=== PATIENT | female | born 1970 | race Caucasian/White ===

== ENCOUNTER 2021-09-25 17:56 | Emergency (ER) | payer MEDICAID, SELFPAY ==
[2021-09-25 17:56] VITALS: BP 166/93; PULSE 65; RESP 16; TEMP 36.3; O2SAT 100; BMI 47.0
--- NOTE | 2021-09-25 18:53 | EX.ED.DYSGE1 ---
HPI History of Present Illness Chief Complaint: Nausea/Vomiting/Diarrhea Detail of Chief Complaint: Vomiting and diarrhea that started earlier today Informant: patient Narrative Narrative: Patient presents to the emergency department complaint of vomiting and diarrhea that started earlier today. Patient states that she has had continuous vomiting and diarrhea both. She denies any blood in her stool or vomitus. She denies fever. She denies sick contacts. She denies any significant abdominal pain. She denies urinary symptoms. Prior similar symptoms: No PFSH PFSH Medical History (Updated 09/25/21 @ 21:[address] Precious Hart, DO) Arthritis Fibromyalgia Lupus Home Medications ondansetron 4 mg PO Q8H PRN PRN #10 tab 09/25/21 [Rx Last Taken Unknown] Allergy/AdvReac Type Severity Reaction Status Date / Time Penicillins Allergy Hives Verified 09/25/21 17:59 Social History Smoking Status: Never smoker ROS ROS ED Constitutional Constitutional ED: Reports systems reviewed and no addt'l complaints, except as documented; Denies body ache(s), change in weight or chills Eyes Eyes: Denies acute decrease in peripheral vision, change in vision, double vision or loss of vision ENT ENT ED: Reports none; Denies ear pain, lip swelling, loss taste/smell, neck pain, otalgia or sore throat Cardiovascular Cardiovascular: Reports none; Denies abdominal pain, chest pain with activity, leg edema, lightheadedness, palpitations, rapid heart rate or syncope Respiratory/Chest Respiratory/Chest: Reports none; Denies change in mental status, dry cough, dyspnea, hemoptysis, shortness of breath at rest or shortness of breath with exertion Gastrointestinal Gastrointestinal: Reports none, diarrhea, nausea and vomiting; Denies abdominal pain, change in stool character, hematemesis, hematochezia, melena or rectal bleeding Genitourinary Genitourinary ED: Reports none; Denies abdominal discomfort, anuria, dysuria, genital pain or polyuria Musculoskeletal Musculoskeletal: Reports none; Denies arthralgias, back pain, difficulty walking, extremity pain, muscle weakness or myalgias Integumentary Reports none; Denies abscess or rash Neurologic Neurologic: Reports none; Denies abnormal gait, confusion, focal weakness, frequent falls, headache(s), loss of vision, numbness, paresthesias, radicular pain, vertigo or weakness Psychiatric Psychiatric: Reports systems reviewed and no addt'l complaints, except as documented and none; Denies behavioral changes, confusion, difficulty concentrating, hallucinations, suicidal ideation, tactile hallucinations or visual hallucinations Endocrine Endocrinology: Denies none, cold intolerance, excessive sweating, fatigue or heat intolerance Hematologic/Lymphatic Hematologic/Lymphatic: Reports none; Denies anemia, easy bleeding or easy bruising Allergic/Immunologic Allergic/Immunologic ED: Denies as per HPI, none, lip swelling, mouth swelling, throat swelling, tongue swelling or hives EXAM Physical Exam Const Vital Signs: 09/25/21 17:56 Temperature 97.4 F L Temperature Source Temporal Pulse Rate 65 Respiratory Rate 16 Blood Pressure 166/93 H Blood Pressure Mean 117 Pulse Ox 100 Oxygen Delivery Method Room Air Positive well nourished and well developed General Appearance ED: well developed and NAD HEENT Reports TM's clear and moist mucous membranes normocephalic and atraumatic; Negative for trauma or tenderness Tympanic Membrane ED: Yes TM's clear Eyes PERRL and EOMs intact bilaterally General Eye ED: Negative for pale conjunctiva or scleral icterus Neck no lymphadenopathy, supple and no JVD General: Negative for tenderness Chest Wall inspection of chest normal and palpation of chest normal Chest: Negative for tenderness Resp normal respiratory effort and clear to auscultation bilaterally Effort and Inspection: Negative for respiratory distress or pain with movement Auscultation: Negative for rhonchi, wheezes or diminished lung sounds Cardio regular rate, regular rhythm, S1 normal heart sound, S2 normal heart sound and no murmurs Peripheral Pulses: pulses 2+ throughout GI normal to inspection, nondistended, normoactive bowel sounds, soft to palpation, non-tender, non-distended and no masses Back/Spine no CVA tenderness and no thoracic nor lumbar tenderness Extremity normal to inspection General Extremety ED: Negative for edema General Extremity: Negative for edema Neuro oriented x3, CN's II-XII intact bilaterally, no sensory deficits noted and gait normal Sensorium / Orientation: awake, alert, oriented to person, oriented to place and oriented to time Motor Exam: strength 5/5 throughout and strength abnormal Psych mental status grossly normal Skin no rashes or lesions noted and no wounds MDM MDM MDM Narrative Medical decision making narrative: IV line established on arrival. Patient was given Zofran IV and a liter mostly of fluid bolus. Patient continued complaint of nausea and was given a second dose of Zofran 4 mg IV. Lab work-up was normal. Urinalysis unremarkable. After treatment patient was feeling improved. At this point I suspect a viral gastroenteritis. Patient will be given a prescription for Zofran and she will take Imodium as needed at home. Patient advised to return if severe abdominal pain persistent vomiting diarrhea dehydration, or condition worsen anyway. Lab Data Attestation: I reviewed the patient's lab results. Labs: Laboratory Results - last 24 hr 09/25/21 09/25/21 09/25/21 19:00 19:00 19:13 WBC 6.5 RBC 4.34 Hgb 13.4 Hct 41.0 MCV 94.5 MCH 30.9 MCHC 32.7 RDW Std Deviation 46.1 H RDW Coeff of Gris 13.2 Plt Count 210 MPV 10.0 Immature Gran % (Auto) 0.500 Neut % (Auto) 79.3 H Lymph % (Auto) 14.5 L [place] % (Auto) 4.7 Eos % (Auto) 0.2 Baso % (Auto) 0.8 Absolute Neuts (auto) 5.2 Absolute Lymphs (auto) 0.95 Nucleated RBC % 0 Sodium 142 Potassium 3.8 Chloride 110 H Carbon Dioxide 27.0 Anion Gap 5 BUN 13 Creatinine 0.90 Estim Creat Clear Calc 71.11 Est GFR (MDRD) Af Amer 84 Est GFR (MDRD) Non-Af 70 BUN/Creatinine Ratio 14.4 Glucose 123 H Calcium 9.4 Urine Color Yellow Urine Clarity Cloudy Urine pH 6.0 Ur Specific [place] 1.025 Urine Protein 30 H Urine Glucose (UA) Normal Urine Ketones 50 H Urine Occult Blood 10 H Urine Nitrite Negative Urine Bilirubin Negative Urine Urobilinogen 1 H Ur Leukocyte Esterase 25 H Urine RBC 0-5 SEEN Urine WBC 0-5 SEEN Ur Squamous Epith Cells 0-5 SEEN Urine Bacteria 0 SEEN Urine Mucus 0 SEEN Discharge Plan Triage Chief Complaint: Nausea/Vomiting/Diarrhea ED Provider: Precious Hart Dx/Rx/DC Orders Clinical Impression: Viral gastroenteritis Instructions: ED Gastroenteritis, Viral (Adult) Prescriptions: New ondansetron [ondansetron] 4 MG tablet 4 mg PO Q8H PRN PRN (Reason: Nausea) Qty: 10 RF: 0 Primary Care Provider: Care Physician,No Primary Referrals: Alexi Davies MD [STAFF PHYSICIAN] - 3-5 Days Care Physician,No Primary [Primary Care Provider] - Disposition Disposition: Home, Self Care
[2021-09-25] MEDS: Loperamide 2 MG Capsule 4 MG PO (19:02)
[2021-09-25] MEDS: Ondansetron 4 MG/2 ML Vial IV ×2 (19:02→20:15)
[2021-09-25] MEDS: 0.9% Normal Saline 1,000 ML 1000 ML IV (19:02)
[2021-09-25 19:12] LABS: Absolute Lymphocyte Count 0.95 X10^3/uL (0.83-4.51); Absolute Neutrophil Count 5.2 X10^3/uL (2.0-7.7); Basophil# 0.05 X10^3/uL; Basophil% 0.8 % (0-1); Eosinophil# 0.01 X10^3/uL; Eosinophils% 0.2 % (0-5); Hemoglobin 13.4 g/dL (12.0-15.0); Lymphocyte # 0.95 X10^3/ul (0.83-4.51); Lymphocyte % 14.5 % (19-41); Mean Corp Hgb Conc 32.7 g/dL (32-36); Mean Corpuscular Hgb 30.9 pg (27.0-32.0); Mean Corpuscular Volume 94.5 fL (81-99); Monocyte# 0.31 X10^3/uL; Monocyte% 4.7 % (0-10); NRBC Flagged by Analyzer 0 % (0-5); Neutrophil # 5.18 X10^3/uL (2.7-7.7); Neutrophil % 79.3 % (47-70); Platelet Count 210 K/mm3 (150-450); RBC Distribution Width CV 13.2 % (11.6-14.6); RBC Distribution Width SD 46.1 fl (35.1-43.9); Red Blood Count 4.34 M/mm3 (4.2-5.4); White Blood Count 6.5 K/mm3 (4.4-11.0)
[2021-09-25 19:19] LABS: Bacteria 0 SEEN /hpf (None Seen); Mucous, Urine 0 SEEN /hpf (<or=2+)
[2021-09-25 19:22] LABS: Color, Urine Yellow (Yellow); Glucose, Dipstick Normal (Normal); Ketone-Dipstick 50 mg/dl (Negative); Leukocyte Esterase-Dipstick 25 /ul (Negative); Nitrite-Dipstick Negative (Negative); Occult Blood-Urine 10 /ul (Negative); Protein-Dipstick 30 mg/dl (Negative); Specific Gravity, Urine 1.025 (1.002-1.030); Urine Bilirubin Dipstick Negative (Negative); Urine Clarity Cloudy (Clear); Urine Urobilinogen 1 mg/dl (Normal)
[2021-09-25 19:33] LABS: Squamous Epithelial Cells - UA 0-5 SEEN /hpf (5-10)
[2021-09-25 19:34] LABS: Anion Gap 5 (5-15); BUN 13 mg/dL (7-18); BUN/Creat Ratio 14.4 RATIO (10-20); Calcium,Total 9.4 mg/dL (8.5-10.1); Chloride 110 mmol/L (98-107); EST Glomerular Filtration Rate 70 mL/min (>60); Est Glom Filt Rate - Afr Amer 84 mL/min (>60); Estimated Creatinine Clearance 71.11 ml/min; Glucose 123 mg/dL (74-106); Potassium 3.8 mmol/L (3.5-5.1); Sodium Level 142 mmol/L (136-145)
[2021-09-25 19:34] LABS: Red Blood Cells-Urine 0-5 SEEN /hpf (0-5)
[2021-09-25 19:37] LABS: White Blood Cells 0-5 SEEN /hpf (0-5)
[2021-09-25 21:25] VITALS: RESP 17
== END 2021-09-25 21:26 | disposition home or self-care (01) ==
PROVIDERS: Emergency Provider Emergency Medicine; Visit Provider Emergency Medicine
DX: A08.4 Viral intestinal infection, unspecified (principal); M32.9 Systemic lupus erythematosus, unspecified; M79.7 Fibromyalgia
CPT/HCPCS: 80048; 81001; 85025; 96361; 96374; 96376; 99283; J7030; J2405

== ENCOUNTER 2025-04-10 07:02 | Emergency (ER) | payer MEDICARE, SELFPAY ==
[2025-04-10] VITALS (11 sets, daily range): BP systolic 130–137; BP diastolic 78–91; PULSE 84–99; RESP 15–18; TEMP 36.6; O2SAT 98–100; BMI 44.6
--- OUTSIDE RECORDS SUMMARY | 2025-04-10 07:19 | XMS RPT_ITS | CCD ---
Author Organization [facility] Care Team Providers Care Automotive Service Writer Name Role Phone TAMIR MCNEILL Unavailable Unavailable Dhruv Ramon MD, Judy Camarena Primary Care Provider [phone] Telma Brown MD Primary Care Provider Mekhi Shannon Primary Care Provider Mekhi Shannon Primary Care Provider Judy Dominguez Unavailable Unavailable O'DayPam Unavailable O'Norma, Dr. Pam Orozco Attending Unavail able Dr. Judy Dominguez Primary Care Unavail able PROVIDER, UNKNOWN Admitting Unavailable PROVIDER, UNKNOWN Attending Unavailable MEKHI SHANNON Referring Unavailable JUDY CRAIG Primary Care Unavailable Mekhi Shannon Primary Care Provider [phone] Mekhi Shannon Primary Care Provider Gasper Wilson MD Primary Care Provider Podlogar BROADCAST CHECKER.Christy HILLIARD Unavailable [place] BROADCAST CHECKER.Malu HILLIARD Unavailable Podlogar BROADCAST CHECKER.Christy HILLIARD Unavailable [place] BROADCAST CHECKER.Malu HILLIARD Unavailable [place] BROADCAST CHECKER.Malu HILLIARD Unavailable [place] BROADCAST CHECKER.Malu HILLIARD Unavailable GASPER WILSON Primary Care Unavailab le DANIELLALOGPRAMOD, CHRISTY Referring Unavailable EM BUSTAMANTE Attending Unavailable GASPER WILSON Primary Care Unavailab le EM BUSTAMANTE Referring Unavailable GASPER WILSON Primary Care Unavailab le GASPER WILSON Primary Care Unavailab le DINARY, BUTHAYNA Referring Unavailable PODLOGAR, CHRISTY Referring Unavailable GASPER WILSON Primary Care Unavailab le DINARY, BUTHAYNA Referring Unavailable GASPER WILSON Primary Care Unavailab le GASPER WILSON Primary Care Unavailab le GASPER WILSON Primary Care Unavailab le PODLOGAR, CHRISTY Attending Unavailable GASPER WILSON Primary Care Unavailab le KIRUPAHARAN, PRADHAB Attending Unavailable DAVID, JUDY Primary Care Unavailable DAVID, JUDY Primary Care Unavailable DAVIDJUDY FLORES Primary Care Unavailable MEKHI SHANNON MD Attending Unavailable MEKHI SHANNON MD Referring Unavailable Allergies Allergy Classification Reported Allergen(s) Allergy Type Date of Onset Reaction(s) Facility (20 sources) Penicillins; Translations: [PENICILLINS] Propensity to adverse reactions to drug (disorder) 8 Hives [facility] Rep[facility] (20 sources) Sulfonamides (Antibiotic); Translations: [SULFA (SULFONAMIDE ANTIBIOTICS)] Propensity to adverse reactions to drug (disorder) 8 Unknown [facility] Repository (1 source) Penicillin Drug Allergy Unknown [facility] Medications Current Medications Medication Drug Class(es) Dates Sig (Normalized) Sig (Original) acetaminophen 325 mg oral tablet (20 sources) Start: 05-25-2016 take 2 tablets by mouth every six hours as needed acetaminophen (TYLENOL) 325 mg tablet Take 2 tablets by mouth every 6 hours as needed. 0 05/25/2016 Active Comment on above: Take 2 tablets by mo [facility] every 6 hours as needed. [id number] 200 actuat albuterol 0.09 mg/actuat metered dose inhaler (20 sources) beta2-Adrenergic Agonist Start: 08-26-2024 take 2 puff(s) by inhalation every four hours as needed for wheezing albuterol HFA (PROVENTIL HFA, VENTOLIN HFA) 90 mcg/actuation inhaler Inhale 2 puffs as instructed every 4 hours as needed for wheezing/shortness of breath. 1 each 08/26/2024 Active Start: 03-02-2021 take 2 puff(s) by in halation every six hours as needed albuterol HFA (PROAIR HFA) 90 mcg/actuation inhaler Inhale 2 Puffs as instructed every 6 hours as needed. 18 g 03/02/2021 Active take 2 puff(s) by in halation every four hours as needed Albuterol (Eqv-Proventil HFA) 90 mcg/inh inhalation aerosol ; 2 puff(s) inhaled every 4 hours, As Needed Quantity: 0 Refills: 0 Ordered: 23-Jul-2020 Gasper Booker Generic Substitution Allowed Comment on above: Inhale 2 Puffs as in structed every 6 hours as needed. amphetamine aspartate 7.5 mg / amphetamine sulfate 7.5 mg / dextroamphetamine saccharate 7.5 mg / dextroamphetamine sulfate 7.5 mg oral tablet (15 sources) Central Nervous System Stimulant Start: take 1 capsule by mouth once Amphetamine-Dex troamphetamine (ADDERALL) 30 mg tablet Take 1 capsule by mouth every afternoon. 09/27/2023 Active Start: 09-27-2023 take 1 capsule by mo ut once amphetamine-dextroamphetamine XR (ADDERA LL XR) 5 mg capsule Take 1 capsule by mouth every afternoon. 09/27/2023 Active apixaban 5 mg oral tablet (20 sources) Factor Xa Inhibitor Start: 11-24-2021 End: 11-24-2021 take 1 tablet by mouth twice daily apixaban (ELIQUIS) 5 mg tab(s) Take 1 tablet by mouth twice daily. 60 tablet 11 11/24/2021 Active Comment on above: Take 5 mg by mouth t wice daily. Take 1 tablet by josef th twice daily. ARIPiprazole 10 mg oral tablet (20 sources) Atypical Antipsychotic take 1 tablet by mouth once daily ARIPiprazole (ABILIFY) 10 mg tablet Take 10 mg by mouth once daily. Active Comment on above: Take 10 mg by mouth once daily. baclofen 10 mg oral tablet (20 sources) gamma-Aminobutyric Acid-ergic Agonist Start: 11-05-2021 End: 10-05-2024 take 1 tablet by mouth once daily baclofen 10 mg tablet Take 1 tablet by mouth once daily. 30 tablet 2 07/07/2024 10/05/2024 Active Comment on above: TAKE 1 TABLET BY JOSEF TH EVERY DAY FOR 90 DAYS benztropine mesylate 1 mg oral tablet (20 sources) Anticholinergic, Antihistamine Start: 07-07-2024 take 2 tablets by mouth once daily benztropine (COGENTIN) 1 mg tablet Take 2 tablets by mouth once daily. 07/07/2024 Active Start: 10-28-2021 End: 07-07-2024 take 0.5-1 mg by mouth every twelve hours as needed benztropine (COGENTIN) 1 mg tablet Take 0.5-1 mg by mouth twice daily as needed. 10/28/2021 07/07/2024 Discontinued Comment on above: Take 0.5-1 mg by josef th twice daily as needed. BUDESONIDE/FORMOTEROL FUMARATE (SYMBICORT INHALATION) (20 sources) BUDESONIDE/FORMO TEROL FUMARATE (SYMBICORT INHALATION) Inhale as instructed. Active BUDESONIDE/FORMO TEROL FUMARATE (SYMBICORT INHALATION) Inhale as instructed. 0 Active Comment on above: Inhale as instructed . cholecalciferol 1.25 mg oral capsule (1 source) Vitamin D take 1 capsule by mouth every week Vitamin D3 50,000 intl units (1250 mcg) oral capsule ; 1 cap(s) orally once a week on mondays Quantity: 0 Refills: 0 Ordered: 23-Jul-2020 Gasper Booker Generic Substitution Allowed CHOLECALCIFEROL, VITAMIN D3, (VITAMIN D-3 ORAL) (20 sources) take 36270 [IU] by mouth once CHOLECALCIFEROL, VITAMIN D3, (VITAMIN D-3 ORAL) Take 50,000 Units by mouth every Sunday. Active take 72547 [IU] by mouth once CH OLECALCIFEROL, VITAMIN D3, (VITAMIN D-3 ORAL) Take 50,000 Units by mouth every Sunday. 0 Active Comment on above: Take 50,000 Units by mouth every Sunday. ciprofloxacin 500 mg oral tablet (2 sources) Quinolone Antimicrobial Start: 01-09-20 End: 01-14-20 take 1 tablet by mouth twice daily ciprofloxacin HCl (CIPRO) 500 mg tablet Take 1 tablet by mouth two times a day for 5 days. 10 tablet 01/08/2025 01/13/2025 Active Start: 08-22-2023 End: 08-27-2023 take 1 tablet by mouth twice daily ciprofloxacin HCl (CIPRO) 500 mg tablet Take 1 tablet by mouth two times a day for 5 days. 10 tablet 0 08/22/2023 08/27/2023 Active Comment on above: Take 1 tablet by josef two times a day for 5 days. doxycycline hyclate 100 mg oral capsule (1 source) Tetracycline-class Drug Start: 08-27-19 End: 09-06-19 take 1 capsule by mouth twice daily doxycycline hyclate (VIBRAMYCIN) 100 mg capsule Take 1 capsule by mouth two times a day for 10 days. 20 capsule 08/26/2024 09/05/2024 Active DULoxetine 30 mg delayed release oral capsule (20 sources) Serotonin and Norepinephrine Reuptake Inhibitor Start: 07-08-19 take 2 capsules by mouth once daily DULoxetine (CYMBALTA) 30 mg capsule Take 2 capsules by mouth once daily. 07/07/2024 Active Start: 12-18-2023 End: 07-07-2024 take 1 capsule by mouth once daily DULoxetine (CYMBALTA) 30 mg capsule Take 1 capsule by mouth once daily. 90 capsule 3 12/18/2023 07/07/2024 Discontinued Start: 10-21-2020 End: 12-18-2023 take 2 capsules by mouth once daily DULoxetine (CYMBALTA) 60 mg capsule Take 2 capsules by mouth once daily. 60 mg in am, 30 mg at night per pt 90 capsule 3 10/21/2020 12/18/2023 Discontinued take 1 capsule by mo [facility] twice daily DULoxetine 60 mg oral delayed release capsule ; 1 cap(s) orally 2 times a day Quantity: 0 Refills: 0 Ordered: 23-Jul-2020 Gasper Booker Generic Substitution Allowed Comment on above: Take 2 capsules by m outh once daily. 60 mg in am, 30 mg at night per pt famotidine 40 mg oral tablet (20 sources) Histamine-2 Receptor Antagonist Start: 01-24-2022 take 1 tablet by mouth twice daily famotidine (PEPCID) 40 mg tablet Take 1 tablet by mouth twice daily. 180 tablet 3 01/24/2022 Active Start: 04-21-2020 take 1 tablet by josef th once daily at bedtime famotidine (PEPCID) 40 mg tablet TAKE 1 TABLET BY MOUTH EVERYDAY AT BEDTIME 0 04/21/2020 Active Comment on above: TAKE 1 TABLET BY JOSEF TH EVERYDAY AT BEDTIME Take 1 tablet by josef th twice daily. hydroCHLOROthiazide 25 mg / spironolactone 25 mg oral tablet (1 source) Thiazide Diuretic, Aldosterone Antagonist take 1 tablet by mouth once daily spironolactone-hydrochl orothiazide 25 mg-25 mg oral tablet ; 1 tab(s) orally once a day Quantity: 0 Refills: 0 Ordered: 23-Jul-2020 Gasper Booker Generic Substitution Allowed hydroxychloroquine sulfate 200 mg oral tablet (20 sources) Antimalarial, Antirheumatic Agent take 1 tablet by mouth twice daily hydroxychloroquine (PLAQUENIL) 200 mg tablet Take 200 mg by mouth twice daily. Active Comment on above: Take 200 mg by mouth twice daily. iv contrast (will be provided with radiology test) (1 source) Start: 2024 End: 2024 iv contrast (will be provided with radiology test) Indications: Nodule of left lung CT Chest W -Inject, intravenously, once for 1 dose.No IV access, insert saline lock prior to the beginning of sedation, infusion, injection of imaging exam. Discontinue saline lock post exam. If Pt. has a central line or IVAD, may access for administration according to line specific nursing protocol. Once exam is complete flush line and de-access according to line specific nursing protocol in the CT contrast administration guidelines link. 1 Each 07/07/2024 07/08/2024 Active lamoTRIgine 200 mg oral tablet (20 sources) Mood Stabilizer, Anti-epileptic Agent Start: 2013 take 1 tablet by mouth twice daily lamoTRIgine (LAMICTAL) 200 mg tablet Take 200 mg by mouth two times a day. 08/01/2013 Active Start: 08-01-2013 take 2 tablets by mo uth twice daily lamoTRIgine (LAMICTAL) 100 mg tablet Take 200 mg by mouth twice daily. 08/01/2013 Active Comment on above: Take 200 mg by mouth twice daily. LORazepam 0.5 mg oral tablet (1 source) Benzodiazepine Start: 07-08-19 End: 07-15-19 take 1 tablet by mouth once daily as needed LORazepam (ATIVAN) 0.5 mg Take 1 tablet by mouth once daily as needed for up to 7 days. 07/07/2024 07/14/2024 Active 24 hr metoprolol succinate 25 mg extended release oral tablet (14 sources) beta-Adrenergic Fabrice Start: 03-14-20 take 1 tablet by mouth once daily metoprolol succinate ER (TOPROL XL) 25 mg 24 hr tablet TAKE 1 TABLET BY MOUTH EVERY DAY 90 tablet 3 03/14/2024 Active montelukast 10 mg oral tablet (20 sources) Leukotriene Receptor Antagonist Start: 06-28-19 take 1 tablet by mouth once daily at bedtime montelukast (SINGULAIR) 10 mg tablet Take 1 tablet by mouth daily at bedtime. 30 tablet 2 06/28/2019 Active Comment on above: Take 1 tablet by [facility] daily at bedtime. mycophenolate mofetil 250 mg oral capsule (20 sources) Start: 05-22-19 End: 01-09-20 take 1 capsule by mouth twice daily mycophenolate mofetil (CELLCEPT) 250 mg capsule Take 1 capsule by mouth two times a day. 180 capsule 3 01/08/2025 Active Start: 06-23-2021 End: 07-17-2022 take 1 capsule by mouth twice daily mycophenolate mofetil (CELLCEPT) 250 mg capsule TAKE 1 CAPSULE BY MOUTH TWICE A DAY 180 capsule 1 07/17/2022 Active Comment on above: Take 1 capsule by [facility] twice daily. TAKE 1 CAPSULE BY [facility] TWICE A DAY Take 1 capsule by [facility] two times a day. ondansetron 4 mg disintegrating oral tablet (20 sources) Serotonin-3 Receptor Antagonist Start: 09-28-19 take 1 tablet by mouth every six hours as needed ondansetron orally disintegrating (ZOFRAN ODT) 4 mg disintegrating tablet Take 1 tablet by mouth every 6 hours as needed. 20 tablet 09/27/2021 Active Start: 09-25-2021 take 4 mg by mouth e very eight hours as needed Ondansetron Active 4 MG PO EVERY 8 HOURS NEEDED September 25, 2021 9:19pm Start: 11-14-2016 End: 07-07-2024 take 1 tablet by mouth every six hours as needed ondansetron (ZOFRAN) 4 mg tablet Take 1 tablet by mouth every 6 hours as needed. 30 tablet 11/14/2016 07/07/2024 Discontinued (Duplicate Entry) Comment on above: Take 1 tablet by josef th every 6 hours as needed. 24 hr oxybutynin chloride 15 mg extended release oral tablet (20 sources) Cholinergic Muscarinic Antagonist Start: End: take 1 tablet by mouth every hour oxybutynin ER (DITROPAN XL) 15 mg 24 hr Extended Rel Tab Indications: Mixed incontinence urge and stress (male)(female) TAKE 1 TABLET BY MOUTH EVERY DAY EVERY AFTERNOON 90 tablet 2 10/30/2024 Active Start: 08-02-2021 End: 02-18-2024 take 1 tablet by mouth once daily oxybutynin ER (DITROPAN XL) 15 mg 24 hr Extended Rel Tab take 1 tablet by mouth every day for 90 days 90 tablet 2 11/20/2023 12/16/2023 Discontinued Comment on above: TAKE 1 TABLET BY JOSEF TH EVERY DAY FOR 90 DAYS Take 1 tablet by josef once daily. TAKE 1 TABLET BY JOSEF TH EVERY DAY predniSONE 10 mg oral tablet (11 sources) Start: 08-26-2024 End: 09-04-2024 predniSONE (DELTASONE) 10 mg tablet Indications: Asthma with COPD with exacerbation (HCC) Take 4 tabs daily for 3 days, then 2 tabs daily for 3 days, then 1 tab daily for 3 days with food. 21 tablet 08/26/2024 09/04/2024 Active Start: 06-21-2020 take 1 tablet by josef th once daily predniSONE (DELTASONE) 5 mg tablet Take 5 mg by mouth once daily. 0 06/21/2020 Active Start: 06-21-2020 take 2 tablets by mo [facility] once daily predniSONE (DELTASONE) 5 mg tablet Take 10 mg by mouth once daily. 0 06/21/2020 Active Comment on above: Take 10 mg by mouth once daily. Take 5 mg by mouth o nce daily. semaglutide (OZEMPIC) 0.25 mg or 0.5 mg (2 mg/3 mL) pen (12 sources) Start: 025 inject 0.5 mg by subcutaneous injection every week semaglutide (OZEMPIC) 0.25 mg or 0.5 mg (2 mg/3 mL) pen Indications: 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, unspecified SLE type (HCC) , CKD stage G3a/A1, GFR 45-59 and albumin creatinine ratio , Persistent proteinuria Inject 0.5 mg subcutaneously one time a week. 3 mL 3 06/19/2024 Active spironolactone 50 mg oral tablet (20 sources) Aldosterone Antagonist Start: 024 End: 025 take 1 tablet by mouth once daily spironolactone (ALDACTONE) 50 mg tablet TAKE 1 TABLET BY MOUTH EVERY DAY 90 tablet 2 06/18/2024 Active Start: 10-21-2020 End: 07-27-2021 take 1.5 tablets by mouth once daily spironolactone (ALDACTONE) 25 mg tablet TAKE 1.5 TABLETS BY MOUTH ONCE DAILY. 135 tablet 3 07/27/2021 Active Comment on above: TAKE 1.5 TABLETS BY MOUTH ONCE DAILY. Take 1.5 tablets by mouth once daily. Take 1 and 1/2 tablet once daily. Take 1 tablet by josef th once daily. traMADol hydrochloride 50 mg oral tablet (20 sources) Opioid Agonist take 1 tablet by mouth every twelve hours as needed traMADol (ULTRAM) 50 mg tablet Take 50 mg by mouth every 12 hours as needed. Active take 1 tablet by josef th every six hours as needed traMADol 50 mg oral tablet ; 1 tab(s) or ally every 6 hours, As Needed Quantity: 0 Refills: 0 Ordered: 23-Jul-2020 Gasper Booker Generic Substitution Allowed Comment on above: Take 50 mg by mouth every 12 hours as needed. Completed/Discontinued Medications Medication Drug Class(es) Dates Sig (Normalized) Sig (Original) amLODIPine 5 mg oral tablet (19 sources) Dihydropyridine Calcium Channel Fabrice Start: 03-30-2009 End: 01-08-2025 amLODIPine (NORVASC) 5 mg tablet Take by mouth. 03/30/2009 01/08/2025 Discontinued Comment on above: Take by mouth. atorvastatin 20 mg oral tablet (20 sources) HMG-CoA Reductase Inhibitor Start: 07-24-2020 take 1 tablet by mouth once daily at bedtime atorvastatin 20 mg oral tablet ; 1 tab(s) orally once a day (at bedtime) Quantity: 30 Refills: 0 Ordered: 24-Jul-2020 Lazaro Daniels Start: 24-Jul-2020 Generic Substitution Allowed Comments: Avoid grapefruit and grapefruit juice while taking this medication.Do not take this drug if you are .It is very important that you take or use this exactly as directed. Do not skip doses or discontinue unless directed by your doctor.Obtain medical advice before taking any non-prescription drugs as some may affect the action of this medication.Take with food or milk. Comment on above: Take 20 mg by mouth once daily. Avoid grapefruit and grapefruit juice while taking this medication.Do not take this drug if you are .It is very important that you take or use this exactly as directed. Do not skip doses or discontinue unless directed by your doctor.Obtain medical advice before taking any non-prescription drugs as some may affect the action of this medication.Take with food or milk. benzonatate 100 mg oral capsule (3 sources) Non-narcotic Antitussive Start: 03-02-2021 End: 11-24-2021 take 1 capsule by mouth every eight hours as needed benzonatate (TESSALON PERLES) 100 mg capsule Take 1 capsule by mouth three times daily as needed for cough. 20 capsule 0 03/02/2021 11/24/2021 Discontinued Comment on above: Take 1 capsule by [facility] three times daily as needed for cough. ergocalciferol 1.25 mg oral capsule (20 sources) Provitamin D2 Compound Start: 11-09-2021 End: 01-08-2025 take 1 tablet by mouth every week ergocalciferol 50,000 unit capsule (VITAMIN D2, DRISDOL) 1 TABLET ORALLY ONCE A WEEK 30 DAYS 11/09/2021 01/08/2025 Discontinued Comment on above: 1 TABLET ORALLY ONCE A WEEK 30 DAYS 30 actuat fluticasone furoate 0.2 mg/actuat / vilanterol 0.025 mg/actuat dry powder inhaler (20 sources) Corticosteroid, beta2-Adrenergic Agonist Start: 01-24-2022 End: 07-07-2024 take 1 dose by inhalation once daily BREO ELLIPTA 200-25 mcg/dose inhaler Indications: Chronic obstructive pulmonary disease, unspecified COPD type (HCC) Inhale 1 Inhalation as instructed once daily. 3 Each 3 01/24/2022 07/07/2024 Discontinued (Course of therapy completed) Start: 06-07-2020 take 1 puff(s) by in halation once daily BREO ELLIPTA 200-25 mcg/dose inhaler INHALE 1 PUFF ONCE A DAY 0 06/07/2020 Active take 1 puff(s) by in halation once daily Breo Ellipta 100 mcg-25 mcg/inh inhalation powder ; 1 puff(s) inhaled once a day Quantity: 0 Refills: 0 Ordered: 23-Jul-2020 Jhony Jairosepideh Generic Substitution Allowed Comment on above: INHALE 1 PUFF ONCE A DAY Inhale 1 Inhalation as instructed once daily. Inhalational Spacing Device (1 source) Start: End: Inhalational Spacing Device 1 device one time only for 1 dose. 1 each 08/26/2024 08/26/2024 metoclopramide 5 mg oral tablet (19 sources) Dopamine-2 Receptor Antagonist Start: 017 End: take 1 tablet by mouth three times daily before mealtime metoclopramide HCl (REGLAN) 5 mg tablet Take 1 tablet by mouth three times daily before meals. 90 tablet 1 05/25/2016 07/07/2024 Discontinued (Course of therapy completed) Comment on above: Take 1 tablet by josef th three times daily before meals. nebivolol 5 mg oral tablet (20 sources) Start: End: take 1 tablet by mouth once daily nebivolol (BYSTOLIC) 5 mg tablet Take 1 tablet by mouth once daily. 30 tablet 11 11/24/2021 07/07/2024 Discontinued (Course of therapy completed) Comment on above: TAKE 1 TABLET BY JOSEF TH EVERY DAY Take 1 tablet by josef th once daily. pantoprazole 40 mg delayed release oral tablet (4 sources) Proton Pump Inhibitor Start: take 1 tablet by mouth once daily pantoprazole DR (PROTONIX) 40 mg tablet Take 40 mg by mouth once daily. 0 04/27/2020 Active Comment on above: Take 40 mg by mouth once daily. phentermine hydrochloride 37.5 mg oral capsule (9 sources) Sympathomimetic Amine Anorectic End: take 1 capsule by mouth once daily before breakfast Phentermine HCl 37.5 mg capsule Take 37.5 mg by mouth daily before breakfast. 07/07/2024 Discontinued (Course of therapy completed) Comment on above: Take 37.5 mg by mout h daily before breakfast. sucralfate 1000 mg oral tablet (19 sources) Aluminum Complex Start: 017 End: take 1 tablet by mouth three times daily at mealtime sucralfate (CARAFATE) 1 gram tablet Take 1 tablet by mouth three times daily with meals. 90 tablet 05/25/2016 07/07/2024 Discontinued (Course of therapy completed) Comment on above: Take 1 tablet by josef th three times daily with meals. WALKER ROLLATOR SEAT WITH 6 WHEELS - RED (20 sources) Start: End: WALKER ROLLATOR SEAT WITH 6 WHEELS - RED Indications: Arthritis Walker with rolator 1 Each 1 05/12/2021 01/08/2025 Discontinued Start: 05-12-2021 WALKER ROLLATO R SEAT WITH 6 WHEELS - RED Indications: Arthritis Walker with rolator 1 Each 1 05/12/2021 Active Comment on above: Walker with rolator Problems Active Problems Problem Classification Problem Date Documented Date Episodic/Chronic Allergic reactions (1 source) Allergy status to penicillin; Translations: [Allergy status to penicillin] Onset: 3 Episodic Asthma (20 sources) Exacerbation of asthma; Translations: [Unspecified asthma with (acute) exacerbation] Onset: 0 06-28-2019 Chronic Chronic kidney disease (10 sources) Chronic kidney disease stage 3; Translations: [CKD stage G3a/A1, GFR 45-59 and albumin creatinine ratio <30 mg/g ([facility])] Onset: 3 Chronic Chronic kidney disease (2 sources) Chronic kidney disease; Translations: [Stage 3a chronic kidney disease (HCC)] Onset: 5 Chronic obstructive pulmonary disease and bronchiectasis (15 sources) Acute exacerbation of chronic obstructive airways disease with asthma; Translations: [Chronic obstructive pulmonary disease with (acute) exacerbation] Onset: 0 06-28-2019 Chronic Chronic ulcer of skin (1 source) Pressure ulcer of unspecified ankle, unspecified stage; Translations: [Controlled type 2 diabetes mellitus with pressure ulcer of ankle (HCC)] Onset: 5 Chronic Diabetes mellitus without complication (1 source) Type 2 diabetes mellitus without complications; Translations: [Controlled type 2 diabetes mellitus with pressure ulcer of ankle (HCC)] Onset: 5 Chronic Disorders of lipid metabolism (3 sources) Mixed hyperlipidemia; Translations: [Mixed hyperlipidemia] Onset: 5 07-07-2024 Chronic Esophageal disorders (20 sources) Gastroesophageal reflux disease; Translations: [Gastro-esophageal reflux disease without esophagitis] Onset: 7 11-12-2016 Chronic Essential hypertension (20 sources) Essential hypertension; Translations: [Essential (primary) hypertension] Onset: 0 06-28-2019 Chronic Genitourinary symptoms and ill-defined conditions (3 sources) Incontinence; Translations: [Mixed incontinence] Onset: 5 07-07-2024 Chronic Genitourinary symptoms and ill-defined conditions (6 sources) Proteinuria; Translations: [Other proteinuria] Onset: 5 Episodic Headache; including migraine (11 sources) Refractory migraine; Translations: [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, intractable] Onset: 5 07-07-2024 Chronic Hypertension with complications and secondary hypertension (4 sources) Hypertensive chronic kidney disease with stage 1 through stage 4 chronic kidney disease, or unspecified chronic kidney disease; Translations: [Hypertensive renal disease] Onset: 3 06-19-2024 Chronic Immunizations and screening for infectious disease (8 sources) Patient encounter status; Translations: [Encounter for immunization] Episodic Intestinal infection (1 source) Viral gastroenteritis; Translations: [Viral intestinal infection, unspecified] Episodic Nephritis; nephrosis; renal sclerosis (1 source) Nephrotic syndrome; Translations: [Nephrotic syndrome with unspecified morphologic changes] Chronic Nutritional deficiencies (5 sources) Vitamin D deficiency; Translations: [Vitamin D deficiency, unspecified] Onset: 5 Chronic Other aftercare (1 source) 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; Translations: [alf (current) use of anticoagulants] Onset: 3 Episodic Other aftercare (1 source) Other terminal press operator (current) drug therapy; Translations: [Other senior care (current) drug therapy] Onset: 3 Episodic Other circulatory disease (1 source) Inferior vena cava filter in situ; Translations: [Presence of other vascular implants and grafts] 12-17-2024 Chronic Other circulatory disease (1 source) Presence of other vascular implants and grafts; Translations: [Presence of IVC filter] Onset: 5 Chronic Other connective tissue disease (20 sources) Polymyalgia rheumatica; Translations: [Polymyalgia rheumatica] Onset: 2 11-25-2021 Chronic Other connective tissue disease (1 source) Pain in right foot; Translations: [Pain in right foot] 11-16-2022 Episodic Other endocrine disorders (1 source) Other hyperparathyroidism; Translations: [Other hyperparathyroidism (HCC)] Onset: 5 Chronic Other injuries and conditions due to external causes (2 sources) Injury of left knee; Translations: [Unspecified injury of left lower leg, initial encounter] 08-26-2024 Episodic Other lower respiratory disease (1 source) Shortness of breath; Translations: [Shortness of breath] Onset: 3 Episodic Other lower respiratory disease (1 source) Abnormal sputum; Translations: [Abnormal sputum] Onset: 3 Episodic Other lower respiratory disease (2 sources) Solitary pulmonary nodule; Translations: [Nodule of left lung] Onset: 5 Episodic Other lower respiratory disease (1 source) Solitary nodule of lung; Translations: [Solitary pulmonary nodule] 12-17-2024 Episodic Other nutritional; endocrine; and metabolic disorders (20 sources) Body mass index 40+ - severely obese; Translations: [Morbid (severe) obesity due to excess calories] Onset: 7 06-28-2019 Chronic Other nutritional; endocrine; and metabolic disorders (2 sources) Morbid (severe) obesity due to excess calories; Translations: [Morbid (severe) obesity due to excess calories] Onset: 3 Chronic Other nutritional; endocrine; and metabolic disorders (2 sources) Body mass index (BMI) 50.0-59.9, adult; Translations: [Body mass index (BMI) 50.0-59.9, adult] Onset: 3 Chronic Other nutritional; endocrine; and metabolic disorders (1 source) Severe obesity; Translations: [Class 3 severe obesity due to excess calories with body mass index (BMI) of 50.0 to 59.9 in adult, unspecified whether serious comorbidity present (HCC)] 07-07-2024 Chronic Other nutritional; endocrine; and metabolic disorders (4 sources) Hyperuricemia; Translations: [Hyperuricemia without signs of inflammatory arthritis and tophaceous disease] 01-16-2023 Episodic Other screening for suspected conditions (not mental disorders or infectious disease) (1 source) Cancer cervix screening status; Translations: [Encounter for screening for malignant neoplasm of cervix] Episodic Other upper respiratory infections (3 sources) Upper respiratory infection; Translations: [Acute upper respiratory infections of unspecified site] Onset: 3 08-07-2022 Episodic Residual codes; unclassified (4 sources) Edema of lower extremity; Translations: [Localized edema] Episodic Residual codes; unclassified (1 source) Acquired absence of other specified parts of digestive tract; Translations: [Acquired absence of other specified parts of digestive tract] Onset: 3 Episodic Residual codes; unclassified (1 source) Acquired absence of both cervix and uterus; Translations: [Acquired absence of both cervix and uterus] Onset: 3 Episodic Residual codes; unclassified (1 source) Other specified postprocedural states; Translations: [Other specified postprocedural states] Onset: 3 Episodic Rheumatoid arthritis and related disease (3 sources) Rheumatoid arthritis; Translations: [Rheumatoid arthritis, unspecified] Onset: 5 07-07-2024 Chronic Systemic lupus erythematosus and connective tissue disorders (20 sources) Lupus erythematosus; Translations: [Systemic lupus erythematosus, unspecified] Onset: 0 06-28-2019 Chronic Unclassified (2 sources) CONGESTION 08-07-2022 Comment on above: CONGESTION Unclassified (1 source) Cough, unspecified; Translations: [Cough, unspecified] Onset: 3 Unclassified (1 source) Class 3 severe obesity due to excess calories with body mass index (BMI) of 50.0 to 59.9 in adult, unspecified whether serious comorbidity present (HCC); Translations: [Class 3 severe obesity due to excess calories with body mass index (BMI) of 50.0 to 59.9 in adult, unspecified whether serious comorbidity present (HCC)] Onset: Urinary tract infections (2 sources) Acute cystitis; Translations: [Acute cystitis without hematuria] 08-22-2023 Episodic Past or Other Problems Problem Classification Problem Date Documented Da te Episodic/Chronic Abdominal pain (20 sources) Epigastric pain; Translations: [Epigastric pain] Onset: 11-12-2016 11-12-2016 Episodic Cardiac dysrhythmias (2 sources) Tachycardia; Translations: [Tachycardia, unspecified] Onset: 07-07-2024 12-18-2023 Episodic E Codes: Fall (2 sources) Fall; Translations: [Unspecified fall, initial encounter] Onset: 08-26-2024 08-26-2024 Episodic Nonspecific chest pain (20 sources) Chest pain; Translations: [Chest pain, unspecified] Onset: 05-24-2016 11-12-2016 Episodic Other aftercare (20 sources) Drug therapy finding; Translations: [alf (current) use of anticoagulants] Onset: 11-25-2021 11-25-2021 Episodic Other gastrointestinal disorders (20 sources) Ascites; Translations: [Other ascites] Onset: 11-04-2008 11-04-2008 Episodic Other injuries and conditions due to external causes (1 source) Unspecified injury of left lower leg, initial encounter; Translations: [Left knee injury, initial encounter] Onset: 08-26-2024 Episodic Other lower respiratory disease (14 sources) Nodule of lung; Translations: [Solitary pulmonary nodule] Onset: 07-07-2024 07-07-2024 Episodic Other lower respiratory disease (1 source) Other nonspecific abnormal finding of lung field; Translations: [Lung nodules] Onset: 07-07-2024 Episodic Other nutritional; endocrine; and metabolic disorders (1 source) Hyperuricemia without signs of inflammatory arthritis and tophaceous disease; Translations: [Hyperuricemia] Onset: 07-07-2024 Episodic Ovarian cyst (20 sources) Cyst of ovary; Translations: [Unspecified ovarian cyst, unspecified side] Onset: 11-04-2008 11-04-2008 Episodic Pleurisy; pneumothorax; pulmonary collapse (20 sources) Pleurisy; Translations: [Pleurisy] Onset: 05-24-2016 05-24-2016 Episodic Pulmonary heart disease (20 sources) H/O: pulmonary embolus; Translations: [Personal history of pulmonary embolism] Onset: 06-25-2019 06-28-2019 Episodic Residual codes; unclassified (1 source) Localized edema; Translations: [Edema of lower extremity] Onset: 07-07-2024 Episodic Screening and history of mental health and substance abuse codes (2 sources) H/O: manic depressive disorder; Translations: [Personal history of other mental and behavioral disorders] Onset: 07-07-2024 07-07-2024 Episodic Spondylosis; intervertebral disc disorders; other back problems (20 sources) Acute thoracic back pain; Translations: [Pain in thoracic spine] Onset: 05-24-2016 05-24-2016 Episodic Unclassified (1 source) Patient encounter status 07-08-2024 Unclassified (2 sources) Injury of left knee 08-26-2024 Results Test Name Value Interpretation Reference Range Facility [facility] 12-17-2024 CNOV Office Visit (PULMFV ) -------- MICHAEL BUSTOS ([id number]) 1970 F Date Time Provider Department 12/17/24 10:30 AM [facility] During your visit today, we recorded the following information about you: Pulse Blood pressure Weight Height 88/minute 111/70 127.9 kg 1.702 m Mercedes Aviles DO 12/17/2024 2:04 PM Addendum . History of Presenting Illness: Ms. Bustos is a 54 year old female who presents to the [facility] [place]. Michael Bustos is a 54-year-old female with a history of asthma, lupus, and prior pulmonary embolisms, presenting for evaluation of lung nodules identified on a recent CT scan. Michael reports that a recent CT scan, performed during an ED visit in July for an asthma exacerbation, revealed multiple lung nodules. She was initially aware of a single nodule but was informed that additional nodules have developed. She denies any current issues with breathing and states that her asthma is well-controlled with her current medication regimen, which includes generic Symbicort (one puff in the morning and one at night) and Singulair. She notes that her asthma symptoms primarily occur during illness or physical activity, but she has not experienced any exacerbations since the July hospitalization. She denies wheezing or cough and reports feeling generally well, with no recent shortness of breath during activities. Michael has a history of two pulmonary embolisms, the first occurring approximately 10 years ago following a hysterectomy, and the second occurring while she was sitting in an office. She has been on anticoagulation therapy since the first embolism, initially prescribed by Dr. Loyd and currently managed by her primary care physician, Dr. Sawyer. She also has an IVC filter placed during her initial hospitalization, which has been in place for approximately 15 years. She denies any issues with bleeding and has not undergone genetic testing for thrombophilia, though she reports a family history of blood clots, including a daughter with Factor V Leiden. Michael also has a history of lupus, managed by Dr. Blanton at , and is currently on hydroxychloroquine and mycophenolate. She reports no issues with pregnancies or miscarriages. Additionally, she was recently diagnosed with hyperthyroidism but is not currently on medication for this condition. Additional History: Past Medical History: PAST MEDICAL HISTORY Diagnosis Date Adhesive capsulitis of right shoulder Bipolar affective (HCC) Bursitis of right hip Chronic back pain Chronic obstructive pulmonary disease (COPD) (HCC) CKD (chronic kidney disease) stage 3, GFR 30-59 ml/min (HCC) Female stress incontinence Fibromyalgia GERD (gastroesophageal reflux disease) intolerant NSAIDS History of blood clots Hypertension Lumbar back pain with radiculopathy affecting right lower extremity Lupus SLE, positive TAN recurrent polyarthritis malar erythema with photosensitivity generalized fatigue treated with Plaquenil, annual ophthalmology exam. Lupus nephritis (HCC) Mixed connective tissue disease (HCC) Morbid obesity (HCC) NIX (nonalcoholic steatohepatitis) Confirmed by FibroScan, DR Jimbo Mcneill Nodule of left lung Osteoarthritis of left knee Osteoarthritis of right knee Polymyalgia rheumatica (HCC) Rheumatoid arthritis(714.0) Subacromial bursitis of right shoulder joint Urge incontinence Vitamin D deficiency Past Surgical History: PAST SURGICAL HISTORY Procedure Laterality Date HYSTERECTOMY HX IVC FILTER SURGICAL [facility] SALPINGO-OOPHORECTOMY COMPL/PRTL UNI/BI SPX 2009 left ovary TUBAL LIGATION, Work and Exposure Histories: SOCIAL HISTORY[1] Family History: FAMILY HISTORY Problem Relation Age of Onset COPD Mother Heart Father Rheumatologic disease Sister other (Raynaud's) Sister Allergies and Medications: Penicillins and Sulfa (Sulfonamide Antibiotics) Outpatient Medications: oxybutynin ER (DITROPAN XL) 15 mg 24 hr Extended Rel Tab TAKE 1 TABLET BY MOUTH EVERY DAY EVERY AFTERNOON albuterol HFA (PROVENTIL HFA, VENTOLIN HFA) 90 mcg/actuation inhaler Inhale 2 puffs as instructed every 4 hours as needed for wheezing/shortness of breath. DULoxetine (CYMBALTA) 30 mg capsule Take 2 capsules by mouth once daily. benztropine (COGENTIN) 1 mg tablet Take 2 tablets by mouth once daily. semaglutide (OZEMPIC) 0.25 mg or 0.5 mg (2 mg/3 mL) pen Inject 0.5 mg subcutaneously one time a week. (Patient taking differently: Inject 1.25 mg subcutaneously one time a week.) mycophenolate mofetil (CELLCEPT) 250 mg capsule Take 1 capsule by mouth two times a day. spironolactone (ALDACTONE) 50 mg tablet TAKE 1 TABLET BY MOUTH EVERY DAY metoprolol succinate ER (TOPROL XL) 25 mg 24 hr tablet TAKE 1 TABLET BY MOUTH EVERY DAY Amphetamine-Dextroamphet amine (more content not included)... Normal [facility] Prot/Creat Uron 12-01-2024 Protein/Creatinine (U) [Mass ratio] 0.08 mg/mg Normal <0.15 [facility] Comment on above: Order Comment: Speci men Type: URINE SPECIMEN Ordering Facility: [facility] Address: [address] [place] [address] Result Comment: Adul t Proteinuria Categories: <0.15 mg/mg is considered normal to mildly increased 0.15 - 0.50 mg/mg is considered moderately increased >0.50 mg/mg is considered severely increased KDIGO. (2013). KDIGO 2012 Clinical Practice Guideline for the Evaluation and Management of Chronic Kidney Disease. Official Journal of the International Society of Nephrology, 3(1), 1-150. Performed By: #### 2 890-2 #### [facility] CLIA [id number] [address] [place] [address] [place] Protein/Creatinine (U) [Mass ratio]on 12-01-2024 Creatinine (U) [Mass/Vol] 82.9 mg/dL Normal 20.0-300.0 [facility] Comment on above: Order Comment: Speci men Type: URINE SPECIMEN Ordering Facility: [facility] Address: [address] [place] [address] Performed By: #### 2 890-2 #### [facility] CLIA [id number] [address] [place] [address] [place] Protein (U) [Mass/Vol] 7 mg/dL Normal 0-20 [facility] Comment on above: Order Comment: Speci men Type: URINE SPECIMEN Ordering Facility: [facility] Address: [address] [place] [address] Performed By: #### 2 890-2 #### [facility] CLIA [id number] [address] [place] [address] [place] Urinalysis complete panel (U )on 12-01-2024 BACTERIA UL 1508.5 uL High Negative [facility] Comment on above: Order Comment: Speci men Type: URINE SPECIMEN Ordering Facility: [facility] Address: [address] [place] [address] Performed By: #### 2 890-2 #### [facility] CLIA [id number] [address] [place] [address] [place] Bilirubin Ql (U) Negative Normal Negative [facility] Comment on above: Order Comment: Speci men Type: URINE SPECIMEN Ordering Facility: [facility] Address: [address] [place] [address] Performed By: #### 2 890-2 #### [facility] CLIA [id number] [address] [place] [address] [place] Clarity (Unsp spec) Clear Normal Clear [facility] Comment on above: Order Comment: Speci men Type: URINE SPECIMEN Ordering Facility: [facility] Address: [address] [place] [address] Performed By: #### 2 890-2 #### [facility] CLIA [id number] [address] [place] [id number] [place] Color (U) Yellow Normal Yellow [facility] Comment on above: Order Comment: Speci men Type: URINE SPECIMEN Ordering Facility: [facility] Address: [address] [place] [address] Performed By: #### 2 890-2 #### [facility] CLIA [id number] [address] [place] [address] [place] Epithelial cells LM.HPF (Urine sed) [#/Area] Moderate Normal [facility] Comment on above: Order Comment: Speci men Type: URINE SPECIMEN Ordering Facility: [facility] Address: [address] [place] [address] Performed By: #### 2 890-2 #### [facility] CLIA [id number] [address] [place] [address] [place] Glucose Test strip (U) [Mass/Vol] Negative Normal Negative [facility] Comment on above: Order Comment: Speci men Type: URINE SPECIMEN Ordering Facility: [facility] Address: [address] [place] [address] Performed By: #### 2 890-2 #### [facility] CLIA [id number] [address] [place], [place] [id number] [place] Hemoglobin Ql (U) Negative Normal Negative [facility] Comment on above: Order Comment: Speci men Type: URINE SPECIMEN Ordering Facility: [facility] Address: [address] [place], [place] [id number] Performed By: #### 2 890-2 #### [facility] CLIA [id number] [address] [place], [place] [id number] [place] Hyaline casts (Urine sed) [#/Area] 1-3 /LPF Abnormal 0 /LPF [facility] Comment on above: Order Comment: Speci men Type: URINE SPECIMEN Ordering Facility: [facility] Address: [address] [place] [address] Performed By: #### 2 890-2 #### [facility] CLIA [id number] [address] [place] [address] [place] Ketones Ql (U) Negative Normal Negative [facility] Comment on above: Order Comment: Speci men Type: URINE SPECIMEN Ordering Facility: [facility] Address: [address] [place] [address] Performed By: #### 2 890-2 #### [facility] CLIA [id number] [address] [place] [address] [place] Leukocyte esterase Test strip Ql (U) 2+ Abnormal Negative [facility] Comment on above: Order Comment: Speci men Type: URINE SPECIMEN Ordering Facility: [facility] Address: [address] [place] [address] Performed By: #### 2 890-2 #### [facility] CLIA [id number] [address] [place] [address] [place] Nitrite Ql (U) Negative Normal Negative [facility] Comment on above: Order Comment: Speci men Type: URINE SPECIMEN Ordering Facility: [facility] Address: [address] [place] [address] Performed By: #### 2 890-2 #### [facility] CLIA [id number] [address] [place] [address] [place] pH (U) 6.5 [pH] Normal 5.0-8.0 [facility] Comment on above: Order Comment: Speci men Type: URINE SPECIMEN Ordering Facility: [facility] Address: [address] [place] [address] Performed By: #### 2 890-2 #### [facility] CLIA [id number] [address] [place] [address] [place] Protein (U) [Mass/Vol] Negative Normal Negative [facility] Comment on above: Order Comment: Speci men Type: URINE SPECIMEN Ordering Facility: [facility] Address: [address] [place] [address] Performed By: #### 2 890-2 #### [facility] CLIA [id number] [address] [place] [address] [place] RBC LM.HPF (Urine sed) [#/Area] 0-2 /HPF Normal 0-2 /HPF [facility] Comment on above: Order Comment: Speci men Type: URINE SPECIMEN Ordering Facility: [facility] Address: [address] [place] [address] Performed By: #### 2 890-2 #### [facility] CLIA [id number] [address] [place] [address] [place] Specific gravity (U) [Rel density] 1.017 Normal 1.005-1.030 [facility] Comment on above: Order Comment: Speci men Type: URINE SPECIMEN Ordering Facility: [facility] Address: [address] [place] [address] Performed By: #### 2 890-2 #### [facility] CLIA [id number] [address] [place] [address] [place] Urobilinogen Ql (U) 0.2 EU/dL Normal 0.2-1.0 EU/dL [facility] Comment on above: Order Comment: Speci men Type: URINE SPECIMEN Ordering Facility: [facility] Address: [address] [place] [address] Performed By: #### 2 890-2 #### [facility] CLIA [id number] [address] [place] [address] [place] WBC LM.HPF (Urine sed) [#/Area] 0-5 /HPF Normal 0-5 /HPF [facility] Comment on above: Order Comment: Speci men Type: URINE SPECIMEN Ordering Facility: [facility] Address: [address] [place] [address] Performed By: #### 2 890-2 #### [facility] CLIA [id number] [address] [place] [address] [place] Comprehensive metabolic 2000 panelon 11-27-2024 Albumin [Mass/Vol] 4.2 g/dL Normal 3.9-4.9 [facility] Comment on above: Order Comment: Speci men Type: URINE SPECIMEN Ordering Facility: [facility] Address: [address] [place] [address] Performed By: #### U ACR #### [facility] CLIA [id number] [address] [place] [address] [place] ALP [Catalytic activity/Vol] 116 U/L Normal 34-123 [facility] Comment on above: Order Comment: Speci men Type: URINE SPECIMEN Ordering Facility: [facility] Address: [address] [place] [address] Performed By: #### U ACR #### [facility] CLIA [id number] [address] [place] [address] [place] ALT [Catalytic activity/Vol] 18 U/L Normal 7-38 [facility] Comment on above: Order Comment: Speci men Type: URINE SPECIMEN Ordering Facility: [facility] Address: [address] [place] [address] Performed By: #### U ACR #### [facility] CLIA [id number] [address] [place] [address] [place] Anion gap [Moles/Vol] 10 mmol/L Normal 8-15 [facility] Comment on above: Order Comment: Speci men Type: URINE SPECIMEN Ordering Facility: [facility] Address: [address] [place] [address] Performed By: #### U ACR #### [facility] CLIA [id number] [address] [place] [address] [place] AST [Catalytic activity/Vol] 20 U/L Normal 13-35 [facility] Comment on above: Order Comment: Speci men Type: URINE SPECIMEN Ordering Facility: [facility] Address: [address] [place] [address] Performed By: #### U ACR #### [facility] CLIA [id number] [address] [place] [address] [place] Bilirubin [Mass/Vol] 0.4 mg/dL Normal 0.2-1.3 [facility] Comment on above: Order Comment: Speci men Type: URINE SPECIMEN Ordering Facility: [facility] Address: [address] [place] [address] Performed By: #### U ACR #### [facility] CLIA [id number] [address] [place] [address] [place] Calcium [Mass/Vol] 9.8 mg/dL Normal 8.5-10.2 [facility] Comment on above: Order Comment: Speci men Type: URINE SPECIMEN Ordering Facility: [facility] Address: [address] [place] [address] Performed By: #### U ACR #### [facility] CLIA [id number] [address] [place] [address] [place] Chloride [Moles/Vol] 104 mmol/L Normal 98-107 [facility] Comment on above: Order Comment: Speci men Type: URINE SPECIMEN Ordering Facility: [facility] Address: [address] [place] [address] Performed By: #### U ACR #### [facility] CLIA [id number] [address] [place] [address] [place] CO2 [Moles/Vol] 28 mmol/L Normal 22-30 [facility] Comment on above: Order Comment: Speci men Type: URINE SPECIMEN Ordering Facility: [facility] Address: [address] [place] [address] Performed By: #### U ACR #### [facility] CLIA [id number] [address] [place] [address] [place] Creatinine [Mass/Vol] 0.83 mg/dL Normal 0.58-0.96 [facility] Comment on above: Order Comment: Speci men Type: URINE SPECIMEN Ordering Facility: [facility] Address: [address] [place] [address] Performed By: #### U ACR #### [facility] CLIA [id number] [address] [place] [address] [place] eGFRcr SerPlBld CKD-EPI 2020 83 mL/min/1.73m??? Normal >=60 [facility] Comment on above: Order Comment: Speci men Type: URINE SPECIMEN Ordering Facility: [facility] Address: [address] [place] [address] Result Comment: Mary mated Glomerular Filtration Rate (eGFR) is calculated using the 2020 CKD-EPI creatinine equation. This equation utilizes serum creatinine, sex, and age as parameters. The creatinine assay has traceable calibration to isotope dilution-mass spectrometry. Refer to KDIGO guidelines for clinical interpretation. In patients with unstable renal function, e.g. those with acute kidney injury, the eGFR may not accurately reflect actual GFR. Performed By: #### U ACR #### [facility] CLIA [id number] [address] [place] [address] [place] Glucose [Mass/Vol] 59 mg/dL Low 74-99 [facility] Comment on above: Order Comment: Speci men Type: URINE SPECIMEN Ordering Facility: [facility] Address: [address] [place] [address] Result Comment: The [place] Diabetes Association (ADA) provides guidance for cutoff values for fasting glucose and random glucose. The ADA defines fasting as no caloric intake for at least 8 hours. Fasting plasma glucose results between 100 to 125 mg/dL indicate increased risk for diabetes (prediabetes). Fasting plasma glucose results greater than or equal to 126 mg/dL meet the criteria for diagnosis of diabetes. In the absence of unequivocal hyperglycemia, results should be confirmed by repeat testing. In a patient with classic symptoms of hyperglycemia or hyperglycemic crisis, random plasma glucose results greater than or equal to 200 mg/dL meet the criteria for diagnosis of diabetes. Reference: Standards of Medical Care in Diabetes 2016, [place] [employer] Association. Diabetes Care. 2016.39(Suppl 1). Performed By: #### U ACR #### [facility] CLIA [id number] [address] [place] [address] [place] Potassium [Moles/Vol] 4.5 mmol/L Normal 3.7-5.1 [facility] Comment on above: Order Comment: Speci men Type: URINE SPECIMEN Ordering Facility: [facility] Address: [address] [place] [address] Performed By: #### U ACR #### [facility] CLIA [id number] [address] [place] [address] [place] Protein [Mass/Vol] 6.7 g/dL Normal 6.3-8.0 [facility] Comment on above: Order Comment: Speci men Type: URINE SPECIMEN Ordering Facility: [facility] Address: [address] [place] [address] Performed By: #### U ACR #### [facility] CLIA [id number] [address] [place] [address] [place] Sodium [Moles/Vol] 142 mmol/L Normal 136-144 [facility] Comment on above: Order Comment: Speci men Type: URINE SPECIMEN Ordering Facility: [facility] Address: [address] [place] [address] Performed By: #### U ACR #### [facility] CLIA [id number] [address] [place] [address] [place] Urea nitrogen [Mass/Vol] 13 mg/dL Normal 7-21 [facility] Comment on above: Order Comment: Speci men Type: URINE SPECIMEN Ordering Facility: [facility] Address: [address] [place] [address] Performed By: #### U ACR #### [facility] CLIA [id number] [address] [place] [address] [place] [facility] [Mass/Vol] 3.9 mg/dL Normal 2.5-6.6 [facility] Comment on above: Order Comment: Speci men Type: URINE SPECIMEN Ordering Facility: [facility] Address: [address] [place] [address] Performed By: #### U ACR #### [facility] CLIA [id number] [address] [place] [address] [place] 25(OH)D3 [facility] 2024 25-hydroxyvitamin D3 [Mass/Vol] 41.2 ng/mL Normal 31.0-80.0 [facility] Comment on above: Order Comment: Speci men Type: BLOOD SPECIMEN Ordering Facility: [facility] ([id number] Address: [address] [place] [address] Performed By: #### 1 989-3 #### [facility] IA [id number] [address] [place] [address] [place] Calcium.ionized [Moles/Vol]o n 11-26-2024 Calcium.ionized (Bld) [Mass/Vol] 1.26 mmol/L Normal 1.08-1.30 [facility] Comment on above: Order Comment: Speci men Type: BLOOD SPECIMEN Ordering Facility: [facility] ([id number] Address: [address] [place] [address] Performed By: #### 1 995-0 #### [facility] IA [id number] [address] [place] [address] [place] Calcium.ionized adjusted to pH 7.4 (Bld) [Moles/Vol] 1.24 mmol/L Normal 1.08-1.30 [facility] Comment on above: Order Comment: Speci men Type: BLOOD SPECIMEN Ordering Facility: [facility] ([facility] Address: [address] [place] [address] Performed By: #### 1 995-0 #### [facility] CLIA [id number] [address] [place] [address] [place] [facility] Comprehensive metabolic 2000 panelon 11-26-2024 Albumin [Mass/Vol] 4.5 g/dL Normal 3.9-4.9 [facility] Comment on above: Order Comment: Speci men Type: URINE SPECIMEN Ordering Facility: [facility] Address: [address] [place] [address] Performed By: #### U ACR #### [facility] CLIA [id number] [address] [place] [address] [place] ALP [Catalytic activity/Vol] 125 U/L High 34-123 [facility] Comment on above: Order Comment: Speci men Type: URINE SPECIMEN Ordering Facility: [facility] Address: [address] [place] [address] Performed By: #### U ACR #### [facility] CLIA [id number] [address] [place] [address] [place] ALT [Catalytic activity/Vol] 15 U/L Normal 7-38 [facility] Comment on above: Order Comment: Speci men Type: URINE SPECIMEN Ordering Facility: [facility] Address: [address] [place] [address] Performed By: #### U ACR #### [facility] CLIA [id number] [address] [place] [address] [place] Anion gap [Moles/Vol] 12 mmol/L Normal 8-15 [facility] Comment on above: Order Comment: Speci men Type: URINE SPECIMEN Ordering Facility: [facility] Address: [address] [place] [address] Performed By: #### U ACR #### [facility] CLIA [id number] [address] [place] [address] [place] AST [Catalytic activity/Vol] 18 U/L Normal 13-35 [facility] Comment on above: Order Comment: Speci men Type: URINE SPECIMEN Ordering Facility: [facility] Address: [address] [place] [address] Performed By: #### U ACR #### [facility] CLIA [id number] [address] [place] [address] [place] Bilirubin [Mass/Vol] 0.4 mg/dL Normal 0.2-1.3 [facility] Comment on above: Order Comment: Speci men Type: URINE SPECIMEN Ordering Facility: [facility] Address: [address] [place] [address] Performed By: #### U ACR #### [facility] CLIA [id number] [address] [place] [address] [place] Calcium [Mass/Vol] 9.4 mg/dL Normal 8.5-10.2 [facility] Comment on above: Order Comment: Speci men Type: URINE SPECIMEN Ordering Facility: [facility] Address: [address] [place] [address] Performed By: #### U ACR #### [facility] CLIA [id number] [address] [place] [address] [place] Chloride [Moles/Vol] 104 mmol/L Normal 98-107 [facility] Comment on above: Order Comment: Speci men Type: URINE SPECIMEN Ordering Facility: [facility] Address: [address] [place] [address] Performed By: #### U ACR #### [facility] CLIA [id number] [address] [place] [address] [place] CO2 [Moles/Vol] 25 mmol/L Normal 22-30 [facility] Comment on above: Order Comment: Speci men Type: URINE SPECIMEN Ordering Facility: [facility] Address: [address] [place] [address] Performed By: #### U ACR #### [facility] CLIA [id number] [address] [place] [address] [place] Creatinine [Mass/Vol] 0.83 mg/dL Normal 0.58-0.96 [facility] Comment on above: Order Comment: Speci men Type: URINE SPECIMEN Ordering Facility: [facility] Address: [address] [place] [address] Performed By: #### U ACR #### [facility] CLIA [id number] [address] [place] [address] [place] eGFRcr SerPlBld CKD-EPI 2020 83 mL/min/1.73m??? Normal >=60 [facility] Comment on above: Order Comment: Aravindi men Type: URINE SPECIMEN Ordering Facility: [facility] Address: [address] [place] [address] Result Comment: Mary mated Glomerular Filtration Rate (eGFR) is calculated using the 2020 CKD-EPI creatinine equation. This equation utilizes serum creatinine, sex, and age as parameters. The creatinine assay has traceable calibration to isotope dilution-mass spectrometry. Refer to KDIGO guidelines for clinical interpretation. In patients with unstable renal function, e.g. those with acute kidney injury, the eGFR may not accurately reflect actual GFR. Performed By: #### U ACR #### [facility] CLIA [id number] [address] [place] [address] [place] Glucose [Mass/Vol] 115 mg/dL High 74-99 [facility] Comment on above: Order Comment: Aravindi men Type: URINE SPECIMEN Ordering Facility: [facility] Address: [address] [place] [address] Result Comment: The [place] Diabetes Association (ADA) provides guidance for cutoff values for fasting glucose and random glucose. The ADA defines fasting as no caloric intake for at least 8 hours. Fasting plasma glucose results between 100 to 125 mg/dL indicate increased risk for diabetes (prediabetes). Fasting plasma glucose results greater than or equal to 126 mg/dL meet the criteria for diagnosis of diabetes. In the absence of unequivocal hyperglycemia, results should be confirmed by repeat testing. In a patient with classic symptoms of hyperglycemia or hyperglycemic crisis, random plasma glucose results greater than or equal to 200 mg/dL meet the criteria for diagnosis of diabetes. Reference: Standards of Medical Care in Diabetes 2016, [place] [employer]. Diabetes Care. 2016.39(Suppl 1). Performed By: #### U ACR #### [facility] CLIA [id number] [address] [place] [address] [place] Potassium [Moles/Vol] 4.2 mmol/L Normal 3.7-5.1 [facility] Comment on above: Order Comment: Speci men Type: URINE SPECIMEN Ordering Facility: [facility] Address: [address] [place] [address] Performed By: #### U ACR #### [facility] CLIA [id number] [address] [place] [address] [place] Protein [Mass/Vol] 6.6 g/dL Normal 6.3-8.0 [facility] Comment on above: Order Comment: Speci men Type: URINE SPECIMEN Ordering Facility: [facility] Address: [address] [place] [address] Performed By: #### U ACR #### [facility] CLIA [id number] [address] [place] [address] [place] Sodium [Moles/Vol] 141 mmol/L Normal 136-144 [facility] Comment on above: Order Comment: Speci men Type: URINE SPECIMEN Ordering Facility: [facility] Address: [address] [place] [address] Performed By: #### U ACR #### [facility] CLIA [id number] [address] [place] [address] [place] Urea nitrogen [Mass/Vol] 13 mg/dL Normal 7-21 [facility] Comment on above: Order Comment: Speci men Type: URINE SPECIMEN Ordering Facility: [facility] Address: [address] [place] [address] Performed By: #### U ACR #### [facility] CLIA [id number] [address] [place] [address] [place] [facility]2 Parathyrin.intact [Mass/Vol] 87 pg/mL High 15-65 [facility] Comment on above: Order Comment: Speci men Type: URINE SPECIMEN Ordering Facility: [facility] Address: [address] [place] [address] Performed By: #### U ACR #### [facility] CLIA [id number] [address] [place] [address] [place] ALBUMIN/CREATININE RATIO, UR INEon 09-18-2024 Albumin DL <= 20 mg/L (U) [Mass/Vol] mg/dL Normal [facility] Comment on above: Order Comment: Speci men Type: URINE SPECIMEN Ordering Facility: [facility] Address: [address] [place] [address] Performed By: #### U ACR #### [facility] CLIA [id number] [address] [place] [address] [place] Albumin/Creatinine (U) [Mass ratio] <14 Normal <30 [facility] Comment on above: Order Comment: Speci men Type: URINE SPECIMEN Ordering Facility: [facility] Address: [address] [place] [address] Result Comment: Adul t Male and Female Nephrotic Criteria: <30 mg/g is considered normal to mildly increased 30-300 mg/g is considered moderately increased >300 mg/g is considered severely increased KDIGO. (2013). KDIGO 2012 Clinical Practice Guideline for the Evaluation and Management of Chronic Kidney Disease. Official Journal of the International Society of Nephrology, 3(1), 1-150. Performed By: #### U ACR #### [facility] CLIA [id number] [address] [place] [address] [place] Creatinine (U) [Mass/Vol] 87.1 mg/dL Normal 20.0-300.0 [facility] Comment on above: Order Comment: Speci men Type: URINE SPECIMEN Ordering Facility: [facility] Address: [address] [place] [address] Performed By: #### U ACR #### [facility] CLIA [id number] [address] [place] [address] [facility] CNOVon 08-26-2024 CNOV Office Visit ([facility]WSTR ) -------- MICHAEL BUSTOS ([id number]) 1970 F Date Time Provider Department 08/26/24 1:15 PM EM [facility] During your visit today, we recorded the following information about you: Temperature Pulse Respiration Blood pressure 98.6 degrees 95/minute 20/minute 118/75 Weight 128 kg Em Bustamante APRN.[employer] 08/26/2024 2:52 PM Signed [facility] Subjective Michael Bustos is a 54 year old female. Patient presents with: Fall: Swelling and bruising x 2 days fall on [place] Pertinent negatives include no nausea and no vomiting. Michael Bustos is a 54 year old female who presents with left knee pain and swelling and bruising. She fell 2 days ago at [employer] after tripping. Fell onto rocks. She rates her pain Denies ankle pain. Has not taken any medication for pain. She also has had cough, chest congestion, wheezing, shortness of breath and headache for the past 2 days. Has a history of asthma with COPD and is out of her rescue inhaler. She denies fever. Cough is productive of clear sputum. She has been taking mucinex and tylenol at home for symptoms. Review of Systems Constitutional: Positive for chills. Negative for fatigue. Respiratory: Positive for choking, shortness of breath and wheezing. Cardiovascular: Negative for chest pain. Gastrointestinal: Negative for nausea and vomiting. Musculoskeletal: Positive for joint swelling. See HPI Skin: Negative for color change and rash. Objective BP 118/75 Pulse 95 Temp 37 ?C (98.6 ?F) Resp 20 Wt 128 kg (282 lb 3 oz) SpO2 100% BMI 44.20 kg/m? PAST MEDICAL HISTORY Diagnosis Date - Adhesive capsulitis of right shoulder - Bipolar affective (HCC) - Bursitis of right hip - Chronic back pain - Chronic obstructive pulmonary disease (COPD) ([facility]) - CKD (chronic kidney disease) stage 3, GFR 30-59 ml/min ([facility]) - Female stress incontinence - Fibromyalgia - GERD (gastroesophageal reflux disease) intolerant NSAIDS - History of blood clots - Hypertension - Lumbar back pain with radiculopathy affecting right lower extremity - Lupus SLE, positive TAN recurrent polyarthritis malar erythema with photosensitivity generalized fatigue treated with Plaquenil, annual ophthalmology exam. - Lupus nephritis ([facility]) - Mixed connective tissue disease ([facility]) - Morbid obesity ([facility]) - NIX (nonalcoholic steatohepatitis) Confirmed by FibroScan, DR Jimbo Mcneill - Nodule of left lung - Osteoarthritis of left knee - Osteoarthritis of right knee - Polymyalgia rheumatica ([facility]) - Rheumatoid arthritis(714.0) - Subacromial bursitis of right shoulder joint - Urge incontinence - Vitamin D deficiency PAST SURGICAL HISTORY Procedure Laterality Date - HYSTERECTOMY HX - IVC FILTER SURGICAL [facility] - [place]-OOPHORECTOMY COMPL/PRTL UNI/BI SPX 2008 left ovary - TUBAL LIGATION, ALLERGIES Penicillins and Sulfa (Sulfonamide Antibiotics) MEDICATIONS - DULoxetine (CYMBALTA) 30 mg capsule Take 2 capsules by mouth once daily. - benztropine (COGENTIN) 1 mg tablet Take 2 tablets by mouth once daily. - baclofen 10 mg tablet Take 1 tablet by mouth once daily. - oxybutynin ER (DITROPAN XL) 15 mg 24 hr Extended Rel Tab Take 2 tablets by mouth every afternoon. - semaglutide (OZEMPIC) 0.25 mg or 0.5 mg (2 mg/3 mL) pen Inject 0.5 mg subcutaneously one time a week. (Patient taking differently: Inject 1.25 mg subcutaneously one time a week.) - mycophenolate mofetil (CELLCEPT) 250 mg capsule Take 1 capsule by mouth two times a day. - spironolactone (ALDACTONE) 50 mg tablet TAKE 1 TABLET BY MOUTH EVERY DAY - metoprolol succinate ER (TOPROL XL) 25 mg 24 hr tablet TAKE 1 TABLET BY MOUTH EVERY DAY - Amphetamine-Dextroamphet amine (ADDERALL) 30 mg tablet Take 1 capsule by mouth every afternoon. - famotidine (PEPCID) 40 mg tablet Take 1 tablet by mouth twice daily. - atorvastatin (LIPITOR) 20 mg tablet Take 20 mg by mouth once daily. - apixaban (ELIQUIS) 5 mg tab(s) Take 1 tablet by mouth twice daily. - ondansetron orally disintegrating (ZOFRAN ODT) 4 mg disintegrating tablet Take 1 tablet by mouth every 6 hours as needed. - ARIPiprazole (ABILIFY) 10 mg tablet Take 10 mg by mouth once daily. - albuterol HFA (PROAIR HFA) 90 mcg/actuation inhaler Inhale 2 Puffs as instructed every 6 hours as needed. - montelukast (SINGULAIR) 10 mg tablet Take 1 tablet by mouth daily at bedtime. - traMADol (ULTRAM) 50 mg tablet Take 50 mg by mouth every 12 hours as needed. - acetaminophen (TYLENOL) 325 mg tablet Take 2 tablets by mouth every 6 hours as needed. - hydroxychloroquine (PLAQUENIL) 200 mg tablet Take 200 mg by mouth twice daily. - BUDESONIDE/FORMOTEROL FUMARATE (SYMBICORT INHALATION) Inhale as instructed. - CHOLECALCIFEROL, VITAMIN D3, (VITAMIN D-3 ORAL) Take 50,000 Units by mouth every Sunday. (more content not included)... Normal [facility] XR KNEE 4V AP/PA BOTH+LAT/ME R LTon 08-26-2024 XR KNEE 4V AP/PA BOTH+LAT/NOREEN LT * * *Final Report* * * DATE OF EXAM: Aug 26 2024 1:51PM WOX [id number] - XR KNEE 4V AP/PA BOTH+LAT/NOREEN LT / PROCEDURE REASON: Left knee injury, initial encounter * * * * Physician Interpretation * * * * EXAM TITLE: XR KNEE 4V AP/PA BOTH+LAT/NOREEN LT EXAM DATE/TIME: 08/26/2024 1:51 PM COMPARISON: None. CLINICAL INDICATION/HISTORY: Rib. TECHNIQUE: AP/PA, lateral and sunrise views of the left knee are presented. FINDINGS: No acute fractures or subluxations are noted. Tricompartmental osteophyte formation is present. The joint spaces are well preserved. There is small joint effusion. The mineralization of the bones is normal. There is no significant soft tissue swelling. IMPRESSION: Degenerative changes in the left knee with small joint effusion. No acute fracture seen. Abattoir Manager: [facility] Transcribe Date/Time: Aug 26 2024 2:13P Dictated by : ARABELLA NUR MD This examination was interpreted and the report reviewed and electronically signed by: ARABELLA NUR MD on Aug 26 2024 2:15PM EST [id number] Normal [facility] XR Knee - left 4 Viewson IMPRESSION: Degenera tive changes in the left knee with small joint effusion. No acute fracture seen. Abattoir Manager: [facility] Transcribe Date/Time: Aug 26 2024 2:13P Dictated by : ARABELLA NUR MD This examination was interpreted and the report reviewed and electronically signed by: ARABELLA NUR MD on Aug 26 2024 2:15PM EST DIVISION OF RADIOLOGY * * *Final Report* * * DATE OF EXAM: Aug 26 2024 1:51PM WOX [id number] - XR KNEE 4V AP/PA BOTH+LAT/NOREEN LT / PROCEDURE REASON: Left knee injury, initial encounter * * * * Physician Interpretation * * * * EXAM TITLE: XR KNEE 4V AP/PA BOTH+LAT/NOREEN LT EXAM DATE/TIME: 08/26/2024 1:51 PM COMPARISON: None. CLINICAL INDICATION/HISTORY: Rib. TECHNIQUE: AP/PA, lateral and sunrise views of the left knee are presented. FINDINGS: No acute fractures or subluxations are noted. Tricompartmental osteophyte formation is present. The joint spaces are well preserved. There is small joint effusion. The mineralization of the bones is normal. There is no significant soft tissue swelling. DIVISION OF RADIOLOGY Provider, [facility] - 08/26/2024 * * *Final Report* * * DATE OF EXAM: Aug 26 2024 1:51PM WOX [id number] - XR KNEE 4V AP/PA BOTH+LAT/NOREEN LT / PROCEDURE REASON: Left knee injury, initial encounter * * * * Physician Interpretation * * * * EXAM TITLE: XR KNEE 4V AP/PA BOTH+LAT/NOREEN LT EXAM DATE/TIME: 08/26/2024 1:51 PM COMPARISON: None. CLINICAL INDICATION/HISTORY: Rib. TECHNIQUE: AP/PA, lateral and sunrise views of the left knee are presented. FINDINGS: No acute fractures or subluxations are noted. Tricompartmental osteophyte formation is present. The joint spaces are well preserved. There is small joint effusion. The mineralization of the bones is normal. There is no significant soft tissue swelling. IMPRESSION IMPRESSION: Degenerative changes in the left knee with small joint effusion. No acute fracture seen. Abattoir Manager: FRANK Transcribe Date/Time: Aug 26 2024 2:13P Dictated by : ARABELLA NUR MD This examination was interpreted and the report reviewed and electronically signed by: ARABELLA NUR MD on Aug 26 2024 2:15PM EST [facility] Radiology Study observation (narrative) [facility] XR Knee - left 4 ViewsOrdere d By: Ccf Provider on 08-26-[address] [facility] [address] CHEST W IVCONon CT CHEST W IVCON * * *Final Report* * * DATE OF EXAM: Jul 18 2024 11:41AM [facility] 0539 - CT CHEST W IVCON / PROCEDURE REASON: Lung nodules * * * * Physician Interpretation * * * * EXAMINATION: CHEST CT WITH CONTRAST CLINICAL HISTORY: Lung nodule. Technique: Spiral CT acquisition of the chest from the thoracic inlet to the upper abdomen following IV contrast. MQ: CTCW_6 Contrast: 50 mL Omnipaque [address] Radiation dose: Integrated Dose-length product (DLP) for this visit = 522 mGy*cm CT Dose Reduction Employed: Automated exposure control(AEC) and iterative recon Comparison: CTA chest on 07/23/2020 RESULT: Limitations: None. Lines, tubes, and devices: None. Lung parenchyma and airways: The central airways are patent. Noted is a stable 5 mm triangular nodule/nodular density in the right lower lobe within the lateral costophrenic recess, series 7 image 160. Noted is interval development of a new 4 mm nodule in the right lower lobe abutting the pleural surfaces, series 7 image 140. There is a stable 4.5 mm solid nodule along the left major fissure, series 7 image 83. No mass lesion identified and no consolidations. There is large right-sided pericardial fat pad. Pleural space: No pleural effusion. No pleural thickening. Lower neck, lymph nodes, and mediastinum: The imaged thyroid gland is normal. No supraclavicular, axillary or mediastinal lymphadenopathy. A borderline enlarged right hilar lymph node is identified, series 6 image 176. Heart, pericardium, and thoracic vessels: The thoracic aorta and main pulmonary artery are normal in caliber. The cardiac chambers are normal in size. No coronary artery atherosclerotic calcifications are noted, although the study is not optimized for coronary assessment. No pericardial effusion or thickening. Bones and soft tissues: There are degenerative changes in the spine. No destructive bone lesion. Stable chest wall soft tissue. Upper abdomen: Limited study through the upper abdomen demonstrates multiple low-attenuation lesions or cysts in the liver, grossly unchanged. Status post cholecystectomy. Localizer images: No additional findings. IMPRESSION: A few pulmonary nodules visualized including stable nodules and a new nodule in the right lower lobe. Incidental Finding: Follow-up Acuity: Incidental Finding: Solid: <6 mm (solitary or multiple) Routing Code: N/A Recommendation: No imaging follow-up is recommended Time Frame: N/A Comments: If there are risk factors for lung malignancy, a follow-up chest CT exam could be obtained in 12 months Borderline enlarged right hilar lymph node. Abdominal findings as described above. --END OF FINDING-- Abattoir Manager: FRANK Transcribe Date/Time: Jul 25 2024 9:03A Dictated by : ARABELLA NUR MD This examination was interpreted and the report reviewed and electronically signed by: ARABELLA NUR MD on Jul 26 2024 5:29PM EST [id number] ACTIONABLE Invalid Interpretation Code [facility] 25(OH)D3 SerPl-mCncon 2024 25-hydroxyvitamin D3 [Mass/Vol] 76.8 ng/mL Normal 31.0-80.0 [facility] Comment on above: Order Comment: Speci men Type: BLOOD SPECIMEN Ordering Facility: [facility] Address: [address] [place] [address] Result Comment: Clas sification of 25 [place] Vitamin D status: Deficiency/Insufficiency: < or = 30 ng/ml. Sufficiency/Optimal Levels: 31-80 ng/mL Toxicity: > 100 ng/mL. Test performed by chemiluminescent immunoassay. Performed By: #### 1 989-3 #### [facility] CLIA [id number] [address] [place], [place] [id number] [facility] CNOVon 07-07-2024 CNOV Office Visit (FELICITYWS ) -------- MICHAEL BUSTOS ([id number]) 1970 F Date Time Provider Department 07/07/24 11:00 AM CHRISTY IRVING During your visit today, we recorded the following information about you: Pulse Respiration Blood pressure Weight 80/minute 18/minute 118/80 126.1 kg Height 1.702 m Christy Irving APRN.[employer] PSYCH[employer]IST 07/07/2024 2:34 PM Signed 07/07/2024 Patient presents with: Establish Care: Patient sees Nephrology in [place] - will need new referral; Rheumatology - will need new referral - for lupus/fibro - had cortisone shot 3 months ago. SUBJECTIVE: This is a 54 year old that is here today for Above Complaints. Orginally from [place]. Moved here about about a year ago. 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 Follows with stereo equipment installer in [place] for lupus nephritis. Taking medication as prescribed. Last office appointment on 06/19/2024. No follow-up scheduled at this time. She reports she has a hx of left lung nodule and needs repeat CT scan ordered Taking Ozempic which she started in May for weight loss. Down 36 # since starting Tolerating without side effects. Follows with psychiatry for hx of Bipolar disorder. Taking medications as prescribed with side effect of dry mouth Would like increase in her Ditropan as she still deals with stress and urge incontinence Past medical, surgical, family, social hx, medications, allergies and health maintenance reviewed and updated PAST MEDICAL HISTORY Diagnosis Date Adhesive capsulitis of right shoulder Bursitis of right hip Chronic obstructive pulmonary disease (COPD) (HCC) Fibromyalgia GERD (gastroesophageal reflux disease) intolerant NSAIDS History of blood clots Hypertension Lumbar back pain with radiculopathy affecting right lower extremity Lupus SLE, positive TAN recurrent polyarthritis malar erythema with photosensitivity generalized fatigue treated with Plaquenil, annual ophthalmology exam. Mixed connective tissue disease (HCC) Morbid obesity (HCC) NIX (nonalcoholic steatohepatitis) Confirmed by FibroScan, DR Jimbo Mcneill Osteoarthritis of left knee Osteoarthritis of right knee Polymyalgia rheumatica (HCC) Rheumatoid arthritis(714.0) Subacromial bursitis of right shoulder joint Vitamin D deficiency ALLERGIES Penicillins and Sulfa (Sulfonamide Antibiotics) MEDICATIONS Current Outpatient Medications Medication Sig semaglutide (OZEMPIC) 0.25 mg or 0.5 mg (2 mg/3 mL) pen Inject 0.5 mg subcutaneously one time a week. mycophenolate mofetil (CELLCEPT) 250 mg capsule Take 1 capsule by mouth two times a day. spironolactone (ALDACTONE) 50 mg tablet TAKE 1 TABLET BY MOUTH EVERY DAY metoprolol succinate ER (TOPROL XL) 25 mg 24 hr tablet TAKE 1 TABLET BY MOUTH EVERY DAY oxybutynin ER (DITROPAN XL) 15 mg 24 hr Extended Rel Tab Take 1 tablet by mouth every afternoon. amphetamine-dextroamphet amine XR (ADDERALL XR) 5 mg capsule Take 1 capsule by mouth every afternoon. DULoxetine (CYMBALTA) 30 mg capsule Take 1 capsule by mouth once daily. (Patient taking differently: Take 60 mg by mouth once daily.) amLODIPine (NORVASC) 5 mg tablet Take by mouth. (Patient not taking: Reported on 07/07/2024) Phentermine HCl 37.5 mg capsule Take 37.5 mg by mouth daily before breakfast. famotidine (PEPCID) 40 mg tablet Take 1 tablet by mouth twice daily. BREO ELLIPTA 200-25 mcg/dose inhaler Inhale 1 Inhalation as instructed once daily. ergocalciferol 50,000 unit capsule (VITAMIN D2, DRISDOL) 1 TABLET ORALLY ONCE A WEEK 30 DAYS benztropine (COGENTIN) 1 mg tablet Take 0.5-1 mg by mouth twice daily as needed. atorvastatin (LIPITOR) 20 mg tablet Take 20 mg by mouth once daily. baclofen (LIORESAL) 10 mg tablet TAKE 1 TABLET BY MOUTH EVERY DAY FOR 90 DAYS apixaban (ELIQUIS) 5 mg tab(s) Take 1 tablet by mouth twice daily. nebivolol (BYSTOLIC) 5 mg tablet Take 1 tablet by mouth once daily. ondansetron orally disintegrating (ZOFRAN ODT) 4 mg disintegrating tablet Take 1 tablet by mouth every 6 hours as needed. WALKER ROLLATOR SEAT WITH 6 WHEELS - RED Walker with rolator (Patient not taking: Reported on 07/07/2024) ARIPiprazole (ABILIFY) 10 mg tablet Take 10 mg by mouth once daily. albuterol HFA (PROAIR HFA) 90 mcg/actuation inhaler Inhale 2 Puffs as instructed every 6 hours as needed. montelukast (SINGULAIR) 10 mg tablet Take 1 tablet by mouth daily at bedtime. traMADol (ULTRAM) 50 mg tablet Take 50 mg by mouth every 12 hours as needed. ondansetron (ZOFRAN) 4 mg tablet Take 1 tablet by mouth every 6 hours as needed. (Patient not taking: Reported on 07/07/2024) acetaminophen (TYLENOL) 325 mg tablet Take 2 tablets by mouth every 6 hours as needed. metoclopramide HCl (REGLAN) 5 mg tablet Take 1 tablet by mouth three times daily before meals. sucralfate (CARAFATE) 1 gram tablet Take 1 tablet by mouth three lisette (more content not included)... Normal [facility] CREATININE Don 07-07-2024 Creatinine [Mass/Vol] 1.02 mg/dL High 0.58-0.96 [facility] Comment on above: Order Comment: Speci men Type: URINE SPECIMEN Ordering Facility: [facility] Address: [address] [place] [address] Performed By: #### U ACR #### [facility] CLIA [id number] [address] [place], [place] [address] [place] [address] [place] Performed By: #### 2 890-2 #### [facility] CLIA [id number] [address] [place] [address] STATES [facility] Creatinine and Glomerular filtration rate.predicted panel (S/P/Bld) 65 mL/min/1.73m??? Normal >=60 [facility] Comment on above: Order Comment: Hany jay Type: URINE SPECIMEN Ordering Facility: [facility] Address: [address] [place] [address] Result Comment: Mary mated Glomerular Filtration Rate (eGFR) is calculated using the 2020 CKD-EPI creatinine equation. This equation utilizes serum creatinine, sex, and age as parameters. The creatinine assay has traceable calibration to isotope dilution-mass spectrometry. Refer to KDIGO guidelines for clinical interpretation. In patients with unstable renal function, e.g. those with acute kidney injury, the eGFR may not accurately reflect actual GFR. Performed By: #### U ACR #### [facility] CLIA [id number] [address] [place] [address] STATES OF [facility] Performed By: #### 2 890-2 #### [facility] CLIA [id number] [address] [place] [address] [place] LIPID PANEL, NONFASTINGon Cholesterol [Mass/Vol] 125 mg/dL Normal <200 [facility] Comment on above: Order Comment: Hany jay Type: URINE SPECIMEN Ordering Facility: [facility] Address: [address] [place] [address] Result Comment: <200 mg/dL, Desirable 200-239 mg/dL, Borderline high >239 mg/dL, High Performed By: #### U ACR #### [facility] CLIA [id number] [address] [place] [address] [place] HDL CHOLESTEROL, NF 71 mg/dL Normal >39 [facility] Comment on above: Order Comment: Hany jay Type: URINE SPECIMEN Ordering Facility: [facility] Address: [address] [place] [address] Result Comment: 40-5 9 mg/dL, Acceptable >59 mg/dL, High: Negative risk factor for coronary heart disease <40 mg/dL, Low: Positive risk factor for coronary heart disease Performed By: #### U ACR #### [facility] CLIA [id number] [address] [place] [address] [place] LDL CHOLESTEROL, NF 39 mg/dL Normal <100 [facility] Comment on above: Order Comment: Speci men Type: URINE SPECIMEN Ordering Facility: [facility] Address: [address] [place] [address] Result Comment: <100 mg/dL, Optimal 100-129 mg/dL, Near optimal/above optimal 130-159 mg/dL, Borderline high 160-189 mg/dL, High >189 mg/dL, Very high Secondary prevention optimal LDL Cholesterol levels are recommended to be < 70 mg/dL Performed By: #### U ACR #### [facility] CLIA [id number] [address] [place] [address] [place] LDL/HDL RATIO, NF 0.55 mg/dL Normal <2.54 [facility] Comment on above: Order Comment: Speci men Type: URINE SPECIMEN Ordering Facility: [facility] Address: [address] [place] [address] Result Comment: Yajaira gray: 1. National Cholesterol Education Program ATP III Guideline At-A-Glance Quick Desk Reference: National Heart, Lung, and Blood [place]. National Institutes of Health. 2001: NIH Publication No. 01-3305. 2. An International Atherosclerosis Society position paper: global recommendations for the management of dyslipidemia: executive summary, Atherosclerosis. 2014: 232(2):410-413. Performed By: #### U ACR #### [facility] CLIA [id number] [address] [place] [address] [place] NON HDL CHOL, NF 54 mg/dL Normal <130 [facility] Comment on above: Order Comment: Aravindi men Type: URINE SPECIMEN Ordering Facility: [facility] Address: [address] [place] [address] Result Comment: <130 mg/dL, Optimal 130-159 mg/dL, Near optimal/above optimal 160-189 mg/dL, Borderline high 190-219 mg/dL, High >219 mg/dL, Very high Secondary prevention optimal non HDL Cholesterol levels are recommended to be <100 mg/dL Performed By: #### U ACR #### [facility] CLIA [id number] [address] [place] [address] [place] T CHOL/HDL RATIO NF 1.76 mg/dL Normal <5.10 [facility] Comment on above: Order Comment: Speci men Type: URINE SPECIMEN Ordering Facility: [facility] Address: [address] [place] [address] Performed By: #### U ACR #### [facility] CLIA [id number] [address] [place] [address] [place] TRIGLYCERIDES, NF 75 mg/dL Normal <150 [facility] Comment on above: Order Comment: Speci men Type: URINE SPECIMEN Ordering Facility: [facility] Address: [address] [place] [address] Result Comment: <150 mg/dL, Normal 150-199 mg/dL, Borderline high 200-499 mg/dL, High >499 mg/dL, Very high Performed By: #### U ACR #### [facility] CLIA [id number] [address] [place] [address] [place] VLDL CHOLESTEROL, NF 15 mg/dL Normal <30 [facility] Comment on above: Order Comment: Speci men Type: URINE SPECIMEN Ordering Facility: [facility] Address: [address] [place] [address] Performed By: #### U ACR #### [facility] CLIA [id number] [address] [place] [address] [place] PTH-Intact SerPl-mCncon 03-0 Parathyrin.intact [Mass/Vol] 79 pg/mL High 15-65 [facility] Comment on above: Order Comment: Speci men Type: URINE SPECIMEN Ordering Facility: [facility] Address: [address], [place] [address] Result Comment: Test methodology for this assay has moved from Siemens Centaur XP to Kailash evan 8000 effective February 07, 2022. Please note there may be a change in the reporting units and/or reference range. Performed By: #### 2 890-2 #### [facility] CLIA [id number] [address] [place] [address] [place] Renal function 2000 panelon 07-07-2024 Albumin [Mass/Vol] 4.5 g/dL Normal 3.9-4.9 [facility] Comment on above: Order Comment: Speci men Type: URINE SPECIMEN Ordering Facility: [facility] Address: [address] [place] [address] Performed By: #### 2 890-2 #### [facility] CLIA [id number] [address] [place] [address] [place] Anion gap [Moles/Vol] 13 mmol/L Normal 8-15 [facility] Comment on above: Order Comment: Speci men Type: URINE SPECIMEN Ordering Facility: [facility] Address: [address] [place] [address] Performed By: #### 2 890-2 #### [facility] CLIA [id number] [address] [place], [place] [address] [place] Calcium [Mass/Vol] 9.9 mg/dL Normal 8.5-10.2 [facility] Comment on above: Order Comment: Speci men Type: URINE SPECIMEN Ordering Facility: [facility] Address: [address] [place], [place] [address] Performed By: #### 2 890-2 #### [facility] CLIA [id number] [address] [place], [place] [address] [place] Chloride [Moles/Vol] 101 mmol/L Normal 98-107 [facility] Comment on above: Order Comment: Speci men Type: URINE SPECIMEN Ordering Facility: [facility] Address: [address] [place], [place] [id number] Performed By: #### 2 890-2 #### [facility] CLIA [id number] [address] [place] [address] [place] CO2 [Moles/Vol] 25 mmol/L Normal 22-30 [facility] Comment on above: Order Comment: Speci men Type: URINE SPECIMEN Ordering Facility: [facility] Address: [address] [place] [address] Performed By: #### 2 890-2 #### [facility] CLIA [id number] [address] [place] [address] [place] Glucose [Mass/Vol] 88 mg/dL Normal 74-99 [facility] Comment on above: Order Comment: Speci men Type: URINE SPECIMEN Ordering Facility: [facility] Address: [address] [place] [address] Result Comment: The [place] Diabetes Association (ADA) provides guidance for cutoff values for fasting glucose and random glucose. The ADA defines fasting as no caloric intake for at least 8 hours. Fasting plasma glucose results between 100 to 125 mg/dL indicate increased risk for diabetes (prediabetes). Fasting plasma glucose results greater than or equal to 126 mg/dL meet the criteria for diagnosis of diabetes. In the absence of unequivocal hyperglycemia, results should be confirmed by repeat testing. In a patient with classic symptoms of hyperglycemia or hyperglycemic crisis, random plasma glucose results greater than or equal to 200 mg/dL meet the criteria for diagnosis of diabetes. Reference: Standards of Medical Care in Diabetes 2016, [place] [employer] Association. Diabetes Care. 2016.39(Suppl 1). Performed By: #### 2 890-2 #### [facility] CLIA [id number] [address] [place], [place] [address] [place] Phosphate [Mass/Vol] 3.5 mg/dL Normal 2.7-4.8 [facility] Comment on above: Order Comment: Speci men Type: URINE SPECIMEN Ordering Facility: [facility] Address: [address] [place], [place] [id number] Performed By: #### 2 890-2 #### [facility] CLIA [id number] [address] [place] [address] [place] Potassium [Moles/Vol] 4.1 mmol/L Normal 3.7-5.1 [facility] Comment on above: Order Comment: Speci men Type: URINE SPECIMEN Ordering Facility: [facility] Address: [address] [place] [address] Performed By: #### 2 890-2 #### [facility] CLIA [id number] [address] [place] [address] [place] Sodium [Moles/Vol] 139 mmol/L Normal 136-144 [facility] Comment on above: Order Comment: Speci men Type: URINE SPECIMEN Ordering Facility: [facility] Address: [address] [place] [address] Performed By: #### 2 890-2 #### [facility] CLIA [id number] [address] [place] [address] [place] Urea nitrogen [Mass/Vol] 12 mg/dL Normal 7-21 [facility] Comment on above: Order Comment: Speci men Type: URINE SPECIMEN Ordering Facility: [facility] Address: [address] [place] [address] Performed By: #### 2 890-2 #### [facility] CLIA [id number] [address] [place] [address] [place] TSH SerPl-aCncon 07-07-2024 TSH Qn 3.420 m[IU]/L Normal 0.270-4.200 [facility] Comment on above: Order Comment: Speci men Type: URINE SPECIMEN Ordering Facility: [facility] Address: [address] [place] [address] Performed By: #### 2 890-2 #### [facility] CLIA [id number] [address] [place] [address] [place] XR Foot - right AP and Later al and obliqueon 11-16-2022 IMPRESSION: NO ACUTE BONY PROCESS. Abattoir Manager: FRANK Transcribe Date/Time: Nov 16 2022 9:36A Dictated by : KAMARI PADILLA MD This examination was interpreted and the report reviewed and electronically signed by: KAMARI PADILLA MD on Nov 16 2022 9:38AM EST DIVISION OF RADIOLOGY * * *Final Report* * * DATE OF EXAM: Nov 16 2022 9:22AM [facility] [id number] - XR FOOT 3V AP/LAT/OBL RT / PROCEDURE REASON: Foot pain, right * * * * Physician Interpretation * * * * HISTORY: Pain TECHNIQUE: Frontal, oblique, lateral (three) views of the right foot were obtained. RESULT: There is no acute fracture, dislocation or significant soft tissue swelling. There is mild osteophytosis and joint space narrowing of the right first and second metatarsophalangeal joints. There is mild plantar calcaneal enthesophyte. DIVISION OF RADIOLOGY Provider, [facility] - 11/16/2022 * * *Final Report* * * DATE OF EXAM: Nov 16 2022 9:22AM NOX [id number] - XR FOOT 3V AP/LAT/OBL RT / PROCEDURE REASON: Foot pain, right * * * * Physician Interpretation * * * * HISTORY: Pain TECHNIQUE: Frontal, oblique, lateral (three) views of the right foot were obtained. RESULT: There is no acute fracture, dislocation or significant soft tissue swelling. There is mild osteophytosis and joint space narrowing of the right first and second metatarsophalangeal joints. There is mild plantar calcaneal enthesophyte. IMPRESSION IMPRESSION: NO ACUTE BONY PROCESS. Abattoir Manager: [facility] Transcribe Date/Time: Nov 16 2022 9:36A Dictated by : KAMARI PADILLA MD This examination was interpreted and the report reviewed and electronically signed by: KAMARI PADILLA MD on Nov 16 2022 9:38AM EST [facility] Radiology Study observation (narrative) [facility] XR Foot - right AP and Later al and obliqueOrdered By: Ccf Provider on 11-16-2022 [facility] CBC AND DIFFERENTIALon 08-07 % AUTOMATED IMMATURE GRAN 0.2 % Normal 0.0 - 0.9 [facility] Comment on above: Result Comment: Maria Luisa ture Granulocyte Count (IG) includes promyelocytes, myelocytes and metamyelocytes but does not include bands. Percent differential counts (%) should be interpreted in the context of the absolute cell counts (cells/L). Performed By: #### C BCDF #### [address] [address] Basophils (Bld) [#/Vol] 0.05 10*3/uL Normal 0.00 - 0.10 [facility] Comment on above: Performed By: #### C BCDF #### [address] [address] Basophils/100 WBC (Bld) 1.0 % Normal 0.0 - 2.0 [facility] Comment on above: Performed By: #### C BCDF #### [address] [address] Eosinophils (Bld) [#/Vol] 0.18 10*3/uL Normal 0.00 - 0.70 [facility] Comment on above: Performed By: #### C BCDF #### [address] [address] Eosinophils/100 WBC (Bld) 3.6 % Normal 0.0 - 6.0 [facility] Comment on above: Performed By: #### C BCDF #### [address] [address] Erythrocyte distribution width (RBC) [Ratio] 13.9 % Normal 11.5 - 14.5 [facility] Comment on above: Performed By: #### C BCDF #### [address] [address] Hematocrit (Bld) [Volume fraction] 42.8 % Normal 36.0 - 46.0 [facility] Comment on above: Performed By: #### C BCDF #### [address] [address] Hemoglobin (Bld) [Mass/Vol] 13.7 g/dL Normal 12.0 - 16.0 [facility] Comment on above: Performed By: #### C BCDF #### [address] [address] Lymphocytes (Bld) [#/Vol] 1.51 10*3/uL Normal 1.20 - 4.80 [facility] Comment on above: Performed By: #### C BCDF #### [address] [address] Lymphocytes/100 WBC (Bld) 30.2 % Normal 13.0 - 44.0 [facility] Comment on above: Performed By: #### C BCDF #### [address] [address] MCHC (RBC) [Mass/Vol] 32.0 g/dL Normal 32.0 - 36.0 [facility] Comment on above: Performed By: #### C BCDF #### [address] [address] MCV (RBC) [Entitic vol] 92 fL Normal 80 - 100 [facility] Comment on above: Performed By: #### C BCDF #### [address] [address] Monocytes (Bld) [#/Vol] 0.50 10*3/uL Normal 0.10 - 1.00 [facility] Comment on above: Performed By: #### C BCDF #### [address] [address] Monocytes/100 WBC (Bld) 10.0 % Normal 2.0 - 10.0 [facility] Comment on above: Performed By: #### C BCDF #### [address] [address] Neutrophils (Bld) [#/Vol] 2.75 10*3/uL Normal 1.20 - 7.70 [facility] Comment on above: Performed By: #### C BCDF #### [address] [address] Neutrophils/100 WBC (Bld) 55.0 % Normal 40.0 - 80.0 [facility] Comment on above: Performed By: #### C BCDF #### [address] [address] NUCLEATED RBC 0.0 /100 WBC Normal 0.0 - 0.0 [facility] Comment on above: Performed By: #### C BCDF #### [address] [address] Platelets (Bld) [#/Vol] 220 10*3/uL Normal 150 - 450 [facility] Comment on above: Performed By: #### C BCDF #### [address] [address] RBC 4.64 x10E12/L Normal 4.00 - 5.20 [facility] Comment on above: Performed By: #### C BCDF #### [address] [address] WBC (Bld) [#/Vol] 5.0 10*3/uL Normal 4.4 - 11.3 [facility] Comment on above: Performed By: #### C BCDF #### [address] [address] COMPREHENSIVE PANELon 2022 Albumin [Mass/Vol] 4.3 g/dL Normal 3.4 - 5.0 [facility] Comment on above: Performed By: #### C MP ####[address] [address] ALP [Catalytic activity/Vol] 99 U/L Normal 33 - 110 [facility] Comment on above: Performed By: #### C MP ####[address] [address] ALT [Catalytic activity/Vol] 36 U/L Normal 7 - 45 [facility] Comment on above: Result Comment: Diane ents treated with Sulfasalazine may generate falsely decreased results for ALT. Performed By: #### C MP ####[address] [address] Anion gap [Moles/Vol] 10 mmol/L Normal 10 - 20 [facility] Comment on above: Performed By: #### C MP ####[address] [address] AST [Catalytic activity/Vol] 25 U/L Normal 9 - 39 [facility] Comment on above: Performed By: #### C MP ####[address] [address] Bilirubin [Mass/Vol] 0.6 mg/dL Normal 0.0 - 1.2 [facility] Comment on above: Performed By: #### C MP ####[address] [address] Calcium [Mass/Vol] 9.6 mg/dL Normal 8.6 - 10.3 [facility] Comment on above: Performed By: #### C MP ####[address] [address] Chloride [Moles/Vol] 102 mmol/L Normal 98 - 107 [facility] Comment on above: Performed By: #### C MP ####[address] [address] Creatinine [Mass/Vol] 1.00 mg/dL Normal 0.50 - 1.05 [facility] Comment on above: Performed By: #### C MP ####[address] [address] GFR/1.73 sq M.predicted among non-blacks MDRD (S/P/Bld) [Vol rate/Area] 67 mL/min/{1.73_m2} Normal >90 [facility] Comment on above: Result Comment: CALC ULATIONS OF ESTIMATED GFR ARE PERFORMED USING THE 2020 CKD-EPI STUDY REFIT EQUATION WITHOUT THE RACE VARIABLE FOR THE IDMS-TRACEABLE CREATININE METHODS. https://jasn.asnjournals.org/content//ASN.8355153 988 Performed By: #### C MP ####[address] [address] Glucose [Mass/Vol] 91 mg/dL Normal 74 - 99 [facility] Comment on above: Performed By: #### C MP ####[address] [address] HCO3 (Bld) [Moles/Vol] 30 mmol/L Normal 21 - 32 [facility] Comment on above: Performed By: #### C MP ####[address] [address] Potassium [Moles/Vol] 4.3 mmol/L Normal 3.5 - 5.3 [facility] Comment on above: Performed By: #### C MP ####[address] [address] Protein [Mass/Vol] 7.0 g/dL Normal 6.4 - 8.2 [facility] Comment on above: Performed By: #### C MP ####[address] [address] Sodium [Moles/Vol] 138 mmol/L Normal 136 - 145 [facility] Comment on above: Performed By: #### C MP ####[address] [address] Urea nitrogen [Mass/Vol] 14 mg/dL Normal 6 - 23 [facility] Comment on above: Performed By: #### C MP ####[address] [address] EMR ADDONon 08-07-2022 ADDON CONFIRMATION REQUEST REC'D Normal [facility] Comment on above: Performed By: #### E MRAD #### [address] [address] Electrocardiogram 12 Leadon 08-07-2022 Electrocardiogram 12 Lead Ventricular Rate 63 Atrial Rate 63 P-R Interval 196 QRS Duration 92 Q-T Interval 398 QTC Calculation(Bazett) 407 P [place] 37 R [place] 66 T [place] 46 QRS Count 11 Q Onset 222 P Onset 124 P Offset 186 T Offset 421 QTC Fredericia 404 Diagnosis Class Borderline Normal Diagnosis Normal sinus rhythm Low voltage QRS in precordial leads Otherwise normal ECG When compared with ECG of 24-JUL-2020 08:30, No significant change was found Confirmed by Andrea Marx ([id number]) on 08/10/2022 10:41:28 AM Normal [facility] HCG,BETA-QUANTITATIVEon 04-0 HCG,BETA-QUANTITATIV E 10 mIU/mL Abnormal [facility] Comment on above: Result Comment: . Total HCG measurement is performed using the Susanne [place] Access Immunoassay which detects intact HCG and free beta HCG subunit. . This test is not indicated for use as a tumor marker. HCG testing is performed using a different test methodology at [facility] than other [facility]. Direct result comparison should only be made within the same method. REF VALUES NON FEMALE <5 MALES <5 . Low-level positive HCG results can be seen in early , in magy- or post-menopausal females due to normal pituitary HCG production, or with analytic interference. Repeat testing in 48-72 hours can aid in assessing for as results should double in this time period. FSH measurement is recommended in magy- or post-menopausal females as concurrent elevation of FSH can support pituitary production as the source of the HCG elevation. Performed By: #### H CGQU #### [address] [place] [address] MAGNESIUMon 08-07-2022 Magnesium [Mass/Vol] 1.93 mg/dL Normal 1.60 - 2.40 [facility] Comment on above: Performed By: #### M G #### [address] [place] [address] Provider Note - ED v3on 04-0 Provider Note - ED v3 Provider Note: Chart Review: ED NOTES ED NOTES: Patient is a 52 year old female with a history of PE, lupus, ckd, neck surgery , cholecystectomy hysterectomy presenting with cough and pain in her chest. The patient states this has been going on for 1 1/2 weeks. She has been coughing up green sputum. Patient states chest pain is on the right side of her chest and doesn't radiate. The patient does get short of breath with walking. She does take albuterol at home as needed for cough. The patient denies fever, chills, runny nose, sore throat, ear pain, abdominal pain, vomiting, diarrhea, constipation, urinary symptoms, headache, numbness, tingling or weakness. PmHx: Per HPI PsHx: Per HPI Family Hx: reviewed and not contributory Social Hx: denies drinking, or drug use, + smoking vape pen Allergies: pcn, sulfa REVIEW OF SYSTEMS: Gen.: (-) fatigue, (-) fever, (-) chills Eyes: (-) vision changes, (-) double vision, (-) loss of vision ENT: (-) sore throat, (-) nasal congestion, (-) ear pain Cardiac: (+) chest pain, (-) palpitations, (-)syncope (-) orthopnea, (-) leg swelling Pulmonary: (+) shortness of breath, (+) cough, (-) wheezing Neuro: (-) headache, (-) confusion, (-)slurred speech, (-) numbness, (-) tingling, (-)weakness GI: (-) abdominal pain, (-) nausea, (-)vomiting, (-)diarrhea, (-)constipation (-) bowel incontinence : (-) discharge, (-) dysuria, (-) frequency, (-)urgency, (-) hematuria (-) urinary incontinence Musculoskeletal: (-) extremity pain, (-) back pain, (-) swelling ( -) saddle anesthesia Skin: (-) rashes, (-)redness PHYSICAL EXAM General: Alert, No acute distress, well appearing Skin: Warm, dry, no pallor noted. No erythema, ecchymosis, or swelling. no petechiae or purpura. Head: Normocephalic, atraumatic Neck: Full ROM, supple, no midline tenderness, no nuchal rigidity, no jvd, no thyromegaly, no lymphadenopathy. Eyes: PERRL, EOMI, pink conjunctiva, white sclera ENT: patent nares, no pharyngeal swelling or erythema, no tonsillar exudates, moist mucus membranes. Cardiovascular: Regular rate and rhythm, no murmurs, gallops or rubs. No peripheral cyanosis or pallor. Respiratory: No respiratory distress, no accessory muscle use, lungs clear to auscultation bilateral lung pace, no wheezing, rhonchi or rales. no stridor. Musculoskeletal: Moves all extremities. GI: Abdomen soft and nondistended. Non tender, no pulsatile masses. No rebound, guarding, or rigidity noted. bowel sounds equal + 4 quadrants. Neurological: Normal speech and mentation. No focal neurologic deficits. Psychiatric: Cooperative and calm. appropriate mood and affect. MDM: History was obtained by the patient. Their external medical records were reviewed. Patient has chronic medical conditions such as PE, lupus and ckd presenting with right side chest pain and cough. Cardiac work up was initiated and ct chest was performed due to previous CT having a blood clot. cbc and cmp were within normal limits. troponin negative x2. chest ct negative for pe, patient had stable lymph node enlargements within lungs. Patient was discharge and to follow up with cardiology. She was given ct results and copies. She understand discharge instructions and return precautions. HISTORY OF PRESENTING ILLNESS MICHAEL is a 52 year old Female and was seen by me at 07-Aug-2022 11:27 for a chief complaint of cough (for 1.5 weeks, sent by PCP, stephanie monsivais, on eliquis, intermittent CP)(1). Triage Information: Most recent Vital Sign Value Date Temp (F): 98.4 08-07-2022 11:06 Temp (C): 36.9 08-07-2022 11:06 Heart Rate (beats/min): 70 08-07-2022 11:06 Respirations (breaths/min): 18 08-07-2022 11:06 SpO2 (%): 98 08-07-2022 11:06 BP Systolic (mm Hg): 134 08-07-2022 11:06 BP Diastolic (mm Hg): 72 08-07-2022 11:06 PAST MEDICAL HISTORY ALLERGIES/INTOLERANCES: Allergy Allergen: penicillin Type: Drug Reaction: Unknown HEALTH HISTORY: No documented data. OUTPATIENT MEDICATIONS: Home Medications Review Status for Reconciliation: N/A Med Status: Patient Currently Takes Medications Drug Name: Albuterol (Eqv-Proventil HFA) 90 mcg/inh inhalation aerosol Instructions: 2 puff(s) inhaled every 4 hours, As Needed Drug Name: Eliquis 5 mg oral tablet Instructions: 1 tab(s) orally 2 times a day Drug Name: DULoxetine 60 mg oral delayed release capsule Instructions: 1 cap(s) orally 2 times a day Drug Name: Vitamin D3 50,000 intl units (1250 mcg) oral capsule Instructions: 1 cap(s) orally once a week on mondays Drug Name: Pepcid 40 mg oral tablet Instructions: 1 tab(s) orally once a day (at bedtime) Drug Name: Breo Ellipta 100 mcg-25 mcg/inh inhalation powder Instructions: 1 puff(s) inhaled once a day Drug Name: spironolactone-hydrochlo rothiazide 25 mg-25 mg oral tablet Instructions: 1 tab(s) orally once a day Drug Name: hydroxychloroquine 200 mg oral tablet (more content not included)... Normal [facility] Risk Screen - Adult Emergenc yon 08-07-2022 Risk Screen - Adult Emergency Preferred Language: Preferred Language: Preferred Language for Discussing Health Care (patient/designee)Malcolm dobbs Patient Preferred Pharmacy: Patient Preferred Pharmacy Statement: I have reviewed and updated the patient's preferred pharmacy selection for today's visit. Advanced Directives: Advance Directive/DNRno Family Violence Adult: Abuse Screen: Are you or have you been threatened or abused physically, emotionally, or sexually by anyoneno Learning Assessment (Patient): Learning Assessment (Patient): Patient is Able to be Assessed for Learningyes Factors Influencing Readiness to Learninterest in learning Factors that Impact Ability to Learnnone Devices/Methods Used to Communicatenone Learning Preferencesverbal instruction Cultural Considerationsnone Developmental Considerationsnone Sikhism Considerationsnone Learning Assessment (Other Learner): Learning Assessment (Other Learner): Other learner availableno Pressure Injury/TB/Substance: Pressure Injury: Pressure Injury Present on Admissionno Do you have a coughyes... Has your cough lasted longer than 2 weeksno Smoking Statusnever smoker Alcohol Useoccasionally Admission Risk Screen: Significant IndicatorsComplete CAGE: CAGE: Is this an injured patient at a Trauma Center ([facility]/[place] /[place]): no Electronic Signatures: Geneva Martini (KATIE) (Signed 07-Aug-2022 11:10) Authored: Preferred Language, Patient Preferred Pharmacy, Advanced Directives, Family Violence Adult, Learning Assessment (Patient), Learning Assessment (Other Learner), Pressure Injury/TB/Substance, Pressure Injury, CAGE Last Updated: 07-Aug-2022 11:10 by Geneva Martini (KATIE) Normal [facility] TROPONIN I, HIGH SENSITIVITY on 08-07-2022 TROPONIN I, HIGH SENSITIVITY Canceled Normal [facility] Comment on above: Order Comment: TEST TROPONIN I, HIGH SENSITIVITY WAS CANCELLED, 08/07/2022 19:13 PATIENT DISCHARGED. Result Comment: . Less than 99th percentile of normal range cutoff- Female and children under 18 years old <14 ng/L; Male <21 ng/L: Negative Repeat testing should be performed if clinically indicated. . Female and children under 18 years old 14-50 ng/L; Male 21-50 ng/L: Consistent with possible cardiac damage and possible increased clinical risk. Serial measurements may help to assess extent of myocardial damage. . >50 ng/L: Consistent with cardiac damage, increased clinical risk and myocardial infarction. Serial measurements may help assess extent of myocardial damage. . NOTE: Children less than 1 year old may have higher baseline troponin levels and results should be interpreted in conjunction with the overall clinical context. . NOTE: Troponin I testing is performed using a different testing methodology at [facility] than at other [facility]. Direct result comparisons should only be made within the same method. Performed By: #### T [facility] #### [address] [address] TROPONIN I, HIGH SENSITIVITY 3 ng/L Normal 0 - 13 [facility] Comment on above: Result Comment: . Less than 99th percentile of normal range cutoff- Female and children under 18 years old <14 ng/L; Male <21 ng/L: Negative Repeat testing should be performed if clinically indicated. . Female and children under 18 years old 14-50 ng/L; Male 21-50 ng/L: Consistent with possible cardiac damage and possible increased clinical risk. Serial measurements may help to assess extent of myocardial damage. . >50 ng/L: Consistent with cardiac damage, increased clinical risk and myocardial infarction. Serial measurements may help assess extent of myocardial damage. . NOTE: Children less than 1 year old may have higher baseline troponin levels and results should be interpreted in conjunction with the overall clinical context. . NOTE: Troponin I testing is performed using a different testing methodology at [facility] than at other [facility]. Direct result comparisons should only be made within the same method. Performed By: #### T RP #### [facility] [id number] [place] [id number] TROPONIN I, HIGH SENSITIVITY 3 ng/L Normal 0 - 13 [facility] Comment on above: Result Comment: . Less than 99th percentile of normal range cutoff- Female and children under 18 years old <14 ng/L; Male <21 ng/L: Negative Repeat testing should be performed if clinically indicated. . Female and children under 18 years old 14-50 ng/L; Male 21-50 ng/L: Consistent with possible cardiac damage and possible increased clinical risk. Serial measurements may help to assess extent of myocardial damage. . >50 ng/L: Consistent with cardiac damage, increased clinical risk and myocardial infarction. Serial measurements may help assess extent of myocardial damage. . NOTE: Children less than 1 year old may have higher baseline troponin levels and results should be interpreted in conjunction with the overall clinical context. . NOTE: Troponin I testing is performed using a different testing methodology at [facility] than at other [facility]. Direct result comparisons should only be made within the same method. Performed By: #### T [facility] #### [facility] [address] [place] [id number] Triage - EDon 08-07-2022 Triage - ED Quick Triage: Are You no Have You Given In The Last 6 Weeksno Are You Currently Breastfeedingno The patient and/or guardian verbally acknowledges placement for services into the following (when Urgent Care Service hours are operating):emergency department Chart Review: PRIMARY ASSESSMENT MICHAEL PACKER's primary assessment is Within Defined Limits. The airway is open and patent. Breathing spontaneous and unlabored with clear breath sounds bilaterally. Circulation is normal with good peripheral pulses. Skin is warm and dry and color is normal for race. ARRIVAL INFORMATION Means of Arrival: Ambulatory Mode of Arrival: private vehicle Arrival From: home Accompanied By: self Language: Spoken Language Preferred: [place] Islander Reading Language Preferred: [place] CHIEF COMPLAINT MICHAEL PACKER is a Female patient with a chief complaint of cough (for 1.5 weeks, sent by PCP, stephanie monsivais, on eliquis, intermittent CP). Onset of the Complaint: 07-Aug-2022 Triage Date/Time: 07-Aug-2022 11:07 MALCOLM: 3 Vital Signs: Temperature: 98.4F ( 36.9C) taken skin probe Blood Pressure: 134/72 Mean: Heart Rate: 70 Respiratory Rate: 18 Pulse Oximetry: 98% on room air, no respiratory support. Height: 5 feet 7.00 inches. 170.1 CM Weight: 335.1 pounds. Calculated 152.0 kg. (stated) Calculated BMI (kg/m2): 52.533 Calculated BSA (m2) 2.68 Jael Coma Scale: Best Eye Response: (E4) spontaneous Best Motor Response: (M6) obeys commands Best Verbal Response: (V5) oriented [place] Score: 15 Cough lasting greater than 3 weeks: no Patient immunocompromised related to: N/A Allergies: no Patient has homicidal thoughts: no Risk Screens Suicide Risk Screen In the Past Month: Have you wished you were or wished you could go to sleep and not wake up no In the Past Month: Have you had any actual thoughts of killing yourself no In Your Lifetime: Have you ever done anything, started to do anything, or prepared to do anything to end your life no Theodore Fall Scale Screening Has the patient fallen before (or is the patient in the ED as a result of a fall) has not had a fall Does the patient have an impaired gait does not have impaired gait Is the patient cognitively impaired not cognitively impaired Interventions: Theodore Fall Interventions: LOW INTERVENTIONS: *patient oriented to surroundings and call system, * patient/family falls education completed and documented, *patients fall status communicated during bedside handoff, *whiteboard updated, *mode of toileting discussed with patient, *bed in low position with brakes locked, *call light in reach, * non-skid footwear PAST MEDICAL HISTORY Immunization History: Last Known Tetanus Immunization: Greater than 5 years but less than 10 years TRAVEL HISTORY Travel History Coronavirus Screening: no exposure or symptoms Travel Exposure History: NO travel to International locations in the past 30 days PAIN Pain Scale Used: ANTONIO Past Medical History: Past Medical History Reviewedno Electronic Signatures: Geneva Martini) (Signed 07-Aug-2022 11:10) Authored: Quick Triage, Risk Screens, Pain, Arrival, ABCD, Immunizations, Travel History, Chart Review, Scores, Past Medical History Last Updated: 07-Aug-2022 11:10 by Geneva Martini) [facility] ALLIED HEALTH 09-27-2021 ALLIED HEALTH HNO ID: [id number] Author: Rosalio Velez Service: ? Author Type: Senior Medical Writer Type: Allied Health Filed: 09/27/2021 3:29 PM Note Text: Radiology Service Progress Note PATIENT NAME: Michael Packer DATE OF SERVICE: September 27, 2021 TIME: 3:29 PM PATIENT IDENTITY VERIFICATION COMPLETED USING TWO (2) IDENTIFIERS: Name and Date of confirmed by patient verbally and Name and Date of confirmed by identification band. FALL SCREENING: Has the patient had 2 falls in the last year or 1 fall with injury or currently using an Ambulatory Assistive Device (Walker, Cane, Wheelchair, Crutches, etc.)? Emergency Room Patient: Screened in ED PATIENT GENDER DATA: Female. status: : No status: NO. PATIENT RELEVANT IMPLANT DATA REVIEWED: Not Applicable RADIOLOGY DEPARTMENT: CT; Exam(s) Completed: Abdomen/Pelvis PERIPHERAL IV DATA: Not applicable SIGNED BY: Rosalio Velez September 27, 2021 3:29 PM [facility] CBC W Auto Differential pane l (Bld)on 09-27-2021 Basophils (Bld) [#/Vol] 0.05 10*3/uL Normal <0.11 [facility] Comment on above: Order Comment: Speci pierre Type: BLOOD SPECIMEN Ordering Facility: [facility] Address: [address] [place] [address] Performed By: #### 5 7021-8 #### [facility] CLIA [id number] [address] [place] [address] [place] Basophils/100 WBC (Bld) 0.8 % [facility] Comment on above: Order Comment: Hany jay Type: BLOOD SPECIMEN Ordering Facility: [facility] Address: [address] [place] [address] Performed By: #### 5 7021-8 #### [facility] CLIA [id number] [address] [place] [address] [place] Differential cell count method Nom (Bld) Auto Normal [facility] Comment on above: Order Comment: Speci pierre Type: BLOOD SPECIMEN Ordering Facility: [facility] Address: [address] [place] [address] Performed By: #### 5 7021-8 #### [facility] CLIA [id number] [address] [place] [address] [place] Eosinophils (Bld) [#/Vol] 0.08 10*3/uL Normal <0.46 [facility] Comment on above: Order Comment: Speci men Type: BLOOD SPECIMEN Ordering Facility: [facility] Address: [address] [place] [address] Performed By: #### 5 7021-8 #### [facility] CLIA [id number] [address] [place] Eosinophils/100 WBC (Bld) 1.3 % Normal [facility] Comment on above: Order Comment: Speci men Type: BLOOD SPECIMEN Ordering Facility: [facility] Address: [address] [place] [address] Performed By: #### 5 7021-8 #### [facility] CLIA [id number] [address] [place] Erythrocyte distribution width (RBC) [Ratio] 13.7 % Normal 11.5-15.0 [facility] Comment on above: Order Comment: Speci men Type: BLOOD SPECIMEN Ordering Facility: [facility] Address: [address] [place] [address] Performed By: #### 5 7021-8 #### [facility] CLIA [id number] [address] [place] Hematocrit (Bld) [Volume fraction] 39.8 % Normal 36.0-46.0 [facility] Comment on above: Order Comment: Speci men Type: BLOOD SPECIMEN Ordering Facility: [facility] Address: [address] [place] [address] Performed By: #### 5 7021-8 #### [facility] CLIA [id number] [address] [place] Hemoglobin (Bld) [Mass/Vol] 13.0 g/dL Normal 11.5-15.5 [facility] Comment on above: Order Comment: Speci men Type: BLOOD SPECIMEN Ordering Facility: [facility] Address: [address] [place] [address] Performed By: #### 5 7021-8 #### [facility] CLIA [id number] [address] [place] IMMATURE GRAN % 0.2 % Normal [facility] Comment on above: Order Comment: Speci men Type: BLOOD SPECIMEN Ordering Facility: [facility] Address: [address] [place] [address] Performed By: #### 5 7021-8 #### [facility] CLIA [id number] [address] STATES OF [facility] IMMATURE GRAN ABS <0.03 Normal <0.10 [facility] Comment on above: Order Comment: Speci men Type: BLOOD SPECIMEN Ordering Facility: [facility] Address: [address] [place] [address] Performed By: #### 5 7021-8 #### [facility] CLIA [id number] [address] [place] Lymphocytes (Bld) [#/Vol] 1.10 10*3/uL Normal 1.00-4.00 [facility] Comment on above: Order Comment: Speci men Type: BLOOD SPECIMEN Ordering Facility: [facility] Address: [address] [place] [address] Performed By: #### 5 7021-8 #### [facility] CLIA [id number] [address] Lymphocytes/100 WBC (Bld) 17.5 % Normal [facility] Comment on above: Order Comment: Speci men Type: BLOOD SPECIMEN Ordering Facility: [facility] Address: [address] [place] [address] Performed By: #### 5 7021-8 #### [facility] CLIA [id number] [address] MCH (RBC) [Entitic mass] 30.8 pg Normal 26.0-34.0 [facility] Comment on above: Order Comment: Speci men Type: BLOOD SPECIMEN Ordering Facility: [facility] Address: [address] [place] [address] Performed By: #### 5 7021-8 #### [facility] CLIA [id number] [address] MCHC (RBC) [Mass/Vol] 32.7 g/dL Normal 30.5-36.0 [facility] Comment on above: Order Comment: Speci men Type: BLOOD SPECIMEN Ordering Facility: [facility] Address: [address] [place] [address] Performed By: #### 5 7021-8 #### [facility] CLIA [id number] [address] MCV (RBC) [Entitic vol] 94.3 fL Normal 80.0-100.0 [facility] Comment on above: Order Comment: Speci men Type: BLOOD SPECIMEN Ordering Facility: [facility] Address: [address] [place] [address] Performed By: #### 5 7021-8 #### [facility] CLIA [id number] [address] [place] Monocytes (Bld) [#/Vol] 0.39 10*3/uL Normal <0.87 [facility] Comment on above: Order Comment: Speci men Type: BLOOD SPECIMEN Ordering Facility: [facility] Address: [address] [place] [address] Performed By: #### 5 7021-8 #### [facility] CLIA [id number] [address] Monocytes/100 WBC (Bld) 6.2 % Normal [facility] Comment on above: Order Comment: Speci men Type: BLOOD SPECIMEN Ordering Facility: [facility] Address: [address] [place] [address] Performed By: #### 5 7021-8 #### [facility] CLIA [id number] [address] [place] Neutrophils (Bld) [#/Vol] 4.65 10*3/uL Normal 1.45-7.50 [facility] Comment on above: Order Comment: Speci men Type: BLOOD SPECIMEN Ordering Facility: [facility] Address: [address] [place] [address] Performed By: #### 5 7021-8 #### [facility] CLIA [id number] [address] [place] Neutrophils/100 WBC (Bld) 74.0 % Normal [facility] Comment on above: Order Comment: Speci men Type: BLOOD SPECIMEN Ordering Facility: [facility] Address: [address] [address] Performed By: #### 5 7021-8 #### [facility] CLIA [id number] [address] [place] Nucleated RBC (Bld) [#/Vol] 10*3/uL Normal <0.01 [facility] Comment on above: Order Comment: Speci men Type: BLOOD SPECIMEN Ordering Facility: [facility] Address: [address] [place] [address] Performed By: #### 5 7021-8 #### [facility] CLIA [id number] [address] [place] Nucleated RBC/100 WBC (Bld) [Ratio] 0.0 /100 WBC Normal [facility] Comment on above: Order Comment: Speci men Type: BLOOD SPECIMEN Ordering Facility: [facility] Address: [address] [place] [address] Performed By: #### 5 7021-8 #### [facility] CLIA [id number] 1000 [place] [address] [place] Platelet mean volume (Bld) [Entitic vol] 10.0 fL Normal 9.0-12.7 [facility] Comment on above: Order Comment: Speci men Type: BLOOD SPECIMEN Ordering Facility: [facility] Address: [address] [place] [address] Performed By: #### 5 7021-8 #### [facility] CLIA [id number] 1000 [place] [address] [place] Platelets (Bld) [#/Vol] 213 10*3/uL Normal 150-400 [facility] Comment on above: Order Comment: Speci men Type: BLOOD SPECIMEN Ordering Facility: [facility] Address: [address] [place] [address] Performed By: #### 5 7021-8 #### [facility] CLIA [id number] 1000 [place] [address] [place] RBC (Bld) [#/Vol] 4.22 10*6/uL Normal 3.90-5.20 [facility] Comment on above: Order Comment: Speci men Type: BLOOD SPECIMEN Ordering Facility: [facility] Address: [address] [place] [address] Performed By: #### 5 7021-8 #### [facility] CLIA [id number] 1000 [place] [address] [place] WBC (Bld) [#/Vol] 6.28 10*3/uL Normal 3.70-11.00 [facility] Comment on above: Order Comment: Speci men Type: BLOOD SPECIMEN Ordering Facility: [facility] Address: [address] [place] [address] Performed By: #### 5 7021-8 #### [facility] CLIA [id number] [address] [place] CT ABD/PEL WO IVCONon 2021 CT ABD/PEL WO IVCON * * *Final Report* * * DATE OF EXAM: Sep 27 2021 3:30PM [facility] 0531 - CT ABD/PEL WO IVCON / PROCEDURE REASON: Nausea/vomiting * * * * Physician Interpretation * * * * EXAMINATION: CT ABDOMEN AND PELVIS WITHOUT IV CONTRAST CLINICAL HISTORY: 51 years old Female with Nausea/vomiting TECHNIQUE: Non-IV contrast imaging of the abdomen and pelvis was performed using standard technique, scanning from just above the dome of the diaphragm to the symphysis pubis. MQ: CTAPWO_3 Contrast: IV: None Oral: None. CT Radiation dose: Integrated Dose-length product (DLP) for this visit = 1660 mGy*cm. CT Dose Reduction Employed: mAs-kVp adjusted based on patient size-age COMPARISON: CTA 07/23/2020, CT 11/12/2016 RESULT: Abdomen / Pelvis: Unenhanced imaging is limited for the evaluation of some intra-abdominal and pelvic pathology. Liver: Scattered hepatic cysts including 1.3 cm cyst in the LEFT hepatic dome and 1.9 cm cyst in the inferior RIGHT hepatic lobe which have slightly increased in size since 11/12/2016. Biliary: Cholecystectomy. Spleen: No splenomegaly. Pancreas: Unremarkable. Adrenals: No mass. Kidneys: No calculus, hydronephrosis or finding to suggest a cyst or mass in the unenhanced kidney. GI Tract: No bowel dilation. Bowel loops are collapsed. Small hiatal hernia. Normal appendix. Lymph Nodes: No lymphadenopathy. Mesentery/peritoneum: No ascites. Retroperitoneum: No mass. Vasculature: No abdominal aortic or iliac artery aneurysm. Infrarenal IVC filter present. Pelvis: No mass or ascites. Hysterectomy. Urinary bladder is decompressed. Bones/Soft Tissues: Osteopenia. Degenerative changes. Lower thorax: Subsegmental atelectasis/scarring in the RIGHT middle lobe and lingula. No consolidation. No pleural effusion. Bench Shear Operator (topogram) images: No additional findings. IMPRESSION: No acute process in the abdomen or pelvis. Abattoir Manager: PSCB Transcribe Date/Time: Sep 27 2021 3:33P Dictated by : BJ CHAN DO This examination was interpreted and the report reviewed and electronically signed by: BJ CHAN DO on Sep 27 2021 3:45PM EST [id number] Normal [facility] Comprehensive metabolic 2000 panelon 09-27-2021 Albumin [Mass/Vol] 4.4 g/dL Normal 3.9-4.9 [facility] Comment on above: Order Comment: Hany jay Type: BLOOD SPECIMEN Ordering Facility: [facility] Address: [address] Performed By: #### 2 4323-8, , 3039-3 #### [facility] CLIA [id number] [address] OF [facility] ALP [Catalytic activity/Vol] 86 U/L Normal 34-123 [facility] Comment on above: Order Comment: Hany jay Type: BLOOD SPECIMEN Ordering Facility: [facility] Address: [address] [id number] Performed By: #### 2 4323-8, , 3039-3 #### [facility] CLIA [id number] [address] STATES OF [facility] ALT [Catalytic activity/Vol] 19 U/L Normal 7-38 [facility] Comment on above: Order Comment: Hany jay Type: BLOOD SPECIMEN Ordering Facility: [facility] Address: [address] Performed By: #### 2 4323-8, 30577-5, 0-3 #### [facility] CLIA [id number] [address] Anion gap [Moles/Vol] 9 mmol/L Normal 9-18 [facility] Comment on above: Order Comment: Speci men Type: BLOOD SPECIMEN Ordering Facility: [facility] Address: [address] [address] Performed By: #### 2 4323-8, 06666-8, 0-3 #### [facility] CLIA [id number] [address] [place] AST [Catalytic activity/Vol] 24 U/L Normal 13-35 [facility] Comment on above: Order Comment: Speci men Type: BLOOD SPECIMEN Ordering Facility: [facility] Address: [address] [address] Performed By: #### 2 4323-8, , 3039-3 #### [facility] CLIA [id number] 1000 [place] [address] [place] Bilirubin [Mass/Vol] 0.5 mg/dL Normal 0.2-1.3 [facility] Comment on above: Order Comment: Speci men Type: BLOOD SPECIMEN Ordering Facility: [facility] Address: [address] [address] Performed By: #### 2 4323-8, , 0-3 #### [facility] CLIA [id number] [address] [place] Calcium [Mass/Vol] 9.5 mg/dL Normal 8.5-10.2 [facility] Comment on above: Order Comment: Speci men Type: BLOOD SPECIMEN Ordering Facility: [facility] Address: [address] [address] Performed By: #### 2 4323-8, 12959-2, 0-3 #### [facility] CLIA [id number] [address] Chloride [Moles/Vol] 103 mmol/L Normal 97-105 [facility] Comment on above: Order Comment: Hany jay Type: BLOOD SPECIMEN Ordering Facility: [facility] Address: [address] [place] [address] Performed By: #### 2 4323-8, , 3039-3 #### [facility] CLIA [id number] [address] CO2 [Moles/Vol] 28 mmol/L Normal 22-30 [facility] Comment on above: Order Comment: Speci men Type: BLOOD SPECIMEN Ordering Facility: [facility] Address: [address] [place] [address] Performed By: #### 2 4323-8, , 3 #### [facility] CLIA [id number] [address] Creatinine [Mass/Vol] 0.99 mg/dL High 0.58-0.96 [facility] Comment on above: Order Comment: Aravindi men Type: BLOOD SPECIMEN Ordering Facility: [facility] Address: [address] [place] [address] Performed By: #### 2 4323-8, , 3 #### [facility] CLIA [id number] [address] ESTIMATED GLOMERULAR FILTRATION RATE 69 mL/min/1.73m??? Normal >=60 [facility] Comment on above: Order Comment: Hany men Type: BLOOD SPECIMEN Ordering Facility: [facility] Address: [address] [place] [address] Result Comment: Mary mated Glomerular Filtration Rate (eGFR) is calculated using the 2020 CKD-EPI creatinine equation. This equation utilizes serum creatinine, sex, and age as parameters. The creatinine assay has traceable calibration to isotope dilution-mass spectrometry. Refer to KDIGO guidelines for clinical interpretation. In patients with unstable renal function, e.g. those with acute kidney injury, the eGFR may not accurately reflect actual GFR. Performed By: #### 2 4323-8, , 3040-3 #### [facility] CLIA [id number] 1000 [place] [address] [place] Glucose [Mass/Vol] 101 mg/dL High 74-99 [facility] Comment on above: Order Comment: Hany jay Type: BLOOD SPECIMEN Ordering Facility: [facility] Address: [address] [place] [address] Result Comment: The [place] [employer] (ADA) provides guidance for cutoff values for fasting glucose and random glucose. The ADA defines fasting as no caloric intake for at least 8 hours. Fasting plasma glucose results between 100 to 125 mg/dL indicate increased risk for diabetes (prediabetes). Fasting plasma glucose results greater than or equal to 126 mg/dL meet the criteria for diagnosis of diabetes. In the absence of unequivocal hyperglycemia, results should be confirmed by repeat testing. In a patient with classic symptoms of hyperglycemia or hyperglycemic crisis, random plasma glucose results greater than or equal to 200 mg/dL meet the criteria for diagnosis of diabetes. Reference: Standards of Medical Care in Diabetes 2016, [place] [employer]. Diabetes Care. 2016.39(Suppl 1). Performed By: #### 2 4323-8, , 3 #### [facility] CLIA [id number] 1000 [place] [address] [place] Potassium [Moles/Vol] 3.8 mmol/L Normal 3.7-5.1 [facility] Comment on above: Order Comment: Hany jay Type: BLOOD SPECIMEN Ordering Facility: [facility] Address: [address] [place], [place] [address] Performed By: #### 2 4323-8, , 3 #### [facility] CLIA [id number] [address] [place] [address] [place] Protein [Mass/Vol] 6.9 g/dL Normal 6.3-8.0 [facility] Comment on above: Order Comment: Hany jay Type: BLOOD SPECIMEN Ordering Facility: [facility] Address: [address] [place], [place] [id number] Performed By: #### 2 4323-8, , 3 #### [facility] CLIA [id number] [address] Sodium [Moles/Vol] 140 mmol/L Normal 136-144 [facility] Comment on above: Order Comment: Speci men Type: BLOOD SPECIMEN Ordering Facility: [facility] Address: [address] [place] [id number] Performed By: #### 2 4323-8, 47352-6, 3040-3 #### [facility] CLIA [id number] [address] Urea nitrogen [Mass/Vol] 13 mg/dL Normal 7-21 [facility] Comment on above: Order Comment: Speci men Type: BLOOD SPECIMEN Ordering Facility: [facility] Address: [address] [place], [place] [phone] Performed By: #### 2 4323-8, 88689-2, 3040-3 #### [facility] CLIA [id number] [address] ED NOTEon 09-27-2021 ED NOTE HNO ID: [id number] Author: Kecia Bella RN Service: Nursing Author Type: Registered Nurse Type: ED Notes Filed: 09/27/2021 6:06 PM Note Text: Pt discharged from the facility at this time in satisfactory condition. Pt peripheral IV removed prior to discharge. Pt educated on how to schedule follow up appt with PCP. This nurse reviewed entire discharge packet with Pt including: medications, side effects, s/s to report to MD. Pt verbalized understanding. Pt has a ride home. Pt left with all personal belongings exiting the facility. [facility] ED NOTE HNO ID: [id number] Author: Kecia Bella RN Service: Nursing Author Type: Registered Nurse Type: ED Notes Filed: 09/27/2021 5:15 PM Note Text: PO challenge per PA A.S. [facility] ED NOTE HNO ID: [id number] Author: Ericka Rose RN Service: ? Author Type: Registered Nurse Type: ED Notes Filed: 09/27/2021 2:32 PM Note Text: Pt to ED with nausea, vomiting and diarrhea x3 days. Unable to keep medications down. Reports heartburn that started today and abd cramping when vomiting. [facility] ED PROV NOTEon 09-27-2021 ED PROV NOTE HNO ID: [id number] Author: Maureen Parr PA-C Service: ? Author Type: Physician Roofing Supervisor Type: ED Provider Notes Filed: 09/27/2021 6:02 PM Note Text: ED Provider Note Patient Name: Michael Packer : 1970 SERVICE DATE: 09/27/21 History Patient presents with: Nausea AND Vomiting Diarrhea 51-year-old female with a past medical history of COPD, fibromyalgia, hypertension, lupus, rheumatoid arthritis, presents to the ED today for nausea, vomiting, diarrhea. Patient stated she been having the symptoms now for about a week but the triage nurse that she had the symptoms for 3 days. She tells me she is unable to keep her medications down at home. She does complain of heartburn as well. Denies any chest pain, denies any back pain or abdominal pain. Denies any fevers. PAST MEDICAL HISTORY Diagnosis Date - Chronic obstructive pulmonary disease (COPD) (HCC) - Fibromyalgia - History of blood clots - Hypertension - Lupus (HCC) - Rheumatoid arthritis(714.0) PAST SURGICAL HISTORY Procedure Laterality Date - HYSTERECTOMY HX - IVC FILTER SURGICAL [facility] - [place]-OOPHORECTOMY COMPL/PRTL UNI/BI SPX 2009 left ovary - TUBAL LIGATION, FAMILY HISTORY Problem Relation Age of Onset - Heart Father - Rheumatologic disease Sister - other (Raynaud's) Sister Social History Tobacco Use - Smoking status: Never Smoker - Smokeless tobacco: Never Used Vaping Use - Vaping Use: Never used Substance and Sexual Activity - Alcohol use: No - Drug use: No - Sexual activity: Not on file ALLERGIES Allergen Reactions - Penicillins - Sulfa (Sulfonamide * Review of Systems Constitutional: Negative for chills and fever. HENT: Negative for drooling, ear discharge, hearing loss, mouth sores, postnasal drip, sneezing and voice change. Eyes: Negative for photophobia and visual disturbance. Respiratory: Negative for chest tightness, shortness of breath and wheezing. Cardiovascular: Negative for chest pain and palpitations. Gastrointestinal: Positive for diarrhea, nausea and vomiting. Negative for abdominal distention, abdominal pain, anal bleeding, blood in stool, constipation and rectal pain. Genitourinary: Negative for dysuria, flank pain, hematuria, pelvic pain, vaginal bleeding and vaginal discharge. Musculoskeletal: Negative for arthralgias, neck pain and neck stiffness. Skin: Negative for color change. Neurological: Negative for dizziness, numbness and headaches. Psychiatric/Behavioral: Negative for agitation and confusion. The patient is not hyperactive. Physical Exam Vitals [09/27/21 1431] BP Pulse Temp Temp src Resp SpO2 Weight Height 163/81 60 36.6 ?C (97.9 ?F) Temporal 18 100 % 136.1 kg (300 lb) -- Physical Exam Constitutional: Appearance: She is well-developed. HENT: Head: Normocephalic and atraumatic. Eyes: Conjunctiva/sclera: Conjunctivae normal. Cardiovascular: Rate and Rhythm: Normal rate and regular rhythm. Pulmonary: Effort: Pulmonary effort is normal. No respiratory distress. Breath sounds: Normal breath sounds. No wheezing. Abdominal: General: Bowel sounds are normal. Palpations: Abdomen is soft. Musculoskeletal: General: Normal range of motion. Cervical back: Normal range of motion and neck supple. Skin: General: Skin is warm and dry. Neurological: Mental Status: She is alert and oriented to person, place, and time. Psychiatric: Behavior: Behavior normal. Diagnostic Testing ED Labs Ordered and Reviewed COMP METABOLIC PANEL - Abnormal; Notable for the following components: Result Value Ref Range Glucose 101 (*) 74 - 99 mg/dL Creatinine 0.99 (*) 0.58 - 0.96 mg/dL All other components within normal limits MAGNESIUM BLD - Normal LIPASE BLD - Normal CBC + DIFF Narrative: This is an appended report. These results have been appended to a previously verified report. URINALYSIS, REFLEX MICROSCOPIC CT ABD/PEL WO IVCON Final Result IMPRESSION: No acute process in the abdomen or pelvis. Abattoir Manager: PSCB Transcribe Date/Time: Sep 27 2021 3:33P Dictated by : BJ CHAN DO This examination was interpreted and the report reviewed and electronically signed by: BJ CHAN DO on Sep 27 2021 3:45PM EST Results for orders placed or performed during the hospital encounter of 09/27/21 COMP METABOLIC PANEL Result Value Ref Range Protein, Total 6.9 6.3 - 8.0 g/dL Albumin 4.4 3.9 - 4.9 g/dL Calcium, Total 9.5 8.5 - 10.2 mg/dL Bilirubin, Total 0.5 0.2 - 1.3 mg/dL Alkaline Phosphatase 86 34 - 123 U/L AST 24 13 - 35 U/L ALT 19 7 - 38 U/L Glucose 101 (H) 74 - 99 mg/dL BUN 13 7 - 21 mg/dL Creatinine 0.99 (H) 0.58 - 0.96 mg/dL Sodium 140 136 - 144 mmol/L Potassium 3.8 3.7 - 5.1 mmol/L Chloride 103 97 - 105 mmol/L CO2 28 22 - 30 mmol/L Anion Gap 9 9 - 18 mmol/L Estimated Glomerular Filtration Rate 69 >=60 mL/min/1.73m? MAG (more content not included)... Normal [facility] Lipase SerPl-cCncon 09-28-19 22 Lipase [Catalytic activity/Vol] 16 U/L Normal 16-61 [facility] Comment on above: Order Comment: Speci men Type: BLOOD SPECIMEN Ordering Facility: [facility] Address: [address] [place] [address] Performed By: #### 2 4323-8, 53531-3, 0-3 #### [facility] CLIA [id number] [address] [place] [address] [place] Magnesium SerPl-mCncon 09-27 Magnesium [Mass/Vol] 1.8 mg/dL Normal 1.7-2.3 [facility] Comment on above: Order Comment: Speci men Type: BLOOD SPECIMEN Ordering Facility: [facility] Address: [address] [place] [address] Performed By: #### 2 4323-8, 81878-2, 3040-3 #### [facility] CLIA [id number] [address] [place] [address] [place] URINALYSIS, REFLEX MICROSCOP ICon 09-27-2021 Bacteria LM.HPF (Urine sed) [#/Area] Many Abnormal None Seen [facility] Comment on above: Order Comment: Speci men Type: URINE SPECIMEN Ordering Facility: [facility] Address: [address] [place] [address] Performed By: #### L [id number] #### [facility] CLIA [id number] [address] Bilirubin Ql (U) Negative Normal Negative [facility] Comment on above: Order Comment: Speci men Type: URINE SPECIMEN Ordering Facility: [facility] Address: [address] [place] [address] Performed By: #### L [id number] #### [facility] CLIA [id number] [address] Clarity (Unsp spec) Turbid Abnormal Clear [facility] Comment on above: Order Comment: Speci men Type: URINE SPECIMEN Ordering Facility: [facility] Address: [address] [place] [address] Performed By: #### L [id number] #### [facility] CLIA [id number] [address] Color (U) Yellow Normal Yellow [facility] Comment on above: Order Comment: Speci men Type: URINE SPECIMEN [facility] [facility] Address: [address] [place] [address] Performed By: #### L [id number] #### [facility] CLIA [id number] [address] Epithelial cells LM.HPF (Urine sed) [#/Area] Few Normal [facility] Comment on above: Order Comment: Speci men Type: URINE SPECIMEN Ordering Facility: [facility] Address: [address] [place] [address] Performed By: #### L [id number] #### [facility] CLIA [id number] [address] Glucose Test strip (U) [Mass/Vol] Negative Normal Negative [facility] Comment on above: Order Comment: Speci men Type: URINE SPECIMEN Ordering Facility: [facility] Address: [address] [place] [address] Performed By: #### L [id number] #### [facility] CLIA [id number] [address] [place] [address] [place] Hemoglobin Ql (U) Trace Abnormal Negative [facility] Comment on above: Order Comment: Speci men Type: URINE SPECIMEN Ordering Facility: [facility] Address: [address] [place] [address] Performed By: #### L [id number] #### [facility] CLIA [id number] [address] Ketones Ql (U) 1+ Abnormal Negative [facility] Comment on above: Order Comment: Speci men Type: URINE SPECIMEN Ordering Facility: [facility] Address: [address] [place] [address] Performed By: #### L [id number] #### [facility] CLIA [id number] [address] Leukocyte esterase Test strip Ql (U) Negative Normal Negative [facility] Comment on above: Order Comment: Speci men Type: URINE SPECIMEN Ordering Facility: [facility] Address: [address] [place] [address] Performed By: #### L [id number] #### [facility] CLIA [id number] [address] [place] Nitrite Ql (U) Negative Normal Negative [facility] Comment on above: Order Comment: Speci men Type: URINE SPECIMEN Ordering Facility: [facility] Address: [address] [place] [address] Performed By: #### L [id number] #### [facility] CLIA [id number] [address] [place] pH (U) 5.5 [pH] Normal 5.0-8.0 [facility] Comment on above: Order Comment: Speci men Type: URINE SPECIMEN Ordering Facility: [facility] Address: [address] [place] [address] Performed By: #### L [id number] #### [facility] CLIA [id number] [address] [place] Protein (U) [Mass/Vol] Trace Abnormal Negative [facility] Comment on above: Order Comment: Speci men Type: URINE SPECIMEN Ordering Facility: [facility] Address: [address] [place] [address] Performed By: #### L [id number] #### [facility] CLIA [id number] [address] RBC LM.HPF (Urine sed) [#/Area] 0-3 /HPF Normal 0-3 /HPF [facility] Comment on above: Order Comment: Speci men Type: URINE SPECIMEN Ordering Facility: [facility] Address: [address] [place] [address] Performed By: #### L [id number] #### [facility] CLIA [id number] [address] [place] Specific gravity (U) [Rel density] >=1.030 High 1.005-1.030 [facility] Comment on above: Order Comment: Speci men Type: URINE SPECIMEN Ordering Facility: [facility] Address: [address] [place] [address] Performed By: #### L [id number] #### [facility] CLIA [id number] [address] Urobilinogen Ql (U) 0.2 EU/dL Normal 0.2-1.0 EU/dL [facility] Comment on above: Order Comment: Speci men Type: URINE SPECIMEN Ordering Facility: [facility] Address: [address] [place] [address] Performed By: #### L [id number] #### [facility] CLIA [id number] [address] WBC LM.HPF (Urine sed) [#/Area] 0-5 /HPF Normal 0-5 /HPF [facility] Comment on above: Order Comment: Speci men Type: URINE SPECIMEN Ordering Facility: [facility] Address: [address] [place] [address] Performed By: #### L [id number] #### [facility] CLIA [id number] [address] [place] Absolute lymphocyte counton 09-25-2021 Lymphocytes Auto (Unsp spec) [#/Vol] 0.95 10*3/uL 0.83-4.51 [facility] Work Phone: Automated blood hematocrit ( percentage)on 09-25-2021 Hematocrit (Bld) [Volume fraction] 41.0 % Normal 37-47 [facility] Work Phone: Comment on above: Performed By: #### L 100.0100, L500.2500 #### [facility] [address] [place], [address] Basic Metabolic Profile (BMP )on 09-25-2021 BUN/CRE 14.4 RATIO Normal 10-20 [facility] Comment on above: Performed By: #### L 100.0100, L500.2500 #### [facility] [address] [place], [address] CA,Total 9.4 mg/dL Normal 8.5-10.1 [facility] Comment on above: Performed By: #### L 100.0100, L500.2500 #### [facility] [address] [place], [address] CO2 [Moles/Vol] 27.0 mmol/L Normal 21.0-32.0 [facility] Work Phone: Comment on above: Performed By: #### L 100.0100, L500.2500 #### [facility] [address] [place], [address] ECRCL 71.11 ml/min Normal [facility] Comment on above: Performed By: #### L 100.0100, L500.2500 #### [facility] [address] [place], [address] EST GFR - AA 84 mL/min Normal >60 [facility] Comment on above: Result Comment: Afri can [place] GFR Calc Performed By: #### L 100.0100, L500.2500 #### [facility] [address] [place], [address] GAP 5 Normal 5-15 [facility] Comment on above: Performed By: #### L 100.0100, L500.2500 #### [facility] [address] [place], [address] GFR/1.73 sq M.predicted among non-blacks MDRD (S/P/Bld) [Vol rate/Area] 70 mL/min/{1.73_m2} Normal >60 [facility] Comment on above: Result Comment: Non- GFR Calc Performed By: #### L 100.0100, L500.2500 #### [facility] [address] [place], [address] Basophil percentageon 2021 Chloride [Moles/Vol] 110 mmol/L High 98-107 [facility] Work Phone: Comment on above: Performed By: #### L 100.0100, L500.2500 #### [facility] [address] [place], [address] Glucose [Mass/Vol] 123 mg/dL High 74-106 [facility] Work Phone: Comment on above: Fasting Glucose resu lt from 100 to 125 mg/dL suggests IMPAIRED HOMEOSTASIS per A.D.A. criteria. Result Comment: Fast ing Glucose result from 100 to 125 mg/dL suggests IMPAIRED HOMEOSTASIS per A.D.A. criteria. Performed By: #### L 100.0100, L500.2500 #### [facility] [address] [place], [address] Potassium [Moles/Vol] 3.8 mmol/L Normal 3.5-5.1 [facility] Work Phone: Comment on above: Performed By: #### L 100.0100, L500.2500 #### [facility] [address] [place], [address] Sodium [Moles/Vol] 142 mmol/L Normal 136-145 [facility] Work Phone: Comment on above: Performed By: #### L 100.0100, L500.2500 #### [facility] [address] [place], [address] Basophils/100 WBC (Bld) 0.8 % Normal 0-1 [facility] Work Phone: Comment on above: Performed By: #### L 100.0100, L500.2500 #### [facility] [address] [place], [address] Eosinophils/100 WBC (Bld) 0.2 % Normal 0-5 [facility] Work Phone: Comment on above: Performed By: #### L 100.0100, L500.2500 #### [facility] [address] [place], [address] Neutrophils/100 WBC (Bld) 79.3 % High 47-70 [facility] Work Phone: Comment on above: Performed By: #### L 100.0100, L500.2500 #### [facility] [address] [place], [address] WBC (Bld) [#/Vol] 6.5 10*3/uL Normal 4.4-11.0 [facility] Work Phone: Comment on above: Performed By: #### L 100.0100, L500.2500 #### [facility] [address] [place], [address] Basophil percentage 0-5 SEEN /hpf [facility] Work Phone: Neutrophils (Bld) [#/Vol] 5.2 10*3/uL 2.0-7.7 [facility] Work Phone: Bilirubin Test strip Ql (U)o n 09-25-2021 Bilirubin Ql (U) Negative Negative [facility] Work Phone: [phone] Blood erythrocytes count (nu mber/volume)on 09-25-2021 RBC (Bld) [#/Vol] 4.34 10*6/uL Normal 4.2-5.4 [facility] Work Phone: [phone] Comment on above: Performed By: #### L 100.0100, L500.2500 #### [facility] [address] [place], [address] Blood hemoglobin measurement (mass/volume)on 09-25-2021 Hemoglobin (Bld) [Mass/Vol] 13.4 g/dL Normal 12.0-15.0 [facility] Work Phone: [phone] Comment on above: Performed By: #### L 100.0100, L500.2500 #### [facility] [address] [place], [address] Blood lymphocytes/100 leukoc yteson 09-25-2021 Lymphocytes/100 WBC (Bld) 14.5 % Low 19-41 [facility] Work Phone: [phone] Comment on above: Performed By: #### L 100.0100, L500.2500 #### [facility] [address] [place], [address] Blood monocytes/100 leukocyt eson 09-25-2021 Monocytes/100 WBC (Bld) 4.7 % Normal 0-10 [facility] Work Phone: [phone] Comment on above: Performed By: #### L 100.0100, L500.2500 #### [facility] [address] [place], [address] Blood platelet mean volumeon 09-25-2021 Platelet mean volume (Bld) [Entitic vol] 10.0 fL Normal 6.2-12.0 [facility] Work Phone: [phone] Comment on above: Performed By: #### L 100.0100, L500.2500 #### [facility] [address] [place], [address] CBC W/Diff, Automatedon 05-2 -2021 Absolute Lymph 0.95 X10 3/uL Normal 0.83-4.51 [facility] Comment on above: Performed By: #### L 100.0100, L500.2500 #### [facility] [address] [place], [address] Absolute Neut 5.2 X10 3/uL Normal 2.0-7.7 [facility] Comment on above: Performed By: #### L 100.0100, L500.2500 #### [facility] [address] [place], [address] Erythrocyte distribution width (RBC) [Ratio] 13.2 % Normal 11.6-14.6 [facility] Work Phone: Comment on above: Performed By: #### L 100.0100, L500.2500 #### [facility] [address] [place], [address] IG% 0.500 Normal 0.0-0.9 [facility] Comment on above: Result Comment: IG% - Immature Granulocytes (promyelocytes, myelocytes and metamyelocytes) > 1% indicates that a LEFT SHIFT is Present. Performed By: #### L 100.0100, L500.2500 #### [facility] [address] [place], [address] MCH (RBC) [Entitic mass] 30.9 pg Normal 27.0-32.0 [facility] Work Phone: Comment on above: Performed By: #### L 100.0100, L500.2500 #### [facility] [address] [place], [address] Nucleated RBC (Bld) [#/Vol] 0 10*3/uL Normal 0-5 [facility] Comment on above: Performed By: #### L 100.0100, L500.2500 #### [facility] [address] [place], [address] RDW SD 46.1 fl High 35.1-43.9 [facility] Comment on above: Performed By: #### L 100.0100, L500.2500 #### [facility] [address] [place], [address] Determination of erythrocyte mean corpuscular volume (MCV)on 09-25-2021 MCV (RBC) [Entitic vol] 94.5 fL Normal 81-99 [facility] Work Phone: Comment on above: Performed By: #### L 100.0100, L500.2500 #### [facility] [address] [place], [address] Emergency Department Summary on 09-25-2021 Emergency Department Summary [facility] Medical Records Department [address] [place] [address] Emergency Department Summary 09/25/21 MR#: [id number] Acct: [id number] Name: MICHAEL PACKER Rep #: [id number] : 1970 51 From: Precious Hart DO PCP: Care Physician,No Primary Status:DEP ER Location: ED HPI History of Present Illness Chief Complaint: Nausea/Vomiting/Diarrhea Detail of Chief Complaint: Vomiting and diarrhea that started earlier today Informant: patient Narrative Narrative: Patient presents to the emergency department complaint of vomiting and diarrhea that started earlier today. Patient states that she has had continuous vomiting and diarrhea both. She denies any blood in her stool or vomitus. She denies fever. She denies sick contacts. She denies any significant abdominal pain. She denies urinary symptoms. Prior similar symptoms: No PFSH PFSH Medical History (Updated 09/25/21 @ 21:[address] Precious Hart DO) Arthritis Fibromyalgia Lupus Home Medications ondansetron 4 mg PO Q8H PRN PRN #10 tab 09/25/21 [Rx Last Taken Unknown] Allergy/AdvReac Type Severity Reaction Status Date / Time Penicillins Allergy Hives Verified 09/25/21 17:59 Social History Smoking Status: Never smoker ROS ROS ED Constitutional Constitutional ED: Reports systems reviewed and no addt'l complaints, except as documented; Denies body ache(s), change in weight or chills Eyes Eyes: Denies acute decrease in peripheral vision, change in vision, double vision or loss of vision ENT ENT ED: Reports none; Denies ear pain, lip swelling, loss taste/smell, neck pain, otalgia or sore throat Cardiovascular Cardiovascular: Reports none; Denies abdominal pain, chest pain with activity, leg edema, lightheadedness, palpitations, rapid heart rate or syncope Respiratory/Chest Respiratory/Chest: Reports none; Denies change in mental status, dry cough, dyspnea, hemoptysis, shortness of breath at rest or shortness of breath with exertion Gastrointestinal Gastrointestinal: Reports none, diarrhea, nausea and vomiting; Denies abdominal pain, change in stool character, hematemesis, hematochezia, melena or rectal bleeding Genitourinary Genitourinary ED: Reports none; Denies abdominal discomfort, anuria, dysuria, genital pain or polyuria Musculoskeletal Musculoskeletal: Reports none; Denies arthralgias, back pain, difficulty walking, extremity pain, muscle weakness or myalgias Integumentary Reports none; Denies abscess or rash Neurologic Neurologic: Reports none; Denies abnormal gait, confusion, focal weakness, frequent falls, headache(s), loss of vision, numbness, paresthesias, radicular pain, vertigo or weakness Psychiatric Psychiatric: Reports systems reviewed and no addt'l complaints, except as documented and none; Denies behavioral changes, confusion, difficulty concentrating, hallucinations, suicidal ideation, tactile hallucinations or visual hallucinations Endocrine Endocrinology: Denies none, cold intolerance, excessive sweating, fatigue or heat intolerance Hematologic/Lymphatic Hematologic/Lymphatic: Reports none; Denies anemia, easy bleeding or easy bruising Allergic/Immunologic Allergic/Immunologic ED: Denies as per HPI, none, lip swelling, mouth swelling, throat swelling, tongue swelling or hives EXAM Physical Exam Const Vital Signs: 09/25/21 17:56 Temperature 97.4 F L Temperature Source Temporal Pulse Rate 65 Respiratory Rate 16 Blood Pressure 166/93 H Blood Pressure Mean 117 Pulse Ox 100 Oxygen Delivery Method Room Air Positive well nourished and well developed General Appearance ED: well developed and NAD HEENT Reports TM's clear and moist mucous membranes normocephalic and atraumatic; Negative for trauma or tenderness Tympanic Membrane ED: Yes TM's clear Eyes PERRL and EOMs intact bilaterally General Eye ED: Negative for pale conjunctiva or scleral icterus Neck no lymphadenopathy, supple and no JVD General: Negative for tenderness Chest Wall inspection of chest normal and palpation of chest normal Chest: Negative for tenderness Resp normal respiratory effort and clear to auscultation bilaterally Effort and Inspection: Negative for respiratory distress or pain with movement Auscultation: Negative for rhonchi, wheezes or diminished lung sounds Cardio regular rate, regular rhythm, S1 normal heart sound, S2 normal heart sound and no murmurs Peripheral Pulses: pulses 2+ throughout GI normal to inspection, nondistended, normoactive bowel sounds, soft to palpation, non-tender, non- distended and no masses Back/Spine no CVA tenderness and no thoracic nor lumbar tenderness Extremity normal to inspection General Extremety ED: Negative for edema General Extremity: Negative for edema Neuro oriented x3, CN's II-XII intact bilater (more content not included)... Normal [facility] Ketones Test strip Ql (U)on 09-25-2021 Ketones Ql (U) 50 mg/dl Negative [facility] Work Phone: [phone] Laboratory - Chemistry and C hemistry - challengeon 09-25-2021 Urea nitrogen/Creatinine [Mass ratio] 14.4 mg/mg 10-20 [facility] Work Phone: [phone] Laboratory - Hematology and Cell countson 09-25-2021 Erythrocyte distribution width (RBC) [Entitic vol] 46.1 fL 35.1-43.9 [facility] Work Phone: [phone] Immature granulocytes/100 WBC (Bld) 0.500 % 0.0-0.9 [facility] Work Phone: [phone] Comment on above: IG% - Immature Granu locytes (promyelocytes, myelocytes and metamyelocytes) > 1% indicates that a LEFT SHIFT is Present. Nucleated RBC/100 WBC (Bld) [Ratio] 0 % 0-5 [facility] Work Phone: [phone] MCHC [Mass/volume] by Automa celso counton 09-25-2021 MCHC (RBC) [Mass/Vol] 32.7 g/dL Normal 32-36 [facility] Work Phone: Comment on above: Performed By: #### L 100.0100, L500.2500 #### [facility] [address] [place], [place], [id number] Mucus LM Ql (Urine sed)on Mucus Ql (Urine sed) 0 SEEN /hpf [facility] Work Phone: [phone] Nitrite Test strip Ql (U)on 09-25-2021 Nitrite Ql (U) Negative Negative [facility] Work Phone: [phone] No Panel Informationon 09-25 Estimated Creatinine Clearance Calc 71.11 ml/min [facility] Work Phone: [phone] Estimated GFR (MDRD) Amer 84 mL/min >60 [facility] Work Phone: [phone] Comment on above: GFR Calc Estimated GFR (MDRD) Non-Af Amer 70 mL/min >60 [facility] Work Phone: [phone] Comment on above: Non- GFR Calc Platelets bldon 09-25-2021 Platelets (Bld) [#/Vol] 210 10*3/uL Normal 150-450 [facility] Work Phone: Comment on above: Performed By: #### L 100.0100, L500.2500 #### [facility] [address] [place], [address] Protein Test strip Ql (U)on 09-25-2021 Protein Ql (U) 30 mg/dl Negative [facility] Work Phone: [phone] Serum or plasma calcium abdiaziz urement (mass/volume)on 09-25-2021 Calcium [Mass/Vol] 9.4 mg/dL 8.5-10.1 [facility] Work Phone: [phone] Serum or plasma creatinine m easurement (mass/volume)on 09-25-2021 Creatinine [Mass/Vol] 0.90 mg/dL Normal 0.55-1.02 [facility] Work Phone: Comment on above: The validity of the calculated GFR & GFRAA in patients over 70 years has not been determined. Clinical correlation is essential. Result Comment: The validity of the calculated GFR GFRAA in patients over 70 years has not been determined. Clinical correlation is essential. Performed By: #### L 100.0100, L500.2500 #### [facility] [address] [place], [address] Serum or plasma urea nitroge n measurement (mass/volume)on 09-25-2021 Urea nitrogen [Mass/Vol] 13 mg/dL Normal 7-18 [facility] Work Phone: Comment on above: Performed By: #### L 100.0100, L500.2500 #### [facility] [address] [place], [place], [phone] Squamous epithelial cells de tection in urine sediment by light microscopyon 09-25-2021 Epithelial cells.squamous LM Ql (Urine sed) 0-5 SEEN /hpf [facility] Work Phone: Thin prep Papanicolaou smear with manual screeningon 09-25-2021 Thin prep Papanicolaou smear with manual screening 5 5-15 [facility] Work Phone: Urinalysis, Completeon 09-25 WBC 0-5 SEEN Normal 0-5 [facility] Comment on above: Order Comment: GABRIELLE WENOR TO SPECIFY Performed By: #### L 400.0001 #### [facility] [address] [place], [address] RBC 0-5 SEEN Normal 0-5 [facility] Comment on above: Order Comment: GABRIELLE CTOR TO SPECIFY Performed By: #### L 400.0001 #### [facility] [address] [place], [address] EPI,SQUAMOUS 0-5 SEEN Normal 5-10 [facility] Comment on above: Order Comment: GABRIELLE CTOR TO SPECIFY Performed By: #### L 400.0001 #### [facility] [address] [place], [address] BACTERIA 0 SEEN Normal None Seen [facility] Comment on above: Order Comment: GABRIELLE CTOR TO SPECIFY Performed By: #### L 400.0001 #### [facility] [address] [place], [address] Mucus Ql (Urine sed) 0 SEEN Normal [facility] Comment on above: Order Comment: GABRIELLE CTOR TO SPECIFY Performed By: #### L 400.0001 #### [facility] [address] [place], [address] Urine blood detectionon 09-05 RBC Ql (U) 10 /ul Negative [facility] Work Phone: RBC Ql (U) 0-5 SEEN /hpf [facility] Work Phone: Urine clarityon 09-25-2021 Clarity (U) Cloudy Clear [facility] Work Phone: Urine color determinationon 09-25-2021 Color (U) Yellow Yellow [facility] Work Phone: Urine glucose detectionon Glucose Ql (U) Normal mg/dl Normal [facility] Work Phone: Urine leukocyte esterase det ection by dipstickon 09-25-2021 Leukocyte esterase Test strip Ql (U) 25 /ul Negative [facility] Work Phone: Urine pHon 09-25-2021 pH (U) 6.0 [pH] [facility] Work Phone: Urine sediment bacteria coun t by microscopy (number/high power field)on 09-25-2021 Bacteria LM.HPF (Urine sed) [#/Area] 0 /[HPF] None Seen [facility] Work Phone: Urine specific gravity measu rementon 09-25-2021 Specific gravity (U) [Rel density] 1.025 [facility] Work Phone: Urobilinogen Auto test strip Ql (U)on 09-25-2021 Urobilinogen Ql (U) 1 mg/dl Normal [facility] Work Phone: XR CHEST 2V FRONTAL/LATon XR CHEST 2V FRONTAL/LAT * * *Final Report* * * DATE OF EXAM: Mar 02 2021 1:42PM MDX 5291 - XR CHEST 2V FRONTAL/LAT / PROCEDURE REASON: R06.2-Wheezing * * * * Physician Interpretation * * * * EXAMINATION: CHEST RADIOGRAPH (2 VIEW FRONTAL and LATERAL) CLINICAL HISTORY: Wheezing MQ: [id number] EXAM DATE/TIME: 03/02/2021 1:42 PM COMPARISON: 07/23/2020 RESULT: Lines, tubes, and devices: None. Lungs and pleura: No consolidation. No lung mass. No pleural effusion. No pneumothorax. Cardiomediastinal silhouette: Normal cardiomediastinal silhouette. Bones and soft tissues: Metallic disc spacer in the lower cervical spine, unchanged. IMPRESSION: No acute radiographic abnormality. [employer] Manager: [employer] Transcribe Date/Time: Mar 02 2021 1:52P Dictated by : MARLON VILCHIS MD This examination was interpreted and the report reviewed and electronically signed by: MARLON VILCHIS MD on Mar 02 2021 1:53PM EST [id number] Normal [facility] Bacteria Bld Culton 07-24-19 21 Bacteria identified Cx Nom (Bld) CULTURE, BLOOD: No growth 5 days Normal [facility] Comment on above: Performed By: #### 6 00-7 #### [facility] CLIA [id number] [address] [place] [address] Bacteria identified Cx Nom (Bld) CULTURE, BLOOD: No growth 5 days Normal [facility] Comment on above: Performed By: #### 6 00-7 #### [facility] CLIA [id number] [address] [place] [address] CBC W Auto Diff Bldon 2020 Basophils (Bld) [#/Vol] 0.08 10*3/uL Normal <0.11 [facility] Comment on above: Order Comment: Speci men Type: BLOOD SPECIMEN Performed By: #### 5 7021-8 #### [facility] CLIA [id number] [address] [place] [place] [address] [facility] [place] Basophils/100 WBC (Bld) 1.5 % Normal [facility] Comment on above: Order Comment: Speci men Type: BLOOD SPECIMEN Performed By: #### 5 7021-8 #### [facility] CLIA [id number] [address] [place] [place] [address] [facility] [place] Differential cell count method Nom (Bld) Auto Normal [facility] Comment on above: Order Comment: Speci men Type: BLOOD SPECIMEN Performed By: #### 5 7021-8 #### [facility] CLIA [id number] [address] [place] [address] [facility] Eosinophils (Bld) [#/Vol] 0.11 10*3/uL Normal <0.46 [facility] Comment on above: Order Comment: Speci men Type: BLOOD SPECIMEN Performed By: #### 5 7021-8 #### [facility] CLIA [id number] [address] [place] [address] [facility] Eosinophils/100 WBC (Bld) 2.1 % Normal [facility] Comment on above: Order Comment: Speci men Type: BLOOD SPECIMEN Performed By: #### 5 7021-8 #### [facility] CLIA [id number] [address] [place] [address] [facility] [place] Erythrocyte distribution width (RBC) [Ratio] 13.3 % Normal 11.5-15.0 [facility] Comment on above: Order Comment: Speci men Type: BLOOD SPECIMEN Performed By: #### 5 7021-8 #### [facility] CLIA [id number] [address] [place] [place] [address] [facility] [place] Hematocrit (Bld) [Volume fraction] 34.4 % Low 36.0-46.0 [facility] Comment on above: Order Comment: Speci men Type: BLOOD SPECIMEN Performed By: #### 5 7021-8 #### [facility] CLIA [id number] [address] [place] [address] [facility] Hemoglobin (Bld) [Mass/Vol] 11.2 g/dL Low 11.5-15.5 [facility] Comment on above: Order Comment: Speci men Type: BLOOD SPECIMEN Performed By: #### 5 7021-8 #### [facility] CLIA [id number] [address] [place] [address] [facility] Lymphocytes (Bld) [#/Vol] 1.75 10*3/uL Normal 1.00-4.00 [facility] Comment on above: Order Comment: Speci men Type: BLOOD SPECIMEN Performed By: #### 5 7021-8 #### [facility] CLIA [id number] [address] [place] [address] [facility] Lymphocytes/100 WBC (Bld) 33.2 % Normal [facility] Comment on above: Order Comment: Speci men Type: BLOOD SPECIMEN Performed By: #### 5 7021-8 #### [facility] CLIA [id number] [address] [place] [address] [facility] [place] MCH (RBC) [Entitic mass] 31.4 pg Normal 26.0-34.0 [facility] Comment on above: Order Comment: Speci men Type: BLOOD SPECIMEN Performed By: #### 5 7021-8 #### [facility] CLIA [id number] [address] [place] [address] [place] MCHC (RBC) [Mass/Vol] 32.6 g/dL Normal 30.5-36.0 [facility] Comment on above: Order Comment: Speci men Type: BLOOD SPECIMEN Performed By: #### 5 7021-8 #### [facility] CLIA [id number] [address] [place] [address] [place] MCV (RBC) [Entitic vol] 96.4 fL Normal 80.0-100.0 [facility] Comment on above: Order Comment: Speci men Type: BLOOD SPECIMEN Performed By: #### 5 7021-8 #### [facility] CLIA [id number] [address] [facility] [place] [address] [place] Monocytes (Bld) [#/Vol] 0.49 10*3/uL Normal <0.87 [facility] Comment on above: Order Comment: Speci men Type: BLOOD SPECIMEN Performed By: #### 5 7021-8 #### [facility] CLIA [id number] [address] [facility] [place] [address] [place] Monocytes/100 WBC (Bld) 9.3 % Normal [facility] Comment on above: Order Comment: Speci men Type: BLOOD SPECIMEN Performed By: #### 5 7021-8 #### [facility] CLIA [id number] [address] [place] [address] [place] Neutrophils (Bld) [#/Vol] 2.84 10*3/uL Normal 1.45-7.50 [facility] Comment on above: Order Comment: Speci men Type: BLOOD SPECIMEN Performed By: #### 5 7021-8 #### [facility] CLIA [id number] [address] [place] [address] [place] Neutrophils/100 WBC (Bld) 53.9 % Normal [facility] Comment on above: Order Comment: Speci men Type: BLOOD SPECIMEN Performed By: #### 5 7021-8 #### [facility] CLIA [id number] [address] [place] [address] [place] Platelet mean volume (Bld) [Entitic vol] 9.9 fL Normal 9.0-12.7 [facility] Comment on above: Order Comment: Speci men Type: BLOOD SPECIMEN Performed By: #### 5 7021-8 #### [facility] CLIA [id number] [address] [facility] [place] [address] [place] Platelets (Bld) [#/Vol] 236 10*3/uL Normal 150-400 [facility] Comment on above: Order Comment: Speci men Type: BLOOD SPECIMEN Performed By: #### 5 7021-8 #### [facility] CLIA [id number] [address] [place] [address] [place] RBC (Bld) [#/Vol] 3.57 10*6/uL Low 3.90-5.20 [facility] Comment on above: Order Comment: Speci men Type: BLOOD SPECIMEN Performed By: #### 5 7021-8 #### [facility] CLIA [id number] [address] [facility] [address] [facility] WBC (Bld) [#/Vol] 5.27 10*3/uL Normal 3.70-11.00 [facility] Comment on above: Order Comment: Speci men Type: BLOOD SPECIMEN Performed By: #### 5 7021-8 #### [facility] CLIA [id number] [address] [facility] [address] [facility] Comp Metab 2000 Pnl SerPlon 07-23-2020 Albumin [Mass/Vol] 4.6 g/dL Normal 3.9-4.9 [facility] Comment on above: Order Comment: Speci men Type: BLOOD SPECIMEN Performed By: #### 2 4323-8 #### [facility] CLIA [id number] [address] [facility] [address] [facility] [place] ALP [Catalytic activity/Vol] 73 U/L Normal 34-123 [facility] Comment on above: Order Comment: Speci men Type: BLOOD SPECIMEN Performed By: #### 2 4323-8 #### [facility] CLIA [id number] [address] [facility] [address] [place] ALT With P-5'-P [Catalytic activity/Vol] 11 U/L Normal 7-38 [facility] Comment on above: Order Comment: Speci men Type: BLOOD SPECIMEN Performed By: #### 2 4323-8 #### [facility] CLIA [id number] [address] [place] [address] [place] Anion gap [Moles/Vol] 10 mmol/L Normal 9-18 [facility] Comment on above: Order Comment: Speci men Type: BLOOD SPECIMEN Performed By: #### 2 4323-8 #### [facility] CLIA [id number] [address] [place] [address] [place] AST With P-5'-P [Catalytic activity/Vol] 17 U/L Normal 13-35 [facility] Comment on above: Order Comment: Speci men Type: BLOOD SPECIMEN Performed By: #### 2 4323-8 #### [facility] CLIA [id number] [address] [facility] [place] [address] [place] Bilirubin [Mass/Vol] 0.5 mg/dL Normal 0.2-1.3 [facility] Comment on above: Order Comment: Speci men Type: BLOOD SPECIMEN Performed By: #### 2 4323-8 #### [facility] CLIA [id number] [address] [facility] [address] [place] Calcium [Mass/Vol] 9.4 mg/dL Normal 8.5-10.2 [facility] Comment on above: Order Comment: Speci men Type: BLOOD SPECIMEN Performed By: #### 2 4323-8 #### [facility] CLIA [id number] [address] [facility] [place] [address] [place] Chloride [Moles/Vol] 104 mmol/L Normal 97-105 [facility] Comment on above: Order Comment: Speci men Type: BLOOD SPECIMEN Performed By: #### 2 4323-8 #### [facility] CLIA [id number] [address] [facility] [place] [address] [place] CO2 [Moles/Vol] 24 mmol/L Normal 22-30 [facility] Comment on above: Order Comment: Speci men Type: BLOOD SPECIMEN Performed By: #### 2 4323-8 #### [facility] CLIA [id number] [address] [facility] [address] [place] Creatinine [Mass/Vol] 1.59 mg/dL High 0.58-0.96 [facility] Comment on above: Order Comment: Speci men Type: BLOOD SPECIMEN Performed By: #### 2 4323-8 #### [facility] CLIA [id number] [address] [place] [address] [place] GFR/1.73 sq M predicted among blacks MDRD (S/P/Bld) [Vol rate/Area] 41 mL/min/{1.73_m2} Normal [facility] Comment on above: Order Comment: Speci men Type: BLOOD SPECIMEN Performed By: #### 2 4323-8 #### [facility] CLIA [id number] [address] [place] [address] [place] GFR/1.73 sq M predicted among non-blacks MDRD (S/P/Bld) [Vol rate/Area] 34 mL/min/{1.73_m2} Normal [facility] Comment on above: Order Comment: Speci men Type: BLOOD SPECIMEN Result Comment: eGFR (Estimated GFR) Units of measure: mL/min/1.73 meters squared eGFR is derived from the reexpressed MDRD Study equation using the following parameters: serum creatinine, age, gender and race. The creatinine assay has been calibrated to be traceable to IDMS. An eGFR <60 mL/min/1.73m2 for >3 months is consistent with chronic kidney disease. Refer to KDOQI guidelines for clinical interpretation. In patients with unstable renal function, e.g. those with acute kidney injury, the eGFR may not accurately reflect actual GFR. Performed By: #### 2 4323-8 #### [facility] CLIA [id number] [address] [place] [address] [place] Glucose [Mass/Vol] 92 mg/dL Normal 74-99 [facility] Comment on above: Order Comment: Speci men Type: BLOOD SPECIMEN Result Comment: The [place] [employer] (ADA) provides guidance for cutoff values for fasting glucose and random glucose. The ADA defines fasting as no caloric intake for at least 8 hours. Fasting plasma glucose results between 100 to 125 mg/dL indicate increased risk for diabetes (prediabetes). Fasting plasma glucose results greater than or equal to 126 mg/dL meet the criteria for diagnosis of diabetes. In the absence of unequivocal hyperglycemia, results should be confirmed by repeat testing. In a patient with classic symptoms of hyperglycemia or hyperglycemic crisis, random plasma glucose results greater than or equal to 200 mg/dL meet the criteria for diagnosis of diabetes. Reference: Standards of Medical Care in Diabetes 2016, [place] [employer]. Diabetes Care. 2016.39(Suppl 1). Performed By: #### 2 4323-8 #### [facility] CLIA [id number] [address] [place] [address] [place] Potassium [Moles/Vol] 4.7 mmol/L Normal 3.7-5.1 [facility] Comment on above: Order Comment: Speci men Type: BLOOD SPECIMEN Performed By: #### 2 4323-8 #### [facility] CLIA [id number] [address] [place] [address] [place] Protein [Mass/Vol] 6.7 g/dL Normal 6.3-8.0 [facility] Comment on above: Order Comment: Speci men Type: BLOOD SPECIMEN Performed By: #### 2 4323-8 #### [facility] CLIA [id number] [address] [place] [place] [address] [place] Sodium [Moles/Vol] 138 mmol/L Normal 136-144 [facility] Comment on above: Order Comment: Speci men Type: BLOOD SPECIMEN Performed By: #### 2 4323-8 #### [facility] CLIA [id number] [address] [place] [place] [address] [place] Urea nitrogen [Mass/Vol] 44 mg/dL High 7-21 [facility] Comment on above: Order Comment: Speci men Type: BLOOD SPECIMEN Performed By: #### 2 4323-8 #### [facility] CLIA [id number] [address] [place] [place] [address] [place] HIGH SENSITIVITY TROPONIN To n 07-23-2020 HIGH SENSITIVITY SANDHYA <6 Normal <12 [facility] Comment on above: Order Comment: Speci men Type: BLOOD SPECIMEN Result Comment: When assessing risk for acute coronary syndromes: In patients undergoing blood draw greater than or equal to 2 hours from symptom onset, with history of very low to moderate risk and non-ischemic ECG, an initial hs-Troponin T less than 12 ng/L AND a 1 hour delta hs-Troponin T less than 3 ng/L should be considered very low risk for 30 day MACE. Performed By: #### H STNT #### [facility] CLIA [id number] [address] HIGH SENSITIVITY SANDHYA <6 Normal <12 [facility] Comment on above: Order Comment: Speci men Type: BLOOD SPECIMEN Result Comment: When assessing risk for acute coronary syndromes: In patients undergoing blood draw greater than or equal to 2 hours from symptom onset, with history of very low to moderate risk and non-ischemic ECG, an initial hs-Troponin T less than 12 ng/L AND a 1 hour delta hs-Troponin T less than 3 ng/L should be considered very low risk for 30 day MACE. Performed By: #### H STNT #### [facility] CLIA [id number] [address] HIGH SENSITIVITY SANDHYA <6 Normal <12 [facility] Comment on above: Order Comment: Speci men Type: BLOOD SPECIMEN Result Comment: When assessing risk for acute coronary syndromes: In patients undergoing blood draw greater than or equal to 2 hours from symptom onset, with history of very low to moderate risk and non-ischemic ECG, an initial hs-Troponin T less than 12 ng/L AND a 1 hour delta hs-Troponin T less than 3 ng/L should be considered very low risk for 30 day MACE. Performed By: #### H STNT #### [facility] CLIA [id number] [address] [place] [id number] [facility] [place] Lactate Bld-sCncon 1 Lactate [Moles/Vol] 1.1 mmol/L Normal 0.5-2.2 [facility] Comment on above: Order Comment: Speci men Type: BLOOD SPECIMEN Performed By: #### 3 2693-4 #### [facility] CLIA [id number] [address] [place] [address] [place] SARS-CoV-2 RNA Resp Ql SANDIE+p marinaeon 07-23-2020 SARS-CoV-2 RNA Resp Ql SANDIE+probe COVID 19 RESULT: SARS-CoV-2 (Agent of COVID-19) Not Detected by PCR. This test has been authorized by FDA under an Emergency Use Authorization (EUA) Normal [facility] Comment on above: Performed By: #### 9 4500-6 #### [facility] CLIA [id number] [address] [place] [address] [facility] [place] Urinalysis complete pnl Uron 07-23-2020 Bilirubin Ql (U) Negative Normal Negative [facility] Comment on above: Order Comment: Speci men Type: URINE SPECIMEN Performed By: #### 2 4356-8 #### [facility] CLIA [id number] [address] [place] [place] [address] [facility] [place] Clarity (Unsp spec) Clear Normal Clear [facility] Comment on above: Order Comment: Speci men Type: URINE SPECIMEN Performed By: #### 2 4356-8 #### [facility] CLIA [id number] [address] [place] [place] [address] [facility] [place] Color (U) Yellow Normal Yellow [facility] Comment on above: Order Comment: Speci men Type: URINE SPECIMEN Performed By: #### 2 4356-8 #### [facility] CLIA [id number] [address] [place] [address] [facility] [place] Epithelial cells LM.HPF (Urine sed) [#/Area] Few Normal [facility] Comment on above: Order Comment: Speci men Type: URINE SPECIMEN Performed By: #### 2 4356-8 #### [facility] CLIA [id number] [address] [place] [place] [address] [facility] [place] Glucose Test strip (U) [Mass/Vol] Negative Normal Negative [facility] Comment on above: Order Comment: Speci men Type: URINE SPECIMEN Performed By: #### 2 4356-8 #### [facility] CLIA [id number] [address] [place] [address] [place] Hemoglobin Ql (U) Negative Normal Negative [facility] Comment on above: Order Comment: Speci men Type: URINE SPECIMEN Performed By: #### 2 4356-8 #### [facility] CLIA [id number] [address] [place] [address] [place] Ketones Ql (U) Negative Normal Negative [facility] Comment on above: Order Comment: Speci men Type: URINE SPECIMEN Performed By: #### 2 4356-8 #### [facility] CLIA [id number] [address] [facility] [place] [address] [place] Leukocyte esterase Test strip Ql (U) Negative Normal Negative [facility] Comment on above: Order Comment: Speci men Type: URINE SPECIMEN Performed By: #### 2 4356-8 #### [facility] CLIA [id number] [address] [facility] [address] [place] Nitrite Ql (U) Negative Normal Negative [facility] Comment on above: Order Comment: Speci men Type: URINE SPECIMEN Performed By: #### 2 4356-8 #### [facility] CLIA [id number] [address] [facility] [place] [address] [place] pH (U) 5.5 [pH] Normal 5.0-8.0 [facility] Comment on above: Order Comment: Speci men Type: URINE SPECIMEN Performed By: #### 2 4356-8 #### [facility] CLIA [id number] [address] [facility] [address] [place] Protein (U) [Mass/Vol] Negative Normal Negative [facility] Comment on above: Order Comment: Speci men Type: URINE SPECIMEN Performed By: #### 2 4356-8 #### [facility] CLIA [id number] [address] [facility] [place] [address] [place] RBC LM.HPF (Urine sed) [#/Area] 0-3 /HPF Normal 0-3 /HPF [facility] Comment on above: Order Comment: Speci men Type: URINE SPECIMEN Performed By: #### 2 4356-8 #### [facility] CLIA [id number] [address] [place] [address] [place] Specific gravity (U) [Rel density] <=1.005 Normal 1.005-1.030 [facility] Comment on above: Order Comment: Speci men Type: URINE SPECIMEN Performed By: #### 2 4356-8 #### [facility] CLIA [id number] [address] [place] [address] [place] Urobilinogen Test strip Ql (U) 0.2 EU/dL Normal 0.2-1.0 EU/dL [facility] Comment on above: Order Comment: Speci men Type: URINE SPECIMEN Performed By: #### 2 4356-8 #### [facility] CLIA [id number] [address] [place] [address] [place] WBC LM.HPF (Urine sed) [#/Area] 0-5 /HPF Normal 0-5 /HPF [facility] Comment on above: Order Comment: Speci men Type: URINE SPECIMEN Performed By: #### 2 4356-8 #### [facility] CLIA [id number] [address] [place] [address] [place] TROPONIN Ion 12-05-2018 Troponin I.cardiac [Mass/Vol] Canceled Normal [facility] Comment on above: Order Comment: TEST TROPONIN I WAS CANCELLED, 12/05/2018 10:56 NO SPECIMEN RECEIVED IN LABPATIENT DISCHARGED. Result Comment: LESS THAN 0.04 NG/ML: NEGATIVE REPEAT TESTING IN THREE TO SIX HOURS IF CLINICALLY INDICATED. 0.04 - 0.5 NG/ML: CONSISTENT WITH POSSIBLE CARDIAC DAMAGE AND POSSIBLE INCREASED CLINICAL RISK. SERIAL MEASUREMENTS MAY HELP ASSESS EXTENT OF MYOCARDIAL DAMAGE. >0.5 NG/ML: CONSISTENT WITH CARDIAC DAMAGE, INCREASED CLINICAL RISK AND MYOCARDIAL INFARCTION. SERIAL MEASUREMENTS MAY HELP ASSESS EXTENT OF MYOCARDIAL DAMAGE. . Note: Troponin I testing is performed using different testing methodology at [facility] than at other [facility]. Direct result comparisons should only be made within the same method. Performed By: #### C BCDF #### [facility] [address] [place] [address] Troponin I.cardiac [Mass/Vol] Canceled Normal [facility] Comment on above: Order Comment: TEST TROPONIN I WAS CANCELLED, 12/05/2018 10:55 NO SPECIMEN RECEIVED IN LABPATIENT DISCHARGED. Result Comment: LESS THAN 0.04 NG/ML: NEGATIVE REPEAT TESTING IN THREE TO SIX HOURS IF CLINICALLY INDICATED. 0.04 - 0.5 NG/ML: CONSISTENT WITH POSSIBLE CARDIAC DAMAGE AND POSSIBLE INCREASED CLINICAL RISK. SERIAL MEASUREMENTS MAY HELP ASSESS EXTENT OF MYOCARDIAL DAMAGE. >0.5 NG/ML: CONSISTENT WITH CARDIAC DAMAGE, INCREASED CLINICAL RISK AND MYOCARDIAL INFARCTION. SERIAL MEASUREMENTS MAY HELP ASSESS EXTENT OF MYOCARDIAL DAMAGE. . Note: Troponin I testing is performed using different testing methodology at [facility] than at other [facility]. Direct result comparisons should only be made within the same method. Performed By: #### C BCDF #### [facility] [address] [place] [address] Troponin I.cardiac [Mass/Vol] Canceled Normal [facility] Comment on above: Order Comment: TEST TROPONIN I WAS CANCELLED, 12/05/2018 08:44 NO SPECIMEN RECEIVED IN LABpatient discharged. Result Comment: LESS THAN 0.04 NG/ML: NEGATIVE REPEAT TESTING IN THREE TO SIX HOURS IF CLINICALLY INDICATED. 0.04 - 0.5 NG/ML: CONSISTENT WITH POSSIBLE CARDIAC DAMAGE AND POSSIBLE INCREASED CLINICAL RISK. SERIAL MEASUREMENTS MAY HELP ASSESS EXTENT OF MYOCARDIAL DAMAGE. >0.5 NG/ML: CONSISTENT WITH CARDIAC DAMAGE, INCREASED CLINICAL RISK AND MYOCARDIAL INFARCTION. SERIAL MEASUREMENTS MAY HELP ASSESS EXTENT OF MYOCARDIAL DAMAGE. . Note: Troponin I testing is performed using different testing methodology at [facility] than at [facility]. Direct result comparisons should only be made within the same method. Performed By: #### C BCDF #### [facility] [address] [place] [address] APTTon 12-04-2018 aPTT Coag (Bld) [Time] 36 s Normal 28 - 38 [facility] Comment on above: Result Comment: THE APTT IS NO LONGER USED FOR MONITORING UNFRACTIONATED HEPARIN THERAPY. FOR MONITORING HEPARIN THERAPY, USE THE HEPARIN ASSAY. Performed By: #### A PTT #### [address] [address] aPTT Coag (Bld) [Time] Canceled Normal [facility] Comment on above: Order Comment: TEST APTT WAS CANCELLED, 12/04/2018 11:09 DUPLICATE ORDER. Result Comment: THE APTT IS NO LONGER USED FOR MONITORING UNFRACTIONATED HEPARIN THERAPY. FOR MONITORING HEPARIN THERAPY, USE THE HEPARIN ASSAY. Performed By: #### A PTT #### [address] [address] CBC AND DIFFERENTIALon 12-04 % AUTOMATED IMMATURE GRAN 0.0 % Normal 0.0 - 0.9 [facility] Comment on above: Result Comment: Perc ent differential counts (%) should be interpreted in the context of the absolute cell counts (cells/L). Performed By: #### C BCDF #### [address] [address] Basophils (Bld) [#/Vol] 0.05 10*3/uL Normal 0.00 - 0.10 [facility] Comment on above: Performed By: #### C BCDF #### [address] [address] Basophils/100 WBC (Bld) 1.1 % Normal 0.0 - 2.0 [facility] Comment on above: Performed By: #### C BCDF #### [address] [address] Eosinophils (Bld) [#/Vol] 0.11 10*3/uL Normal 0.00 - 0.70 [facility] Comment on above: Performed By: #### C BCDF #### [address] [address] Eosinophils/100 WBC (Bld) 2.3 % Normal 0.0 - 6.0 [facility] Comment on above: Performed By: #### C BCDF #### [address] [address] Erythrocyte distribution width (RBC) [Ratio] 13.0 % Normal 11.5 - 14.5 [facility] Comment on above: Performed By: #### C BCDF #### [facility] [address] [place] [address] Hematocrit (Bld) [Volume fraction] 36.9 % Normal 36.0 - 46.0 [facility] Comment on above: Performed By: #### C BCDF #### [facility] [address] [place] [address] Hemoglobin (Bld) [Mass/Vol] 11.7 g/dL Low 12.0 - 16.0 [facility] Comment on above: Performed By: #### C BCDF #### [address] [place] [address] Lymphocytes (Bld) [#/Vol] 1.40 10*3/uL Normal 1.20 - 4.80 [facility] Comment on above: Performed By: #### C BCDF #### [address] [place] [address] Lymphocytes/100 WBC (Bld) 29.5 % Normal 13.0 - 44.0 [facility] Comment on above: Performed By: #### C BCDF #### [address] [place] [address] MCHC (RBC) [Mass/Vol] 31.7 g/dL Low 32.0 - 36.0 [facility] Comment on above: Performed By: #### C BCDF #### [address] [place] [address] MCV (RBC) [Entitic vol] 99 fL Normal 80 - 100 [facility] Comment on above: Performed By: #### C BCDF #### [address] [place] [address] Monocytes (Bld) [#/Vol] 0.42 10*3/uL Normal 0.10 - 1.00 [facility] Comment on above: Performed By: #### C BCDF #### [facility] [address] [place] [address], [place] [address] Monocytes/100 WBC (Bld) 8.8 % Normal 2.0 - 10.0 [facility] Comment on above: Performed By: #### C BCDF #### [address] [place] [address] Neutrophils (Bld) [#/Vol] 2.77 10*3/uL Normal 1.20 - 7.70 [facility] Comment on above: Performed By: #### C BCDF #### [facility] [address] [place] [address] Neutrophils/100 WBC (Bld) 58.3 % Normal 40.0 - 80.0 [facility] Comment on above: Performed By: #### C BCDF #### [address] [address] Nucleated RBC/100 WBC (Bld) [Ratio] 0.0 /100 WBC Normal 0.0 - 0.0 [facility] Comment on above: Performed By: #### C BCDF #### [address] [address] Platelets (Bld) [#/Vol] 175 10*3/uL Normal 150 - 450 [facility] Comment on above: Performed By: #### C BCDF #### [address] [address] RBC (Bld) [#/Vol] 3.73 x10E12/L Low 4.00 - 5.20 [facility] Comment on above: Performed By: #### C BCDF #### [address] [address] WBC (Bld) [#/Vol] 4.8 10*3/uL Normal 4.4 - 11.3 [facility] Comment on above: Performed By: #### C BCDF #### [address] [address] CHEST 1 VIEWon 12-04-2018 CHEST 1 VIEW Patient Name: MICHAEL SANTOS STUDY: CHEST 1 VIEW; 12/04/2018 10:33 am INDICATION: Chest Pain. COMPARISON: 06/21/2015. ACCESSION NUMBER(S): [id number] ORDERING CLINICIAN: TUCKER KLEIN FINDINGS: CARDIOMEDIASTINAL SILHOUETTE: Borderline size of the cardiac silhouette is stable. LUNGS: Elevation of the right hemidiaphragm is again seen. No focal infiltrate.No pleural effusion or pneumothorax. ABDOMEN: No remarkable upper abdominal findings. BONES: No acute osseous changes. IMPRESSION: 1. No evidence of acute cardiopulmonary process. Electronically signed by: MINGO ALBERTO MD Normal [facility] COMPREHENSIVE PANELon 2018 Albumin [Mass/Vol] 4.0 g/dL Normal 3.4 - 5.0 [facility] Comment on above: Performed By: #### C MP #### [facility] [address] [place] [address] ALP [Catalytic activity/Vol] 76 U/L Normal 33 - 110 [facility] Comment on above: Performed By: #### C MP #### [facility] [address] [place] [address], [place] [address] ALT [Catalytic activity/Vol] 18 U/L Normal 7 - 45 [facility] Comment on above: Result Comment: Diane ents treated with Sulfasalazine may generate falsely decreased results for ALT. Performed By: #### C MP #### [address] [place] [address] Anion gap [Moles/Vol] 8 mmol/L Low 10 - 20 [facility] Comment on above: Performed By: #### C MP #### [address] [place] [address] AST [Catalytic activity/Vol] 22 U/L Normal 9 - 39 [facility] Comment on above: Performed By: #### C MP #### [facility] [address] [place] [address], [place] [address] Bilirubin [Mass/Vol] 0.5 mg/dL Normal 0.0 - 1.2 [facility] Comment on above: Performed By: #### C MP #### [facility] [address] [place] [address], [place] [address] Calcium [Mass/Vol] 9.5 mg/dL Normal 8.6 - 10.3 [facility] Comment on above: Performed By: #### C MP #### [facility] [address] [place] [address], [place] [address] Chloride [Moles/Vol] 106 mmol/L Normal 98 - 107 [facility] Comment on above: Performed By: #### C MP #### [address] [place] [address] Creatinine [Mass/Vol] 1.00 mg/dL Normal 0.50 - 1.05 [facility] Comment on above: Performed By: #### C MP #### [address] [place] [address] GFR- AM. 71 mL/min/1.73m2 Normal >60 [facility] Comment on above: Result Comment: CALC ULATIONS OF ESTIMATED GFR ARE PERFORMED USING THE MDRD STUDY EQUATION FOR THE IDMS-TRACEABLE CREATININE METHODS. CLIN CHEM 2007;53:766-72 Performed By: #### C MP #### [address] [place] [address] GFR-NON AM. 59 mL/min/1.73m2 Abnormal >60 [facility] Comment on above: Performed By: #### C MP #### [address] [address] Glucose [Mass/Vol] 87 mg/dL Normal 74 - 99 [facility] Comment on above: Performed By: #### C MP #### [address] [address] HCO3 (Bld) [Moles/Vol] 28 mmol/L Normal 21 - 32 [facility] Comment on above: Performed By: #### C MP #### [address] [address] Potassium [Moles/Vol] 4.3 mmol/L Normal 3.5 - 5.3 [facility] Comment on above: Performed By: #### C MP #### [address] [address] Protein [Mass/Vol] 6.4 g/dL Normal 6.4 - 8.2 [facility] Comment on above: Performed By: #### C MP #### [address] [place] [address] Sodium [Moles/Vol] 138 mmol/L Normal 136 - 145 [facility] Comment on above: Performed By: #### C MP #### [address] [address] Urea nitrogen [Mass/Vol] 16 mg/dL Normal 6 - 23 [facility] Comment on above: Performed By: #### C MP #### [address] [address] EMR ADDONon 12-04-2018 ADDON CONFIRMATION REQUEST REC'D Normal [facility] Comment on above: Performed By: #### E MRAD #### [address] [address] LIPASEon 12-04-2018 Lipase [Catalytic activity/Vol] 21 U/L Normal 9 - 82 [facility] Comment on above: Result Comment: Arielle puncture immediately after or during the administration of Metamizole may lead to falsely low results. Testing should be performed immediately prior to Metamizole dosing. Y-ordjza-z-benzoquinone imine (metabolite of Acetaminophen) will generate erroneously low results in samples for patients that have taken toxic doses of acetaminophen. Performed By: #### C BCDF #### [address] [address] PT/INRon 12-04-2018 INR Coag (PPP) [Relative time] 1.0 {INR} Normal 0.9 - 1.1 [facility] Comment on above: Performed By: #### P TINR #### [address] [address] PT Coag (PPP) [Time] 11.2 s Normal 9.7 - 12.7 [facility] Comment on above: Performed By: #### P TINR #### [address] [address] Provider Note - ED v2on 11-06 Provider Note - ED v2 Provider Note - ED v2: Chart Review: ED NOTES ED NOTES: HPI: This is a 48-year-old female, history of GERD, PE is on lifelong anticoagulation, depression, fibromyalgia, hypertension, here with chest pain. Patient states that she sore when she pushes on her chest.. 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 She follows with Dr. Desai. She had a recent heart catheterization which came out clean/normal approximately 2 months ago at [place]. She is on lifelong eliquis. She also states that she has an IVC filter. Patient reports that she is under a lot of stress in personal famil life. Denies any fever, chills, abdominal pain, dysuria, hematuria, diarrhea, constipation. Family HX: Denies any significant/pertinent family history. Social Hx: Denies ETOH or drug use. Review of Systems: Constitutional: Negative except as documented in history of present illness Skin: Negative except as documented in history of present illness Head: Negative except as documented in history of present illness EENT: Negative except as documented in history of present illness Neck: Negative except as documented in history of present illness Cardiac:Negative except as documented in history of present illness Pulmonary: Negative except as documented in history of present illness GI: Negative except as documented in history of present illness : Negative except as documented in history of present illness Musculoskeletal: Negative except as documented in history of present illness Hematologic: Negative except as documented in history of present illness Endocrine:Negative except as documented in history of present illness Neurological: Negative except as documented in history of present illness Psych: Negative except as documented in history of present illness Physical Exam: General: Vitals noted, NAD. Awake and alert. HEENT: atraumatic. Normocephalic. PERRL, EOMI grossly Cardiac: Slight tenderness to palpation over the costochondral margins. Normal rate, normal S1/S2. No murmurs, rubs, or gallops Pulmonary: Lungs clear bilaterally with good aeration. No adventitious breath sounds. Abdomen: Soft, nonsurgical. Nontender. non-distended. No rebound or guarding Normoactive bowel sounds. Musculoskeletal: / Extremities: Moves bilateral upper and lower extremities appropriately. No gross visible deformity. Neurovascularly intact throughout.Negative Homans bilaterally, no cords. Normal capillary refill, 2+ equal bilateral radial and DP pulses. Skin: No rash. Neuro: No gross neurologic deficits. Alert and Oriented. Psych: Normal affect, Medical Decision-Making: Differential Diagnosis: Intermittent chest pain differential Testing: Diagnostic Imaging: Chest x-ray: impression: 1. No evidence of acute cardiopulmonary process. Laboratory: Laboratories unremarkable. EKG:Sinus bradycardia rhythm at 56 bpm, normal axis, no acute ST-T changes Treatment and Reevaluation: Ativan given, patient feels significant relief. Summary: 48-year-old female, history of GERD, PE is on lifelong anticoagulation, depression, fibromyalgia, hypertension, here with chest pain. Vitals noted, afebrile EKG and laboratory studies are unremarkable here imaging unremarkable. Given the fact that the patient had a recent heart catheterization within the past month, normal labs and EKG, was completely normal unlikely Cardic in cause. Patient did feel significant relief with a dose of Ativan here in ER. At this time patient will be discharged home to follow-up with her primary care physician for further management of her anxiety. Return precautions given Impression: 1. Chest wall pain 2. Anxiety Plan: Homegoing. I discussed the differential, results and discharge plan with the patient and/or family/friend/caregiver if present. I emphasized the importance of follow-up with the physician I referred them to in the timeframe recommended. I explained reasons for the patient to return to the Emergency Department. Additional verbal discharge instructions were also given and discussed with the patient to supplement those generated by the EMR. We also discussed medications that were prescribed (if any) including common side effects and interactions. The patient was advised to abstain from driving, operating heavy machinery or making significant decisions while taking medications such as opiates and muscle relaxers that may impair this. All questions were addressed. They understand return precautions and discharge instructions. The patient and/or family/friend/caregiver expressed understanding. Disposition: Discharge Disclaimer: This note was dictated by speech recognition. Minor errors in consumer marketing specialist may be present. Please call if questions. HISTORY OF PRESENTING ILLNESS MICHAEL is a 48 year old Female and was seen by me at 04-Dec-2018 10:00 for a chief complaint of chest pain (chest pain. center of chest. 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 rates 2/10)(1). Triage Information: Most recent Vital Sign Value Date Temp (F): 97.1 12-04-2018 09:54 Temp (C): 36.2 12-04-2018 09:54 Heart Rate (beats/min): 68 12-04-2018 09:54 Respirations (breaths/min): 18 12-04-2018 09:54 SpO2 (%): 100 12-04-2018 09:54 BP Systolic (mm Hg): 100 12-04-2018 09:54 BP Diastolic (mm Hg): 57 12-04-2018 09:54 PAST MEDICAL HISTORY ATTESTATION: I have reviewed and confirmed nurse's/medic's notes for patient's medications, allergies, medical history, and surgical history ALLERGIES/INTOLERANCES: Allergy Allergen: penicillin Type: Drug Reaction: Unknown HEALTH HISTORY: No documented data. OUTPATIENT MEDICATIONS: Home Medications Review Status for Reconciliation: N/A Med Status: N/A No documented data. SIGNIFICANT EVENTS: Past Medical History Description:Fibromyalgia Description:lupus Description:hypertention TILE GRADER: Is : no(1) Is : no(1) RESULTS/VITAL SIGNS RESULTS: Recent Lab Results: I have reviewed these laboratory results: Complete Blood Count + Differential 04-Dec-2018 10:26:00 ResultValue White Blood Cell Count 4.8 Nucleated Erythrocyte Count 0.0 Red Blood Cell Count 3.73 L HGB 11.7 L HCT 36.9 MCV 99 MCHC 31.7 L PLT 175 RDW-CV 13.0 Neutrophil % 58.3 Immature Granulocytes % 0.0 Lymphocyte % 29.5 Monocyte % 8.8 Eosinophil % 2.3 Basophil % 1.1 Neutrophil Count 2.77 Lymphocyte Count 1.40 Monocyte Count 0.42 Eosinophil Count 0.11 Basophil Count 0.05 Comprehensive Metabolic Panel 04-Dec-2018 10:26:00 ResultValue Glucose, Serum 87 NA 138 K 4.3 CL 106 Bicarbonate, Serum 28 Anion Gap, Serum 8 L BUN 16 CREAT 1.00 GFR-Non 59 A GFR- 71 Calcium, Serum 9.5 ALB 4.0 ALKP 76 T Pro 6.4 T Bili 0.5 Alanine Aminotransferase, Serum 18 Aspartate Transaminase, Serum 22 PT + INR, Plasma 04-Dec-2018 10:26:00 ResultValue Prothrombin Time, Plasma 11.2 International Normalized Ratio, Plasma 1.0 Troponin I, Serum 04-Dec-2018 10:26:00 ResultValue Troponin I, Serum <0.02 VTE Exclusion D-Dimer 04-Dec-2018 10:26:00 ResultValue VTE Exclusion D-Dimer 255 Activated Partial Thromboplastin Time 04-Dec-2018 10:26:00 ResultValue Activated Partial Thromboplastin Time 36 Lipase, Serum 04-Dec-2018 10:26:00 ResultValue Lipase, Serum 21 Radiology Results: Impression: 1. No evidence of acute cardiopulmonary process. Xray Chest 1 View [Dec 04 2018 11:02AM] VITAL SIGNS: T PRBP SpO2O2(LPM) %FiO2 Method 04-Dec-2018 11:30:[id number] 100 04-Dec-2018 09:54:[id number] 100 room air, no respiratory support CLINICAL IMPRESSION Diagnosis/Annotation: ED Dx Name:Chest wall pain Code:R07.89 Dispostion: discharged Type: home Condition on Disposition: improved ATTESTATION Attestation: This is a shared visit. I have reviewed the LIPs encounter note, approve the LIPs documentation and provide the following additional information from my personal encounter. Shared Visit Documentation: See comments/additional findings below Comments/Additional Findings: Chief complaint: Chest pain History of present illness: Patient is 48-year-old female with history of pulmonary embolus presenting to the emergency department with chest discomfort. 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 The patient states the pain is worse with deep inspiration. Concern, the patient presents to the emergency department for further evaluation. She denies any sweating or shortness of breath. She has no other complaints this time. Physical examination: Gen.: Patient is an age-appropriate well-appearing female resting comfortably in examination table Cardiac vascular: Patient has regular rate and rhythm Lungs: Lungs are clear to auscultation bilaterally Abdomen: Patient's abdomen is soft nontender nondistended. Patient has normal bowel sounds Medical decision making: Patient remained stable throughout her time in the emergency department. CBC and Chem-7 demonstrated no significant abnormality delta troponin was negative. Patient's d-dimer was negative. At this time, the patient be discharged home to follow up with a primary care physician regarding this issue patient was then discharged home in stable condition. I saw and evaluated the patient. I personally obtained the torrez and critical portions of the history and physical exam or was physically present for torrez and critical portions performed by the resident/midlevel. I reviewed the residents/midlevel's documentation and discussed the patient with the resident. I agree with the residents medical decision making as documented in the residents/midlevel's note. This note supercedes documentation by midlevel/resident. CRITICAL CARE TIME Is this a critically ill patient: no Electronic Signatures: Tucker Klein (PAC) (Signed 04-Dec-2018 13:25) Authored: Provider Note - ED v2 Hari Persaud) (Signed 06-Dec-2018 21:54) Authored: Provider Note - ED v2 Co-Signer: Provider Note - ED v2 Jhon Saenz (Scribe) (Entered 04-Dec-2018 12:00) Entered: Provider Note - ED v2 Last Updated: 06-Dec-2018 21:54 by Hari Persaud) References: 1. Data Referenced From Triage - ED 04-Dec-2018 09:54 Normal [facility] TROPONIN Ion 12-04-2018 Troponin I.cardiac [Mass/Vol] ng/mL Normal 0.00 - 0.03 [facility] Comment on above: Result Comment: LESS THAN 0.04 NG/ML: NEGATIVE REPEAT TESTING IN THREE TO SIX HOURS IF CLINICALLY INDICATED. 0.04 - 0.5 NG/ML: CONSISTENT WITH POSSIBLE CARDIAC DAMAGE AND POSSIBLE INCREASED CLINICAL RISK. SERIAL MEASUREMENTS MAY HELP ASSESS EXTENT OF MYOCARDIAL DAMAGE. >0.5 NG/ML: CONSISTENT WITH CARDIAC DAMAGE, INCREASED CLINICAL RISK AND MYOCARDIAL INFARCTION. SERIAL MEASUREMENTS MAY HELP ASSESS EXTENT OF MYOCARDIAL DAMAGE. . Note: Troponin I testing is performed using different testing methodology at [facility] than at other [facility]. Direct result comparisons should only be made within the same method. Performed By: #### T ROP2 #### [facility] [address] [place] [address] Triage - EDon 12-04-2018 Triage - ED Quick Triage: Are You no Are You Currently Breastfeedingno Chart Review: CHIEF COMPLAINT MICHAEL PACKER is a Female patient with a chief complaint of chest pain (chest pain. center of chest. 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 rates 2/10). Triage Date/Time: 04-Dec-2018 09:54 Pain Rating (0-10): 2 = Mild Vital Signs: Temperature: 97.1F ( 36.2C) Blood Pressure: 100/57 Mean: Heart Rate: 68 Respiratory Rate: 18 Pulse Oximetry: 100% on room air, no respiratory support. Weight: 340.0 pounds. Calculated 154.2 kg. (stated) Cough lasting greater than 3 weeks: no Travel outside of [place]: no Allergies: yes Patient has homicidal thoughts: no Risk Screens Suicide Risk Screen In the Past Month: Have you wished you were or wished you could go to sleep and not wake up no In the Past Month: Have you had any actual thoughts of killing yourself no In Your Lifetime: Have you ever done anything, started to do anything, or prepared to do anything to end your life no Theodore Fall Scale Screening Has the patient fallen before (or is the patient in the ED as a result of a fall) has not had a fall Does the patient have an impaired gait does not have impaired gait Is the patient cognitively impaired not cognitively impaired PAIN Pain Scale Used: ANTONIO Pain Rating (0-10): 2 = Mild Past Medical History: Past Medical History Reviewedyes hypertention: Past Medical History, Active lupus: Past Medical History, Active Fibromyalgia: Past Medical History, Active Electronic Signatures: Gasper Hein (RN) (Signed 04-Dec-2018 10:01) Authored: Triage, Past Medical History Last Updated: 04-Dec-2018 10:01 by Gasper Hein (RN) Normal [facility] VTE EXCLUSION D-DIMERon -3 VTE EXCLUSION D-DIMER 255 ng/mL FEU Normal < or = 500 [facility] Comment on above: Result Comment: The VTE Exclusion D-dimer assay is reported in ng/mL Fibrinogen Equivalent Units (FEU). This assay is indicated for use in conjunction with the Guidelines for Emergency Department Use of the VTE Exclusion D-Dimer clinical pretest probability assessment model to exclude deep vein thrombosis (DVT) and pulmonary embolism (PE) disease in outpatients suspected of DVT or PE. Per phone banker's instructions for use, a value of less than 500 ng/mL (FEU) may help to exclude DVT and/or PE in outpatients when the assay is used with a clinical pretest probability assessment. Performed By: #### D IMEX #### [facility] [address] [place] [address] CBC and Differentialon 12-07 Abs Baso 0.06 k/uL Normal 0.00-0.[address] [facility] Comment on above: Performed By: #### C BCDIF, PT, CMP, MG1, SANDHYA, LIPA ####[facility] [place], [place] [phone] Abs Kingfisher 0.69 k/uL Normal 0.00-0.[address] [facility] Comment on above: Performed By: #### C BCDIF, PT, CMP, MG1, SANDHYA, LIPA ####[address] [phone] Abs Neut 3.01 k/uL Normal 1.45-7.[address] [facility] Comment on above: Performed By: #### C BCDIF, PT, CMP, MG1, SANDHYA, LIPA ####[address] [phone] Basophils/100 WBC Auto (Bld) 1.0 % Normal [facility] Comment on above: Performed By: #### C BCDIF, PT, CMP, MG1, SANDHYA, LIPA ####[address] [phone] Eosinophils 0.12 10*3/uL Normal 0.00-0.[address] [facility] Comment on above: Performed By: #### C BCDIF, PT, CMP, MG1, SANDHYA, LIPA ####[address] [phone] Eosinophils/100 leukocytes 1.9 % Normal [facility] Comment on above: Performed By: #### C BCDIF, PT, CMP, MG1, SANDHYA, LIPA ####[address] [phone] Erythrocyte distribution width Auto Ratio (RBC) 13.2 % Normal 11.5-15.[address] [facility] Comment on above: Performed By: #### C BCDIF, PT, CMP, MG1, SANDHYA, LIPA ####[address] [phone] Erythrocytes (RBC) 4.15 10*6/uL Normal 3.90-5.20 [facility] Comment on above: Performed By: #### C BCDIF, PT, CMP, MG1, SANDHYA, LIPA ####[address] [phone] Hematocrit (HCT) 38.6 % Normal 36.0-46.[address] [facility] Comment on above: Performed By: #### C BCDIF, PT, CMP, MG1, SANDHYA, LIPA ####[address] [phone] Hemoglobin mass conc (Bld) 12.9 g/dL Normal 11.5-15.[address] [facility] Comment on above: Performed By: #### C BCDIF, PT, CMP, MG1, SANDHYA, LIPA ####[address] [phone] Lymphocytes 2.36 10*3/uL Normal 1.00-4.[address] [facility] Comment on above: Performed By: #### C BCDIF, PT, CMP, MG1, SANDHYA, LIPA ####[address] [phone] Lymphocytes/100 leukocytes 37.8 % Normal [facility] Comment on above: Performed By: #### C BCDIF, PT, CMP, MG1, SANDHYA, LIPA ####[address] [phone] MCH 31.1 pG Normal 26.0-34.[address] [facility] Comment on above: Performed By: #### C BCDIF, PT, CMP, MG1, SANDHYA, LIPA ####[address] [phone] MCHC mass conc (RBC) 33.4 g/dL Normal 30.5-36.0 [facility] Comment on above: Performed By: #### C BCDIF, PT, CMP, MG1, SANDHYA, LIPA ####[address] [phone] MCV 93.0 fL Normal 80.0-100.[address] [facility] Comment on above: Performed By: #### C BCDIF, PT, CMP, MG1, SANDHYA, LIPA ####[address] [place] [phone] Monocytes/100 leukocytes 11.1 % Normal [facility] Comment on above: Performed By: #### C BCDIF, PT, CMP, MG1, SANDHYA, LIPA ####[address] [place] [phone] Neutrophils/100 WBC Auto (Bld) 48.2 % [facility] Comment on above: Performed By: #### C BCDIF, PT, CMP, MG1, SANDHYA, LIPA ####[address] [place] [phone] Platelet mean volume (PMV) 10.2 fL Normal 9.0-12.[address] [facility] Comment on above: Performed By: #### C BCDIF, PT, CMP, MG1, SANDHYA, LIPA ####[address] [place] [phone] Platelets 229 10*3/uL Normal 150-[address] [facility] Comment on above: Performed By: #### C BCDIF, PT, CMP, MG1, SANDHYA, LIPA ####[address] [place] [phone] WBC (Leukocytes) 6.24 10*3/uL Normal 3.70-11.00 [facility] Comment on above: Performed By: #### C BCDIF, PT, CMP, MG1, SANDHYA, LIPA ####[address] [place] [phone] Comp Metabolic Panelon 12-07 Alanine aminotransferase (ALT) 15 U/L Normal 0-[address] [facility] Comment on above: Performed By: #### C BCDIF, PT, CMP, MG1, SANDHYA, LIPA ####[address] [phone] Albumin 4.5 g/dL Normal 4.0-4.[address] [facility] Comment on above: Performed By: #### C BCDIF, PT, CMP, MG1, SANDHYA, LIPA ####[address] [phone] Alkaline phosphatase (ALP) 90 U/L Normal 35-[address] [facility] Comment on above: Performed By: #### C BCDIF, PT, CMP, MG1, SANDHYA, LIPA ####[address] [place] [phone] Anion gap 14 mmol/L Normal 0-[address] [facility] Comment on above: Performed By: #### C BCDIF, PT, CMP, MG1, SNADHYA, LIPA ####[address] [phone] Aspartate aminotransferase (AST) 21 U/L Normal 0-[address] [facility] Comment on above: Performed By: #### C BCDIF, PT, CMP, MG1, SANDHYA, LIPA ####[address] [phone] Bilirubin (total) 0.6 mg/dL Normal 0.0-1.2 [facility] Comment on above: Performed By: #### C BCDIF, PT, CMP, MG1, SANDHYA, LIPA ####[address] [phone] Calcium 9.8 mg/dL Normal 8.5-10.[address] [facility] Comment on above: Performed By: #### C BCDIF, PT, CMP, MG1, SANDHYA, LIPA ####[address] [phone] Chloride 101 mmol/L Normal 98-[address] [facility] Comment on above: Performed By: #### C BCDIF, PT, CMP, MG1, SANDHYA, LIPA ####[address] [place] [phone] CO2 26 mmol/L Normal 22-[address] [facility] Comment on above: Performed By: #### C BCDIF, PT, CMP, MG1, SANDHYA, LIPA ####[address] [place] [phone] Creatinine 1.22 mg/dL High 0.51-0.[address] [facility] Comment on above: Performed By: #### C BCDIF, PT, CMP, MG1, SANDHYA, LIPA ####[address] [place] [phone] eGFR (non-black) 57 mL/min/{1.73_m2} Low >[address] [facility] Comment on above: Performed By: #### C BCDIF, PT, CMP, MG1, SANDHYA, LIPA ####[address] [place] [phone] eGFR (non-black) 47 . Low >[address] [facility] Comment on above: Result Comment: eGFR (Estimated GFR) Units of measure: mL/min/1.73 meters squaredeGFR is derived from the 4 variable MDRD equation for glomerular filtration rate (GFR) based on a stable serum creatinine, gender, and age.According to KDOQI guidelines, an eGFR <60 mL/min/1.73m2 is sufficient to diagnose a patient with chronic kidney disease. Performed By: #### C BCDIF, PT, CMP, MG1, SANDHYA, LIPA ####[address] [place] [phone] Glucose mass conc 104 mg/dL High 74-99 [facility] Comment on above: Performed By: #### C BCDIF, PT, CMP, MG1, SANDHYA, LIPA ####[address] [place] [phone] Potassium molar conc 3.8 mmol/L Normal 3.4-4.5 [facility] Comment on above: Performed By: #### C BCDIF, PT, CMP, MG1, SANDHYA, LIPA ####[address] [place] [phone] Protein 7.1 g/dL Normal 6.6-8.[address] [facility] Comment on above: Performed By: #### C BCDIF, PT, CMP, MG1, SANDHYA, LIPA ####[address] [place] [phone] Sodium 141 mmol/L Normal 136-[address] [facility] Comment on above: Performed By: #### C BCDIF, PT, CMP, MG1, SANDHYA, LIPA ####[address] [place] [phone] Urea nitrogen 28 mg/dL High 6-[address] [facility] Comment on above: Performed By: #### C BCDIF, PT, CMP, MG1, SANDHYA, LIPA ####[address] [place] [phone] D dimeron 12-07-2016 D dimer 220 ng/mL FEU Normal <[address] [facility] Comment on above: Result Comment: The D-dimer assay can be used to exclude pulmonary embolism (PE) and deep vein thrombosis (DVT) in conjunction with a low pre-test probability.For patients with a suspected DVT, a D-dimer level below 500 ng/mL FEU has a negative predictive value of 99.2%, a sensitivity of 98.9%, and a specificity of 36.1%. For patients with a suspected PE, a D-dimer level below 500 ng/mL FEU has a negative predictive value of 99.1%, a sensitivity of 97.8%, and a specificity of 41.7%. Performed By: #### D DMER ####[address] [place] [phone] ED NOTEon 12-07-2016 ED NOTE HNO ID: [id number]: Solitario (Rn) ELENA Chengervice: (none)Author Type: Registered NurseType: ED NotesFiled: 12/07/2016 9:21 AMNote Text:Pt to the ED by [facility] c/c SOB and chest pressure which produces thepain in the upper epigastric area. Pt states she was at work during theonset. 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 EMS arrived gave her 2 breathing TX placedan IV and gave solu-medrol 125. Pt states she is feeling better. She has aHX of depression in which she take medication for such.HISTORIESPAST MEDICAL HISTORYDiagnosis Date- Chronic obstructive pulmonary disease (COPD) (HCC)- Fibromyalgia- History of blood clots- Hypertension- Lupus (HCC)- Rheumatoid arthritis(714.0)BP 115/60 Pulse 80 Temp 36.6 ?C (97.9 ?F) (Oral) Resp 20 Ht 170.2cm (5' 7) Wt (!) 140.6 kg (310 lb) SpO2 100% BMI 48.55 kg/m2Plan of care: -Monitor Patient's Vital signs and for changes in condition-Monitor patient for changes in pain-Maintain patient safety and privacy-Provide comfort measures- notify physician of changes in condition [facility] ED NOTE HNO ID: [id number] Author: Cecy Ibrahim (Rn) KATIE Rivera Service: (none) Author Type: Registered Nurse Type: ED Notes Filed: 12/07/2016 9:14 AM Note Text: Bed: ED-26 Expected date: Expected time: Means of arrival: Comments: [facility] ED PROV NOTEon 12-07-2016 ED PROV NOTE HNO ID: [id number]: LAURA Tiptonervice: Emergency MedicineAuthor Type: PhysicianType: ED Provider NotesFiled: 12/07/2016 1:26 PMNote Text:ED Provider NotePatient Name: Michael PaytonWangMRN: [id number] DATE: 12/07/16HistoryPatient presents with:Chest Pain: pt states this is more so a feeling of pressureShortness of Breath: pt states SOB when the pain idsjmpTSA59 yo female presents to ED c/o pressure-like chest pain, severe, assocwith SOB, diaphoresis, bilateral hand pain nausea and feeling cloudy.Pain was in her epigastrium and radiated up her chest. 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 She reports thisis the exact same pain that she was experiencing with her most recentadmission. She says she has been experiencing it intermittently for 2months. EMS was called and they administered solumedrol 125 mg for asthmawhich patient says helped her SOB significantly; says because of it she isbreathing better now than she has in the last 2 weeks.I reviewed PMH with her, which includes COPD, fibromyalgia, DVT,hypertension, lupus, and RA.PAST MEDICAL HISTORYDiagnosis Date- Chronic obstructive pulmonary disease (COPD) ([facility])- Fibromyalgia- History of blood clots- Hypertension- Lupus ([facility])- Rheumatoid arthritis(714.0)PAST SURGICAL HISTORYNo date: HYSTERECTOMY HXNo date: IVC FILTER SURGICAL Comment: [facility]: REMOVAL OF OVARY/TUBE(S) Comment: left ovaryNo date: TUBAL LIGATION,POSTPARTUMFAMIL Y HISTORY Heart Father Rheumatologic disease Sister Hillary's [OTHER] SisterSocial HistorySocial History Main Topics- Smoking status: Never Smoker- Smokeless tobacco: Not on file- Alcohol use No- Drug use: No- Sexual activity: Not on fileALLERGIESAllergen Reactions- Penicillins- Sulfa (Sulfonamide *Review of SystemsConstitutional: Positive for diaphoresis. Negative for fever.Eyes: Negative for visual disturbance.Respiratory: Positive for shortness of breath.Cardiovascular: Positive for chest pain.Gastrointestinal: Positive for abdominal pain and nausea. Negative forvomiting.Genitourinar y: Negative for dysuria.Musculoskeletal: Negative for back pain.Skin: Negative for rash.Neurological: Negative for light-headedness.Psychia tric/Behavioral: The patient is nervous/anxious.Physical ExamBP 115/60 Pulse 80 Temp (Src) 97.9 (Oral) Resp 20 Ht 5' 7 (1.70m) Wt 310 lb (140.6kg) SpO2 100% BMI 48.54 kg/(m2).Physical ExamConstitutional: She appears well-developed and well-nourished. Nodistress.Morbidly obeseHENT:Head: Normocephalic and atraumatic.Mouth/Throat: Mucous membranes are not dry.Eyes: Conjunctivae are normal.Neck: Normal range of motion. No JVD present.Cardiovascular: Regular rhythm and normal heart sounds. Exam reveals nogallop and no friction rub.No murmur heard.Pulses: Radial pulses are 2+ on the right side, and 2+ on the left side.Pulmonary/Chest: Effort normal and breath sounds normal. No accessorymuscle usage. No respiratory distress. She has no decreased breath sounds.She has no wheezes. She has no rhonchi. She has no rales.Abdominal: Soft. She exhibits no distension. There is no tenderness. Thereis no guarding.Musculoskeletal : She exhibits no edema or tenderness (no calf ttp).Neurological: She is alert. She has normal strength. No sensory deficit.Skin: Skin is warm and dry. She is not diaphoretic.Psychiatric: Her mood appears anxious.Nursing note and vitals reviewed.Diagnostic TestingED Labs Ordered and ReviewedCOMPREHENSIVE METABOLIC PANEL (AV,EU,FV,HL,ELY,MM,SP) - Abnormal; Notablefor the following: Result Value Ref Range Glucose 104 (*) 74 - 99 mg/dL BUN 28 (*) 6 - 20 mg/dL Creatinine 1.22 (*) 0.51 - 0.95 mg/dL eGFR- 57 (*) >60 eGFR-All Other Races 47 (*) >60 . All other components within normal limitsPROTHROMBIN TIME / PT (AV,EU,FV,HL,ELY,MM,SP) - Abnormal; Notable for thefollowing: PT Sec 28.1 (*) 8.4 - 13.0 sec PT INR 2.5 (*) 0.8 - 1.2 All other components within normal limitsCBC + AUTO DIFF (AV,EU,FV,HL,ELY,MM,SP)MA GNESIUM BLOOD (AV,EU,FV,HL,ELY,MM,SP)TR OPONIN T (AV,EU,FV,HL,ELY,MM,SP)LI PASE BLOOD (AV,EU,FV,HL,ELY,MM,SP)D- DIMER (AV,EU,FV,HL,ELY,MM,SP)HC G URINE - ED(POC)Stable mild CKD. Therapeutic INR. No clinically significant leukocytosis,anemia, or thrombocytopenia on CBC.CXR shows no evidence of pneumonia, pneumothorax or pleural effusion permy read, and no acute process per radiologist's read.EKG reviewed showing normal sinus rhythm at 71 bpm with normal QTc of 442ms and no acute ischemic changes.ProceduresMedica l Decision Making / ED CourseED CoursePer chart review, patient was admitted to [facility] on 11/12/2016 for chestpain associated with diaphoresis. This was felt to be moregastrointestinal in etiology. 3 sets of troponins were obtained with thatadmission and were negative. She had an EGD in May 2016 which showedgrade B esophagitis, hiatal hernia, and evidence of gastroparesis. Marcyo had a CT chest with IV contrast PE protocol performed in May 2016which showed no PE, bilateral atelectasis, stable subcentimeter noduledensities in the lungs, and hypodense lesions in the liver. She uses largeamounts of ibuprofen daily for RA. I also note that she had a normalstress test one week ago. Given her unremarkable EKG today in light ofthese findings, I do not believe that we are dealing with a cardiac issuetoday. Her VS are unremarkable and her INR is therapeutic on warfarin, Maureen therefore also doubt PE.I reassessed the patient at 11:10 AM. At this time, she felt her handsappeared purple. I did not appreciate this. She has good radial pulsesbilaterally in her hands are slightly cool BL but not out of the ordinaryin our cold ED. One condition, albeit rare, that I do not believe has beenruled out is an aortic dissection. I advised her that I do not think thisis what is going on. I advised her that I felt her presentation is mostconsistent with her esophagitis. She admits that she has stopped usingibuprofen but did take Toradol yesterday for her rheumatoid pain. Iadvised her of the risks of this in terms of her current esophagitis.Patient however would like an aortic dissection ruled out despite itsrarity. We agreed to pursue a d-dimer first to try to avoid any furtherradiation from CT. D dimer returned not elevated, making dissectionunlikely.Advis ed pt to avoid any further NSAIDs, continue PPI, and f/u with PCP.She will take Tylenol for her RA pain, but we will be sure not to exceeddosage limits. Discussed with her ED return precautions.Encounter Diagnosis ICD-10-CM1. Epigastric pain R10.13PlanThe Patient was DISCHARGED: Counseled patient and significant otherregarding lab results AND radiology results AND suspected diagnosis AND needfor follow-up. Discharged home with verbal and written instructions. Theywere instructed to return as needed for persistent or worsening symptomsor any new concerns.Condition at time of disposition: stableSIGNATURE: Enmanuel Tipton, 12/07/[address] [facility] Lipaseon 12-07-2016 Lipase 23 U/L Normal 13-[address] [facility] Comment on above: Performed By: #### C BCDIF, PT, CMP, MG1, SANDHYA, LIPA ####[facility] [place], [place] [phone] Magnesiumon 12-07-2016 Magnesium 2.0 mg/dL Normal 1.7-2.[address] [facility] Comment on above: Performed By: #### C BCDIF, PT, CMP, MG1, SANDHYA, LIPA ####[facility] [place], [place] [phone] Protimeon 12-07-2016 INR Coag RelTime (Bld) 2.5 {INR} High 0.8-1.[address] [facility] Comment on above: Result Comment: The PT/INR can be used to monitor the therapeutic effect of oral anticoagulants, such as warfarin. The recommended therapeutic range is an INR of 2.0 to 3.0 for most applications, including treatment and prevention of venous thrombosis,treatment of pulmonary embolism, prevention of strokes/TIA in patients with atrial fibrillation, prevention and treatment of thrombosis in patients with a lupus anticoagulant and prevention of systemic embolization in patients with heart valve disorders.There are certain conditions where clinicians may decide to use a lower or higher therapeutic range eg. 1.5 to 1.9 for secondary prevention of idiopathic venous thromboembolism and an INR 2.5 to 3.5 for older generation mechanical heart valves.Ruth, et al. CHEST 2004: 126:204S to 233S. Performed By: #### C BCDIF, PT, CMP, MG1, SANDHYA, LIPA ####[place] [address] [facility]., [place] [phone] PT Sec 28.1 sec High 8.4-13.[address] [facility] Comment on above: Performed By: #### C BCDIF, PT, CMP, MG1, SANDHYA, LIPA ####[address] [place] [phone] Troponin Ton 12-07-2016 Troponin T.cardiac mass conc ug/L Normal 0.000-0.[address] [facility] Comment on above: Performed By: #### C BCDIF, PT, CMP, MG1, SANDHYA, LIPA ####[place] [address] [facility]., [place] [phone] XR CHEST 1V PORTon 7 XR CHEST 1V PORT * * *Final Report* * *DATE OF EXAM: Dec 07 2016 9:45AM MMX [id number] - XR CHEST 1V PORT / REASON: Chest pain * * * * Physician Interpretation * * * * EXAMINATION: CHEST RADIOGRAPH (PORTABLE SINGLE VIEW AP)Exam Date/Time: 12/07/2016 9:45 AM.Indications: Chest pain.M: XCP_4Comparison: 05/24/2016.RESULT:Lines, Tubes, and Devices: None.Lungs and Pleura: No radiographically evident focal airspace opacities suggesting consolidation or other acute pathology. No radiographic evidence of pneumothorax or pleural effusion.Cardiomediastin al silhouette: The cardiomediastinal silhouette is unremarkable. The heart size is within normal limits.No acute osseous abnormality..IMPRESSION: No acute radiographic abnormality.Transcriptio nist: PSCB Transcribe Date/Time: Dec 07 2016 9:47ADictated by : GISSEL BRYANT MDThis examination was interpreted and the report reviewed and electronically signed by: GISSEL BRYANT MD on Dec 07 2016 9:48AM EST Normal [facility] Vital Signs Date Time Vital Sign Value Performing Clinician Facility 12-17-2024 10:33-0400 Body height 170.2 cm Pradhab Kirupaharan DO Work Phone: [facility] 12-17-2024 10:33-0400 Body mass index (BMI) [Ratio] 44.17 kg/m2 Pradhab Kirupaharan DO Work Phone: [facility] 12-17-2024 10:33-0400 Body weight 127.91 kg Pradhab Kirupaharan DO Work Phone: [facility] 12-17-2024 10:33-0400 Diastolic blood pressure 70 mm[Hg] Pradhab Kirupaharan DO Work Phone: [facility] 12-17-2024 10:33-0400 Heart rate 88 /min Pradhab Kirupaharan DO Work Phone: [facility] 12-17-2024 10:33-0400 SaO2% (BldA) [Mass fraction] 96 % Pradhab Kirupaharan DO Work Phone: [facility] Comment on above: ROOM AIR 12-17-2024 10:33-0400 Systolic blood pressure 111 mm[Hg] Pradhab Kirupaharan DO Work Phone: [facility] 08-26-2024 13:13-0400 Body mass index (BMI) [Ratio] 44.2 kg/m2 Em Praisler[employer] Work Phone: [facility] 08-26-2024 13:13-0400 Body temperature 98.6 [degF] Em Praisler[employer]OADCAST CHECKER.EAR[employer]CH[employer]IST Work Phone: [facility] 08-26-2024 13:13-0400 Body weight 128 kg Em Praisler-[employer] BROADCAST CHECKER.EARLY [employer]YCH[employer]IST Work Phone: [facility] 08-26-2024 13:13-0400 Diastolic blood pressure 75 mm[Hg] Em Praisler-Wood BROADCAST CHECKER.EAR[employer]CH[employer]IST Work Phone: [facility] 08-26-2024 13:13-0400 Heart rate 95 /min Em Praisler-Wood BROADCAST CHECKER.EARLY [employer]YCH[employer]IST Work Phone: [facility] 08-26-2024 13:13-0400 Respiratory rate 20 /min Em Praisler[employer] BROADCAST CHECKER.EAR[employer]YCH[employer]IST Work Phone: [facility] 08-26-2024 13:13-0400 SaO2% (BldA) [Mass fraction] 100 % Em Praisler-[employer] BROADCAST CHECKER.EAR[employer]YCH[employer]IST Work Phone: [facility] 08-26-2024 13:13-0400 Systolic blood pressure 118 mm[Hg] Em Praisler[employer] BROADCAST CHECKER.EAR[employer]YCH[employer]IST Work Phone: [facility] 07-07-2024 11:02-0500 Body height 170.2 cm Christy Podlogar BROADCAST CHECKER.EAR[employer] Work Phone: [facility] 07-07-2024 11:02-0500 Body mass index (BMI) [Ratio] 43.54 kg/m2 Christy Podlogar BROADCAST CHECKER.EAR[employer] Work Phone: [facility] 07-07-2024 11:02-0500 Body weight 126.1 kg Christy Podlogar BROADCAST CHECKER.EAR[employer]IST Work Phone: [facility] 07-07-2024 11:02-0500 Diastolic blood pressure 80 mm[Hg] Christy Podlogar BROADCAST CHECKER.EAR[employer]CH[employer]IST Work Phone: [facility] 07-07-2024 11:02-0500 Heart rate 80 /min Christy Podlogar BROADCAST CHECKER.EARLY [employer]CH[employer]IST Work Phone: [facility] 07-07-2024 11:02-0500 Respiratory rate 18 /min Christy Podlogar BROADCAST CHECKER.EAR[employer]YCH[employer]IST Work Phone: [facility] 07-07-2024 11:02-0500 Systolic blood pressure 118 mm[Hg] Christy Podlogar BROADCAST CHECKER.EAR[employer]CH[employer]IST Work Phone: [facility] 06-19-2024 14:06-0500 Diastolic blood pressure 60 mm[Hg] Marva Malhotra MD Work Phone: [facility] 06-19-2024 14:06-0500 Heart rate 67 /min Marva Malhotra MD Work Phone: [facility] 06-19-2024 14:06-0500 Systolic blood pressure 120 mm[Hg] Marva Malhotra MD Work Phone: [facility] 12-18-2023 10:12-0400 Body height 170.2 cm Marva Malhotra MD Work Phone: [facility] 12-18-2023 10:12-0400 Body mass index (BMI) [Ratio] 49.18 kg/m2 Marva Malhotra MD Work Phone: [facility] 12-18-2023 10:12-0400 Body weight 142.43 kg Marva Malhotra MD Work Phone: [facility] 12-18-2023 10:12-0400 Diastolic blood pressure 91 mm[Hg] Marva Malhotra MD Work Phone: [facility] 12-18-2023 10:12-0400 Heart rate 92 /min Marva Malhotra MD Work Phone: [facility] 12-18-2023 10:12-0400 Systolic blood pressure 125 mm[Hg] Marva Malhotra MD Work Phone: [facility] 01-16-2023 11:13-0400 Body weight 156.49 kg Marva Malhotra MD Work Phone: [facility] 01-16-2023 11:13-0400 Diastolic blood pressure 81 mm[Hg] Marva Malhotra MD Work Phone: [facility] 01-16-2023 11:13-0400 Heart rate 64 /min Marva Malhotra MD Work Phone: [facility] 01-16-2023 11:13-0400 Systolic blood pressure 133 mm[Hg] Marva Malhotra MD Work Phone: [facility] 08-07-2022 18:30-0400 Body temperature 98.06 [degF] [facility] 08-07-2022 18:30-0400 Diastolic blood pressure 78 mm[Hg] [facility] 08-07-2022 18:30-0400 Heart rate 77 /min [facility] 08-07-2022 18:30-0400 Respiratory rate 18 /min [facility] 08-07-2022 18:30-0400 SaO2% (BldA) [Mass fraction] 98 % [facility] 08-07-2022 18:30-0400 Systolic blood pressure 130 mm[Hg] [facility] 08-07-2022 13:06-0400 Body height 170.1 cm [facility] 08-07-2022 13:06-0400 Body weight 152 kg [facility] 05-23-2022 14:41-0500 Diastolic blood pressure 67 mm[Hg] Marva Malhotra MD Work Phone: [facility] 05-23-2022 14:41-0500 Heart rate 75 /min Marva Malhotra MD Work Phone: [facility] 05-23-2022 14:41-0500 Systolic blood pressure 123 mm[Hg] Marva Malhotra MD Work Phone: [facility] 03-23-2022 11:09-0500 Body weight 146.51 kg Marva Malhotra MD Work Phone: [facility] 03-23-2022 11:09-0500 Diastolic blood pressure 76 mm[Hg] Marva Malhotra MD Work Phone: [facility] 03-23-2022 11:09-0500 Heart rate 73 /min Marva Malhotra MD Work Phone: [facility] 03-23-2022 11:09-0500 Systolic blood pressure 126 mm[Hg] Marva Malhotra MD Work Phone: [facility] 11-24-2021 13:02-0400 Body height 170.2 cm Marisela Horn BROADCAST CHECKER.VACCINATOR Work Phone: [facility] 11-24-2021 13:02-0400 Body weight 145.6 kg Marisela Horn BROADCAST CHECKER.VACCINATOR Work Phone: [facility] 11-24-2021 13:02-0400 Diastolic blood pressure 84 mm[Hg] Marisela Horn BROADCAST CHECKER.VACCINATOR Work Phone: [facility] 11-24-2021 13:02-0400 Heart rate 76 /min Marisela Horn BROADCAST CHECKER.VACCINATOR Work Phone: [facility] 11-24-2021 13:02-0400 Respiratory rate 16 /min Marisela Horn BROADCAST CHECKER.VACCINATOR Work Phone: [facility] 11-24-2021 13:02-0400 SaO2% (BldA) [Mass fraction] 94 % Marisela Horn BROADCAST CHECKER.VACCINATOR Work Phone: [facility] 11-24-2021 13:02-0400 Systolic blood pressure 134 mm[Hg] Marisela Horn BROADCAST CHECKER.VACCINATOR Work Phone: [facility] 09-25-2021 21:25-0400 Respiratory rate 17 /min [facility] Work Phone: 09-25-2021 17:56-0400 Body height 170.18 cm [facility] Work Phone: 09-25-2021 17:56-0400 Body mass index (BMI) [Ratio] 47 kg/m2 [facility] Work Phone: 09-25-2021 17:56-0400 Body temperature 97.4 [degF] [facility] Work Phone: 09-25-2021 17:56-0400 Body weight 136.07 kg [facility] Work Phone: 09-25-2021 17:56-0400 Diastolic blood pressure 93 mm[Hg] [facility] Work Phone: 09-25-2021 17:56-0400 Heart rate 65 /min [facility] Work Phone: 09-25-2021 17:56-0400 SaO2% (BldA) [Mass fraction] 100 % [facility] Work Phone: 09-25-2021 17:56-0400 Systolic blood pressure 166 mm[Hg] [facility] Work Phone: Encounters Encounter Date Encounter Type Care Provider Facility Start: 02-26-2025 ambulatory JUDY HERNANDEZ Facility: [facility] Start: 01-08-2025 End: 01-08-2025 Office outpatient visit 15 minutes Marva Malhotra MD Work Phone: [facility] Comment on above: Acute cystitis witho ut hematuria (Primary Dx); CKD stage G3a/A1, GFR 45-59 and albumin creatinine ratio <30 mg/g (HCC); Persistent proteinuria; Hypertensive kidney disease; Hyperuricemia; 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, unspecified SLE type (HCC); Anemia of renal disease; Lupus nephritis (HCC) Start: 12-17-2024 End: 12-17-2024 Office consultation new/estab patient 60 min Mercedes Aviles DO Work Phone: Pulmonary Medicine Comment on above: Solitary pulmonary n odule (Primary Dx); Asthma, moderate persistent, well-controlled (HCC); Recurrent pulmonary embolism (HCC); Presence of IVC filter Start: 12-17-2024 End: 12-17-2024 ambulatory GASPER WILSON Facility:[facility] Start: 11-27-2024 End: 11-27-2024 ambulatory GASPER WILSON Facility:[facility] Start: 11-26-2024 End: 11-26-2024 [facility] Start: 10-30-2024 End: 10-30-2024 Refill [facility] MD [facility] Comment on above: Refill Request Start: 10-01-2024 ambulatory JUDY BRIONESILVA Facility: [facility] Start: 09-18-2024 End: 09-18-2024 ambulatory MARVA MALHOTRA Facility:[facility] Start: 09-16-2024 End: 09-16-2024 Orders Only Marva Malhotra MD Work Phone: [facility] Comment on above: Stage 3a chronic kid kiana disease (HCC) (Primary Dx) Start: 08-26-2024 End: 08-26-2024 Subsequent hospital visit by physician Xr [facility] [place] Work Phone: Radiology Comment on above: Left knee injury, in itial encounter [S89.92XA] Start: 08-26-2024 End: 08-26-2024 Patient encounter procedure Em Bustamante APRN.CNP Work Phone: [facility] Comment on above: Left knee injury, in itial encounter (Primary Dx); Fall, initial encounter; Asthma with COPD with exacerbation (HCC) Start: 08-26-2024 End: 08-26-2024 ambulatory EM BUSTAMANTE Facility:[facility] Start: 07-28-2024 End: 07-28-2024 Follow-up encounter Malu Stevens APRN.[employer] PSYCHOLOGIST Work Phone: [facility] [place] Start: 07-20-2024 End: 07-20-2024 ambulatory JUDY DAVID Facility:[id number] Start: 07-18-2024 End: 07-18-2024 ambulatory CHRISTY PODLOGAR Facility:[facility] Start: 07-18-2024 End: 07-18-2024 Subsequent hospital visit by physician Nidia [facility] Work Phone: Cat Scan Comment on above: Nodule of left lung [R91.1] Start: 07-08-2024 End: 08-08-2024 ambulatory Gasper Wilson MD Work Phone: [facility] [place] Start: 07-08-2024 End: 09-07-2024 Follow-up encounter Jordana Wan LPN [facility] [place] Start: 07-07-2024 End: 07-07-2024 ambulatory GASPER WILSON Facility:[facility] Start: 07-07-2024 End: 07-07-2024 Patient encounter procedure Christy Irving APRN.[employer] PSYCHOLOGIST Work Phone: [facility] [place] Comment on above: Encounter for medica l examination to establish care (Primary Dx); Systemic lupus erythematosus, unspecified SLE type, unspecified organ involvement status (HCC); Rheumatoid arthritis, involving unspecified site, unspecified whether rheumatoid factor present (HCC); Hyperlipidemia, mixed; Nodule of left lung; Chronic obstructive pulmonary disease, unspecified COPD type (HCC); Class 3 severe obesity due to excess calories with body mass index (BMI) of 50.0 to 59.9 in adult, unspecified whether serious comorbidity present (HCC); Hx of bipolar disorder; Mixed incontinence urge and stress (male)(female) Start: 07-07-2024 End: 07-07-2024 Patient encounter status Christy Irving APRN.[employer] PSYCHOLOGIST Work Phone: [facility] Start: 07-07-2024 End: 07-07-2024 [facility] Start: 07-07-2024 Encounter for genera l adult medical examination without abnormal findings CHRISTY IRVING [facility] Start: 06-19-2024 End: 06-19-2024 Office outpatient visit 15 minutes Marva Malhotra MD Work Phone: [facility] Comment on above: CKD stage G3a/A1, GF R 45-59 and albumin creatinine ratio <30 mg/g (HCC) (Primary Dx); 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, unspecified SLE type (HCC); Persistent proteinuria; Hyperuricemia; Hypertensive kidney disease Start: 06-18-2024 End: 06-18-2024 Refill Marva Malhotra MD Work Phone: [facility] Comment on above: Refill Request Start: 03-14-2024 End: 03-14-2024 Refill Marva Malhotra MD Work Phone: [facility] Comment on above: Refill Request Start: 12-18-2023 End: 12-18-2023 Office outpatient visit 25 minutes Marva Malhotra MD Work Phone: [facility] Comment on above: Systemic lupus eryth ematosus with tubulo-interstitial nephropathy, unspecified SLE type (HCC) (Primary Dx); CKD stage G3a/A1, GFR 45-59 and albumin creatinine ratio <30 mg/g (HCC); Persistent proteinuria; Hyperuricemia; Hypertension, essential; Edema of lower extremity; Tachycardia Start: 12-16-2023 End: 01-18-2024 Refill Telma Brown MD Work Phone: [facility] [place] Comment on above: Refill Request Medication Refill Ap proved Start: 10-11-2023 Refill Marva deluca MD Work Phone: [facility] Comment on above: Refill Request Start: 08-22-2023 Telephone encounter Marva garrison MD Work Phone: [facility] Start: 01-16-2023 End: 01-16-2023 Office outpatient visit 25 minutes Marva Malhotra MD Work Phone: [facility] Comment on above: Stage 2 chronic kidn ey disease (Primary Dx); Edema of lower extremity; Vitamin D deficiency; Hyperuricemia Start: 01-01-2023 Refill Marva deluca MD Work Phone: [facility] Comment on above: Refill Request Start: 11-22-2022 ambulatory UNKNOWN PROVIDER Facili ty:[facility] Start: 11-16-2022 ambulatory Asiya wang RT(R) Radiology Comment on above: Radiology XR Start: 11-16-2022 Patient encounter procedure Asiya Albright RT(R) [facility] Start: 11-16-2022 End: 11-16-2022 Subsequent hospital visit by physician Xr [facility] Work Phone: Radiology Comment on above: Foot pain, right [M7 9.671] Start: 08-07-2022 End: 08-07-2022 Emergency department patient visit Pam [facility] [place] [facility] Result 04 Start: 07-14-2022 Refill Marva deluca MD Work Phone: [facility] Comment on above: Refill Request Start: 05-23-2022 End: 05-23-2022 Office outpatient visit 25 minutes Marva Malhotra MD Work Phone: [facility] Comment on above: Stage 2 chronic kidn ey disease (Primary Dx); Edema of lower extremity; Vitamin D deficiency; Hypertension, essential; Other proteinuria; 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, unspecified SLE type (HCC) Start: 03-23-2022 End: 03-23-2022 Office outpatient visit 25 minutes Marva Malhotra MD [facility] Comment on above: CKD stage G3a/A1, GF R 45-59 and albumin creatinine ratio <30 mg/g (HCC) (Primary Dx); Edema of lower extremity; Nephrotic syndrome; Vitamin D deficiency; 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, unspecified SLE type (HCC) Start: 11-24-2021 End: 11-24-2021 Patient encounter procedure Marisela Horn APRN.VACCINATOR Work Phone: [facility] [place] Comment on above: Routine medical exam (Primary Dx); Encounter for immunization; Special screening examination for viral disease; Screening for HIV (human immunodeficiency virus); Screening for cervical cancer; Chronic obstructive pulmonary disease, unspecified COPD type (HCC); Encounter for screening mammogram for breast cancer; Screening for lipid disorders; Screening for colon cancer; Encounter for well woman exam with routine gynecological exam; Gastroesophageal reflux disease, unspecified whether esophagitis present; Lupus (HCC); History of pulmonary embolus (PE); Colon cancer screening Start: 11-24-2021 End: 11-24-2021 Patient encounter status Marisela Horn APRN.VACCINATOR Work Phone: [facility] [place] Start: 09-25-2021 End: 09-25-2021 [facility] Start: 09-13-2021 End: 09-13-2021 Office outpatient visit 15 minutes Marva Malhotra MD Work Phone: [facility] Comment on above: CKD stage G3a/A1, GF R 45-59 and albumin creatinine ratio <30 mg/g (HCC) (Primary Dx); SLE (systemic lupus erythematosus related syndrome) (HCC); Vitamin D deficiency; Hypertension, essential; Other proteinuria; Lupus nephritis (HCC); 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, unspecified SLE type ([facility]) Start: 07-27-2021 Refill Marva deluca MD Work Phone: [facility] Comment on above: Refill Request Start: 12-07-2016 End: 12-07-2016 Emergency department patient visit [facility] Procedures Date Procedure Procedure Detail Performing Clinician Start: 08-26-2024 Radiologic exam knee complete 4/more views Em Bustamante BROADCAST CHECKER.EARLY [employer] PSYCHOLOGIST Work Phone: Start: 07-07-2024 Lipid 1996 panel - S zia or Plasma Ct ([facility]) Work Phone: Start: 11-16-2022 Radex foot complete minimum 3 views Dwight Villalta BROADCAST CHECKER.EAR[employer] PSYCHOLOGIST Work Phone: Start: 08-07-2022 End: 08-07-2022 EKG impression Pam O'Day Start: 11-24-2021 Adult depression screening assessment Marisela Horn BROADCAST CHECKER.VACCINATOR Work Phone: Start: 07-24-2020 Lipid 1996 panel - S zia or Plasma Marva Malhotra MD Work Phone: Plan of Treatment Date Care Activity Detail Author Start: 07-07-2029 Lipid panel Lipid Screening [facility] Start: 11-28-2027 Diabetes Screening Diabetes Screenin g [facility] Start: 05-11-2026 Urine microalbumin profile [facility] Start: 11-27-2025 Creatinine measurement Serum Creatin ine [facility] Start: 08-26-2025 BP Controlled (<130/80) BP Controlle d (<130/80) [facility] Start: 08-07-2025 DIABETES SCREEN DIABETES SCREEN [facility] Start: 08-07-2025 Diabetes Screening Diabetes Screenin g [facility] Start: 07-24-2025 Lipid panel Lipid Screening [facility] Start: 07-09-2025 End: 07-09-2025 Follow-up encounter 07/09/2025 1:15 PM [facility] [address] [place] [address] [place] [address] [place] [address] follow up [facility] Comment on above: follow up Start: 07-07-2025 Annual PCP Team Long Term Care Social Worker senait Disease Visit Annual PCP Team Chronic Disease Visit [facility] Start: 07-07-2025 Creatinine measurement Serum Creatin ine [facility] Start: 06-19-2025 BP Controlled (<130/80) BP Controlle d (<130/80) [facility] Start: 04-09-2025 End: 07-09-2025 Urinalysis complete panel - Urine URINALYSIS, WITH MICROSCOPIC Lab Routine Acute cystitis without hematuria CKD stage G3a/A1, GFR 45-59 and albumin creatinine ratio <30 mg/g (HCC) Persistent proteinuria Hypertensive kidney disease Hyperuricemia 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, unspecified SLE type (HCC) Anemia of renal disease Expected: 04/09/2025, Expires: 07/09/2025 [facility] Comment on above: Expected: 04/09/2025 , Expires: 07/09/2025 Start: 03-23-2025 DIABETES SCREEN DIABETES SCREEN [facility] Start: 01-08-2025 End: 04-09-2025 Bacteria identified in Urine by Culture BACTERIAL CULTURE, URINE Microbiology Routine Acute cystitis without hematuria Expected: 01/08/2025, Expires: 04/09/2025 [facility] Work Phone: Comment on above: Expected: 01/08/2025 , Expires: 04/09/2025 Start: 01-08-2025 End: 01-08-2026 Protein/Creatinine [Mass Ratio] in Urine PROTEIN / CREATININE RATIO Lab Routine Acute cystitis without hematuria CKD stage G3a/A1, GFR 45-59 and albumin creatinine ratio <30 mg/g (HCC) Persistent proteinuria Hypertensive kidney disease Hyperuricemia 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, unspecified SLE type (HCC) Anemia of renal disease Expected: 01/08/2025, Expires: 01/08/2026 [facility] Comment on above: Expected: 01/08/2025 , Expires: 01/08/2026 Start: 01-08-2025 End: 01-08-2026 Renal function 2000 panel - Serum or Plasma RENAL FUNCTION PANEL Lab Routine Acute cystitis without hematuria CKD stage G3a/A1, GFR 45-59 and albumin creatinine ratio <30 mg/g (HCC) Persistent proteinuria Hypertensive kidney disease Hyperuricemia 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, unspecified SLE type (HCC) Anemia of renal disease Expected: 01/08/2025, Expires: 01/08/2026 [facility] Comment on above: Expected: 01/08/2025 , Expires: 01/08/2026 Start: 01-08-2025 End: 01-08-2025 Patient encounter procedure 01/08/2025 10:30 AM EDT Office Visit [facility] [address] [facility] [address] [place] [id number] [place] [address] [facility] [address] [place] [address] follow up [facility] Comment on above: follow up Start: 01-07-2025 End: 01-07-2025 Patient encounter procedure 01/07/2025 10:40 AM EDT Office Visit Family Uriel Segura [address] [place] [address] Gasper Wilson MD [address] [place] [address] 6 month follow up Family Uriel Segura Comment on above: 6 month follow up Start: 01-05-2025 Influenza vaccination [facility] Start: 11-12-2024 End: 11-12-2024 Patient encounter procedure 11/12/2024 8:00 AM EDT Office Visit Pulmonology [address] [place] [phone] [place] [address] [place] [address] LUNG NODULES/CT DONE 3 WITH NEW LUNG NODULES, PATIENT WAS REFERRED BY HER MOTHER TO SEE DR SUTHERLAND Pulmonology Comment on above: LUNG NODULES/CT DONE 3 WITH NEW LUNG NODULES, PATIENT WAS REFERRED BY HER MOTHER TO SEE DR SUTHERLAND Start: 09-27-2024 DIABETES SCREEN DIABETES SCREEN [facility] Start: 09-23-2024 End: 09-23-2024 Follow-up encounter 09/23/2024 1:30 PM EDT [facility] [address] [facility] [address] [place] [address] [place] [address] [place] [address] FOLLOW UP [facility] Comment on above: FOLLOW UP Start: 09-16-2024 End: 12-16-2024 Microalbumin/Creatinine [Mass Ratio] in Urine ALBUMIN/CREATININE RATIO, URINE Lab Routine Stage 3a chronic kidney disease (HCC) Expected: 09/16/2024, Expires: 12/16/2024 [facility] Work Phone: Comment on above: Expected: 09/16/2024 , Expires: 12/16/2024 Start: 08-09-2024 Covid-19 Vaccine (5 - Moderna risk season) Covid-19 Vaccine (5 - Moderna risk ) [facility] Start: 07-18-2024 End: 07-18-2024 Patient encounter procedure 07/18/2024 11:00 AM EDT Appointment Cat Scan [address] [place] [address] Lung nodules [R91.8] [facility] Comment on above: Lung nodules [R91.8] Start: 07-07-2024 End: 10-06-2024 CREATININE BLD [facility] Comment on above: Expected: 07/07/2024 , Expires: 10/06/2024 Start: 07-07-2024 End: 10-06-2024 LIPID PANEL, NONFASTING [facility] Work Phone: Comment on above: Expected: 07/07/2024 , Expires: 10/06/2024 Start: 07-07-2024 End: 07-07-2024 Patient encounter procedure 07/07/2024 11:00 AM EST Office Visit [facility] [place] [address] [facility] [place] [phone] PodlogarChristy APRN.EAR[employer] PSYCHOLOGIST [address] [place] [address] est care [facility] [place] Comment on above: est care Start: 07-03-2024 End: 10-02-2024 Microalbumin/Creatinine [Mass Ratio] in Urine ALBUMIN/CREATININE RATIO, URINE Lab Routine 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, unspecified SLE type (HCC) CKD stage G3a/A1, GFR 45-59 and albumin creatinine ratio <30 mg/g (HCC) Persistent proteinuria Expected: 07/03/2024, Expires: 10/02/2024 [facility] Comment on above: Expected: 07/03/2024 , Expires: 10/02/2024 Start: 06-19-2024 End: 06-19-2025 25-hydroxyvitamin D3 [Mass/volume] in Serum or Plasma VITAMIN D 25 HYDROXY Lab Routine 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, unspecified SLE type (HCC) CKD stage G3a/A1, GFR 45-59 and albumin creatinine ratio <30 mg/g (HCC) Persistent proteinuria Expected: 06/19/2024, Expires: 06/19/2025 [facility] Comment on above: Expected: 06/19/2024 , Expires: 06/19/2025 Start: 06-19-2024 End: 06-19-2024 Follow-up encounter 06/19/2024 2:00 PM [facility] [address] [place] [address] [place] [address] [facility] [address] [place] [address] follow up [facility] Comment on above: follow up Start: 06-19-2024 End: 09-18-2024 Parathyrin.intact [Mass/volume] in Serum or Plasma PTH INTACT Lab Routine 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, unspecified SLE type (HCC) CKD stage G3a/A1, GFR 45-59 and albumin creatinine ratio <30 mg/g (HCC) Persistent proteinuria Expected: 06/19/2024, Expires: 09/18/2024 [facility] Comment on above: Expected: 06/19/2024 , Expires: 09/18/2024 Start: 06-19-2024 End: 06-19-2025 Renal function 2000 panel - Serum or Plasma RENAL FUNCTION PANEL Lab Routine 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, unspecified SLE type (HCC) CKD stage G3a/A1, GFR 45-59 and albumin creatinine ratio <30 mg/g (HCC) Persistent proteinuria Expected: 06/19/2024, Expires: 06/19/2025 [facility] Work Phone: Comment on above: Expected: 06/19/2024 , Expires: 06/19/2025 Start: 06-19-2024 End: 06-19-2024 Patient encounter procedure 06/19/2024 11:30 AM EST Office Visit [facility] [address] [facility] [address] [place] [address] [place] [address] [facility] [address] [place] [address] follow up [facility] Comment on above: follow up Start: 05-07-2024 Medicare Advantage Annual Wellness Visit Medicare Advantage Annual Wellness Visit [facility] Start: 04-05-2024 Shingrix Vaccine (2 of 2) Shingrix Vaccine (2 of 2) [facility] Start: 01-06-2024 Covid-19 Vaccine ( season) Covid-19 Vaccine ( season) [facility] Start: 01-06-2024 Covid-19 Vaccine () Covid-19 Vaccine () [facility] Start: 01-06-2024 Influenza vaccination [facility] Start: 12-18-2023 End: 12-17-2024 Protein/Creatinine [Mass Ratio] in Urine PROTEIN / CREATININE RATIO Lab Routine 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, unspecified SLE type (HCC) CKD stage G3a/A1, GFR 45-59 and albumin creatinine ratio <30 mg/g (HCC) Persistent proteinuria Hyperuricemia Hypertension, essential Edema of lower extremity Expected: 12/18/2023, Expires: 12/17/2024 [facility] Comment on above: Expected: 12/18/2023 , Expires: 12/17/2024 Start: 12-18-2023 End: 12-17-2024 Renal function 2000 panel - Serum or Plasma RENAL FUNCTION PANEL Lab Routine 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, unspecified SLE type (HCC) CKD stage G3a/A1, GFR 45-59 and albumin creatinine ratio <30 mg/g (HCC) Persistent proteinuria Hyperuricemia Hypertension, essential Edema of lower extremity Expected: 12/18/2023, Expires: 12/17/2024 [facility] Work Phone: Comment on above: Expected: 12/18/2023 , Expires: 12/17/2024 Start: 12-18-2023 End: 12-17-2024 Thyrotropin [Units/volume] in Serum or Plasma THYROID STIMULATING HORMONE Lab Routine 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, unspecified SLE type (HCC) CKD stage G3a/A1, GFR 45-59 and albumin creatinine ratio <30 mg/g (HCC) Persistent proteinuria Hyperuricemia Hypertension, essential Edema of lower extremity Tachycardia Expected: 12/18/2023, Expires: 12/17/2024 [facility] Comment on above: Expected: 12/18/2023 , Expires: 12/17/2024 Start: 12-18-2023 End: 12-18-2023 Patient encounter procedure 12/18/2023 10:15 AM EDT Office Visit [facility] [address] [place] [address] [place] [address] [place] [address] 6 mo f/u labs done @ [facility] Comment on above: 6 mo f/u labs done @ [facility] Start: 12-13-2023 End: 12-13-2023 Patient encounter procedure 12/13/2023 12:00 PM EDT Office Visit [facility] [address] [facility] [address] [place] [address] [place] [id number] [place] [address] 6 mo f/u labs done @ [facility] Comment on above: 6 mo f/u labs done @ [facility] Start: 11-17-2023 Creatinine measurement Serum Creatin ine [facility] Start: 11-17-2023 SERUM CREATININE SERUM CREATININE [facility] Start: 08-22-2023 End: 11-21-2023 Bacteria identified in Urine by Culture URINE CULTURE Microbiology Routine Acute cystitis without hematuria Expected: 08/22/2023, Expires: 11/21/2023 [facility] Work Phone: Comment on above: Expected: 08/22/2023 , Expires: 11/21/2023 Start: 08-08-2023 SERUM CREATININE SERUM CREATININE [facility] Start: 07-24-2023 DIABETES SCREEN DIABETES SCREEN [facility] Start: 05-23-2023 BP CONTROLLED (<130/80) BP CONTROLLE D (<130/80) [facility] Start: 05-07-2023 Behavioral Health Screening Behavioral Health Screening [facility] Start: 04-17-2023 End: 01-17-2024 25-hydroxyvitamin D3 [Mass/volume] in Serum or Plasma VITAMIN D 25 HYDROXY Lab Routine Stage 2 chronic kidney disease Edema of lower extremity Vitamin D deficiency Hyperuricemia Expected: 04/17/2023, Expires: 01/17/2024 [facility] Work Phone: Comment on above: Expected: 04/17/2023 , Expires: 01/17/2024 Start: 04-17-2023 End: 06-17-2023 ALBUMIN/CREAT RATIO RND UR ALBUMIN/CREAT RATIO RND UR Lab Routine Stage 2 chronic kidney disease Edema of lower extremity Vitamin D deficiency Hyperuricemia Expected: 04/17/2023, Expires: 06/17/2023 [facility] Work Phone: Comment on above: Expected: 04/17/2023 , Expires: 06/17/2023 Start: 04-17-2023 End: 01-17-2024 Parathyrin.intact [Mass/volume] in Serum or Plasma PTH INTACT BLD Lab Routine Stage 2 chronic kidney disease Edema of lower extremity Vitamin D deficiency Hyperuricemia Expected: 04/17/2023, Expires: 01/17/2024 [facility] Work Phone: Comment on above: Expected: 04/17/2023 , Expires: 01/17/2024 Start: 04-17-2023 End: 01-17-2024 Renal function 2000 panel - Serum or Plasma RENAL FUNCTION PANEL Lab Routine Stage 2 chronic kidney disease Edema of lower extremity Vitamin D deficiency Hyperuricemia Expected: 04/17/2023, Expires: 01/17/2024 [facility] Work Phone: Comment on above: Expected: 04/17/2023 , Expires: 01/17/2024 Start: 04-17-2023 End: 01-17-2024 Urate [Mass/volume] in Serum or Plasma URIC ACID BLOOD Lab Routine Stage 2 chronic kidney disease Edema of lower extremity Vitamin D deficiency Hyperuricemia Expected: 04/17/2023, Expires: 01/17/2024 [facility] Work Phone: Comment on above: Expected: 04/17/2023 , Expires: 01/17/2024 Start: 04-17-2023 End: 01-17-2024 URINALYSIS, DIPSTICK ONLY URINALYSIS, DIPSTICK ONLY Lab Routine Stage 2 chronic kidney disease Edema of lower extremity Vitamin D deficiency Hyperuricemia Expected: 04/17/2023, Expires: 01/17/2024 [facility] Work Phone: Comment on above: Expected: 04/17/2023 , Expires: 01/17/2024 Start: 03-23-2023 BP CONTROLLED (<130/80) BP CONTROLLE D (<130/80) [facility] Start: 01-24-2023 ANNUAL PCP TEAM RECOVERY ROOM NURSE SENAIT DISEASE VISIT ANNUAL PCP TEAM CHRONIC DISEASE VISIT [facility] Start: 01-24-2023 COVID-19 VACCINE (3 - Moderna risk series) COVID-19 VACCINE (3 - Moderna risk series) [facility] Comment on above: Postponed from 09/22 (Declined at this time) Start: 01-24-2023 COVID-19 VACCINE (4 - Booster for Moderna series) COVID-19 VACCINE (4 - Booster for Moderna series) [facility] Comment on above: Postponed from 08/30 (Declined at this time) Start: 01-24-2023 COVID-19 VACCINE (4 - Moderna risk series) COVID-19 VACCINE (4 - Moderna risk series) [facility] Comment on above: Postponed from 08/30 (Declined at this time) Start: 01-24-2023 SHINGRIX VACCINE (1 of 2) SHINGRIX VACCINE (1 of 2) [facility] Comment on above: Postponed from 01/31 (Declined at this time) Start: 01-05-2023 Covid-19 Vaccine ( season) Covid-19 Vaccine ( season) [facility] Start: 01-05-2023 Influenza vaccination [facility] Start: 11-24-2022 Adult depression screening assessment DEPRESSION SCREENING [facility] Start: 09-27-2022 SERUM CREATININE SERUM CREATININE [facility] Start: 08-21-2022 End: 05-23-2023 25-hydroxyvitamin D3 [Mass/volume] in Serum or Plasma VITAMIN D 25 HYDROXY Lab Routine Stage 2 chronic kidney disease Edema of lower extremity Vitamin D deficiency Hypertension, essential Other proteinuria Expected: 08/21/2022, Expires: 05/23/2023 [facility] Work Phone: Comment on above: Expected: 08/21/2022 , Expires: 05/23/2023 Start: 08-21-2022 End: 10-21-2022 ALBUMIN/CREAT RATIO RND UR ALBUMIN/CREAT RATIO RND UR Lab Routine Stage 2 chronic kidney disease Edema of lower extremity Vitamin D deficiency Hypertension, essential Other proteinuria Expected: 08/21/2022, Expires: 10/21/2022 [facility] Work Phone: Comment on above: Expected: 08/21/2022 , Expires: 10/21/2022 Start: 08-21-2022 End: 05-23-2023 CBC W Auto Differential panel - Blood CBC + DIFF Lab Routine Stage 2 chronic kidney disease Edema of lower extremity Vitamin D deficiency Hypertension, essential Other proteinuria Expected: 08/21/2022, Expires: 05/23/2023 [facility] Work Phone: Comment on above: Expected: 08/21/2022 , Expires: 05/23/2023 Start: 08-21-2022 End: 05-23-2023 Magnesium [Mass/volume] in Serum or Plasma MAGNESIUM BLD Lab Routine Stage 2 chronic kidney disease Edema of lower extremity Vitamin D deficiency Hypertension, essential Other proteinuria Expected: 08/21/2022, Expires: 05/23/2023 [facility] Work Phone: Comment on above: Expected: 08/21/2022 , Expires: 05/23/2023 Start: 08-21-2022 End: 05-23-2023 Parathyrin.intact [Mass/volume] in Serum or Plasma PTH INTACT BLD Lab Routine Stage 2 chronic kidney disease Edema of lower extremity Vitamin D deficiency Hypertension, essential Other proteinuria Expected: 08/21/2022, Expires: 05/23/2023 [facility] Work Phone: Comment on above: Expected: 08/21/2022 , Expires: 05/23/2023 Start: 08-21-2022 End: 05-23-2023 Renal function 2000 panel - Serum or Plasma RENAL FUNCTION PANEL Lab Routine Stage 2 chronic kidney disease Edema of lower extremity Vitamin D deficiency Hypertension, essential Other proteinuria Expected: 08/21/2022, Expires: 05/23/2023 [facility] Work Phone: Comment on above: Expected: 08/21/2022 , Expires: 05/23/2023 Start: 08-21-2022 End: 05-23-2023 Urate [Mass/volume] in Serum or Plasma URIC ACID BLOOD Lab Routine Stage 2 chronic kidney disease Edema of lower extremity Vitamin D deficiency Hypertension, essential Other proteinuria Expected: 08/21/2022, Expires: 05/23/2023 [facility] Work Phone: Comment on above: Expected: 08/21/2022 , Expires: 05/23/2023 Start: 08-21-2022 End: 10-21-2022 Urinalysis complete panel - Urine URINALYSIS, WITH MICROSCOPIC Lab Routine Stage 2 chronic kidney disease Edema of lower extremity Vitamin D deficiency Hypertension, essential Other proteinuria Expected: 08/21/2022, Expires: 10/21/2022 [facility] Work Phone: Comment on above: Expected: 08/21/2022 , Expires: 10/21/2022 Start: 06-23-2022 End: 03-23-2023 25-hydroxyvitamin D3 [Mass/volume] in Serum or Plasma VITAMIN D 25 HYDROXY Lab Routine CKD stage G3a/A1, GFR 45-59 and albumin creatinine ratio <30 mg/g (HCC) Edema of lower extremity Nephrotic syndrome Vitamin D deficiency Expected: 06/23/2022, Expires: 03/23/2023 [facility] Work Phone: Comment on above: Expected: 06/23/2022 , Expires: 03/23/2023 Start: 06-23-2022 End: 03-23-2023 CBC W Auto Differential panel - Blood CBC + DIFF Lab Routine CKD stage G3a/A1, GFR 45-59 and albumin creatinine ratio <30 mg/g (HCC) Edema of lower extremity Nephrotic syndrome Vitamin D deficiency Expected: 06/23/2022, Expires: 03/23/2023 [facility] Work Phone: Comment on above: Expected: 06/23/2022 , Expires: 03/23/2023 Start: 06-23-2022 End: 03-23-2023 Magnesium [Mass/volume] in Serum or Plasma MAGNESIUM BLD Lab Routine CKD stage G3a/A1, GFR 45-59 and albumin creatinine ratio <30 mg/g (HCC) Edema of lower extremity Nephrotic syndrome Vitamin D deficiency Expected: 06/23/2022, Expires: 03/23/2023 [facility] Work Phone: Comment on above: Expected: 06/23/2022 , Expires: 03/23/2023 Start: 06-23-2022 End: 03-23-2023 Microalbumin [Mass/volume] in Urine ALBUMIN RANDOM URINE Lab Routine CKD stage G3a/A1, GFR 45-59 and albumin creatinine ratio <30 mg/g (HCC) Edema of lower extremity Nephrotic syndrome Vitamin D deficiency Expected: 06/23/2022, Expires: 03/23/2023 [facility] Work Phone: Comment on above: Expected: 06/23/2022 , Expires: 03/23/2023 Start: 06-23-2022 End: 03-23-2023 Parathyrin.intact [Mass/volume] in Serum or Plasma PTH INTACT BLD Lab Routine CKD stage G3a/A1, GFR 45-59 and albumin creatinine ratio <30 mg/g (HCC) Edema of lower extremity Nephrotic syndrome Vitamin D deficiency Expected: 06/23/2022, Expires: 03/23/2023 [facility] Work Phone: Comment on above: Expected: 06/23/2022 , Expires: 03/23/2023 Start: 06-23-2022 End: 03-23-2023 Renal function 2000 panel - Serum or Plasma RENAL FUNCTION PANEL Lab Routine CKD stage G3a/A1, GFR 45-59 and albumin creatinine ratio <30 mg/g (HCC) Edema of lower extremity Nephrotic syndrome Vitamin D deficiency Expected: 06/23/2022, Expires: 03/23/2023 [facility] Work Phone: Comment on above: Expected: 06/23/2022 , Expires: 03/23/2023 Start: 06-23-2022 End: 03-23-2023 Urate [Mass/volume] in Serum or Plasma URIC ACID BLOOD Lab Routine CKD stage G3a/A1, GFR 45-59 and albumin creatinine ratio <30 mg/g (HCC) Edema of lower extremity Nephrotic syndrome Vitamin D deficiency Expected: 06/23/2022, Expires: 03/23/2023 [facility] Work Phone: Comment on above: Expected: 06/23/2022 , Expires: 03/23/2023 Start: 06-23-2022 End: 03-23-2023 URINALYSIS, DIPSTICK ONLY URINALYSIS, DIPSTICK ONLY Lab Routine CKD stage G3a/A1, GFR 45-59 and albumin creatinine ratio <30 mg/g (HCC) Edema of lower extremity Nephrotic syndrome Vitamin D deficiency Expected: 06/23/2022, Expires: 03/23/2023 [facility] Work Phone: Comment on above: Expected: 06/23/2022 , Expires: 03/23/2023 Start: 05-07-2022 DEPRESSION ASSESSMENT DEPRESSION ASS ESSMENT [facility] Start: 03-23-2022 End: 03-23-2023 Protein/Creatinine [Mass Ratio] in Urine PROTEIN CREATININE RATIO Lab Routine CKD stage G3a/A1, GFR 45-59 and albumin creatinine ratio <30 mg/g (HCC) Expected: 03/23/2022, Expires: 03/23/2023 [facility] Work Phone: Comment on above: Expected: 03/23/2022 , Expires: 03/23/2023 Start: 02-21-2022 HEPATITIS B (2 of 3 - 3-dose series) [facility] Start: 02-21-2022 Hepatitis B Vaccine (2 of 3 - 19+ 3-dose series) Hepatitis B Vaccine (2 of 3 - 19+ 3-dose series) [facility] Start: 01-05-2022 Influenza vaccination C [facility] Start: 11-24-2021 End: 01-24-2022 Alpha 1 antitrypsin [Mass/volume] in Serum or Plasma [id number] Lab Routine Chronic obstructive pulmonary disease, unspecified COPD type (HCC) Expected: 11/24/2021, Expires: 01/24/2022 [facility] Work Phone: Comment on above: Expected: 11/24/2021 , Expires: 01/24/2022 Start: 11-24-2021 End: 01-24-2022 Hepatitis C virus Ab [Presence] in Serum HEP C AB IA W/CONF SCRN Lab Routine Special screening examination for viral disease Expected: 11/24/2021, Expires: 01/24/2022 [facility] Work Phone: Comment on above: Expected: 11/24/2021 , Expires: 01/24/2022 Start: 11-24-2021 End: 01-24-2022 HIV 1+2 Ab [Presence] in Serum or Plasma by Immunoassay HIV 1 2 COMBO(AG/AB),WITH REFLEX TO DIFFERENTIATION Lab Routine Screening for HIV (human immunodeficiency virus) Expected: 11/24/2021, Expires: 01/24/2022 [facility] Work Phone: Comment on above: Expected: 11/24/2021 , Expires: 01/24/2022 Start: 11-24-2021 End: 01-24-2022 Lipid 1996 panel - Serum or Plasma LIPID PANEL BASIC Lab Routine Screening for lipid disorders Expected: 11/24/2021, Expires: 01/24/2022 [facility] Work Phone: Comment on above: Expected: 11/24/2021 , Expires: 01/24/2022 Start: 09-13-2021 End: 11-13-2021 ALBUMIN/CREAT RATIO RND UR ALBUMIN/CREAT RATIO RND UR Lab Routine SLE (systemic lupus erythematosus related syndrome) ([facility]) CKD stage G3a/A1, GFR 45-59 and albumin creatinine ratio <30 mg/g (HCC) Vitamin D deficiency Hypertension, essential Other proteinuria Expected: 09/13/2021, Expires: 11/13/2021 [facility] Work Phone: Comment on above: Expected: 09/13/2021 , Expires: 11/13/2021 Start: 09-13-2021 End: 11-13-2021 CBC panel - Blood by Automated count CBC Lab Routine SLE (systemic lupus erythematosus related syndrome) ([facility]) CKD stage G3a/A1, GFR 45-59 and albumin creatinine ratio <30 mg/g (HCC) Vitamin D deficiency Hypertension, essential Other proteinuria Expected: 09/13/2021, Expires: 11/13/2021 [facility] Work Phone: Comment on above: Expected: 09/13/2021 , Expires: 11/13/2021 Start: 09-13-2021 End: 11-13-2021 Magnesium [Mass/volume] in Serum or Plasma MAGNESIUM BLD Lab Routine SLE (systemic lupus erythematosus related syndrome) ([facility]) CKD stage G3a/A1, GFR 45-59 and albumin creatinine ratio <30 mg/g ([facility]) Vitamin D deficiency Hypertension, essential Other proteinuria Expected: 09/13/2021, Expires: 11/13/2021 [facility] Work Phone: Comment on above: Expected: 09/13/2021 , Expires: 11/13/2021 Start: 09-13-2021 End: 11-13-2021 PTH INTACT BLD PTH INTACT BLD Lab Routine SLE (systemic lupus erythematosus related syndrome) ([facility]) CKD stage G3a/A1, GFR 45-59 and albumin creatinine ratio <30 mg/g ([facility]) Vitamin D deficiency Hypertension, essential Other proteinuria Expected: 09/13/2021, Expires: 11/13/2021 [facility] Work Phone: Comment on above: Expected: 09/13/2021 , Expires: 11/13/2021 Start: 09-13-2021 End: 11-13-2021 Renal function 2000 panel - Serum or Plasma RENAL FUNCTION PANEL Lab Routine SLE (systemic lupus erythematosus related syndrome) ([facility]) CKD stage G3a/A1, GFR 45-59 and albumin creatinine ratio <30 mg/g ([facility]) Vitamin D deficiency Hypertension, essential Other proteinuria Expected: 09/13/2021, Expires: 11/13/2021 [facility] Work Phone: Comment on above: Expected: 09/13/2021 , Expires: 11/13/2021 Start: 09-13-2021 End: 11-13-2021 Urate [Mass/volume] in Serum or Plasma URIC ACID BLOOD Lab Routine SLE (systemic lupus erythematosus related syndrome) ([facility]) CKD stage G3a/A1, GFR 45-59 and albumin creatinine ratio <30 mg/g ([facility]) Vitamin D deficiency Hypertension, essential Other proteinuria Expected: 09/13/2021, Expires: 11/13/2021 [facility] Work Phone: Comment on above: Expected: 09/13/2021 , Expires: 11/13/2021 Start: 09-13-2021 End: 11-13-2021 Urinalysis complete panel - Urine URINALYSIS, WITH MICROSCOPIC Lab Routine SLE (systemic lupus erythematosus related syndrome) ([facility]) CKD stage G3a/A1, GFR 45-59 and albumin creatinine ratio <30 mg/g ([facility]) Vitamin D deficiency Hypertension, essential Other proteinuria Expected: 09/13/2021, Expires: 11/13/2021 [facility] Work Phone: Comment on above: Expected: 09/13/2021 , Expires: 11/13/2021 Start: 09-13-2021 End: 11-13-2021 VITAMIN D 25 HYDROXY VITAMIN D 25 HYDROXY Lab Routine SLE (systemic lupus erythematosus related syndrome) ([facility]) CKD stage G3a/A1, GFR 45-59 and albumin creatinine ratio <30 mg/g ([facility]) Vitamin D deficiency Hypertension, essential Other proteinuria Expected: 09/13/2021, Expires: 11/13/2021 [facility] Work Phone: Comment on above: Expected: 09/13/2021 , Expires: 11/13/2021 Start: 07-23-2021 HEMOGLOBIN/HEMATOCRIT HEMOGLOBIN/HEM ATOCRIT [facility] Start: 07-23-2021 SERUM CREATININE SERUM CREATININE Cl [facility] Start: 05-07-2021 DEPRESSION ASSESSMENT DEPRESSION ASS ESSMENT [facility] Start: 01-05-2021 Influenza vaccination INFLUENZA (#1) [facility] Start: 09-22-2020 COVID-19 VACCINE (3 - Moderna risk 4-dose series) COVID-19 VACCINE (3 - Moderna risk 4-dose series) [facility] Start: 09-22-2020 Covid-19 Vaccine (3 - Moderna risk series) Covid-19 Vaccine (3 - Moderna risk series) [facility] Start: 2019 SHINGRIX VACCINE (1 of 2) SHINGRIX VACCINE (1 of 2) [facility] Start: 10-17-2018 Pneumococcal vaccination Pneumococcal Vaccine (2 of 2 - PPSV23 or PCV20) [facility] Start: 10-17-2018 Pneumococcal Vaccine : 50+ (2 of 2 - PPSV23) Pneumococcal Vaccine: 50+ (2 of 2 - PPSV23) [facility] Start: 10-17-2018 Pneumococcal Vaccine : 50+ (2 of 2 - PPSV23, PCV20, or PCV21) Pneumococcal Vaccine: 50+ (2 of 2 - PPSV23, PCV20, or PCV21) [facility] Start: 05-12-2016 Urine microalbumin profile DTAP,TDAP,TD (1 - Tdap) [facility] Start: 2014 COLOGUARD (FIT-DNA) COLOGUARD (FIT-D NA) [facility] Start: 2014 Colonoscopy COLONOSCOPY [facility] Start: 2014 COLORECTAL CANCER SCREENING COLORECTAL CANCER SCREENING [facility] Start: [address] COLONOGRAPHY [facility] Start: 2014 FECAL OCCULT BLOOD FECAL OCCULT BLOO D [facility] Start: 2014 Lipid 1996 panel - Serum or Plasma Lipid Screening [facility] Start: 2014 LIPID SCREEN LIPID SCREEN [facility] Start: 2014 Screening for malign ant neoplasm of colon [facility] Start: 2014 SIGMOIDOSCOPY SIGMOIDOSCOPY [facility] Start: 2009 Mammography [facility] Start: 2009 Screening for malign ant neoplasm of breast Mammogram Screening [facility] Start: 1999 HPV TESTING HPV TESTING [facility] Start: 1999 Screening for malign ant neoplasm of cervix HPV Testing [facility] Start: 1999 Zoledronic acid therapy ALPHA- 1 ANTITRYPSIN DEFICIENCY SCREENING [facility] Start: 1990 PAP TESTING PAP TESTING [facility] Start: 1990 Screening for malign ant neoplasm of cervix Pap Testing [facility] Start: 02-01-1988 SHINGRIX VACCINE (1 of 2) SHINGRIX VACCINE (1 of 2) [facility] Start: 02-01-1988 Urine microalbumin profile DTAP,TDAP,TD (1 - Tdap) [facility] Start: 1987 ANNUAL PCP TEAM RECOVERY ROOM NURSE SENAIT DISEASE VISIT ANNUAL PCP TEAM CHRONIC DISEASE VISIT [facility] Start: 1987 Anxiety Screening Anxiety Screening [facility] Start: 1987 BP CONTROLLED (<130/80) BP CONTROLLE D (<130/80) [facility] Start: 1987 Depression Screening Depression Scre ening [facility] Start: 1987 HEPATITIS C SCREENING HEPATITIS C [facility] Start: 1987 Hepatitis C screening Hepatitis C [facility] Start: 1987 HIV SCREENING HIV SCREENING [facility] Start: 1987 HIV screening HIV Screening [facility] Start: 1987 SPIROMETRY SPIROMETRY [facility] Start: 1981 Adult depression screening assessment DEPRESSION SCREENING [facility] Start: 02-01-1980 Screening for malign ant neoplasm of cervix Cervical Cancer Screening [facility] Start: 1975 PNEUMOCOCCAL (1 - PCV) PNEUMOCOCCAL (1 - PCV) [facility] Start: 1975 Pneumococcal vaccination Pneumococcal Vaccine (1 - PCV) [facility] Start: 1974 COVID-19 VACCINE (#1) COVID-19 VACCI NE (#1) [facility] End: 08-06-2025 CT Chest W contrast IV CT CHEST W IVCON Radiology Routine Nodule of left lung 1 Occurrences starting 07/07/2024 until 08/06/2025 [facility] Comment on above: 1 Occurrences starti ng 07/07/2024 until 08/06/2025 CT Chest W contrast IV CT CHEST W IVCON Radiology Routine Nodule of left lung 07/18/2024 11:41 AM EDT [facility] Work Phone: End: 08-07-2025 DBT Breast - bilateral screening ABE SCREENING W GABI Radiology Routine Encounter for screening mammogram for breast cancer 1 Occurrences starting 07/08/2024 until 08/07/2025 [facility] Work Phone: Comment on above: 1 Occurrences starti ng 07/08/2024 until 08/07/2025 Patient Education ED Gastroenter itis, Viral (Adult) [facility] Work Phone: Patient referral [facility] Work Phone: [employer] COVID-19 VACCINE, AGE 12+ YR (DUENAS TOP) [employer] COVID-19 VACCINE, AGE 12+ YR (DUENAS TOP) Immunization/Injection Routine Encounter for immunization 1 Occurrences starting 11/24/2021 [facility] Work Phone: Comment on above: 1 Occurrences starti ng 11/24/2021 Pneumococcal vaccination PNEUMOCOCCAL VACCINE (PREVNAR 20) Immunization/Injection Routine Encounter for immunization 1 Occurrences starting 11/24/2021 [facility] Work Phone: Comment on above: 1 Occurrences starti ng 11/24/2021 End: 12-24-2022 Screening mammography bi 2-view breast inc cad ABE SCREENING Radiology Routine Encounter for screening mammogram for breast cancer 1 Occurrences starting 11/24/2021 until 12/24/2022 [facility] Work Phone: Comment on above: 1 Occurrences starti ng 11/24/2021 until 12/24/2022 End: 12-24-2022 SPIROMETRY - BASELINE AND POST DILATOR SPIROMETRY - BASELINE AND POST DILATOR PFT Routine Chronic obstructive pulmonary disease, unspecified COPD type (HCC) 1 Occurrences starting 11/24/2021 until 12/24/2022 [facility] Work Phone: Comment on above: 1 Occurrences starti ng 11/24/2021 until 12/24/2022 [facility] Immunizations Immunization Date Immunization Notes Care Provider [facility] 2024 influenza virus vaccine, unspecified formulation Mercedes Aviles DO Work Phone: [facility] 02-13-2022 influenza virus vaccine, unspecified formulation Marva Malhotra MD Work Phone: [facility] 01-24-2022 hepatitis B vaccine, adult dosage Marva Malhotra MD Work Phone: [facility] 01-24-2022 influenza, injectabl e, quadrivalent, contains preservative Marva Malhotra MD Work Phone: [facility] 01-24-2022 hepatitis B vaccine, unspecified formulation Marva Malhotra MD Work Phone: [facility] 09-05-2016 influenza, seasonal, injectable Marva Malhotra MD Work Phone: [facility] Work Phone: 05-11-2016 TD(adult) unspecifie d formulation Marva Malhotra MD Work Phone: [facility] Work Phone: 05-11-2016 tetanus toxoid, reduced diphtheria toxoid, and acellular pertussis vaccine, adsorbed Marva Malhotra MD Work Phone: [facility] Work Phone: 02-04-2014 influenza, seasonal, injectable Marva Malhotra MD Work Phone: [facility] Work Phone: Payers Date Payer Category Payer [facility] H[facility] [id number] 2023 Unknown [id number] 2023 Medicare MEDICARE MEDICAR E A AND B [id number] 2023-Present [phone] [place] [address] Medicare [id number] 2022 Unknown [id number] 2021 Medicaid [facility] [id number] 2021-Present [phone] [address] [place] [address] Medicaid [id number] 2021 Medicaid [id number] 1969 Unknown [id number] 1969 Unknown [id number] 1969 Unknown [id number] 1969 Unknown [id number] 1969 Unknown [id number] Self-pay SELF PAY INSURANCE [id number] Unknown SELF PAY INSURANCE [id number] 00 [id number] Unknown Social History Date Type Detail Facility Start: 02-17-2011 End: 07-07-2024 Tobacco smoking status MAIS Never smoked tobacco [facility] Start: 02-17-2011 End: 12-17-2024 Tobacco use and exposure Smokeless tobacco non-user [facility] Start: 03-02-2021 End: 12-17-2024 Alcohol intake Current non-drinker of alcohol (finding) [facility] Start: 06-25-2019 History SDOH Financial 5 [facility] Start: 06-25-2019 History SDOH Food Worry 1 [facility] Start: 06-25-2019 History SDOH Transpo rt Med 2 [facility] Start: 1970 Sex Assigned At Not on file [facility] Start: 09-03-2021 End: 09-13-2021 Exposure to SARS-CoV-2 (event) Unable to assess [facility] Work Phone: Start: 09-25-2021 [facility] Work Phone: Start: 1970 Sex Assigned At Female [facility] Work Phone: Start: 11-14-2021 End: 11-24-2021 Exposure to SARS-CoV-2 (event) Not sure [facility] Work Phone: Start: 11-15-2022 Tobacco use and exposure User of smokeless tobacco [facility] Start: 11-15-2022 End: 07-07-2024 History of Social function [facility] Start: 11-15-2022 End: 07-07-2024 Tobacco use panel [facility] Start: 04-07-2012 How hard is it for y ou to pay for the very basics like food, housing, medical care, and heating Not hard at all [facility] (I/We) worried mike er (my/our) food would run out before (I/we) got money to buy more. Never true [facility] Start: 12-17-2024 [facility] History of tobacco use Current smoker [facility] History of tobacco use Cigarette Smoker [facility] Functional Status Date Assessment Result Facility 06-28-2019 Are you deaf, or do you have serious difficulty hearing No 06/28/2019 1:16 PM Janie Hankins, KATIE No [facility] 06-28-2019 Are you blind, or do you have serious difficulty seeing, even when wearing glasses No 06/28/2019 1:16 PM Janie Hankins, KATIE No [facility] 06-28-2019 Do you have serious difficulty walking or climbing stairs No 06/28/2019 1:16 PM Janie Hankins, KATIE No [facility] 06-28-2019 Do you have difficul ty dressing or bathing No 06/28/2019 1:16 PM Janie Hankins, KATIE No [facility] 06-28-2019 Because of a physica l, mental, or emotional condition, do you have difficulty doing errands alone such as visiting a physician's office or shopping No 06/28/2019 1:16 PM Janie Hankins, KATIE No [facility] Mental Status Date Assessment Result Facility 06-28-2019 Because of a physica l, mental, or emotional condition, do you have serious difficulty concentrating, remembering, or making decisions No 06/28/2019 1:16 PM Janie Hankins, KATIE No [facility] Clinical Notes 03-02-2021 to 01-08-2025 Marva Malhotra MD - 01/08/2025 11:49 AM Mercedes Brooks, - 12/17/2024 1:57 PM EDT Note Date & Type Note Facility 01-08-2025 History of Presen t illness Narrative Nephrology Department Outpatient Visit Date January Outpatient Visit Type Established Visit Virtual Follow up for chronic kidney disease, lupus nephritis Cc: chronic kidney disease stage IIIa 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 Dysuria likely secondary to infection Bacteria uL Negative uL 1,508.5 High Albumin to creatinine ratio minimal less than 14 mg/g kidney function at 63%. Monitoring immunosuppressive therapy Tolerating CellCept to 250 mg p.o. twice daily without side effects Blood pressure well-controlled with spironolactone 50 mg p.o. daily Ozempic 0.[address] Blanton, tramadol for pain Newly prescribed Ativan for anxiety. Medication she tolerates CellCept 250 mg p.o. twice daily. Vitamin D 50,000 units once a week. Bystolic 5 mg p.o. daily. Spironolactone 25 --> 50 mg p.o. 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 October 2020 scr 1.59 mg/dl, egfr 34 ml/min November 2020 serum creatinine 0.8 mg/dL, EGFR 59 mL/min per 1.73 m Labs at [place] physician collected April 19, 2021 demonstrated a creatinine of 1.08 and EGFR 53.3. Albumin to creatinine ratio of 16 tylenol arthritis 2 tabs in am and 2 pm Tramadol Lupus for > 14 yrs. On plaquine and prednisone PMR on prednisone. biofreeze helping with pain Lupus anticoag + on eliquis (2 PE). Wt 326--> 314 Ibs on Ozempic Severe neuropathy On Cymbalta psychiatric weaning her off Cymbalta for anxiety. On Lamictal Loosing weight intentional complete blood count demonstrated white blood cells 4.5 hemoglobin 12.9 Complete blood work as of November 2020 demonstrated sodium 142 potassium 3.7 chloride 104 bicarb 35 BUN 13 creatinine 0.89 mg deciliter EGFR 59 mouth for minute total protein 6.7 albumin 3.8 calcium 9.6 total bilirubin 0.5 AST 2022 Hemoglobin A1c 5.3. ad an echocardiogram September 13, 2020 will obtain results. 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 On lamictal for bipolar Patient's previous records, notes and chart reviewed and summarized above. Today's virtual visit January 08, 2025. Labs performed November 28, 2024 demonstrated stable kidney function with significant improvement serum creatinine down to 0.8 eGFR up to 83 electrolytes within range including sodium 142 potassium 4.5 chloride 104 Excellent remission and proteinuria protein to creatinine ratio down to 0.08 Urinalysis with large quantity of bacteria. Uric acid 3.9. Bilirubin level within range Bilirubin level at that range at 0.4. Vitamin D 41. Follow-up as directed PTH 87 Dysuria likely secondary to infection both bilirubin and uric acid within range. Urinalysis with large bacteria. To check urine culture and to start ciprofloxacin Virtual visit scheduled September 23, 2024 due to dark-colored urine. Patient has been on Ozempic recently no other change. Albumin to creatinine ratio less than 12 mg/g. Serum creatinine around 1 EGFR 63. office visit June 19, 2024 Patient reports complete resolution of foamy urine with resuming CellCept. No side effects from CellCept. Her blood pressure well-controlled with spironolactone currently at 50 mg. Reports feeling better in her voice no new complaint. Tolerating Ozempic and continue to lose weight patient happy about that. Recently started on tramadol and Ativan. 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 Dyspnea with exertion Lower back pain Intermittent leg cramps Weight is stable Patient reports better blood pressure BP 120-130/80, HR 60, Afebrile, wt stable. Meds reviewed, refilled. Patient's blood pressure is well controlled at home. Patient's denies any dysuria, hematuria, foamy urine or other voiding complaints. Patient reports leg swelling. Denies SOB/LEE, orthopnea, PND or other symptoms of fluid overload. Patient denies any overt symptoms of uremia. No adverse effects with meds. No other complaints. Patient denies fever, chills, cp, dyspnea, nausea, vomiting, night sweats, puentes, bowel/bladder changes, weight changes or other complaints. visit December 23, 2020: Reports significant improvement in blood pressure, weight patient following more healthier diet. She discontinued Tylenol arthritis since last visit she has been taking less pain medications. Serum creatinine improved to 0.89 mg/dL EGFR 59 mL/min per 1.73 m Significant improvement in proteinuria as well Anatomical challenge likely contributing to a smaller right kidney Images reviewed with the patient IVC filter close to right infrarenal aorta, right renal vein Patient also on Eliquis for PE No need for kidney biopsy office Visit October 21, 2020: Labs dated July 23, 2020 demonstrated serum creatinine 1.59 mg/dL EGFR 34 mL/min per 1 7 3 m so8 potassium 4.7 chloride 104 bicarb 24 Patient reports better blood pressure BP 120-130/80, HR 60, Afebrile, wt stable. Meds reviewed, refilled. Patient's blood pressure is well controlled at home. Patient's denies any dysuria, hematuria, foamy urine or other voiding complaints. Patient denies any leg swelling, SOB/LEE, orthopnea, PND or other symptoms of fluid overload. Patient denies any overt symptoms of uremia. No adverse effects with meds. No other complaints. Patient denies fever, chills, cp, dyspnea, nausea, vomiting, night sweats, puentes, bowel/bladder changes, weight changes or other complaints. -Duration (when): years -Location (where): kidneys -Severity (ex: creat 4.5, BP 200/100): Cr Chronic kidney disease, scr 1.59 mg/dl, egfr 34 ml/min -Context: DM -Timing/Modifying factors/Associated symptoms (ex: meds/continuous/SOB/edema): continuous Recent procedures/hospitalizations/contrasted CT scans: denies Patient denies CP, SOB, orthopnea or PND. Denies progressive leg edema No nausea, emesis,abdominal pain or diarrhea No dysuria, gross hematuria or new flank pain. No fever or chills. No dizziness,PUENTES or focal numbness or weakness. Wt is stable ALLERGIES Allergen Reactions Penicillins Hives Sulfa (Sulfonamide * Unknown Current Outpatient Medications Medication Sig oxybutynin ER (DITROPAN XL) 15 mg 24 hr Extended Rel Tab TAKE 1 TABLET BY MOUTH EVERY DAY EVERY AFTERNOON albuterol HFA (PROVENTIL HFA, VENTOLIN HFA) 90 mcg/actuation inhaler Inhale 2 puffs as instructed every 4 hours as needed for wheezing/shortness of breath. DULoxetine (CYMBALTA) 30 mg capsule Take 2 capsules by mouth once daily. benztropine (COGENTIN) 1 mg tablet Take 2 tablets by mouth once daily. semaglutide (OZEMPIC) 0.25 mg or 0.5 mg (2 mg/3 mL) pen Inject 0.5 mg subcutaneously one time a week. (Patient taking differently: Inject 1.25 mg subcutaneously one time a week.) mycophenolate mofetil (CELLCEPT) 250 mg capsule Take 1 capsule by mouth two times a day. spironolactone (ALDACTONE) 50 mg tablet TAKE 1 TABLET BY MOUTH EVERY DAY metoprolol succinate ER (TOPROL XL) 25 mg 24 hr tablet TAKE 1 TABLET BY MOUTH EVERY DAY Amphetamine-Dextroamphetamine (ADDERALL) 30 mg tablet Take 1 capsule by mouth every afternoon. amLODIPine (NORVASC) 5 mg tablet Take by mouth. (Patient not taking: Reported on 07/07/2024) famotidine (PEPCID) 40 mg tablet Take 1 tablet by mouth twice daily. ergocalciferol 50,000 unit capsule (VITAMIN D2, DRISDOL) 1 TABLET ORALLY ONCE A WEEK 30 DAYS (Patient not taking: Reported on 08/26/2024) atorvastatin (LIPITOR) 20 mg tablet Take 20 mg by mouth once daily. apixaban (ELIQUIS) 5 mg tab(s) Take 1 tablet by mouth twice daily. ondansetron orally disintegrating (ZOFRAN ODT) 4 mg disintegrating tablet Take 1 tablet by mouth every 6 hours as needed. WALKER ROLLATOR SEAT WITH 6 WHEELS - RED Walker with rolator (Patient not taking: Reported on 07/07/2024) ARIPiprazole (ABILIFY) 10 mg tablet Take 10 mg by mouth once daily. albuterol HFA (PROAIR HFA) 90 mcg/actuation inhaler Inhale 2 Puffs as instructed every 6 hours as needed. montelukast (SINGULAIR) 10 mg tablet Take 1 tablet by mouth daily at bedtime. traMADol (ULTRAM) 50 mg tablet Take 50 mg by mouth every 12 hours as needed. acetaminophen (TYLENOL) 325 mg tablet Take 2 tablets by mouth every 6 hours as needed. hydroxychloroquine (PLAQUENIL) 200 mg tablet Take 200 mg by mouth twice daily. BUDESONIDE/FORMOTEROL FUMARATE (SYMBICORT INHALATION) Inhale as instructed. CHOLECALCIFEROL, VITAMIN D3, (VITAMIN D-3 ORAL) Take 50,000 Units by mouth every Sunday. lamoTRIgine (LAMICTAL) 200 mg tablet Take 200 mg by mouth two times a day. No current facility-administered medications for this visit. PAST MEDICAL HISTORY Diagnosis Date Adhesive capsulitis of right shoulder Bipolar affective ([facility]) Bursitis of right hip Chronic back pain Chronic obstructive pulmonary disease (COPD) ([facility]) CKD (chronic kidney disease) stage 3, GFR 30-59 ml/min ([facility]) Female stress incontinence Fibromyalgia GERD (gastroesophageal reflux disease) intolerant NSAIDS History of blood clots Hypertension Lumbar back pain with radiculopathy affecting right lower extremity Lupus SLE, positive TAN recurrent polyarthritis malar erythema with photosensitivity generalized fatigue treated with Plaquenil, annual ophthalmology exam. Lupus nephritis (HCC) Mixed connective tissue disease (HCC) Morbid obesity (HCC) NIX (nonalcoholic steatohepatitis) Confirmed by FibroScan, DR Choi Osito Nodule of left lung Osteoarthritis of left knee Osteoarthritis of right knee Polymyalgia rheumatica (HCC) Rheumatoid arthritis(714.0) Subacromial bursitis of right shoulder joint Urge incontinence Vitamin D deficiency PAST SURGICAL HISTORY Procedure Laterality Date HYSTERECTOMY HX IVC FILTER SURGICAL [facility] SALPINGO-OOPHORECTOMY COMPL/PRTL UNI/BI SPX 2008 left ovary TUBAL LIGATION, FAMILY HISTORY Problem Relation Age of Onset COPD Mother Heart Father Rheumatologic disease Sister other (Raynaud's) Sister Social History Tobacco Use Smoking status: Former Types: Cigarettes Smokeless tobacco: Never Vaping Use Vaping status: Former Substance Use Topics Alcohol use: No Drug use: No REVIEW OF SYMPTOMS: CONSTITUTIONAL: Denies fevers, chills, and weight changes. Denies fatigue/malaise. PULMONARY: Denies shortness of breath, wheezing, cough or hemoptysis. CARDIOLOGY: Denies chest pain, palpitations, LEE, orthopnea or PND. GI: No anorexia, nausea, vomiting, dysphagia, diarrhea, constipation, abdominal pain, hematochezia or melena. : No urinary hesitancy or dribbling. No nocturia or urinary frequency. No abnormal discharge. No hematuria, dysuria, or flank pain. MUSCULO-SKELETAL: No joint pain, swelling or erythema. SKIN: Denies any rashes or skin changes. No itching. EXTREMITIES: Denies any lower Extremity edema. Denies any claudication or peripheral ulcer. A full 12 point ROS was obtained and is negative other than that cited above. PHYSICAL EXAMINATION: There were no vitals taken for this visit. No weight on file for this encounter. LAB DATA Labs performed December 18, 2023 serum creatinine 1 mg liter eGFR 57.8 mL/min TSH 5 Labs performed at primary physician February 28, 2023 as follow. Renal parameters stable serum creatinine 1.1 mg deciliter with EGFR 51.8 mL/min per 1.73 m sodium 142 potassium 4.7 glucose 91 total protein 6.8 BUN 14 albumin 3.8 A1c 5.5, LDL 65, TSH 3.3, uric acid: 7, vitamin D 44.9. Urinalysis reviewed unremarkable for infection B12 432 hemoglobin 12.7 Vitals today noted for blood pressure of 115/82 with a heart rate of 78. Chronic medications including renal medications including oxybutynin, CellCept 250 mg p.o. twice daily, vitamin D 50,000 units monthly, atorvastatin, Eliquis 5 mg p.o. twice daily, Bystolic 5 mg daily spironolactone 35 mg p.o. daily Steroid taper. EGFR improved by 10 mL/min per 1.73 m over the past 6 months 85 with 52 August 02, 2021. With the initiation of CellCept EGFR up to 63.9 mL/min per 1.73 m as of March 23, 2022. Labs performed November 16, 2022 reviewed with the patient as follow. Serum creatinine 1.1 mg deciliter EGFR 60 mill per minute per 1.73 m . Calcium 9.3 phosphorus 3.1 albumin 4.3. Potassium 4.6. Uric acid 5.4. Parathyroid hormone 88. Magnesium 2. Vitamin D 53.1 improved from 18.7 and CBC demonstrated hemoglobin of 13.1. Blood pressure 130/80 with a heart rate of 64 Creatinine 1.1 to 1.2 mg deciliter EGFR 53 mL/min per 1.73 m . And albumin to creatinine ratio 16 mg/g Labs performed March 23, 2022 demonstrated a hemoglobin of 13.4. Magnesium 2.2. Albumin to creatinine ratio 7.1. Protein to creatinine ratio 103 mg/g. Albumin 3.9 BUN of 16. Calcium 9.1. Carbon dioxide of 32. Chloride 102 creatinine 0.9 and EGFR of 63.9 mL/min per 1.73 m . Phosphorus 4.1 potassium 4.4. Sodium 140. Urine analysis negative for blood and protein. Vitamin D43.2. Phosphorus 4.1. Cholesterol within range. Hemoglobin A1c 5.4. Sed rate September 1302/2022: Labs demonstrated stable kidney function versus slightly improved EGFR at 53 mils per minute per 1.73 m . visit June 23, 2020 following for improvement in side effects with discontinuing voclosporin Reports improvement in weakness improvement in feet neuropathy and improvement in hair loss with holding above medications. labs dated April 19, 2021 demonstrated sodium 140 potassium 4.1 chloride 105 bicarb 34 BUN 14 creatinine 1.01 EGFR 53.3. Albumin 3.9. Calcium 9.5. Phosphorus 3.7. L1 to creatinine ratio 16 CBC demonstrated hemoglobin of 13.9 ASSESSMENT AND PLAN 1) CKD Stage: IIIb, Differential diagnosis including lupus nephritis, analgesic nephropathy -- protein to creatinine ratio -- renal ultrasound review -- Lupus in remission, double-stranded DNA <1 -- On Plaquenil and prednisone -- Based on urine analysis and renal ultrasound will evaluate the need for renal biopsy -Etiology (likely): HTN, DM and NSAIDS. Note normal C3/C4/SPEP/HCV/HBV -Does not need preparation for dialysis at this time. -Will continue routine monitoring of chemistries. -Avoid all PICC lines, i.v.s and blood draws in arms above wrists as possible to preserve veins for possible AV fistula or AVG. Kidney function: CKD III (Cr trend over the years) Kidney sizes: moderatly large kidneys, with increased echogenicity, no obstruction Have reviewed CKD staging and preventing progression. Have reviewed NSAID avoidance and avoidance of IV dye. 2) Hypertension: Patient reports having high blood pressure in the past however recently blood pressure well controlled on bisoprolol, Of lisinopril and amlodipine -Blood pressure is adequately controlled. -No changes to medications at this time. -The patient was advised to follow a low salt/DASH diet. 3) Anemia: Hemoglobin below target concern for iron deficiency anemia check iron stores -Hemoglobin is adequate. -Continue periodic monitoring of CBC and iron studies. 4) Secondary Hyperparathyroidism/CKD-MBD: Check Vitamin D and PTH -Intact PTH, vitamin d, calcium, and phosphorus levels are acceptable. -No changes -in management. -Will continue to monitor these indices. 5) Proteinuria: To quantify protein to creatinine ratio -Will continue monitor microalbumin/creatinine ratio. 7) Dyslipidemia: -The patient has moderate CKD and would benefit from aggressive lipid control with an LDL goal of <100 and TG less than 150mg/dl. Reports improvement in weakness improvement in feet neuropathy and improvement in hair loss with holding voclosporin Tolerating mycophenolate without side effects Proteinuria improving down to 16 mg/g Reports significant improvement in blood pressure, weight patient following more healthier diet. She discontinued Tylenol arthritis since last visit she has been taking less pain medications. 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 On Eliquis for PE, high risk for coagulopathy Infrarenal IVC filter with multiple limbs extending beyond the lumen unchanged from 2017. significant improvement in renal function and proteinuria with holding analgesics Chronic pain syndrome recently diagnosed with PMR, on prednisone. No signs of fluid overload Daily weight, blood pressure log Dark colored urine improving Dysuria better visit Mar 23, 2022: Patient presented today to the office reports worsening leg edema weakness, fatigue, now producing more dark concentrated urine. Reports that she ran out of CellCept. Likely patient back in flare we do not have recent labs last blood work was September. Patient to obtain blood work today and we will call her back to review it. CellCept refilled May 23, 2022 visit. Reports improvement in dark-colored urine with resuming CellCept To cont same meds Referral to urology Dr. Buckley for bladder control S/p hysterectomy Monitoring immunosuppressive therapy To resume CellCept to 250 mg p.o. twice daily without side effects, pt run out of it again. Medication she tolerates CellCept 250 mg p.o. twice daily. Excellent response. Significant improvement in proteinuria. Vitamin D 50,000 units once a week. once a month. Bystolic 5 mg p.o. daily. Spironolactone dose increased to 50 mg p.o. daily TD due to pschy meds, on taper Started on Ativan by her psychiatrist for anxiety management Plan: Dysuria likely secondary to infection both bilirubin and uric acid within range. Urinalysis with large bacteria. To check urine culture and to start ciprofloxacin Patient has been on Ozempic well-tolerated Albumin to creatinine ratio less than 12 mg/g. Serum creatinine around 1 EGFR 63. Stable and improving up to 80 Follow-up in 6 months For follow-up I have asked that she return to clinic in 6 month or earlier if needed. Thank you for allowing me to participate in this patient's care. Please feel free to contact me with any questions or concerns. Follow up with PCP for all non-renal problems This note was partially created using voice recognition software and is inherently subject to errors including those of syntax and sound-alike substitutions which may escape proofreading. In such instances, original meaning may be extrapolated by contextual derivation. With warmest regards, Marva Malhotra MD Nephrology and Hypertension Roofing Supervisor Clinical hoist worker [facility] [address] [place], [place] [address] documented in this encounter [facility] 12-17-2024 Note HNO ID: [id number] Author: MERCEDES AVILES DO Service: ? Author Type: Physician Type: Progress Notes Filed: 12/17/2024 14:04 Note Text: . History of Presenting Illness: Ms. Bustos is a 54 year old female who presents to the [facility] [place]. Michael Bustos is a 54-year-old female with a history of asthma, lupus, and prior pulmonary embolisms, presenting for evaluation of lung nodules identified on a recent CT scan. Michael reports that a recent CT scan, performed during an ED visit in July for an asthma exacerbation, revealed multiple lung nodules. She was initially aware of a single nodule but was informed that additional nodules have developed. She denies any current issues with breathing and states that her asthma is well-controlled with her current medication regimen, which includes generic Symbicort (one puff in the morning and one at night) and Singulair. She notes that her asthma symptoms primarily occur during illness or physical activity, but she has not experienced any exacerbations since the July hospitalization. She denies wheezing or cough and reports feeling generally well, with no recent shortness of breath during activities. Michael has a history of two pulmonary embolisms, the first occurring approximately 10 years ago following a hysterectomy, and the second occurring while she was sitting in an office. She has been on anticoagulation therapy since the first embolism, initially prescribed by Dr. Loyd and currently managed by her primary care physician, Dr. Sawyer. She also has an IVC filter placed during her initial hospitalization, which has been in place for approximately 15 years. She denies any issues with bleeding and has not undergone genetic testing for thrombophilia, though she reports a family history of blood clots, including a daughter with Factor V Leiden. Michael also has a history of lupus, managed by Dr. Blanton at , and is currently on hydroxychloroquine and mycophenolate. She reports no issues with pregnancies or miscarriages. Additionally, she was recently diagnosed with hyperthyroidism but is not currently on medication for this condition. Additional History: Past Medical History: PAST MEDICAL HISTORY Diagnosis Date Adhesive capsulitis of right shoulder Bipolar affective (HCC) Bursitis of right hip Chronic back pain Chronic obstructive pulmonary disease (COPD) (HCC) CKD (chronic kidney disease) stage 3, GFR 30-59 ml/min (HCC) Female stress incontinence Fibromyalgia GERD (gastroesophageal reflux disease) intolerant NSAIDS History of blood clots Hypertension Lumbar back pain with radiculopathy affecting right lower extremity Lupus SLE, positive TAN recurrent polyarthritis malar erythema with photosensitivity generalized fatigue treated with Plaquenil, annual ophthalmology exam. Lupus nephritis (HCC) Mixed connective tissue disease (HCC) Morbid obesity ([facility]) NIX (nonalcoholic steatohepatitis) Confirmed by FibroScan, DR Choi Osito Nodule of left lung Osteoarthritis of left knee Osteoarthritis of right knee Polymyalgia rheumatica (HCC) Rheumatoid arthritis(714.0) Subacromial bursitis of right shoulder joint Urge incontinence Vitamin D deficiency Past Surgical History: PAST SURGICAL HISTORY Procedure Laterality Date HYSTERECTOMY HX IVC FILTER SURGICAL [facility] [place]-OOPHORECTOMY COMPL/PRTL UNI/BI SPX 2008 left ovary TUBAL LIGATION, Work and Exposure Histories: SOCIAL HISTORY[1] Family History: FAMILY HISTORY Problem Relation Age of Onset COPD Mother Heart Father Rheumatologic disease Sister other (Raynaud's) Sister Allergies and Medications: Penicillins and Sulfa (Sulfonamide Antibiotics) Outpatient Medications: oxybutynin ER (DITROPAN XL) 15 mg 24 hr Extended Rel Tab TAKE 1 TABLET BY MOUTH EVERY DAY EVERY AFTERNOON albuterol HFA (PROVENTIL HFA, VENTOLIN HFA) 90 mcg/actuation inhaler Inhale 2 puffs as instructed every 4 hours as needed for wheezing/shortness of breath. DULoxetine (CYMBALTA) 30 mg capsule Take 2 capsules by mouth once daily. benztropine (COGENTIN) 1 mg tablet Take 2 tablets by mouth once daily. semaglutide (OZEMPIC) 0.25 mg or 0.5 mg (2 mg/3 mL) pen Inject 0.5 mg subcutaneously one time a week. (Patient taking differently: Inject 1.25 mg subcutaneously one time a week.) mycophenolate mofetil (CELLCEPT) 250 mg capsule Take 1 capsule by mouth two times a day. spironolactone (ALDACTONE) 50 mg tablet TAKE 1 TABLET BY MOUTH EVERY DAY metoprolol succinate ER (TOPROL XL) 25 mg 24 hr tablet TAKE 1 TABLET BY MOUTH EVERY DAY Amphetamine-Dextroamphetamine (ADDERALL) 30 mg tablet Take 1 capsule by mouth every afternoon. amLODIPine (NORVASC) 5 mg tablet Take by mouth. (Patient not taking: Reported on 07/07/2024) famotidine (PEPCID) 40 mg tablet Take 1 tablet by mouth twice daily. ergocalciferol 50,000 unit capsule (more content not included)... [facility] 12-17-2024 History of Presen t illness Narrative Images from the original note were not included. . History of Presenting Illness: Ms. Bustos is a 54 year old female who presents to the [facility] [place]. Michael Bustos is a 54-year-old female with a history of asthma, lupus, and prior pulmonary embolisms, presenting for evaluation of lung nodules identified on a recent CT scan. Michael reports that a recent CT scan, performed during an ED visit in July for an asthma exacerbation, revealed multiple lung nodules. She was initially aware of a single nodule but was informed that additional nodules have developed. She denies any current issues with breathing and states that her asthma is well-controlled with her current medication regimen, which includes generic Symbicort (one puff in the morning and one at night) and Singulair. She notes that her asthma symptoms primarily occur during illness or physical activity, but she has not experienced any exacerbations since the July hospitalization. She denies wheezing or cough and reports feeling generally well, with no recent shortness of breath during activities. Michael has a history of two pulmonary embolisms, the first occurring approximately 10 years ago following a hysterectomy, and the second occurring while she was sitting in an office. She has been on anticoagulation therapy since the first embolism, initially prescribed by Dr. Loyd and currently managed by her primary care physician, Dr. Sawyer. She also has an IVC filter placed during her initial hospitalization, which has been in place for approximately 15 years. She denies any issues with bleeding and has not undergone genetic testing for thrombophilia, though she reports a family history of blood clots, including a daughter with Factor V Leiden. Michael also has a history of lupus, managed by Dr. Blanton at , and is currently on hydroxychloroquine and mycophenolate. She reports no issues with pregnancies or miscarriages. Additionally, she was recently diagnosed with hyperthyroidism but is not currently on medication for this condition. Additional History: Past Medical History: PAST MEDICAL HISTORY Diagnosis Date Adhesive capsulitis of right shoulder Bipolar affective (HCC) Bursitis of right hip Chronic back pain Chronic obstructive pulmonary disease (COPD) ([facility]) CKD (chronic kidney disease) stage 3, GFR 30-59 ml/min ([facility]) Female stress incontinence Fibromyalgia GERD (gastroesophageal reflux disease) intolerant NSAIDS History of blood clots Hypertension Lumbar back pain with radiculopathy affecting right lower extremity Lupus SLE, positive TAN recurrent polyarthritis malar erythema with photosensitivity generalized fatigue treated with Plaquenil, annual ophthalmology exam. Lupus nephritis (HCC) Mixed connective tissue disease (HCC) Morbid obesity (HCC) NIX (nonalcoholic steatohepatitis) Confirmed by FibroScan, DR Choi Osito Nodule of left lung Osteoarthritis of left knee Osteoarthritis of right knee Polymyalgia rheumatica (HCC) Rheumatoid arthritis(714.0) Subacromial bursitis of right shoulder joint Urge incontinence Vitamin D deficiency Past Surgical History: PAST SURGICAL HISTORY Procedure Laterality Date HYSTERECTOMY HX IVC FILTER SURGICAL [facility] SAL[place]O-OOPHORECTOMY COMPL/PRTL UNI/BI SPX 2009 left ovary TUBAL LIGATION, Work and Exposure Histories: SOCIAL HISTORY[1] Family History: FAMILY HISTORY Problem Relation Age of Onset COPD Mother Heart Father Rheumatologic disease Sister other (Raynaud's) Sister Allergies and Medications: Penicillins and Sulfa (Sulfonamide Antibiotics) Outpatient Medications: oxybutynin ER (DITROPAN XL) 15 mg 24 hr Extended Rel Tab TAKE 1 TABLET BY MOUTH EVERY DAY EVERY AFTERNOON albuterol HFA (PROVENTIL HFA, VENTOLIN HFA) 90 mcg/actuation inhaler Inhale 2 puffs as instructed every 4 hours as needed for wheezing/shortness of breath. DULoxetine (CYMBALTA) 30 mg capsule Take 2 capsules by mouth once daily. benztropine (COGENTIN) 1 mg tablet Take 2 tablets by mouth once daily. semaglutide (OZEMPIC) 0.25 mg or 0.5 mg (2 mg/3 mL) pen Inject 0.5 mg subcutaneously one time a week. (Patient taking differently: Inject 1.25 mg subcutaneously one time a week.) mycophenolate mofetil (CELLCEPT) 250 mg capsule Take 1 capsule by mouth two times a day. spironolactone (ALDACTONE) 50 mg tablet TAKE 1 TABLET BY MOUTH EVERY DAY metoprolol succinate ER (TOPROL XL) 25 mg 24 hr tablet TAKE 1 TABLET BY MOUTH EVERY DAY Amphetamine-Dextroamphetamine (ADDERALL) 30 mg tablet Take 1 capsule by mouth every afternoon. amLODIPine (NORVASC) 5 mg tablet Take by mouth. (Patient not taking: Reported on 07/07/2024) famotidine (PEPCID) 40 mg tablet Take 1 tablet by mouth twice daily. ergocalciferol 50,000 unit capsule (VITAMIN D2, DRISDOL) 1 TABLET ORALLY ONCE A WEEK 30 DAYS (Patient not taking: Reported on 08/26/2024) atorvastatin (LIPITOR) 20 mg tablet Take 20 mg by mouth once daily. apixaban (ELIQUIS) 5 mg tab(s) Take 1 tablet by mouth twice daily. ondansetron orally disintegrating (ZOFRAN ODT) 4 mg disintegrating tablet Take 1 tablet by mouth every 6 hours as needed. WALKER ROLLATOR SEAT WITH 6 WHEELS - RED Walker with rolator (Patient not taking: Reported on 07/07/2024) ARIPiprazole (ABILIFY) 10 mg tablet Take 10 mg by mouth once daily. albuterol HFA (PROAIR HFA) 90 mcg/actuation inhaler Inhale 2 Puffs as instructed every 6 hours as needed. montelukast (SINGULAIR) 10 mg tablet Take 1 tablet by mouth daily at bedtime. traMADol (ULTRAM) 50 mg tablet Take 50 mg by mouth every 12 hours as needed. acetaminophen (TYLENOL) 325 mg tablet Take 2 tablets by mouth every 6 hours as needed. hydroxychloroquine (PLAQUENIL) 200 mg tablet Take 200 mg by mouth twice daily. BUDESONIDE/FORMOTEROL FUMARATE (SYMBICORT INHALATION) Inhale as instructed. CHOLECALCIFEROL, VITAMIN D3, (VITAMIN D-3 ORAL) Take 50,000 Units by mouth every Sunday. lamoTRIgine (LAMICTAL) 200 mg tablet Take 200 mg by mouth two times a day. Objective: PHYSICAL EXAM: BP 111/70 Pulse 88 Ht 5' 7 (1.70m) Wt 282 lb (127.9kg) SpO2 96[ROOM AIR]% BMI 44.16 kg/(m^2). Constitutional: Pleasant, cooperative with reg muscle mass Eyes:Anicteric sclera. Pupils are equally round and reactive to light. Extraocular movements are intact. Nose/Sinus/Oropharynx : Nares normal. Septum midline. Mucosa normal. No drainage or sinus tenderness. Normal Oropharyngeal mucosa. Cardiac: normal rate, regular rhythm, (-) RV heave, no accessory heart sounds Respiratory: clear Abdomen: No hepatomegaly or spleenomegaly, no abdominal tenderness, Bowel sounds normal. Extremities: (-) peripheral edema. Cap refill time < 2-3 seconds. No overt upper/lower extremity deformity, skin discoloration, clubbing or cyanosis. Neuro: alert, oriented. Labs / Imaging / Diagnostic Studies: All personally reviewed by me Assessment and Plan: 1. Solitary pulmonary nodule (R91.1) Identified on a CT scan performed in July during an asthma exacerbation. No significant findings on the report; likely benign and not a cause for concern. No further follow-up required for the pulmonary nodule at this time, will discuss with referring provder 2. Asthma, moderate persistent, well-controlled (HCC) (J45.40) Well-controlled with current medication regimen. Patient uses generic Symbicort (1 puff BID) and Singulair daily. No recent exacerbations requiring hospitalization or additional steroid use. Continue current asthma management with generic Budesonide-Formoterol BID and PRN and Singulair per PCP. Monitor for any changes in symptoms or increased frequency of exacerbations. 3. Recurrent pulmonary embolism (HCC) (I26.99) 4. IVC filter placement History of two prior provoked then unprovoked pulmonary embolisms. Currently on lifelong anticoagulation therapy. IVC filter placed in ~2007 remains in situ despite adequate tolerance of anticoagulation without barriers for continued use. - Continue current anticoagulation therapy. - Referred to Dr. Mayo for evaluation and removal of the IVC filter. (Case discussed) Mercedes Aviles DO Department of Pulmonary & Critical Care Medicine Pul[facility] December 17, 2024 1:57 PM [1] Social History Tobacco Use Smoking status: Former Types: Cigarettes Smokeless tobacco: Never Vaping Use Vaping status: Former Substance Use Topics Alcohol use: No Drug use: No documented in this encounter [facility] 09-16-2024 Evaluation note Diagnosis Stage 3a chronic kidney disease (HCC)- Primary documented in this encounter [facility]04-22-2025 Instructions* Patient Instructions* Em Bustamante APRN.CNP - 08/26/2024 2:52 PM EDT ASSESSMENT/PLAN: 1. Left knee injury, initial encounter - ICD9: 959.7, ICD10: S89.92XA (primary diagnosis) - XR KNEE GENERAL 4V AP BOTH/PA BOTH/LAT/MERC LEFT FINDINGS: No acute fractures or subluxations are noted. Tricompartmental osteophyte formation is present. The joint spaces are well preserved. There is small joint effusion. The mineralization of the bones is normal. There is no significant soft tissue swelling. IMPRESSION IMPRESSION: Degenerative changes in the left knee with small joint effusion. No acute fracture seen. Abattoir Manager: FRANK Transcribe Date/Time: Aug 26 2024 2:13P Dictated by : ARABELLA NUR MD -RICE therapy as discussed 2. Fall, initial encounter - ICD9: E888.9, ICD10: W19.XXXA 3. Asthma with COPD with exacerbation (HCC) - ICD9: 493.22, ICD10: J44.1 - PREDNISONE 10 MG TABLET - doxycycline coverage utilizing GOLD criteria for COPD exacerbation - albuterol as prescribed. - Follow-up with your PCP in 3-5 days if symptoms have not improved or sooner if symptoms worsen - Discussed red flags and need for immediate medical evaluation if any occur. - Discussed supportive care treatment with fluids, rest and analgesia. - Discussed expected course of illness Em Bustamante APRN.[employer]CH[employer]IST [employer] The general care of your injury includes the following: Resting, Icing, Compressing and Elevating the injured area. Remember this as RICE. REST: Limit the use of the injured body part. ICE: By applying ice to the affected area, swelling and pain can be reduced. Place some ice cubes in a re-sealable (Ziploc) bag and add some water. Put a thin washcloth between the bag and your skin.Apply the ice bag to the area for at least 20 minutes. Do this at least 4 times per day. Using the ice for longer times and more frequently is OK. NEVER APPLY ICE DIRECTLY TO THE SKIN. COMPRESS: Compression means to apply pressure around the injured area such as with a splint, cast or an lj bandage. Compression decreases swelling and improves comfort. Compression should be tight enough to relieve swelling but not so tight as to decrease circulation. Increasing pain, numbness, tingling, or change in skin color, are all signs of decreased circulation. ELEVATE: Elevate the injured part. For example, elevate your foot by placing it on a chair while sitting, or propping it up on pillows when lying down. [facility] History of Present illness Narrative* Lluvia Ibarra Tech - 08/26/2024 1:40 PM EDT Radiology Service Progress Note PATIENT NAME: Michael Bustos DATE OF SERVICE: August 26, 2024 TIME: 1:37 PM PATIENT IDENTITY VERIFICATION COMPLETED USING TWO (2) IDENTIFIERS: Name and Date of confirmedby patient verbally. FALL SCREENING: Has the patient had 2 falls in the last year or 1 fall with injury or currently using an Ambulatory Assistive Device (Walker, Cane, Wheelchair, Crutches, etc.)? No PATIENT GENDER DATA: Assigned female at . status: : No status:NO. PATIENT RELEVANT IMPLANT DATA REVIEWED: Not Applicable PATIENT PRESENTS WITH AN IMPLANTABLE OR ATTACHED COMBAT SYSTEMS ENGINEER: No RADIOLOGY DEPARTMENT: General X-ray: Exam(s) Completed: Lower Extremity X- Ray(s): Knee, AP / Lat / Tunne / Merchant Left PERIPHERAL IV DATA: Not applicable SIGNED BY: Rosalio Joe August 26, 2024 1:37 PM [facility] NoteHNO ID: [id number] Author: LLUVIA IBARRA Tech Service: ? Author Type: Technologist Type: Progress Notes Filed: 08/26/2024 13:52 Note Text: Radiology Service Progress Note PATIENT NAME: Michael Bustos DATE OF SERVICE: August 26, 2024 TIME: 1:37 PM PATIENT IDENTITY VERIFICATION COMPLETED USING TWO (2) IDENTIFIERS: Name and Date of confirmed by patient verbally. FALL SCREENING: Has the patient had 2 falls in the last year or 1 fall with injury or currently using an Ambulatory Assistive Device (Walker, Cane, Wheelchair, Crutches, etc.)? No PATIENT GENDER DATA: Assigned female at . status: : No status: NO. PATIENT RELEVANT IMPLANT DATA REVIEWED: Not Applicable PATIENT PRESENTS WITH AN IMPLANTABLE OR ATTACHED COMBAT SYSTEMS ENGINEER: No RADIOLOGY DEPARTMENT: General X-ray: Exam(s) Completed: Lower Extremity X-Ray(s): Knee, AP / Lat / Tunne / Merchant Left PERIPHERAL IV DATA: Not applicable SIGNED BY: Rosalio Joe August 26, 2024 1:37 [facility]04-22-2025 NoteHNO ID: [id number] Author: EM BUSTAMANTE APRN.[facility] Service: ? Author Type: Nurse Practitioner Type: Progress Notes Filed: 08/26/2024 14:52 Note Text: [facility] Subjective Michael Bustos is a 54 year old female. Patient presents with: Fall: Swelling and bruising x 2 days fall on [place] Pertinent negatives include no nausea and no vomiting. Michael Bustos is a 54 year old female who presents with left knee pain and swelling and bruising. [facility] Fell onto rocks. She rates her pain Denies ankle pain. Has not taken any medication for pain. She also has had cough, chest congestion, wheezing, shortness of breath and headache for the past 2 days. Has a history of asthma with COPD and is out of her rescue inhaler. She denies fever. Cough is productive of clear sputum. She has been taking mucinex and tylenol at home for symptoms. Review of Systems Constitutional: Positive for chills. Negative for fatigue. Respiratory: Positive for choking, shortness of breath and wheezing. Cardiovascular: Negative for chest pain. Gastrointestinal: Negative for nausea and vomiting. Musculoskeletal: Positive for joint swelling. See HPI Skin: Negative for color change and rash. Objective BP 118/75 Pulse 95 Temp 37 ?C (98.6 ?F) Resp 20 Wt 128 kg (282 lb 3 oz) SpO2 100% BMI 44.20 kg/m? PAST MEDICAL HISTORY Diagnosis Date - Adhesive capsulitis of right shoulder - Bipolar affective ([facility]) - Bursitis of right hip - Chronic back pain - Chronic obstructive pulmonary disease (COPD) ([facility]) - CKD (chronic kidney disease) stage 3, GFR 30-59 ml/min ([facility]) - Female stress incontinence - Fibromyalgia - GERD (gastroesophageal reflux disease) intolerant NSAIDS - History of blood clots - Hypertension - Lumbar back pain with radiculopathy affecting right lower extremity - Lupus SLE, positive TAN recurrent polyarthritis malar erythema with photosensitivity generalized fatigue treated with Plaquenil, annual ophthalmology exam. - Lupus nephritis ([facility]) - Mixed connective tissue disease ([facility]) - Morbid obesity ([facility]) - NIX (nonalcoholic steatohepatitis) Confirmed by FibroScan, DR Jimbo Mcneill - Nodule of left lung - Osteoarthritis of left knee - Osteoarthritis of right knee - Polymyalgia rheumatica ([facility]) - Rheumatoid arthritis(714.0) - Subacromial bursitis of right shoulder joint - Urge incontinence - Vitamin D deficiency PAST SURGICAL HISTORY Procedure Laterality Date - HYSTERECTOMY HX - IVC FILTER SURGICAL [facility] - [place]O-OOPHORECTOMY COMPL/PRTL UNI/BI SPX 2008 left ovary - TUBAL LIGATION, ALLERGIES Penicillins and Sulfa (Sulfonamide Antibiotics) MEDICATIONS - DULoxetine (CYMBALTA) 30 mg capsule Take 2 capsules by mouth once daily. - benztropine (COGENTIN) 1 mg tablet Take 2 tablets by mouth once daily. - baclofen 10 mg tablet Take 1 tablet by mouth once daily. - oxybutynin ER (DITROPAN XL) 15 mg 24 hr Extended Rel Tab Take 2 tablets by mouth every afternoon. - semaglutide (OZEMPIC) 0.25 mg or 0.5 mg (2 mg/3 mL) pen Inject 0.5 mg subcutaneously one time a week. (Patient taking differently: Inject 1.25 mg subcutaneously one time a week.) - mycophenolate mofetil (CELLCEPT) 250 mg capsule Take 1 capsule by mouth two times a day. - spironolactone (ALDACTONE) 50 mg tablet TAKE 1 TABLET BY MOUTH EVERY DAY - metoprolol succinate ER (TOPROL XL) 25 mg 24 hr tablet TAKE 1 TABLET BY MOUTH EVERY DAY - Amphetamine-Dextroamphetamine (ADDERALL) 30 mg tablet Take 1 capsule by mouth every afternoon. - famotidine (PEPCID) 40 mg tablet Take 1 tablet by mouth twice daily. - atorvastatin (LIPITOR) 20 mg tablet Take 20 mg by mouth once daily. - apixaban (ELIQUIS) 5 mg tab(s) Take 1 tablet by mouth twice daily. - ondansetron orally disintegrating (ZOFRAN ODT) 4 mg disintegrating tablet Take 1 tablet by mouth every 6 hours as needed. - ARIPiprazole (ABILIFY) 10 mg tablet Take 10 mg by mouth once daily. - albuterol HFA (PROAIR HFA) 90 mcg/actuation inhaler Inhale 2 Puffs as instructed every 6 hours as needed. - montelukast (SINGULAIR) 10 mg tablet Take 1 tablet by mouth daily at bedtime. - traMADol (ULTRAM) 50 mg tablet Take 50 mg by mouth every 12 hours as needed. - acetaminophen (TYLENOL) 325 mg tablet Take 2 tablets by mouth every 6 hours as needed. - hydroxychloroquine (PLAQUENIL) 200 mg tablet Take 200 mg by mouth twice daily. - BUDESONIDE/FORMOTEROL FUMARATE (SYMBICORT INHALATION) Inhale as instructed. - CHOLECALCIFEROL, VITAMIN D3, (VITAMIN D-3 ORAL) Take 50,000 Units by mouth every Sunday. - lamoTRIgine (LAMICTAL) 200 mg tablet Take 200 mg by mouth two times a day. - amLODIPine (NORVASC) 5 mg tablet Take by mouth. (Patient not taking: Reported on 07/07/2024) - ergocalciferol 50,000 unit capsule (VITAMIN D2, DRISDOL) 1 TABLET ORALLY ONCE A WEEK 30 DAYS (Patient not takin (more content not included)...[facility]04-22-2025 History of Present illness Narrative* Em Bustamante APRN.EARLY INTERVENTION SCHOOL PSYCHOLOGIST - 08/26/2024 1:29 PM EDT Images from the original note were not included. [facility] Subjective Michael Bustos is a 54 year old female. Patient presents with: Fall: Swelling and bruising x 2 days fall [place] Pertinent negatives include no nausea and no vomiting. Michael Bustos is a 54 year old female who presents with left knee pain and swelling and bruising. She fell 2 days ago at [employer] after tripping. Fell onto rocks. She rates her pain Denies ankle pain. Has not taken any medication for pain. She also has had cough, chest congestion, wheezing, shortness of breath and headache for the past 2days. Has a history of asthma with COPD and is out of her rescue inhaler. She denies fever. Cough is productive of clear sputum. She has been taking mucinex and tylenol at home for symptoms. Review of Systems Constitutional: Positive for chills. Negative for fatigue. Respiratory: Positive for choking, shortness of breath and wheezing. Cardiovascular: Negative for chest pain. Gastrointestinal: Negative for nausea and vomiting. Musculoskeletal: Positive for joint swelling. See HPI Skin: Negative for color change and rash. Objective BP 118/75 Pulse 95 Temp 37 C (98.6 F) Resp 20 Wt 128 kg (282 lb 3 oz) SpO2 100% BMI 44.20 kg/m PAST MEDICAL HISTORY Diagnosis Date Adhesive capsulitis of right shoulder Bipolar affective (HCC) Bursitis of right hip Chronic back pain Chronic obstructive pulmonary disease (COPD) (HCC) CKD (chronic kidney disease) stage 3, GFR 30-59 ml/min ([facility]) Female stress incontinence Fibromyalgia GERD (gastroesophageal reflux disease) intolerant NSAIDS History of blood clots Hypertension Lumbar back pain with radiculopathy affecting right lower extremity Lupus SLE, positive TAN recurrent polyarthritis malar erythema with photosensitivity generalized fatigue treated with Plaquenil, annual ophthalmology exam. Lupus nephritis (HCC) Mixed connective tissue disease (HCC) Morbid obesity (HCC) NIX (nonalcoholic steatohepatitis) Confirmed by FibroScan, DR Jimbo Mcneill Nodule of left lung Osteoarthritis of left knee Osteoarthritis of right knee Polymyalgia rheumatica (HCC) Rheumatoid arthritis(714.0) Subacromial bursitis of right shoulder joint Urge incontinence Vitamin D deficiency PAST SURGICAL HISTORY Procedure Laterality Date HYSTERECTOMY HX IVC FILTER SURGICAL [facility] SALPINGO-OOPHORECTOMY COMPL/PRTL UNI/BI SPX 2008 left ovary TUBAL LIGATION, ALLERGIES Penicillins and Sulfa (Sulfonamide Antibiotics) MEDICATIONS DULoxetine (CYMBALTA) 30 mg capsule Take 2 capsules by mouth once daily. benztropine (COGENTIN) 1 mg tablet Take 2 tablets by mouth once daily. baclofen 10 mg tablet Take 1 tablet by mouth once daily. oxybutynin ER (DITROPAN XL) 15 mg 24 hr Extended Rel Tab Take 2 tablets by mouth every afternoon. semaglutide (OZEMPIC) 0.25 mg or 0.5 mg (2 mg/3 mL) pen Inject 0.5 mg subcutaneously one time a week. (Patient taking differently: Inject 1.25 mg subcutaneously one time a week.) mycophenolate mofetil (CELLCEPT) 250 mg capsule Take 1 capsule by mouth two times a day. spironolactone (ALDACTONE) 50 mg tablet TAKE 1 TABLET BY MOUTH EVERY DAY metoprolol succinate ER (TOPROL XL) 25 mg 24 hr tablet TAKE 1 TABLET BY MOUTH EVERY DAY Amphetamine-Dextroamphetamine (ADDERALL) 30 mg tablet Take 1 capsule by mouth every afternoon. famotidine (PEPCID) 40 mg tablet Take 1 tablet by mouth twice daily. atorvastatin (LIPITOR) 20 mg tablet Take 20 mg by mouth once daily. apixaban (ELIQUIS) 5 mg tab(s) Take 1 tablet by mouth twice daily. ondansetron orally disintegrating (ZOFRAN ODT) 4 mg disintegrating tablet Take 1 tablet by mouth every 6 hours as needed. ARIPiprazole (ABILIFY) 10 mg tablet Take 10 mg by mouth once daily. albuterol HFA (PROAIR HFA) 90 mcg/actuation inhaler Inhale 2 Puffs as instructed every 6 hours as needed. montelukast (SINGULAIR) 10 mg tablet Take 1 tablet by mouth daily at bedtime. traMADol (ULTRAM) 50 mg tablet Take 50 mg by mouth every 12 hours as needed. acetaminophen (TYLENOL) 325 mg tablet Take 2 tablets by mouth every 6 hours as needed. hydroxychloroquine (PLAQUENIL) 200 mg tablet Take 200 mg by mouth twice daily. BUDESONIDE/FORMOTEROL FUMARATE (SYMBICORT INHALATION) Inhale as instructed. CHOLECALCIFEROL, VITAMIN D3, (VITAMIN D-3 ORAL) Take 50,000 Units by mouth every Sunday. lamoTRIgine (LAMICTAL) 200 mg tablet Take 200 mg by mouth two times a day. amLODIPine (NORVASC) 5 mg tablet Take by mouth. (Patient not taking: Reported on 07/07/2024) ergocalciferol 50,000 unit capsule (VITAMIN D2, DRISDOL) 1 TABLET ORALLY ONCE A WEEK 30 DAYS (Patient not taking: Reported on 08/26/2024) WALKER ROLLATOR SEAT WITH 6 WHEELS - RED Walker with rolator (Patient not taking: Reported on 07/07/2024) FAMILY HISTORY Problem Relation Age of Onset COPD Mother Heart Father Rheumatologic disease Sister other (Raynaud's) Sister Social History Tobacco Use Smoking status: Never Smokeless tobacco: Never Vaping Use Vaping status: Never Used Substance Use Topics Alcohol use: No Drug use: No Physical Exam Vitals and nursing note reviewed. Constitutional: General: She is not in acute distress. Appearance: Normal appearance. She is not ill-appearing. HENT: Nose: No congestion or rhinorrhea. Cardiovascular: Rate and Rhythm: Normal rate and regular rhythm. Heart sounds: Normal heart sounds. Pulmonary: Effort: Pulmonary effort is normal. No respiratory distress. Breath sounds: Wheezing present. No rales. Musculoskeletal: Left upper leg: Normal. Left knee: Swelling and ecchymosis present. No deformity, erythema, bony tenderness or crepitus. Normal range of motion. Tenderness present over the lateral joint line. No patellar tendon tenderness.Normal alignment. Normal pulse. Left lower leg: Normal. Legs: Lymphadenopathy: Cervical: No cervical adenopathy. Skin: General: Skin is warm and dry. Findings: No erythema or rash. Neurological: Mental Status: She is alert. {ASSESSMENT/PLAN: 1. Left knee injury, initial encounter - ICD9: 959.7, ICD10: S89.92XA (primary diagnosis) - XR KNEE GENERAL 4V AP BOTH/PA BOTH/LAT/MERC LEFT FINDINGS: No acute fractures or subluxations are noted. Tricompartmental osteophyte formation is present. The joint spaces are well preserved. There is small joint effusion. The mineralization of the bones is normal. There is no significant soft tissue swelling. IMPRESSION IMPRESSION: Degenerative changes in the left knee with small joint effusion. No acute fracture seen. Abattoir Manager: FRANK Transcribe Date/Time: Aug 26 2024 2:13P Dictated by : ARABELLA NUR MD -RICE therapy as discussed 2. Fall, initial encounter - ICD9: E888.9, ICD10: W19.XXXA 3. Asthma with COPD with exacerbation (HCC) - ICD9: 493.22, ICD10: J44.1 - PREDNISONE 10 MG TABLET - doxycycline coverage utilizing GOLD criteria for COPD exacerbation - albuterol as prescribed. - Follow-up with your PCP in 3-5 days if symptoms have not improved or sooner if symptoms worsen - Discussed red flags and need for immediate medical evaluation if any occur. - Discussed supportive care treatment with fluids, rest and analgesia. - Discussed expected course of illness Em Bustamante APRN.EARLY [employer]CHOOL PSYCHOLOGIST Management I performed an independent interpretation of the following:imaging Imaging: My interpretation is see plan Disposition The patient was discharged. OTC Medications were advised: tylenol Procedures [facility] Telephone encounter Note * Telephone Encounter - Kerry Marques MA - 07/28/2024 9:41 AM EDT Pt active on [employer]- message sent Kerry Marques MA [facility]03-24-2025 Miscellaneous Notes* Telephone Encounter - Kerry Marques MA - 07/28/2024 9:41 AM EDT Pt active on [employer]- message sent Kerry Marques MA * Telephone Encounter - Malu Stevens APRN.CNP - 07/28/2024 9:24 AM EDT Please let patient know her Ct shows stable nodules. No follow up imaging indicated. [facility] Telephone encounter Note * Telephone Encounter - Malu Stevens APRN.CNP - 07/28/2024 9:24 AM EDT Please let patient know her Ct shows stable nodules. No follow up imaging indicated. [facility] Work Phone: [phone]) 949-403603-14-2025 History of Present illness Narrative* Reef Brinda Daugherty, RT(R) - 07/18/2024 11:00 AM EDT Radiology Service Progress Note DATE OF SERVICE: July 18, 2024 TIME: 2:58 PM PATIENT IDENTITY VERIFICATION COMPLETED USING TWO (2) STANDARD IDENTIFIERS: Name and Date of confirmed by patient verbally. FALL SCREENING: Has the patient had 2 falls in the last year or 1 fall with injury or currently using an Ambulatory Assistive Device (Walker, Cane, Wheelchair, Crutches, etc.)? No PATIENT GENDER DATA: Assigned female at . status: : No status:NO. PATIENT RELEVANT IMPLANT DATA REVIEWED: Yes PATIENT PRESENTS WITH AN IMPLANTABLE OR ATTACHED COMBAT SYSTEMS ENGINEER: No ALLERGIES: Reviewed and unchanged CONTRAST ALLERGY: NO. EXAM: CT -CONTRAST INDUCED NEPHROPATHY RISK FACTORS: Not applicable CREATININE: Creatinine Date Value Ref Range Status 07/07/2024 1.02 (H) 0.58 - 0.96 mg/dL Final 07/07/2024 1.02 (H) 0.58 - 0.96 mg/dL Final 11/16/2022 1.11 (H) 0.58 - 0.96 mg/dL Final Estimated Glomerular Filtration Rate Date Value Ref Range Status 07/07/2024 65 >=60 mL/min/1.73m Final Comment: Estimated Glomerular Filtration Rate (eGFR) is calculated using the 2020 CKD-EPI creatinine equation. This equation utilizes serum creatinine, sex, and age as parameters. The creatinine assay has traceable calibration to isotope dilution- mass spectrometry. Refer to KDIGO guidelines for clinical interpretation. In patients with unstable renal function, e.g. those with acute kidney injury, the eGFRmay not accurately reflect actual GFR. 07/07/2024 65 >=60 mL/min/1.73m Final Comment: Estimated Glomerular Filtration Rate (eGFR) is calculated using the 2020 CKD-EPI creatinine equation. This equation utilizes serum creatinine, sex, and age as parameters. The creatinine assay has traceable calibration to isotope dilution- mass spectrometry. Refer to KDIGO guidelines for clinical interpretation. In patients with unstable renal function, e.g. those with acute kidney injury, the eGFRmay not accurately reflect actual GFR. eGFR- Date Value Ref Range Status 07/23/2020 41 Final P.O.C.T. RESULTS: POC done: Yes, See Lab Tab July 18, 2024 TREATMENT: N/A PERIPHERAL IV DATA: Ambulatory: A peripheral IV was started in the Left antecubital site with a Angio cath: 22 gauge. RADIOLOGY DEPARTMENT: CT; Exam(s) Completed: Chest SIGNATURE: GARY Cowart) PATIENT NAME: Michael Bustos DATE: July 18, 2024 TIME: 2:58 PM documented in this encounterWestern [facility]03-14-[facility]25 NoteHNO ID: [id number] Author: BRINDA ESTEVEZ RT(R) Service: ? Author Type: Senior Medical Writer Type: Progress Notes Filed: 07/18/2024 14:59 Note Text: Radiology Service Progress Note DATE OF SERVICE: July 18, 2024 TIME: 2:58 PM PATIENT IDENTITY VERIFICATION COMPLETED USING TWO (2) STANDARD IDENTIFIERS: Name and Date of confirmed by patient verbally. FALL SCREENING: Has the patient had 2 falls in the last year or 1 fall with injury or currently using an Ambulatory Assistive Device (Walker, Cane, Wheelchair, Crutches, etc.)? No PATIENT GENDER DATA: Assigned female at . status: : No status: NO. PATIENT RELEVANT IMPLANT DATA REVIEWED: Yes PATIENT PRESENTS WITH AN IMPLANTABLE OR ATTACHED COMBAT SYSTEMS ENGINEER: No ALLERGIES: Reviewed and unchanged CONTRAST ALLERGY: NO. EXAM: CT -CONTRAST INDUCED NEPHROPATHY RISK FACTORS: Not applicable CREATININE: Creatinine Date Value Ref Range Status 07/07/2024 1.02 (H) 0.58 - 0.96 mg/dL Final 07/07/2024 1.02 (H) 0.58 - 0.96 mg/dL Final 11/16/2022 1.11 (H) 0.58 - 0.96 mg/dL Final Estimated Glomerular Filtration Rate Date Value Ref Range Status 07/07/2024 65 >=60 mL/min/1.73m? Final Comment: Estimated Glomerular Filtration Rate (eGFR) is calculated using the 2020 CKD-EPI creatinine equation. This equation utilizes serum creatinine, sex, and age as parameters. The creatinine assay has traceable calibration to isotope dilution-mass spectrometry. Refer to KDIGO guidelines for clinical interpretation. In patients with unstable renal function, e.g. those with acute kidney injury, the eGFR may not accurately reflect actual GFR. 07/07/2024 65 >=60 mL/min/1.73m? Final Comment: Estimated Glomerular Filtration Rate (eGFR) is calculated using the 2020 CKD-EPI creatinine equation. This equation utilizes serum creatinine, sex, and age as parameters. The creatinine assay has traceable calibration to isotope dilution-mass spectrometry. Refer to KDIGO guidelines for clinical interpretation. In patients with unstable renal function, e.g. those with acute kidney injury, the eGFR may not accurately reflect actual GFR. eGFR- Date Value Ref Range Status 07/23/2020 41 Final P.O.C.T. RESULTS: POC done: Yes, See Lab Tab July 18, 2024 TREATMENT: N/A PERIPHERAL IV DATA: Ambulatory: A peripheral IV was started in the Left antecubital site with a Angio cath: 22 gauge. RADIOLOGY DEPARTMENT: CT; Exam(s) Completed: Chest SIGNATURE: RT Supa(R) PATIENT NAME: Michael Bustos DATE: July 18, 2024 TIME: 2:58 [facility]03-05-2025 Telephone encounter Note* Telephone Encounter - Scottie Allen LPN - 07/09/2024 11:32 AM EST LM to return call to office. Scottie Allen LPN [facility]03-05-2025 Miscellaneous Notes* Telephone Encounter - Scottie Allen LPN - 07/09/2024 11:32 AM EST LM to return call to office. Scottie Allen LPN * Telephone Encounter - Scottie Allen LPN - 07/09/2024 11:30 AM EST ----- Message from Christy Irving APRN.EARLY INTERVENTION SCHOOL PSYCHOLOGIST sent at 07/08/2024 7:15 AM EST ----- Kidney function is stable. Cholesterol in normal range- continue medications, diet and exercise. Christy Irving APRN.EARLY INTERVENTION SCHOOL PSYCHOLOGIST documented in this encounterWestern [facility]03-[facility]-2025 Telephone encounter Note * Telephone Encounter - Scottie Allen LPN - 07/09/2024 11:30 AM EST ----- Message from Christy Irving APRN.EARLY INTERVENTION SCHOOL PSYCHOLOGIST sent at 07/08/2024 7:15 AM EST ----- Kidney function is stable. Cholesterol in normal range- continue medications, diet and exercise. Christy Irving APRN.EARLY INTERVENTION SCHOOL PSYCHOLOGIST [facility]03-04-2025 NotePatient Outreach (FAMPWS) MICHAEL BUSTOS ([id number]) 1970 F Date Time Provider Department 07/08/24 GASPER WILSON During your visit today, we recorded the following information about you: Allergies As of Date: 07/08/2024 Noted Allergy Reaction PENICILLINS 02/21/2008 4 - Hives SULFA (SULFONAMIDE ANTIBIOTICS) 02/21/2008 16 - Unknown Date Reviewed: 06/01/2023 Reviewed by: Amara Dick LPN - Fully Assessed Visit Diagnosis:Encounter for screening mammogram for breast cancer [Z12.31] Order(s):[facility] SCREENING W GABI [[id number]] Order #: [id number] FUTURE Prescriptions as of 08/08/2024 - DULoxetine (CYMBALTA) 30 mg capsule Take 2 capsules by mouth once daily. - benztropine (COGENTIN) 1 mg tablet Take 2 tablets by mouth once daily. - baclofen 10 mg tablet Take 1 tablet by mouth once daily. - oxybutynin ER (DITROPAN XL) 15 mg 24 hr Extended Rel Tab Take 2 tablets by mouth every afternoon. - semaglutide (OZEMPIC) 0.25 mg or 0.5 mg (2 mg/3 mL) pen Inject 0.5 mg subcutaneously one time a week. - mycophenolate mofetil (CELLCEPT) 250 mg capsule Take 1 capsule by mouth two times a day. - spironolactone (ALDACTONE) 50 mg tablet TAKE 1 TABLET BY MOUTH EVERY DAY - metoprolol succinate ER (TOPROL XL) 25 mg 24 hr tablet TAKE 1 TABLET BY MOUTH EVERY DAY - amphetamine-dextroamphetamine XR (ADDERALL XR) 5 mg capsule Take 1 capsule by mouth every afternoon. - amLODIPine (NORVASC) 5 mg tablet Take by mouth. - famotidine (PEPCID) 40 mg tablet Take 1 tablet by mouth twice daily. - ergocalciferol 50,000 unit capsule (VITAMIN D2, DRISDOL) 1 TABLET ORALLY ONCE A WEEK 30 DAYS - atorvastatin (LIPITOR) 20 mg tablet Take 20 mg by mouth once daily. - apixaban (ELIQUIS) 5 mg tab(s) Take 1 tablet by mouth twice daily. - ondansetron orally disintegrating (ZOFRAN ODT) 4 mg disintegrating tablet Take 1 tablet by mouth every 6 hours as needed. - WALKER ROLLATOR SEAT WITH 6 WHEELS - RED Walker with rolator - ARIPiprazole (ABILIFY) 10 mg tablet Take 10 mg by mouth once daily. - albuterol HFA (PROAIR HFA) 90 mcg/actuation inhaler Inhale 2 Puffs as instructed every 6 hours as needed. - montelukast (SINGULAIR) 10 mg tablet Take 1 tablet by mouth daily at bedtime. - traMADol (ULTRAM) 50 mg tablet Take 50 mg by mouth every 12 hours as needed. - acetaminophen (TYLENOL) 325 mg tablet Take 2 tablets by mouth every 6 hours as needed. - hydroxychloroquine (PLAQUENIL) 200 mg tablet Take 200 mg by mouth twice daily. - BUDESONIDE/FORMOTEROL FUMARATE (SYMBICORT INHALATION) Inhale as instructed. - CHOLECALCIFEROL, VITAMIN D3, (VITAMIN D-3 ORAL) Take 50,000 Units by mouth every Sunday. - lamoTRIgine (LAMICTAL) 100 mg tablet Take 200 mg by mouth twice daily. Problem List As Of Date 07/08/2024 Noted Resolved OVARIAN CYST -HEMORRHAGIC [N83.209] 11/04/2008 FLUID SEE ALSO ELECTROLYTE OR PERITONEAL CA*11/04/2008 Chest pain [R07.9] 05/24/2016 Acute midline thoracic back pain [M54.6] 05/24/2016 Pleurisy [R09.1] 05/24/2016 GERD (gastroesophageal reflux disease) [K21.9] 05/25/2016 Epigastric pain [R10.13] 11/12/2016 Epigastric abdominal pain [R10.13] 11/12/2016 Obesity, Class III, BMI >= 40 (morbid obesity) *11/14/2016 Asthma with chronic obstructive pulmonary disea*06/24/2019 Asthma exacerbation [J45.901] 06/24/2019 History of pulmonary embolus (PE) [Z86.711] 06/25/2019 Primary hypertension [I10] 06/25/2019 Lupus (HCC) [DNI3620] 06/25/2019 Polymyalgia rheumatica (HCC) [M35.3] 11/25/2021 On continuous oral anticoagulation [Z79.01] 11/25/2021 Intractable periodic headache syndrome [G43.C1] 07/07/2024 Nodule of left lung [R91.1] 07/07/2024 Encounter Status:Closed by ALON MARSH on 08/08/24[facility] 07-07-2024 NoteHNO ID: [id number] Author: CHRISTY IRVING APRN.EARLY INTERVENTION SCHOOL PSYCHOLOGIST Service: ? Author Type: Nurse Practitioner Type: Progress Notes Filed: 07/07/2024 14:34 Note Text: 07/07/2024 Patient presents with: Establish Care: Patient sees Nephrology in [place] - will need new referral; Rheumatology - will need new referral - for lupus/fibro - had cortisone shot 3 months ago. SUBJECTIVE: This is a 54 year old that is here today for Above Complaints. Orginally from [place]. Moved here about about a year ago. 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 Follows with stereo equipment installer in [place] for lupus nephritis. Taking medication as prescribed. Last office appointment on 06/19/2024. No follow-up scheduled at this time. She reports she has a hx of left lung nodule and needs repeat CT scan ordered Taking Ozempic which she started in May for weight loss. Down 36 # since starting Tolerating without side effects. Follows with psychiatry for hx of Bipolar disorder. Taking medications as prescribed with side effect of dry mouth Would like increase in her Ditropan as she still deals with stress and urge incontinence Past medical, surgical, family, social hx, medications, allergies and health maintenance reviewed and updated PAST MEDICAL HISTORY Diagnosis Date Adhesive capsulitis of right shoulder Bursitis of right hip Chronic obstructive pulmonary disease (COPD) (HCC) Fibromyalgia GERD (gastroesophageal reflux disease) intolerant NSAIDS History of blood clots Hypertension Lumbar back pain with radiculopathy affecting right lower extremity Lupus SLE, positive TAN recurrent polyarthritis malar erythema with photosensitivity generalized fatigue treated with Plaquenil, annual ophthalmology exam. Mixed connective tissue disease (HCC) Morbid obesity (HCC) NIX (nonalcoholic steatohepatitis) Confirmed by FibroScan, DR Jimbo Mcneill Osteoarthritis of left knee Osteoarthritis of right knee Polymyalgia rheumatica (HCC) Rheumatoid arthritis(714.0) Subacromial bursitis of right shoulder joint Vitamin D deficiency ALLERGIES Penicillins and Sulfa (Sulfonamide Antibiotics) MEDICATIONS Current Outpatient Medications Medication Sig semaglutide (OZEMPIC) 0.25 mg or 0.5 mg (2 mg/3 mL) pen Inject 0.5 mg subcutaneously one time a week. mycophenolate mofetil (CELLCEPT) 250 mg capsule Take 1 capsule by mouth two times a day. spironolactone (ALDACTONE) 50 mg tablet TAKE 1 TABLET BY MOUTH EVERY DAY metoprolol succinate ER (TOPROL XL) 25 mg 24 hr tablet TAKE 1 TABLET BY MOUTH EVERY DAY oxybutynin ER (DITROPAN XL) 15 mg 24 hr Extended Rel Tab Take 1 tablet by mouth every afternoon. amphetamine-dextroamphetamine XR (ADDERALL XR) 5 mg capsule Take 1 capsule by mouth every afternoon. DULoxetine (CYMBALTA) 30 mg capsule Take 1 capsule by mouth once daily. (Patient taking differently: Take 60 mg by mouth once daily.) amLODIPine (NORVASC) 5 mg tablet Take by mouth. (Patient not taking: Reported on 07/07/2024) Phentermine HCl 37.5 mg capsule Take 37.5 mg by mouth daily before breakfast. famotidine (PEPCID) 40 mg tablet Take 1 tablet by mouth twice daily. BREO ELLIPTA 200-25 mcg/dose inhaler Inhale 1 Inhalation as instructed once daily. ergocalciferol 50,000 unit capsule (VITAMIN D2, DRISDOL) 1 TABLET ORALLY ONCE A WEEK 30 DAYS benztropine (COGENTIN) 1 mg tablet Take 0.5-1 mg by mouth twice daily as needed. atorvastatin (LIPITOR) 20 mg tablet Take 20 mg by mouth once daily. baclofen (LIORESAL) 10 mg tablet TAKE 1 TABLET BY MOUTH EVERY DAY FOR 90 DAYS apixaban (ELIQUIS) 5 mg tab(s) Take 1 tablet by mouth twice daily. nebivolol (BYSTOLIC) 5 mg tablet Take 1 tablet by mouth once daily. ondansetron orally disintegrating (ZOFRAN ODT) 4 mg disintegrating tablet Take 1 tablet by mouth every 6 hours as needed. WALKER ROLLATOR SEAT WITH 6 WHEELS - RED Walker with rolator (Patient not taking: Reported on 07/07/2024) ARIPiprazole (ABILIFY) 10 mg tablet Take 10 mg by mouth once daily. albuterol HFA (PROAIR HFA) 90 mcg/actuation inhaler Inhale 2 Puffs as instructed every 6 hours as needed. montelukast (SINGULAIR) 10 mg tablet Take 1 tablet by mouth daily at bedtime. traMADol (ULTRAM) 50 mg tablet Take 50 mg by mouth every 12 hours as needed. ondansetron (ZOFRAN) 4 mg tablet Take 1 tablet by mouth every 6 hours as needed. (Patient not taking: Reported on 07/07/2024) acetaminophen (TYLENOL) 325 mg tablet Take 2 tablets by mouth every 6 hours as needed. metoclopramide HCl (REGLAN) 5 mg tablet Take 1 tablet by mouth three times daily before meals. sucralfate (CARAFATE) 1 gram tablet Take 1 tablet by mouth three times daily with meals. (Patient not taking: Reported on 07/07/2024) hydroxychloroquine (PLAQUENIL) 200 mg tablet Take 200 mg by mouth twice daily. BUDESONIDE/FORMOTEROL FUMARATE (SYMBICORT INHALATION) Inhale as instructed. CHOLECALCIFEROL, VITAMIN D3, (VITAMIN D-3 ORAL) Ta (more content not included)...[facility]03-03-2025 History of Present illness Narrative* PodlogarChristy APRN.EARLY INTERVENTION SCHOOL PSYCHOLOGIST - 07/07/2024 11:16 AM EST 07/07/2024 Patient presents with: Establish Care: Patient sees Nephrology in [place] - will need new referral; Rheumatology - will need new referral - for lupus/fibro - had cortisone shot 3 months ago. SUBJECTIVE: This is a 54 year old that is here today for Above Complaints. Orginally from [place]. Moved here about about a year ago. 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 Follows with stereo equipment installer in [place] for lupus nephritis. Taking medication as prescribed. Last office appointment on 06/19/2024. No follow-up scheduled at this time. She reports she has a hx of left lung nodule and needs repeat CT scan ordered Taking Ozempic which she started in May for weight loss. Down 36 # since starting Tolerating without side effects. Follows with psychiatry for hx of Bipolar disorder. Taking medications as prescribed with side effect of dry mouth Would like increase in her Ditropan as she still deals with stress and urge incontinence Past medical, surgical, family, social hx, medications, allergies and health maintenance reviewed and updated PAST MEDICAL HISTORY Diagnosis Date Adhesive capsulitis of right shoulder Bursitis of right hip Chronic obstructive pulmonary disease (COPD) (HCC) Fibromyalgia GERD (gastroesophageal reflux disease) intolerant NSAIDS History of blood clots Hypertension Lumbar back pain with radiculopathy affecting right lower extremity Lupus SLE, positive TAN recurrent polyarthritis malar erythema with photosensitivity generalized fatigue treated with Plaquenil, annual ophthalmology exam. Mixed connective tissue disease (HCC) Morbid obesity (HCC) NIX (nonalcoholic steatohepatitis) Confirmed by FibroScan, DR Jimbo Mcneill Osteoarthritis of left knee Osteoarthritis of right knee Polymyalgia rheumatica (HCC) Rheumatoid arthritis(714.0) Subacromial bursitis of right shoulder joint Vitamin D deficiency ALLERGIES Penicillins and Sulfa (Sulfonamide Antibiotics) MEDICATIONS Current Outpatient Medications Medication Sig semaglutide (OZEMPIC) 0.25 mg or 0.5 mg (2 mg/3 mL) pen Inject 0.5 mg subcutaneously one time a week. mycophenolate mofetil (CELLCEPT) 250 mg capsule Take 1 capsule by mouth two times a day. spironolactone (ALDACTONE) 50 mg tablet TAKE 1 TABLET BY MOUTH EVERY DAY metoprolol succinate ER (TOPROL XL) 25 mg 24 hr tablet TAKE 1 TABLET BY MOUTH EVERY DAY oxybutynin ER (DITROPAN XL) 15 mg 24 hr Extended Rel Tab Take 1 tablet by mouth every afternoon. amphetamine-dextroamphetamine XR (ADDERALL XR) 5 mg capsule Take 1 capsule by mouth every afternoon. DULoxetine (CYMBALTA) 30 mg capsule Take 1 capsule by mouth once daily. (Patient taking differently: Take 60 mg by mouth once daily.) amLODIPine (NORVASC) 5 mg tablet Take by mouth. (Patient not taking: Reported on 07/07/2024) Phentermine HCl 37.5 mg capsule Take 37.5 mg by mouth daily before breakfast. famotidine (PEPCID) 40 mg tablet Take 1 tablet by mouth twice daily. BREO ELLIPTA 200-25 mcg/dose inhaler Inhale 1 Inhalation as instructed once daily. ergocalciferol 50,000 unit capsule (VITAMIN D2, DRISDOL) 1 TABLET ORALLY ONCE A WEEK 30 DAYS benztropine (COGENTIN) 1 mg tablet Take 0.5-1 mg by mouth twice daily as needed. atorvastatin (LIPITOR) 20 mg tablet Take 20 mg by mouth once daily. baclofen (LIORESAL) 10 mg tablet TAKE 1 TABLET BY MOUTH EVERY DAY FOR 90 DAYS apixaban (ELIQUIS) 5 mg tab(s) Take 1 tablet by mouth twice daily. nebivolol (BYSTOLIC) 5 mg tablet Take 1 tablet by mouth once daily. ondansetron orally disintegrating (ZOFRAN ODT) 4 mg disintegrating tablet Take 1 tablet by mouth every 6 hours as needed. WALKER ROLLATOR SEAT WITH 6 WHEELS - RED Walker with rolator (Patient not taking: Reported on 07/07/2024) ARIPiprazole (ABILIFY) 10 mg tablet Take 10 mg by mouth once daily. albuterol HFA (PROAIR HFA) 90 mcg/actuation inhaler Inhale 2 Puffs as instructed every 6 hours as needed. montelukast (SINGULAIR) 10 mg tablet Take 1 tablet by mouth daily at bedtime. traMADol (ULTRAM) 50 mg tablet Take 50 mg by mouth every 12 hours as needed. ondansetron (ZOFRAN) 4 mg tablet Take 1 tablet by mouth every 6 hours as needed. (Patient not taking: Reported on 07/07/2024) acetaminophen (TYLENOL) 325 mg tablet Take 2 tablets by mouth every 6 hours as needed. metoclopramide HCl (REGLAN) 5 mg tablet Take 1 tablet by mouth three times daily before meals. sucralfate (CARAFATE) 1 gram tablet Take 1 tablet by mouth three times daily with meals. (Patient not taking: Reported on 07/07/2024) hydroxychloroquine (PLAQUENIL) 200 mg tablet Take 200 mg by mouth twice daily. BUDESONIDE/FORMOTEROL FUMARATE (SYMBICORT INHALATION) Inhale as instructed. CHOLECALCIFEROL, VITAMIN D3, (VITAMIN D-3 ORAL) Take 50,000 Units by mouth every Sunday. lamoTRIgine (LAMICTAL) 100 mg tablet Take 200 mg by mouth twice daily. No current facility-administered medications for this visit. Medications and allergies reviewed by this provider. SOCIAL HISTORY Social History Tobacco Use Smoking status: Never Smokeless tobacco: Current Vaping Use Vaping status: Never Used Substance Use Topics Alcohol use: No Drug use: No REVIEW OF SYSTEMS GENERAL: No malaise or fevers HEENT: No changes in hearing or vision, no nose bleeds or other nasal problems NECK: Negative for lumps, goiter, pain and significant neck swelling RESPIRATORY: Negative for cough, hemoptysis, wheezing, dyspnea or shortness of breath CARDIOVASCULAR: Negative for chest pain, leg swelling, hypertension, CHF or palpitations GI: No nausea, vomiting, or diarrhea : No history of dysuria, frequency BAR USEFUL OR BUSSER: Negative for abnormal vaginal bleeding, abnormal vaginal discharge MUSCULOSKELETAL: hx of Fibromyalgia and chronic back pain SKIN: Negative for lesions, rash, and itching PSYCH: Negative for sleep disturbance, mood disorder and recent psychosocial stressors, See HPI HEMATOLOGY/LYMPHOLOGY: Negative for prolonged bleeding, bruising easily or swollen nodes ENDOCRINE: Negative for cold or heat intolerance, polyuria,and goiter NEURO: No history of syncope, paralysis, seizures or tremors All other reviewed and negative other than HPI. OBJECTIVE: BP 118/80 Pulse 80 Resp 18 Ht 170.2 cm (5' 7) Wt 126.1 kg (278 lb) BMI 43.54 kg/m . Vital signs reviewed by this provider. APPEARANCE Well appearing, alert, in no acute distress, well-hydrated, well nourished. EYES PERRLA, conjunctiva and sclera normal. EARS External ears normal, canals clear NECK Supple, no adenopathy; thyroid symmetric, normal size, no bruits HEART RRR with normal S1 and S2, no murmurs, no gallops, no JVD appreciated LUNG clear to auscultation. No wheezes, rhonchi or rales ABDOMEN bowel sounds normoactive, no bruits, soft, non-tender, non-distended EXTREMITIES Extremities normal, No deformities, No skin discoloration, and No edema SKIN Skin color, texture, turgor normal, no suspicious rashes or lesions to exposed skin Cervical Cancer Screening Never done Spirometry Never done Depression Screening Never done Anxiety Screening Never done Hepatitis C Screening Never done HIV Screening Never done BP Controlled (<130/80) Never done Alpha-1 Antitrypsin Deficiency Screening Never done Mammogram Screening Never done Colorectal Cancer Screening Never done Pneumococcal Vaccine: 50+(2 of 2 - PPSV23) due on 10/17/2018 Hepatitis B Vaccine(2 of 3 - 19+ 3-dose series) due on 02/21/2022 Serum Creatinine due on 11/17/2023 Influenza Vaccine(1) due on 01/06/2024 Shingrix Vaccine(2 of 2) due on 04/05/2024 Covid-19 Vaccine(5 - Moderna risk season) due on 08/09/2024 Annual PCP Team Chronic Disease Visit due on 07/07/2025 Lipid Screening due on 07/24/2025 Diabetes Screening due on 08/07/2025 DTaP,Tdap,Td Vaccine(2 - Td or Tdap) due on 05/11/2026 ASSESSMENT/PLAN: 1. Encounter for medical examination to establish care - ICD9: V70.9, ICD10: Z00.00 (primary diagnosis) - Counseled on healthy diet and regular exercise - Discussed need and benefit for weight loss. BMI 43.54 kg/(m^2) - will need to obtain records from previous PCP - follow-up in 6 months for routine exam 2. Systemic lupus erythematosus, unspecified SLE type, unspecified organ involvement status (HCC) -ICD9: 710.0, ICD10: M32.9 - CONSULT TO RHEUM/IMMUN DISEASE 3. Rheumatoid arthritis, involving unspecified site, unspecified whether rheumatoid factor present (HCC) - ICD9: 714.0, ICD10: M06.9 - CONSULT TO RHEUM/IMMUN DISEASE 4. Hyperlipidemia, mixed - ICD9: 272.2, ICD10: E78.2 - Control undetermined, due for labs - Continue current medications - Counseled on healthy diet and regular exercise - Discussed need for and benefit of weight loss. BMI 43.54 kg/(m^2) - Follow up in 6 months, sooner should any other issues arise. - LIPID PANEL, NONFASTING 5. Nodule of left lung - ICD9: 793.11, ICD10: R91.1 - CT CHEST W IVCON - IV CONTRAST (RADIOLOGY PROCEDURE) - NOT ON MAR - CREATININE BLD 6. Chronic obstructive pulmonary disease, unspecified COPD type (HCC) - ICD9: 496, ICD10: J44.9 - stable on current regime 7. Class 3 severe obesity due to excess calories with body mass index (BMI) of 50.0 to 59.9 in adult, unspecified whether serious comorbidity present (HCC) - ICD9: 278.01, V85.43, ICD10: E66.813, Z68.43, E66.01 Weight decreasing - Behavioral intervention and - Pharmacological intervention - Lengthy discussion in office today regarding diet and exercise. Discussed use of small plate to eat meals from, drink 1 glass of water 10-15 minutes prior to eating meal, drink 8 glasses of water daily, eat fresh fruit and vegetable during meal first then lean protein such as grilled/baked chicken breast or fish, limit carbohydrate intake (less pasta, breads, rice and snack foods) as well as limiting sugars (desserts etc). Important to count / track your calories and exercise as well. 8. Hx of bipolar disorder - ICD9: V11.1, ICD10: Z86.59 - follow-up with psychiatry as recommended 9. Mixed incontinence urge and stress (male)(female) - ICD9: 788.33, ICD10: N39.46 - follow-up if symptoms fail to improve - OXYBUTYNIN CHLORIDE ER 15 MG TABLET,EXTENDED RELEASE 24 HR Christy Irving APRN.[employer]CH[employer] [facility] of Present illness Narrative* Marva Malhotra MD - 06/19/2024 11:05 AM EST Nephrology Department Outpatient Visit Date June 19, 2024 Outpatient Visit Type Established Visit Follow up for chronic kidney disease, lupus nephritis Cc: chronic kidney disease stage IIIa 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 twice daily without side effects Blood pressure well-controlled with spironolactone 50 mg p.o. daily Ozempic 0.25 new medications: Follows with track superintendent Dr. Blanton, tramadol for pain Newly prescribed Ativan for anxiety. Medication she tolerates CellCept 250 mg p.o. twice daily. Vitamin D 50,000 units once a week. Bystolic 5 mg p.o. daily. Spironolactone 25 --> 50 mg p.o. 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 October 2020 scr 1.59 mg/dl, egfr 34 ml/min November 2020 serum creatinine 0.8 mg/dL, EGFR 59 mL/min per 1.73 m Labs at [place] physician collected April 19, 2021 demonstrated a creatinine of 1.08 and EGFR 53.3. Albumin to creatinine ratio of 16 tylenol arthritis 2 tabs in am and 2 pm Tramadol Lupus for > 14 yrs. On plaquine and prednisone PMR on prednisone. biofreeze helping with pain Lupus anticoag + on eliquis (2 PE). Wt 326--> 314 Ibs on Ozempic Severe neuropathy On Cymbalta psychiatric weaning her off Cymbalta for anxiety. On Lamictal Loosing weight intentional complete blood count demonstrated white blood cells 4.5 hemoglobin 12.9 Complete blood work as of November 2020 demonstrated sodium 142 potassium 3.7 chloride 104 bicarb 35 BUN 13 creatinine 0.89 mg deciliter EGFR 59 mouth for minute total protein 6.7 albumin 3.8 calcium 9.6total bilirubin 0.5 AST 2022 Hemoglobin A1c 5.3. ad an echocardiogram September 13, 2020 will obtain results. 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 On lamictal for bipolar Patient's previous records, notes and chart reviewed and summarized above. Today's office visit June 19, 2024 Patient reports complete resolution of foamy urine with resuming CellCept. No side effects from CellCept. Her blood pressure well-controlled with spironolactone currently at 50 mg. Reports feeling better in her voice no new complaint. Tolerating Ozempic and continue to lose weight patient happy about that. Recently started on tramadol and Ativan. 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 Dyspnea with exertion Lower back pain Intermittent leg cramps Weight is stable Patient reports better blood pressure BP 120-130/80, HR 60, Afebrile, wt stable. Meds reviewed, refilled. Patient's blood pressure is well controlled at home. Patient's denies any dysuria, hematuria, foamy urine or other voiding complaints. Patient reports leg swelling. Denies SOB/LEE, orthopnea, PND or other symptoms of fluid overload. Patient denies any overt symptoms of uremia. No adverse effects with meds. No other complaints. Patient denies fever, chills, cp, dyspnea, nausea, vomiting, night sweats, puentes, bowel/bladder changes, weight changes or other complaints. visit December 23, 2020: Reports significant improvement in blood pressure, weight patient following more healthier diet. She discontinued Tylenol arthritis since last visit she has been taking less pain medications. Serum creatinine improved to 0.89 mg/dL EGFR 59 mL/min per 1.73 m Significant improvement in proteinuria as well Anatomical challenge likely contributing to a smaller right kidney Images reviewed with the patient IVC filter close to right infrarenal aorta, right renal vein Patient also on Eliquis for PE No need for kidney biopsy office Visit October 21, 2020: Labs dated July 23, 2020 demonstrated serum creatinine 1.59 mg/dL EGFR 34 mL/min per 1 7 3 m so8 potassium 4.7 chloride 104 bicarb 24 Patient reports better blood pressure BP 120-130/80, HR 60, Afebrile, wt stable. Meds reviewed, refilled. Patient's blood pressure is well controlled at home. Patient's denies any dysuria, hematuria, foamy urine or other voiding complaints. Patient denies any leg swelling, SOB/LEE, orthopnea, PND or other symptoms of fluid overload. Patient denies any overt symptoms of uremia. No adverse effects with meds. No other complaints. Patient denies fever, chills, cp, dyspnea, nausea, vomiting, night sweats, puentes, bowel/bladder changes, weight changes or other complaints. -Duration (when): years -Location (where): kidneys -Severity (ex: creat 4.5, BP 200/100): Cr Chronic kidney disease, scr 1.59 mg/dl, egfr 34 ml/min -Context: DM -Timing/Modifying factors/Associated symptoms (ex: meds/continuous/SOB/edema): continuous Recent procedures/hospitalizations/contrasted CT scans: denies Patient denies CP, SOB, orthopnea or PND. Denies progressive leg edema No nausea, emesis,abdominal pain or diarrhea No dysuria, gross hematuria or new flank pain. No fever or chills. No dizziness,PUENTES or focal numbness or weakness. Wt is stable ALLERGIES Allergen Reactions Penicillins Hives Sulfa (Sulfonamide * Unknown Current Outpatient Medications Medication Sig semaglutide (OZEMPIC) 0.25 mg or 0.5 mg (2 mg/3 mL) pen Inject 0.5 mg subcutaneously one time a week. mycophenolate mofetil (CELLCEPT) 250 mg capsule Take 1 capsule by mouth two times a day. spironolactone (ALDACTONE) 50 mg tablet TAKE 1 TABLET BY MOUTH EVERY DAY metoprolol succinate ER (TOPROL XL) 25 mg 24 hr tablet TAKE 1 TABLET BY MOUTH EVERY DAY oxybutynin ER (DITROPAN XL) 15 mg 24 hr Extended Rel Tab Take 1 tablet by mouth every afternoon. amphetamine-dextroamphetamine XR (ADDERALL XR) 5 mg capsule Take 1 capsule by mouth every afternoon. DULoxetine (CYMBALTA) 30 mg capsule Take 1 capsule by mouth once daily. amLODIPine (NORVASC) 5 mg tablet Take by mouth. Phentermine HCl 37.5 mg capsule Take 37.5 mg by mouth daily before breakfast. famotidine (PEPCID) 40 mg tablet Take 1 tablet by mouth twice daily. BREO ELLIPTA 200-25 mcg/dose inhaler Inhale 1 Inhalation as instructed once daily. ergocalciferol 50,000 unit capsule (VITAMIN D2, DRISDOL) 1 TABLET ORALLY ONCE A WEEK 30 DAYS benztropine (COGENTIN) 1 mg tablet Take 0.5-1 mg by mouth twice daily as needed. atorvastatin (LIPITOR) 20 mg tablet Take 20 mg by mouth once daily. baclofen (LIORESAL) 10 mg tablet TAKE 1 TABLET BY MOUTH EVERY DAY FOR 90 DAYS apixaban (ELIQUIS) 5 mg tab(s) Take 1 tablet by mouth twice daily. nebivolol (BYSTOLIC) 5 mg tablet Take 1 tablet by mouth once daily. ondansetron orally disintegrating (ZOFRAN ODT) 4 mg disintegrating tablet Take 1 tablet by mouth every 6 hours as needed. WALKER ROLLATOR SEAT WITH 6 WHEELS - RED Walker with rolator ARIPiprazole (ABILIFY) 10 mg tablet Take 10 mg by mouth once daily. albuterol HFA (PROAIR HFA) 90 mcg/actuation inhaler Inhale 2 Puffs as instructed every 6 hours as needed. montelukast (SINGULAIR) 10 mg tablet Take 1 tablet by mouth daily at bedtime. traMADol (ULTRAM) 50 mg tablet Take 50 mg by mouth every 12 hours as needed. ondansetron (ZOFRAN) 4 mg tablet Take 1 tablet by mouth every 6 hours as needed. acetaminophen (TYLENOL) 325 mg tablet Take 2 tablets by mouth every 6 hours as needed. metoclopramide HCl (REGLAN) 5 mg tablet Take 1 tablet by mouth three times daily before meals. sucralfate (CARAFATE) 1 gram tablet Take 1 tablet by mouth three times daily with meals. hydroxychloroquine (PLAQUENIL) 200 mg tablet Take 200 mg by mouth twice daily. BUDESONIDE/FORMOTEROL FUMARATE (SYMBICORT INHALATION) Inhale as instructed. CHOLECALCIFEROL, VITAMIN D3, (VITAMIN D-3 ORAL) Take 50,000 Units by mouth every Sunday. lamoTRIgine (LAMICTAL) 100 mg tablet Take 200 mg by mouth twice daily. No current facility-administered medications for this visit. PAST MEDICAL HISTORY Diagnosis Date Adhesive capsulitis of right shoulder Bursitis of right hip Chronic obstructive pulmonary disease (COPD) (HCC) Fibromyalgia GERD (gastroesophageal reflux disease) intolerant NSAIDS History of blood clots Hypertension Lumbar back pain with radiculopathy affecting right lower extremity Lupus (HCC) SLE, positive TAN recurrent polyarthritis malar erythema with photosensitivity generalized fatigue treated with Plaquenil, annual ophthalmology exam. Mixed connective tissue disease (HCC) Morbid obesity (HCC) NIX (nonalcoholic steatohepatitis) Confirmed by FibroScan, DR Jimbo Mcneill Osteoarthritis of left knee Osteoarthritis of right knee Polymyalgia rheumatica (HCC) Rheumatoid arthritis(714.0) Subacromial bursitis of right shoulder joint Vitamin D deficiency PAST SURGICAL HISTORY Procedure Laterality Date HYSTERECTOMY HX IVC FILTER SURGICAL [facility] SALPINGO-OOPHORECTOMY COMPL/PRTL UNI/BI SPX 2009 left ovary TUBAL LIGATION, FAMILY HISTORY Problem Relation Age of Onset Heart Father Rheumatologic disease Sister other (Raynaud's) Sister Social History Tobacco Use Smoking status: Never Smokeless tobacco: Current Vaping Use Vaping status: Never Used Substance Use Topics Alcohol use: No Drug use: No REVIEW OF SYMPTOMS: CONSTITUTIONAL: Denies fevers, chills, and weight changes. Denies fatigue/malaise. PULMONARY: Denies shortness of breath, wheezing, cough or hemoptysis. CARDIOLOGY: Denies chest pain, palpitations, LEE, orthopnea or PND. GI: No anorexia, nausea, vomiting, dysphagia, diarrhea, constipation, abdominal pain, hematochezia or melena. : No urinary hesitancy or dribbling. No nocturia or urinary frequency. No abnormal discharge. No hematuria, dysuria, or flank pain. MUSCULO-SKELETAL: No joint pain, swelling or erythema. SKIN: Denies any rashes or skin changes. No itching. EXTREMITIES: Denies any lower Extremity edema. Denies any claudication or peripheral ulcer. A full 12 point ROS was obtained and is negative other than that cited above. PHYSICAL EXAMINATION: BP 120/60 Pulse 67 No weight on file for this encounter. LAB DATA Labs performed December 18, 2023 serum creatinine 1 mg liter eGFR 57.8 mL/min TSH 5 Labs performed at primary physician February 28, 2023 as follow. Renal parameters stable serum creatinine 1.1 mg deciliter with EGFR 51.8 mL/min per 1.73 m sodium 142 potassium 4.7 glucose 91 total protein 6.8 BUN 14 albumin 3.8 A1c 5.5, LDL 65, TSH 3.3, uric acid: 7, vitamin D 44.9. Urinalysis reviewed unremarkable for infection B12 432 hemoglobin 12.7 Vitals today noted for blood pressure of 115/82 with a heart rate of 78. Chronic medications including renal medications including oxybutynin, CellCept 250 mg p.o. twice daily, vitamin D 50,000 units monthly, atorvastatin, Eliquis 5 mg p.o. twice daily, Bystolic 5 mg daily spironolactone 35 mg p.o. daily Steroid taper. EGFR improved by 10 mL/min per 1.73 m over the past 6 months 85 with 52 August 02, 2021. With the initiation of CellCept EGFR up to 63.9 mL/min per 1.73 m as of March 23, 2022. Labs performed November 16, 2022 reviewed with the patient as follow. Serum creatinine 1.1 mg deciliter EGFR 60 mill per minute per 1.73 m . Calcium 9.3 phosphorus 3.1 albumin 4.3. Potassium 4.6. Uric acid 5.4. Parathyroid hormone 88. Magnesium 2. Vitamin D 53.1 improved from 18.7 and CBC demonstrated hemoglobin of 13.1. Blood pressure 130/80 with a heart rate of 64 Creatinine 1.1 to 1.2 mg deciliter EGFR 53 mL/min per 1.73 m . And albumin to creatinine ratio 16 mg/g Labs performed March 23, 2022 demonstrated a hemoglobin of 13.4. Magnesium 2.2. Albumin to creatinine ratio 7.1. Protein to creatinine ratio 103 mg/g. Albumin 3.9 BUN of 16. Calcium 9.1. Carbon dioxide of 32. Chloride 102 creatinine 0.9 and EGFR of 63.9 mL/min per 1.73 m . Phosphorus 4.1 potassium 4.4. Sodium 140. Urine analysis negative for blood and protein. Vitamin D43.2. Phosphorus 4.1. Cholesterol within range. Hemoglobin A1c 5.4. Sed rate September 1302/2022: Labs demonstrated stable kidney function versus slightly improved EGFR at 53 mils per minute per 1.73 m . visit June 23, 2020 following for improvement in side effects with discontinuing voclosporin Reports improvement in weakness improvement in feet neuropathy and improvement in hair loss with holding above medications. labs dated April 19, 2021 demonstrated sodium 140 potassium 4.1 chloride 105 bicarb 34 BUN 14 creatinine 1.01 EGFR 53.3. Albumin 3.9. Calcium 9.5. Phosphorus 3.7. L1 to creatinine ratio 16 CBC demonstrated hemoglobin of 13.9 ASSESSMENT AND PLAN 1) CKD Stage: IIIb, Differential diagnosis including lupus nephritis, analgesic nephropathy -- protein to creatinine ratio -- renal ultrasound review -- Lupus in remission, double-stranded DNA <1 -- On Plaquenil and prednisone -- Based on urine analysis and renal ultrasound will evaluate the need for renal biopsy -Etiology (likely): HTN, DM and NSAIDS. Note normal C3/C4/SPEP/HCV/HBV -Does not need preparation for dialysis at this time. -Will continue routine monitoring of chemistries. -Avoid all PICC lines, i.v.s and blood draws in arms above wrists as possible to preserve veins forpossible AV fistula or AVG. Kidney function: CKD III (Cr trend over the years) Kidney sizes: moderatly large kidneys, with increased echogenicity, no obstruction Have reviewed CKD staging and preventing progression. Have reviewed NSAID avoidance and avoidance of IV dye. 2) Hypertension: Patient reports having high blood pressure in the past however recently blood pressure well controlled on bisoprolol, Of lisinopril and amlodipine -Blood pressure is adequately controlled. -No changes to medications at this time. -The patient was advised to follow a low salt/DASH diet. 3) Anemia: Hemoglobin below target concern for iron deficiency anemia check iron stores -Hemoglobin is adequate. -Continue periodic monitoring of CBC and iron studies. 4) Secondary Hyperparathyroidism/CKD-MBD: Check Vitamin D and PTH -Intact PTH, vitamin d, calcium, and phosphorus levels are acceptable. -No changes -in management. -Will continue to monitor these indices. 5) Proteinuria: To quantify protein to creatinine ratio -Will continue monitor microalbumin/creatinine ratio. 7) Dyslipidemia: -The patient has moderate CKD and would benefit from aggressive lipid control with an LDL goal of <100 and TG less than 150mg/dl. Reports improvement in weakness improvement in feet neuropathy and improvement in hair loss with holding voclosporin Tolerating mycophenolate without side effects Proteinuria improving down to 16 mg/g Reports significant improvement in blood pressure, weight patient following more healthier diet. She discontinued Tylenol arthritis since last visit she has been taking less pain medications. 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 On Eliquis for PE, high risk for coagulopathy Infrarenal IVC filter with multiple limbs extending beyond the lumen unchanged from 2017. significant improvement in renal function and proteinuria with holding analgesics Chronic pain syndrome recently diagnosed with PMR, on prednisone. No signs of fluid overload Daily weight, blood pressure log Dark colored urine improving Dysuria better visit Mar 23, 2022: Patient presented today to the office reports worsening leg edema weakness, fatigue, now producing more dark concentrated urine. Reports that she ran out of CellCept. Likely patient back in flare we do not have recent labs last blood work was September. Patient to obtain blood work today and we will call her back to review it. CellCept refilled May 23, 2022 visit. Reports improvement in dark-colored urine with resuming CellCept To cont same meds Referral to urology Dr. Buckley for bladder control S/p hysterectomy Monitoring immunosuppressive therapy To resume CellCept to 250 mg p.o. twice daily without side effects, pt run out of it again. Medication she tolerates CellCept 250 mg p.o. twice daily. Excellent response. Significant improvement in proteinuria. Vitamin D 50,000 units once a week. once a month. Bystolic 5 mg p.o. daily. Spironolactone dose increased to 50 mg p.o. daily TD due to pschy meds, on taper Started on Ativan by her psychiatrist for anxiety management Follow-up in 6 months For follow-up I have asked that she return to clinic in 6 month or earlier if needed. Thank you forallowing me to participate in this patient's care. Please feel free to contact me with any questions or concerns. Follow up with PCP for all non-renal problems This note was partially created using voice recognition software and is inherently subject to errors including those of syntax and sound-alike substitutions which may escape proofreading. In such instances, original meaning may be extrapolated by contextual derivation. With warmest regards, Marva Malhotra MD Nephrology and Hypertension Roofing Supervisor Clinical hoist worker [facility] [id number] [place] [address], [address] [place], [place] [id number] documented [facility] encounter[facility] Note* Addendum Note - Marva Malhotra MD - 12/18/2023 10:26 AM EDTAddended by: MARVA MALHOTRA on: 12/18/2023 10:26 AM Modules accepted: Orders [facility]08-13-2024 Miscellaneous Notes* Addendum Note - Marva Malhotra MD - 12/18/2023 10:26 AM EDTAddended by: MARVA MALHOTRA on: 12/18/2023 10:26 AM Modules accepted: Orders documented in this encounterWestern [facility]08-[facility]-2024 History of Present illness Narrative* Marva Malhotra MD - 12/18/2023 10:09 AM EDT Nephrology Department Outpatient Visit Date December 18, 2023 Outpatient Visit Type Established Visit Follow up for chronic kidney disease, lupus nephritis Cc: chronic kidney disease stage IIIa 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 twice daily without side effects Today's office visit December 18, 2023 Patient seen and evaluated today in the office for chronic kidney disease follow-up. Seeing foaming in the urine. Off prednisone To resume MMF On spironolactone Recently, the disease has been stable on risk factors has been modified and controlled. No new disease complications. No hyperkalemia No hyponatremia No hypocalcemia No hyperphosphatemia Patient denies any overt symptoms of uremia. No adverse effects with medications. No other complaints. Patient questions answered. Patient denies fever, chills, chest pain, dyspnea, nausea, vomiting, night sweats, headaches, bowel/bladder changes, weight changes or other complaints. Meds reviewed, refilled. Labs performed at primary physician February 28, 2023 as follow. Renal parameters stable serum creatinine 1.1 mg deciliter with EGFR 51.8 mL/min per 1.73 m sodium 142 potassium 4.7 glucose 91 total protein 6.8 BUN 14 albumin 3.8 A1c 5.5, LDL 65, TSH 3.3, uric acid: 7, vitamin D 44.9. Urinalysis reviewed unremarkable for infection B12 432 hemoglobin 12.7 Vitals today noted for blood pressure of 115/82 with a heart rate of 78. Chronic medications including renal medications including oxybutynin, CellCept 250 mg p.o. twice daily, vitamin D 50,000 units monthly, atorvastatin, Eliquis 5 mg p.o. twice daily, Bystolic 5 mg daily spironolactone 35 mg p.o. daily Steroid taper. EGFR improved by 10 mL/min per 1.73 m over the past 6 months 85 with 52 August 02, 2021. With the initiation of CellCept EGFR up to 63.9 mL/min per 1.73 m as of March 23, 2022. Labs performed November 16, 2022 reviewed with the patient as follow. Serum creatinine 1.1 mg deciliter EGFR 60 mill per minute per 1.73 m . Calcium 9.3 phosphorus 3.1 albumin 4.3. Potassium 4.6. Uric acid 5.4. Parathyroid hormone 88. Magnesium 2. Vitamin D 53.1 improved from 18.7 and CBC demonstrated hemoglobin of 13.1. Blood pressure 130/80 with a heart rate of 64 Medication she tolerates CellCept 250 mg p.o. twice daily. Vitamin D 50,000 units once a week. To switch her to once a month. Bystolic 5 mg p.o. daily. Spironolactone 25 mg p.o. daily Labs performed March 23, 2022 demonstrated a hemoglobin of 13.4. Magnesium 2.2. Albumin to creatinine ratio 7.1. Protein to creatinine ratio 103 mg/g. Albumin 3.9 BUN of 16. Calcium 9.1. Carbon dioxide of 32. Chloride 102 creatinine 0.9 and EGFR of 63.9 mL/min per 1.73 m . Phosphorus 4.1 potassium 4.4. Sodium 140. Urine analysis negative for blood and protein. Vitamin D43.2. Phosphorus 4.1. Cholesterol within range. Hemoglobin A1c 5.4. Sed rate 17 Tapering steroids: October 05 dose reduced to 4 mg daily Labs as of Sep 06 2021, performed at Dr. Blanton's office Bun 18 k 3.5 Na 137 Gluc 103 1.07 mg egfr 53.8 Albumin/cr Alp 118 Trace in bacteria Proteinuria pending Immunosuppressive therapy started 04/19/2021: Reports intolerance to voclosporin including feeling weak numbness in the feet weakness via whole body Hair loss Cold sores Cellcept started 06/23/21 Dark colored urine concern for GN lupus nephritis To cont Cellcept Serum creatinine trend: May 2019 scr 1.08 mg/dl, egfr was 54 ml/min July 2020 was 1.9 mg deciliter EGFR 27.9 mL/min. October 2020 scr 1.59 mg/dl, egfr 34 ml/min November 2020 serum creatinine 0.8 mg/dL, EGFR 59 mL/min per 1.73 m Labs at [place] physician collected April 19, 2021 demonstrated a creatinine of 1.08 and EGFR 53.3. Albumin to creatinine ratio of 16 tylenol arthritis 2 tabs in am and 2 pm Tramadol Lupus for > 14 yrs. On plaquine and prednisone PMR on prednisone. biofreeze helping with pain Lupus anticoag + on eliquis (2 PE). Wt 326--> 314 Ibs Bronchitis 2 weeks ago Severe neuropathy On Cymbalta psychiatric weaning her off Cymbalta for anxiety. On Lamictal Loosing weight intentional BP 136/70, HR 73 complete blood count demonstrated white blood cells 4.5 hemoglobin 12.9 Complete blood work as of November 2020 demonstrated sodium 142 potassium 3.7 chloride 104 bicarb 35 BUN 13 creatinine 0.89 mg deciliter EGFR 59 mouth for minute total protein 6.7 albumin 3.8 calcium 9.6total bilirubin 0.5 AST 2022 Hemoglobin A1c 5.3. ad an echocardiogram September 13, 2020 will obtain results. History of present illness: Michael Packer is a 52 year old, White, female who was seen today fpr follow up for CKD IIIb, h/o 2 PE after hysterectomy > 10 yrs on eliquis. On lamictal for bipolar Patient's previous records, notes and chart reviewed and summarized above. visit Mar 23, 2022: Patient presented today to the office reports worsening leg edema weakness, fatigue, now producing more dark concentrated urine. Reports that she ran out of CellCept. Likely patient back in flare we do not have recent labs last blood work was September. Patient to obtain blood work today and we will call her back to review it. CellCept refilled visit September 1302/2022: Reports improvement in urine color and in frequency. Tolerating CellCept without side effects. Labs demonstrated stable kidney function versus slightly improved EGFR at 53 mils per minute per 1.73 m . Started on prednisone taper by Dr. Blanton. Blood pressure well controlled on spironolactone 25 mg patient takes 1.5 tablets daily and nebivolol 5 mg. visit June 23, 2020 following for improvement in side effects with discontinuing voclosporin Reports improvement in weakness improvement in feet neuropathy and improvement in hair loss with holding above medications. 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 Albumin 3.9. Calcium 9.5. Phosphorus 3.7. L1 to creatinine ratio 16 CBC demonstrated hemoglobin of 13.9 Office Visit April 19, 2021: Dark colored urine Dysuria Arthralgia Patient endorses fatigue and lack of energy. Dyspnea with exertion Lower back pain Intermittent leg cramps Weight is stable Patient reports better blood pressure BP 120-130/80, HR 60, Afebrile, wt stable. Meds reviewed, refilled. Patient's blood pressure is well controlled at home. Patient's denies any dysuria, hematuria, foamy urine or other voiding complaints. Patient reports leg swelling. Denies SOB/LEE, orthopnea, PND or other symptoms of fluid overload. Patient denies any overt symptoms of uremia. No adverse effects with meds. No other complaints. Patient denies fever, chills, cp, dyspnea, nausea, vomiting, night sweats, puentes, bowel/bladder changes, weight changes or other complaints. visit December 23, 2020: Reports significant improvement in blood pressure, weight patient following more healthier diet. She discontinued Tylenol arthritis since last visit she has been taking less pain medications. Serum creatinine improved to 0.89 mg/dL EGFR 59 mL/min per 1.73 m Significant improvement in proteinuria as well Anatomical challenge likely contributing to a smaller right kidney Images reviewed with the patient IVC filter close to right infrarenal aorta, right renal vein Patient also on Eliquis for PE No need for kidney biopsy office Visit October 21, 2020: Labs dated July 23, 2020 demonstrated serum creatinine 1.59 mg/dL EGFR 34 mL/min per 1 7 3 m so8 potassium 4.7 chloride 104 bicarb 24 Patient reports better blood pressure BP 120-130/80, HR 60, Afebrile, wt stable. Meds reviewed, refilled. Patient's blood pressure is well controlled at home. Patient's denies any dysuria, hematuria, foamy urine or other voiding complaints. Patient denies any leg swelling, SOB/LEE, orthopnea, PND or other symptoms of fluid overload. Patient denies any overt symptoms of uremia. No adverse effects with meds. No other complaints. Patient denies fever, chills, cp, dyspnea, nausea, vomiting, night sweats, puentes, bowel/bladder changes, weight changes or other complaints. -Duration (when): years -Location (where): kidneys -Severity (ex: creat 4.5, BP 200/100): Cr Chronic kidney disease, scr 1.59 mg/dl, egfr 34 ml/min -Context: DM -Timing/Modifying factors/Associated symptoms (ex: meds/continuous/SOB/edema): continuous Recent procedures/hospitalizations/contrasted CT scans: denies Patient denies CP, SOB, orthopnea or PND. Denies progressive leg edema No nausea, emesis,abdominal pain or diarrhea No dysuria, gross hematuria or new flank pain. No fever or chills. No dizziness,PUENTES or focal numbness or weakness. Wt is stable ALLERGIES Allergen Reactions Penicillins Hives Sulfa (Sulfonamide * Unknown Current Outpatient Medications Medication Sig oxybutynin ER (DITROPAN XL) 15 mg 24 hr Extended Rel Tab take 1 tablet by mouth every day for 90 days amLODIPine (NORVASC) 5 mg tablet Take by mouth. spironolactone (ALDACTONE) 50 mg tablet Take 1 tablet by mouth once daily. mycophenolate mofetil (CELLCEPT) 250 mg capsule Take 1 capsule by mouth two times a day. Phentermine HCl 37.5 mg capsule Take 37.5 mg by mouth daily before breakfast. famotidine (PEPCID) 40 mg tablet Take 1 tablet by mouth twice daily. BREO ELLIPTA 200-25 mcg/dose inhaler Inhale 1 Inhalation as instructed once daily. ergocalciferol 50,000 unit capsule (VITAMIN D2, DRISDOL) 1 TABLET ORALLY ONCE A WEEK 30 DAYS benztropine (COGENTIN) 1 mg tablet Take 0.5-1 mg by mouth twice daily as needed. atorvastatin (LIPITOR) 20 mg tablet Take 20 mg by mouth once daily. baclofen (LIORESAL) 10 mg tablet TAKE 1 TABLET BY MOUTH EVERY DAY FOR 90 DAYS apixaban (ELIQUIS) 5 mg tab(s) Take 1 tablet by mouth twice daily. nebivolol (BYSTOLIC) 5 mg tablet Take 1 tablet by mouth once daily. ondansetron orally disintegrating (ZOFRAN ODT) 4 mg disintegrating tablet Take 1 tablet by mouth every 6 hours as needed. WALKER ROLLATOR SEAT WITH 6 WHEELS - RED Walker with rolator ARIPiprazole (ABILIFY) 10 mg tablet Take 10 mg by mouth once daily. albuterol HFA (PROAIR HFA) 90 mcg/actuation inhaler Inhale 2 Puffs as instructed every 6 hours as needed. DULoxetine (CYMBALTA) 60 mg capsule Take 2 capsules by mouth once daily. 60 mg in am, 30 mg at night per pt (Patient taking differently: Take 60 mg by mouth once daily.) montelukast (SINGULAIR) 10 mg tablet Take 1 tablet by mouth daily at bedtime. traMADol (ULTRAM) 50 mg tablet Take 50 mg by mouth every 12 hours as needed. ondansetron (ZOFRAN) 4 mg tablet Take 1 tablet by mouth every 6 hours as needed. acetaminophen (TYLENOL) 325 mg tablet Take 2 tablets by mouth every 6 hours as needed. metoclopramide HCl (REGLAN) 5 mg tablet Take 1 tablet by mouth three times daily before meals. sucralfate (CARAFATE) 1 gram tablet Take 1 tablet by mouth three times daily with meals. (Patient not taking: Reported on 06/01/2023) hydroxychloroquine (PLAQUENIL) 200 mg tablet Take 200 mg by mouth twice daily. BUDESONIDE/FORMOTEROL FUMARATE (SYMBICORT INHALATION) Inhale as instructed. CHOLECALCIFEROL, VITAMIN D3, (VITAMIN D-3 ORAL) Take 50,000 Units by mouth every Sunday. lamoTRIgine (LAMICTAL) 100 mg tablet Take 200 mg by mouth twice daily. No current facility-administered medications for this visit. PAST MEDICAL HISTORY No date: Adhesive capsulitis of right shoulder No date: Bursitis of right hip No date: Chronic obstructive pulmonary disease (COPD) (HCC) No date: Fibromyalgia No date: GERD (gastroesophageal reflux disease) Comment: intolerant NSAIDS No date: History of blood clots No date: Hypertension No date: Lumbar back pain with radiculopathy affecting right lower extremity No date: Lupus ([facility]) Comment: SLE, positive TAN recurrent polyarthritis malar erythema with photosensitivity generalized fatigue treated with Plaquenil, annual ophthalmology exam. No date: Mixed connective tissue disease (HCC) No date: Morbid obesity ([facility]) No date: NIX (nonalcoholic steatohepatitis) Comment: Confirmed by [facility], DR Jimbo Mcneill No date: Osteoarthritis of left knee No date: Osteoarthritis of right knee No date: Polymyalgia rheumatica ([facility]) No date: Rheumatoid arthritis(714.0) No date: Subacromial bursitis of right shoulder joint No date: Vitamin D deficiency PAST SURGICAL HISTORY No date: HYSTERECTOMY HX No date: IVC FILTER SURGICAL Comment: [facility] 2009: SALPINGO-OOPHORECTOMY COMPL/PRTL UNI/BI SPX Comment: left ovary No date: TUBAL LIGATION, FAMILY HISTORY Problem Relation Age of Onset Heart Father Rheumatologic disease Sister other (Raynaud's) Sister Social History Tobacco Use Smoking status: Never Smokeless tobacco: Current Vaping Use Vaping Use: Never used Substance Use Topics Alcohol use: No Drug use: No REVIEW OF SYMPTOMS: CONSTITUTIONAL: Denies fevers, chills, and weight changes. Denies fatigue/malaise. PULMONARY: Denies shortness of breath, wheezing, cough or hemoptysis. CARDIOLOGY: Denies chest pain, palpitations, LEE, orthopnea or PND. GI: No anorexia, nausea, vomiting, dysphagia, diarrhea, constipation, abdominal pain, hematochezia or melena. : No urinary hesitancy or dribbling. No nocturia or urinary frequency. No abnormal discharge. No hematuria, dysuria, or flank pain. MUSCULO-SKELETAL: No joint pain, swelling or erythema. SKIN: Denies any rashes or skin changes. No itching. EXTREMITIES: Denies any lower Extremity edema. Denies any claudication or peripheral ulcer. A full 12 point ROS was obtained and is negative other than that cited above. PHYSICAL EXAMINATION: There were no vitals taken for this visit. No weight on file for this encounter. GENERAL: Well developed and well nourished, NAD. EYES: Conjunctivae- pink, Non-icterus sclera, Pupils are equal bilaterally, Normal appearing eyelids. HEENT : Normocephalic, atraumatic, oral pharynx clear, mucus membranes moist and pink. no salivary gland enlargement. Inspection of Nasal mucosa WNL. External ear wnl. NECK : Supple, No JVD. No cervical lymphadenopathy or masses. No thyro megaly or tenderness. RESPIRATORY: Resp efforts are WNL. Bilat equal air entry. Clear to auscultation bilaterally CVS : Regular rate and rhythm. Pericardial friction rub is absent. S1, S2 Normal. No Murmer, or gallops. EDEMA +1 VASCULAR: carotid pulses is palpable bilaterally; carotid bruit is absent; No Abdominal bruit. Peripheral pulse palpable . ABDOMEN: soft, non-distended, non-tender, Normoactive BS. No hepatospleenomegaly. : NO CVA tenderness. bladder is not distended. LYMPHATICS: No cervical, axillary, inguinal lymphadenopathy. MUSULOSKELATAL: No swollen, tender, or warm joints present. No clubbing cyanosis or petechiae. SKIN: No rashes or ulcers present. No induration of skin or subcutaneous area. NEUROLOGIC: Grossly intact. No focal neurological deficit. PSYCH : Orientation to time, place and person. Judgment and insight are WNL. LAB DATA Creatinine 1.1 to 1.2 mg deciliter EGFR 53 mL/min per 1.73 m . And albumin to creatinine ratio 16 mg/g ASSESSMENT AND PLAN 1) CKD Stage: IIIb, Differential diagnosis including lupus nephritis, analgesic nephropathy -- protein to creatinine ratio -- renal ultrasound review -- Lupus in remission, double-stranded DNA <1 -- On Plaquenil and prednisone -- Based on urine analysis and renal ultrasound will evaluate the need for renal biopsy -Etiology (likely): HTN, DM and NSAIDS. Note normal C3/C4/SPEP/HCV/HBV -Does not need preparation for dialysis at this time. -Will continue routine monitoring of chemistries. -Avoid all PICC lines, i.v.s and blood draws in arms above wrists as possible to preserve veins forpossible AV fistula or AVG. Kidney function: CKD III (Cr trend over the years) Kidney sizes: moderatly large kidneys, with increased echogenicity, no obstruction Have reviewed CKD staging and preventing progression. Have reviewed NSAID avoidance and avoidance of IV dye. 2) Hypertension: Patient reports having high blood pressure in the past however recently blood pressure well controlled on bisoprolol, Of lisinopril and amlodipine -Blood pressure is adequately controlled. -No changes to medications at this time. -The patient was advised to follow a low salt/DASH diet. 3) Anemia: Hemoglobin below target concern for iron deficiency anemia check iron stores -Hemoglobin is adequate. -Continue periodic monitoring of CBC and iron studies. 4) Secondary Hyperparathyroidism/CKD-MBD: Check Vitamin D and PTH -Intact PTH, vitamin d, calcium, and phosphorus levels are acceptable. -No changes -in management. -Will continue to monitor these indices. 5) Proteinuria: To quantify protein to creatinine ratio -Will continue monitor microalbumin/creatinine ratio. 7) Dyslipidemia: -The patient has moderate CKD and would benefit from aggressive lipid control with an LDL goal of <100 and TG less than 150mg/dl. Reports improvement in weakness improvement in feet neuropathy and improvement in hair loss with holding voclosporin Tolerating mycophenolate without side effects Proteinuria improving down to 16 mg/g Reports significant improvement in blood pressure, weight patient following more healthier diet. She discontinued Tylenol arthritis since last visit she has been taking less pain medications. 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 On Eliquis for PE, high risk for coagulopathy Infrarenal IVC filter with multiple limbs extending beyond the lumen unchanged from 2017. significant improvement in renal function and proteinuria with holding analgesics Chronic pain syndrome recently diagnosed with PMR, on prednisone. No signs of fluid overload Daily weight, blood pressure log Dark colored urine improving Dysuria better visit Mar 23, 2022: Patient presented today to the office reports worsening leg edema weakness, fatigue, now producing more dark concentrated urine. Reports that she ran out of CellCept. Likely patient back in flare we do not have recent labs last blood work was September. Patient to obtain blood work today and we will call her back to review it. CellCept refilled May 23, 2022 visit. Reports improvement in dark-colored urine with resuming CellCept To cont same meds Referral to urology Dr. Buckley for bladder control S/p hysterectomy Monitoring immunosuppressive therapy To resume CellCept to 250 mg p.o. twice daily without side effects, pt run out of it again. EGFR improved by 10 mL/min per 1.73 m over the past 6 months 85 with 52 August 02, 2021. With the initiation of CellCept EGFR up to 63.9 mL/min per 1.73 m as of March 23, 2022. Labs performed November 16, 2022 reviewed with the patient as follow. Serum creatinine 1.1 mg deciliter EGFR 60 mill per minute per 1.73 m . Calcium 9.3 phosphorus 3.1 albumin 4.3. Potassium 4.6. Uric acid 5.4. Parathyroid hormone 88. Magnesium 2. Vitamin D 53.1 improved from 18.7 and CBC demonstrated hemoglobin of 13.1. Blood pressure 130/80 with a heart rate of 64 Medication she tolerates CellCept 250 mg p.o. twice daily. Run out of it. Vitamin D 50,000 units once a week. once a month. Bystolic 5 mg p.o. daily. Spironolactone 25 mg p.o. daily TD due to pschy meds, on taper Follow-up in 6 months For follow-up I have asked that she return to clinic in 6 month or earlier if needed. Thank you forallowing me to participate in this patient's care. Please feel free to contact me with any questions or concerns. Follow up with PCP for all non-renal problems This note was partially created using voice recognition software and is inherently subject to errors including those of syntax and sound-alike substitutions which may escape proofreading. In such instances, original meaning may be extrapolated by contextual derivation. With warmest regards, Marva Malhotra MD Nephrology and Hypertension Roofing Supervisor Clinical hoist worker [facility] [address] [place], [place] [id number] documented in this encounterWestern Reserve Hospital08-12-[facility]24 Telephone encounter Note * Telephone Encounter - Cari Chan LPN - 12/17/2023 7:21 PM EDT Spoke to Michael, let her know that she will need to contact PCP for refill of Breo. Patient verbalized understanding. Cari Chan LPN [facility]08-12-2024 Miscellaneous Notes* Telephone Encounter - Cari Chan LPN - 12/17/2023 7:21 PM EDT Spoke to Michael, let her know that she will need to contact PCP for refill of Breo. Patient verbalized understanding. 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 twice daily without side effects Volume overload: post 7 days of lasix Steroid induced EGFR improved by 10 mL/min per 1.73 m over the past 6 months 85 with 52 August 02, 2021. With the initiation of CellCept EGFR up to 63.9 mL/min per 1.73 m as of March 23, 2022. Labs performed November 16, 2022 reviewed with the patient as follow. Serum creatinine 1.1 mg deciliter EGFR 60 mill per minute per 1.73 m . Calcium 9.3 phosphorus 3.1 albumin 4.3. Potassium 4.6. Uric acid 5.4. Parathyroid hormone 88. Magnesium 2. Vitamin D 53.1 improved from 18.7 and CBC demonstrated hemoglobin of 13.1. Blood pressure 130/80 with a heart rate of 64 Medication she tolerates CellCept 250 mg p.o. twice daily. Vitamin D 50,000 units once a week. To switch her to once a month. Bystolic 5 mg p.o. daily. Spironolactone 25 mg p.o. daily Labs performed March 23, 2022 demonstrated a hemoglobin of 13.4. Magnesium 2.2. Albumin to creatinine ratio 7.1. Protein to creatinine ratio 103 mg/g. Albumin 3.9 BUN of 16. Calcium 9.1. Carbon dioxide of 32. Chloride 102 creatinine 0.9 and EGFR of 63.9 mL/min per 1.73 m . Phosphorus 4.1 potassium 4.4. Sodium 140. Urine analysis negative for blood and protein. Vitamin D43.2. Phosphorus 4.1. Cholesterol within range. Hemoglobin A1c 5.4. Sed rate 17 Tapering steroids: October 05 dose reduced to 4 mg daily Labs as of Sep 06 2021, performed at Dr. Blanton's office Bun 18 k 3.5 Na 137 Gluc 103 1.07 mg egfr 53.8 Albumin/cr Alp 118 Trace in bacteria Proteinuria pending Immunosuppressive therapy started 04/19/2021: Reports intolerance to voclosporin including feeling weak numbness in the feet weakness via whole body Hair loss Cold sores Cellcept started 06/23/21 Dark colored urine concern for GN lupus nephritis To cont Cellcept Serum creatinine trend: May 2019 scr 1.08 mg/dl, egfr was 54 ml/min July 2020 was 1.9 mg deciliter EGFR 27.9 mL/min. October 2020 scr 1.59 mg/dl, egfr 34 ml/min November 2020 serum creatinine 0.8 mg/dL, EGFR 59 mL/min per 1.73 m Labs at [place] physician collected April 19, 2021 demonstrated a creatinine of 1.08 and EGFR 53.3. Albumin to creatinine ratio of 16 tylenol arthritis 2 tabs in am and 2 pm Tramadol Lupus for > 14 yrs. On plaquine and prednisone PMR on prednisone. biofreeze helping with pain Lupus anticoag + on eliquis (2 PE). Wt 326--> 314 Ibs Bronchitis 2 weeks ago Severe neuropathy On Cymbalta psychiatric weaning her off Cymbalta for anxiety. On Lamictal Loosing weight intentional BP 136/70, HR 73 complete blood count demonstrated white blood cells 4.5 hemoglobin 12.9 Complete blood work as of November 2020 demonstrated sodium 142 potassium 3.7 chloride 104 bicarb 35 BUN 13 creatinine 0.89 mg deciliter EGFR 59 mouth for minute total protein 6.7 albumin 3.8 calcium 9.6total bilirubin 0.5 AST 2022 Hemoglobin A1c 5.3. ad an echocardiogram September 13, 2020 will obtain results. History of present illness: Michael Packer is a 52 year old, White, female who was seen today fpr follow up for CKD IIIb, h/o 2 PE after hysterectomy > 10 yrs on eliquis. On lamictal for bipolar Patient's previous records, notes and chart reviewed and summarized above. visit Mar 23, 2022: Patient presented today to the office reports worsening leg edema weakness, fatigue, now producing more dark concentrated urine. Reports that she ran out of CellCept. Likely patient back in flare we do not have recent labs last blood work was September. Patient to obtain blood work today and we will call her back to review it. CellCept refilled visit September 1302/2022: Reports improvement in urine color and in frequency. Tolerating CellCept without side effects. Labs demonstrated stable kidney function versus slightly improved EGFR at 53 mils per minute per 1.73 m . Started on prednisone taper by Dr. Blanton. Blood pressure well controlled on spironolactone 25 mg patient takes 1.5 tablets daily and nebivolol 5 mg. visit June 23, 2020 following for improvement in side effects with discontinuing voclosporin Reports improvement in weakness improvement in feet neuropathy and improvement in hair loss with holding above medications. 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 Albumin 3.9. Calcium 9.5. Phosphorus 3.7. L1 to creatinine ratio 16 CBC demonstrated hemoglobin of 13.9 Office Visit April 19, 2021: Dark colored urine Dysuria Arthralgia Patient endorses fatigue and lack of energy. Dyspnea with exertion Lower back pain Intermittent leg cramps Weight is stable Patient reports better blood pressure BP 120-130/80, HR 60, Afebrile, wt stable. Meds reviewed, refilled. Patient's blood pressure is well controlled at home. Patient's denies any dysuria, hematuria, foamy urine or other voiding complaints. Patient reports leg swelling. Denies SOB/LEE, orthopnea, PND or other symptoms of fluid overload. Patient denies any overt symptoms of uremia. No adverse effects with meds. No other complaints. Patient denies fever, chills, cp, dyspnea, nausea, vomiting, night sweats, puentes, bowel/bladder changes, weight changes or other complaints. visit December 23, 2020: Reports significant improvement in blood pressure, weight patient following more healthier diet. She discontinued Tylenol arthritis since last visit she has been taking less pain medications. Serum creatinine improved to 0.89 mg/dL EGFR 59 mL/min per 1.73 m Significant improvement in proteinuria as well Anatomical challenge likely contributing to a smaller right kidney Images reviewed with the patient IVC filter close to right infrarenal aorta, right renal vein Patient also on Eliquis for PE No need for kidney biopsy office Visit October 21, 2020: Labs dated July 23, 2020 demonstrated serum creatinine 1.59 mg/dL EGFR 34 mL/min per 1 7 3 m so8 potassium 4.7 chloride 104 bicarb 24 Patient reports better blood pressure BP 120-130/80, HR 60, Afebrile, wt stable. Meds reviewed, refilled. Patient's blood pressure is well controlled at home. Patient's denies any dysuria, hematuria, foamy urine or other voiding complaints. Patient denies any leg swelling, SOB/LEE, orthopnea, PND or other symptoms of fluid overload. Patient denies any overt symptoms of uremia. No adverse effects with meds. No other complaints. Patient denies fever, chills, cp, dyspnea, nausea, vomiting, night sweats, puentes, bowel/bladder changes, weight changes or other complaints. -Duration (when): years -Location (where): kidneys -Severity (ex: creat 4.5, BP 200/100): Cr Chronic kidney disease, scr 1.59 mg/dl, egfr 34 ml/min -Context: DM -Timing/Modifying factors/Associated symptoms (ex: meds/continuous/SOB/edema): continuous Recent procedures/hospitalizations/contrasted CT scans: denies Patient denies CP, SOB, orthopnea or PND. Denies progressive leg edema No nausea, emesis,abdominal pain or diarrhea No dysuria, gross hematuria or new flank pain. No fever or chills. No dizziness,PUENTES or focal numbness or weakness. Wt is stable ALLERGIES Allergen Reactions Penicillins Hives Sulfa (Sulfonamide * Unknown Current Outpatient Medications Medication Sig oxybutynin ER (DITROPAN XL) 15 mg 24 hr Extended Rel Tab TAKE 1 TABLET BY MOUTH EVERY DAY mycophenolate mofetil (CELLCEPT) 250 mg capsule TAKE 1 CAPSULE BY MOUTH TWICE A DAY famotidine (PEPCID) 40 mg tablet Take 1 tablet by mouth twice daily. BREO ELLIPTA 200-25 mcg/dose inhaler Inhale 1 Inhalation as instructed once daily. ergocalciferol 50,000 unit capsule (VITAMIN D2, DRISDOL) 1 TABLET ORALLY ONCE A WEEK 30 DAYS benztropine (COGENTIN) 1 mg tablet Take 0.5-1 mg by mouth twice daily as needed. atorvastatin (LIPITOR) 20 mg tablet Take 20 mg by mouth once daily. baclofen (LIORESAL) 10 mg tablet TAKE 1 TABLET BY MOUTH EVERY DAY FOR 90 DAYS apixaban (ELIQUIS) 5 mg tab(s) Take 1 tablet by mouth twice daily. nebivolol (BYSTOLIC) 5 mg tablet Take 1 tablet by mouth once daily. ondansetron orally disintegrating (ZOFRAN ODT) 4 mg disintegrating tablet Take 1 tablet by mouth every 6 hours as needed. spironolactone (ALDACTONE) 25 mg tablet TAKE 1.5 TABLETS BY MOUTH ONCE DAILY. WALKER ROLLATOR SEAT WITH 6 WHEELS - RED Walker with rolator ARIPiprazole (ABILIFY) 10 mg tablet Take 10 mg by mouth once daily. albuterol HFA (PROAIR HFA) 90 mcg/actuation inhaler Inhale 2 Puffs as instructed every 6 hours as needed. DULoxetine (CYMBALTA) 60 mg capsule Take 2 capsules by mouth once daily. 60 mg in am, 30 mg at night per pt (Patient taking differently: Take 60 mg by mouth once daily.) predniSONE (DELTASONE) 5 mg tablet Take 5 mg by mouth once daily. traMADol (ULTRAM) 50 mg tablet Take 50 mg by mouth every 12 hours as needed. ondansetron (ZOFRAN) 4 mg tablet Take 1 tablet by mouth every 6 hours as needed. acetaminophen (TYLENOL) 325 mg tablet Take 2 tablets by mouth every 6 hours as needed. metoclopramide HCl (REGLAN) 5 mg tablet Take 1 tablet by mouth three times daily before meals. sucralfate (CARAFATE) 1 gram tablet Take 1 tablet by mouth three times daily with meals. hydroxychloroquine (PLAQUENIL) 200 mg tablet Take 200 mg by mouth twice daily. BUDESONIDE/FORMOTEROL FUMARATE (SYMBICORT INHALATION) Inhale as instructed. CHOLECALCIFEROL, VITAMIN D3, (VITAMIN D-3 ORAL) Take 50,000 Units by mouth every Sunday. lamoTRIgine (LAMICTAL) 100 mg tablet Take 200 mg by mouth twice daily. montelukast (SINGULAIR) 10 mg tablet Take 1 tablet by mouth daily at bedtime. No current facility-administered medications for this visit. PAST MEDICAL HISTORY Diagnosis Date Adhesive capsulitis of right shoulder Bursitis of right hip Chronic obstructive pulmonary disease (COPD) (HCC) Fibromyalgia GERD (gastroesophageal reflux disease) intolerant NSAIDS History of blood clots Hypertension Lumbar back pain with radiculopathy affecting right lower extremity Lupus (HCC) SLE, positive TAN recurrent polyarthritis malar erythema with photosensitivity generalized fatigue treated with Plaquenil, annual ophthalmology exam. Mixed connective tissue disease (HCC) Morbid obesity (HCC) NIX (nonalcoholic steatohepatitis) Confirmed by FibroScan, DR Jimbo Mcneill Osteoarthritis of left knee Osteoarthritis of right knee Polymyalgia rheumatica (HCC) Rheumatoid arthritis(714.0) Subacromial bursitis of right shoulder joint Vitamin D deficiency PAST SURGICAL HISTORY Procedure Laterality Date HYSTERECTOMY HX IVC FILTER SURGICAL [facility] SALPINGO-OOPHORECTOMY COMPL/PRTL UNI/BI SPX 2009 left ovary TUBAL LIGATION, FAMILY HISTORY Problem Relation Age of Onset Heart Father Rheumatologic disease Sister other (Raynaud's) Sister Social History Tobacco Use Smoking status: Never Smokeless tobacco: Current Vaping Use Vaping Use: Never used Substance Use Topics Alcohol use: No Drug use: No REVIEW OF SYMPTOMS: CONSTITUTIONAL: Denies fevers, chills, and weight changes. Denies fatigue/malaise. PULMONARY: Denies shortness of breath, wheezing, cough or hemoptysis. CARDIOLOGY: Denies chest pain, palpitations, LEE, orthopnea or PND. GI: No anorexia, nausea, vomiting, dysphagia, diarrhea, constipation, abdominal pain, hematochezia or melena. : No urinary hesitancy or dribbling. No nocturia or urinary frequency. No abnormal discharge. No hematuria, dysuria, or flank pain. MUSCULO-SKELETAL: No joint pain, swelling or erythema. SKIN: Denies any rashes or skin changes. No itching. EXTREMITIES: Denies any lower Extremity edema. Denies any claudication or peripheral ulcer. A full 12 point ROS was obtained and is negative other than that cited above. PHYSICAL EXAMINATION: BP 133/81 Pulse 64 Wt (!) 156.5 kg (345 lb) BMI 54.03 kg/m BMI 54.03 kg/(m^2) GENERAL: Well developed and well nourished, NAD. EYES: Conjunctivae- pink, Non-icterus sclera, Pupils are equal bilaterally, Normal appearing eyelids. HEENT : Normocephalic, atraumatic, oral pharynx clear, mucus membranes moist and pink. no salivary gland enlargement. Inspection of Nasal mucosa WNL. External ear wnl. NECK : Supple, No JVD. No cervical lymphadenopathy or masses. No thyro megaly or tenderness. RESPIRATORY: Resp efforts are WNL. Bilat equal air entry. Clear to auscultation bilaterally CVS : Regular rate and rhythm. Pericardial friction rub is absent. S1, S2 Normal. No Murmer, or gallops. EDEMA +1 VASCULAR: carotid pulses is palpable bilaterally; carotid bruit is absent; No Abdominal bruit. Peripheral pulse palpable . ABDOMEN: soft, non-distended, non-tender, Normoactive BS. No hepatospleenomegaly. : NO CVA tenderness. bladder is not distended. LYMPHATICS: No cervical, axillary, inguinal lymphadenopathy. MUSULOSKELATAL: No swollen, tender, or warm joints present. No clubbing cyanosis or petechiae. SKIN: No rashes or ulcers present. No induration of skin or subcutaneous area. NEUROLOGIC: Grossly intact. No focal neurological deficit. PSYCH : Orientation to time, place and person. Judgment and insight are WNL. LAB DATA Creatinine 1.1 to 1.2 mg deciliter EGFR 53 mL/min per 1.73 m . And albumin to creatinine ratio 16 mg/g ASSESSMENT AND PLAN 1) CKD Stage: IIIb, Differential diagnosis including lupus nephritis, analgesic nephropathy -- protein to creatinine ratio -- renal ultrasound review -- Lupus in remission, double-stranded DNA <1 -- On Plaquenil and prednisone -- Based on urine analysis and renal ultrasound will evaluate the need for renal biopsy -Etiology (likely): HTN, DM and NSAIDS. Note normal C3/C4/SPEP/HCV/HBV -Does not need preparation for dialysis at this time. -Will continue routine monitoring of chemistries. -Avoid all PICC lines, i.v.s and blood draws in arms above wrists as possible to preserve veins forpossible AV fistula or AVG. Kidney function: CKD III (Cr trend over the years) Kidney sizes: moderatly large kidneys, with increased echogenicity, no obstruction Have reviewed CKD staging and preventing progression. Have reviewed NSAID avoidance and avoidance of IV dye. 2) Hypertension: Patient reports having high blood pressure in the past however recently blood pressure well controlled on bisoprolol, Of lisinopril and amlodipine -Blood pressure is adequately controlled. -No changes to medications at this time. -The patient was advised to follow a low salt/DASH diet. 3) Anemia: Hemoglobin below target concern for iron deficiency anemia check iron stores -Hemoglobin is adequate. -Continue periodic monitoring of CBC and iron studies. 4) Secondary Hyperparathyroidism/CKD-MBD: Check Vitamin D and PTH -Intact PTH, vitamin d, calcium, and phosphorus levels are acceptable. -No changes -in management. -Will continue to monitor these indices. 5) Proteinuria: To quantify protein to creatinine ratio -Will continue monitor microalbumin/creatinine ratio. 7) Dyslipidemia: -The patient has moderate CKD and would benefit from aggressive lipid control with an LDL goal of <100 and TG less than 150mg/dl. Reports improvement in weakness improvement in feet neuropathy and improvement in hair loss with holding voclosporin Tolerating mycophenolate without side effects Proteinuria improving down to 16 mg/g Reports significant improvement in blood pressure, weight patient following more healthier diet. She discontinued Tylenol arthritis since last visit she has been taking less pain medications. 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 On Eliquis for PE, high risk for coagulopathy Infrarenal IVC filter with multiple limbs extending beyond the lumen unchanged from 2017. significant improvement in renal function and proteinuria with holding analgesics Chronic pain syndrome recently diagnosed with PMR, on prednisone. No signs of fluid overload Daily weight, blood pressure log Dark colored urine improving Dysuria better visit Mar 23, 2022: Patient presented today to the office reports worsening leg edema weakness, fatigue, now producing more dark concentrated urine. Reports that she ran out of CellCept. Likely patient back in flare we do not have recent labs last blood work was September. Patient to obtain blood work today and we will call her back to review it. CellCept refilled May 23, 2022 visit. Reports improvement in dark-colored urine with resuming CellCept To cont same meds Referral to urology Dr. Buckley for bladder control S/p hysterectomy Monitoring immunosuppressive therapy Tolerating CellCept to 250 mg p.o. twice daily without side effects EGFR improved by 10 mL/min per 1.73 m over the past 6 months 85 with 52 August 02, 2021. With the initiation of CellCept EGFR up to 63.9 mL/min per 1.73 m as of March 23, 2022. Labs performed November 16, 2022 reviewed with the patient as follow. Serum creatinine 1.1 mg deciliter EGFR 60 mill per minute per 1.73 m . Calcium 9.3 phosphorus 3.1 albumin 4.3. Potassium 4.6. Uric acid 5.4. Parathyroid hormone 88. Magnesium 2. Vitamin D 53.1 improved from 18.7 and CBC demonstrated hemoglobin of 13.1. Blood pressure 130/80 with a heart rate of 64 Medication she tolerates CellCept 250 mg p.o. twice daily. Vitamin D 50,000 units once a week. To switch her to once a month. Bystolic 5 mg p.o. daily. Spironolactone 25 mg p.o. daily Follow-up in 3-4 months For follow-up I have asked that she return to clinic in 4 month or earlier if needed. Thank you forallowing me to participate in this patient's care. Please feel free to contact me with any questions or concerns. Follow up with PCP for all non-renal problems This note was partially created using voice recognition software and is inherently subject to errors including those of syntax and sound-alike substitutions which may escape proofreading. In such instances, original meaning may be extrapolated by contextual derivation. 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 [place], [place] [address] documented in this encounterWestern [facility] Hospital07-19-2023 NotePatient referred by Mirtha Nunez for diet and nutrition counseling to manage Morbid obesity (HCC) [E66.01] - Primary Visit start 10:20, end 11:10 Nutrition Assessment Patient reports that her weight fluctuates between 335 and 350 pounds. Describes self as a grazer and emotional eater. Inquired about the gastric sleeve procedure. Nutritionally significant medical diagnoses and medications Hypertension, taking Norvasc Radiculopathy, lupus, fibromyalgia Patient reported kidney disease Pulmonary embolus, taking coumadin, flexeril, neurontin, lamictal She has a current medication list which includes the following prescription(s): duloxetine, alprazolam, lamotrigine, cyclobenzaprine, vitamin d2, amlodipine, gabapentin, hydroxychloroquine, triamcinolone, olopatadine hcl, and budesonide-formoterol. Social history Moved in with mother and sister. Physical assessment Physical Activity Level: sedentary Anthropometric measurements and calculations Height 67 inches Weight 342 pounds BMI 53.5 Nutritionally significant laboratory results: no labs available Dietary intake Three meals a day and grazing Beverages: sweetened iced tea recently replaced with unsweetened tea, coffee, water Breakfast - shredded WG with added sugar, 2% milk OR eggs OR toast Snacks - mix of whole and packaged foods Lunch - mother cooks Dinner - cereal, milk (usually evening cereal, milk) Dietary supplements none Nutrition Diagnosis: Excessive energy intake r/t food-and nutrition-related knowledge deficit concerning energy intake AEB reports or observations of intake of energy in excess of estimated or measured energy needs Nutrition Interventions: 1. Nutrition Counseling Strategies: Problem solving Identified potential problems Weight gain related to 2,000 calories per day of sweetened iced tea. About 2-3 years ago. More recently, she replaced these beverages with food. Physical inactivity Consumption of a greater proportion of calorically dense foods than nutrient-dense foods. 2. Nutrition education, initial / brief Nutrient dense foods vs. Calorically dense foods. Written materials: My Healthy Weight Plate pictorial 3. Referral to community agencies/programs: Other: weight loss management surgery services. Warm handoff to Ame Jaquez during the appointment. Follow up appointment scheduled for one month. Will meet regularly until can meet with weight loss surgery management services. Nutrition Monitoring and Evaluation: Weight. Criteria: Promote weight loss of greater than 100 pounds.[facility]07-13-2023 History of Present illness Narrative* Asiya Albright RT(R) - 11/16/2022 9:41 AM EDT Radiology Service Progress Note PATIENT NAME: Michael Bustos DATE OF SERVICE: November 16, 2022 TIME: 9:41 AM PATIENT IDENTITY VERIFICATION COMPLETED USING TWO (2) IDENTIFIERS: Name and Date of confirmedby patient verbally. FALL SCREENING: Has the patient had 2 falls in the last year or 1 fall with injury or currently using an Ambulatory Assistive Device (Walker, Cane, Wheelchair, Crutches, etc.)? No PATIENT GENDER DATA: Female. status: : No status: NO. PATIENT RELEVANT IMPLANT DATA REVIEWED: Not Applicable RADIOLOGY DEPARTMENT: General X-ray: Exam(s) Completed: Lower Extremity X- Ray(s): Foot, Right PERIPHERAL IV DATA: Not applicable SIGNED BY: RT Sanchez(R) November 16, 2022 9:41 AM documented in this encounterWestern Reserve Hospital01-17-2023 History of Present illness Narrative* Mrava Malhotra MD - 05/23/2022 12:56 PM EST Nephrology Department Outpatient Visit Date May 23, 2022 Outpatient Visit Type Established Visit Virtual Patient verbally agrees/consents to proceed with Audio-VIDEO Conference Audio-VIDEO VISIT using Phillip dow: Follow up for chronic kidney disease, lupus nephritis Cc: chronic kidney disease stage IIIa 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 twice daily without side effects EGFR improved by 10 mL/min per 1.73 m over the past 6 months 85 with 52 August 02, 2021. With the initiation of CellCept EGFR up to 63.9 mL/min per 1.73 m as of March 23, 2022 Today's virtual visit discussed labs, clinical findings and medications with the patient. Labs performed March 23, 2022 demonstrated a hemoglobin of 13.4. Magnesium 2.2. Albumin to creatinine ratio 7.1. Protein to creatinine ratio 103 mg/g. Albumin 3.9 BUN of 16. Calcium 9.1. Carbon dioxide of 32. Chloride 102 creatinine 0.9 and EGFR of 63.9 mL/min per 1.73 m . Phosphorus 4.1 potassium 4.4. Sodium 140. Urine analysis negative for blood and protein. Vitamin D43.2. Phosphorus 4.1. Cholesterol within range. Hemoglobin A1c 5.4. Sed rate 17 Tapering steroids: October 05 dose reduced to 4 mg daily Labs as of Sep 06 2021, performed at Dr. Blanton's office Bun 18 k 3.5 Na 137 Gluc 103 1.07 mg egfr 53.8 Albumin/cr Alp 118 Trace in bacteria Proteinuria pending Immunosuppressive therapy started 04/19/2021: Reports intolerance to voclosporin including feeling weak numbness in the feet weakness via whole body Hair loss Cold sores Cellcept started 06/23/21 Dark colored urine concern for GN lupus nephritis To cont Cellcept Serum creatinine trend: May 2019 scr 1.08 mg/dl, egfr was 54 ml/min July 2020 was 1.9 mg deciliter EGFR 27.9 mL/min. October 2020 scr 1.59 mg/dl, egfr 34 ml/min November 2020 serum creatinine 0.8 mg/dL, EGFR 59 mL/min per 1.73 m Labs at [facility] collected April 19, 2021 demonstrated a creatinine of 1.08 and EGFR 53.3. Albumin to creatinine ratio of 16 tylenol arthritis 2 tabs in am and 2 pm Tramadol Lupus for > 14 yrs. On plaquine and prednisone PMR on prednisone. biofreeze helping with pain Lupus anticoag + on eliquis (2 PE). Wt 326--> 314 Ibs Bronchitis 2 weeks ago Severe neuropathy On Cymbalta psychiatric weaning her off Cymbalta for anxiety. On Lamictal Loosing weight intentional BP 136/70, HR 73 complete blood count demonstrated white blood cells 4.5 hemoglobin 12.9 Complete blood work as of November 2020 demonstrated sodium 142 potassium 3.7 chloride 104 bicarb 35 BUN 13 creatinine 0.89 mg deciliter EGFR 59 mouth for minute total protein 6.7 albumin 3.8 calcium 9.6total bilirubin 0.5 AST 2022 Hemoglobin A1c 5.3. ad an echocardiogram September 13, 2020 will obtain results. History of present illness: Michael Packer is a 52 year old, White, female who was seen today fpr follow up for CKD IIIb, h/o 2 PE after hysterectomy > 10 yrs on eliquis. On lamictal for bipolar Patient's previous records, notes and chart reviewed and summarized above. visit Mar 23, 2022: Patient presented today to the office reports worsening leg edema weakness, fatigue, now producing more dark concentrated urine. Reports that she ran out of CellCept. Likely patient back in flare we do not have recent labs last blood work was September. Patient to obtain blood work today and we will call her back to review it. CellCept refilled visit September 1302/2022: Reports improvement in urine color and in frequency. Tolerating CellCept without side effects. Labs demonstrated stable kidney function versus slightly improved EGFR at 53 mils per minute per 1.73 m . Started on prednisone taper by Dr. Blanton. Blood pressure well controlled on spironolactone 25 mg patient takes 1.5 tablets daily and nebivolol 5 mg. visit June 23, 2020 following for improvement in side effects with discontinuing voclosporin Reports improvement in weakness improvement in feet neuropathy and improvement in hair loss with holding above medications. 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 Albumin 3.9. Calcium 9.5. Phosphorus 3.7. L1 to creatinine ratio 16 CBC demonstrated hemoglobin of 13.9 Office Visit April 19, 2021: Dark colored urine Dysuria Arthralgia Patient endorses fatigue and lack of energy. Dyspnea with exertion Lower back pain Intermittent leg cramps Weight is stable Patient reports better blood pressure BP 120-130/80, HR 60, Afebrile, wt stable. Meds reviewed, refilled. Patient's blood pressure is well controlled at home. Patient's denies any dysuria, hematuria, foamy urine or other voiding complaints. Patient reports leg swelling. Denies SOB/LEE, orthopnea, PND or other symptoms of fluid overload. Patient denies any overt symptoms of uremia. No adverse effects with meds. No other complaints. Patient denies fever, chills, cp, dyspnea, nausea, vomiting, night sweats, puentes, bowel/bladder changes, weight changes or other complaints. visit December 23, 2020: Reports significant improvement in blood pressure, weight patient following more healthier diet. She discontinued Tylenol arthritis since last visit she has been taking less pain medications. Serum creatinine improved to 0.89 mg/dL EGFR 59 mL/min per 1.73 m Significant improvement in proteinuria as well Anatomical challenge likely contributing to a smaller right kidney Images reviewed with the patient IVC filter close to right infrarenal aorta, right renal vein Patient also on Eliquis for PE No need for kidney biopsy office Visit October 21, 2020: Labs dated July 23, 2020 demonstrated serum creatinine 1.59 mg/dL EGFR 34 mL/min per 1 7 3 m so8 potassium 4.7 chloride 104 bicarb 24 Patient reports better blood pressure BP 120-130/80, HR 60, Afebrile, wt stable. Meds reviewed, refilled. Patient's blood pressure is well controlled at home. Patient's denies any dysuria, hematuria, foamy urine or other voiding complaints. Patient denies any leg swelling, SOB/LEE, orthopnea, PND or other symptoms of fluid overload. Patient denies any overt symptoms of uremia. No adverse effects with meds. No other complaints. Patient denies fever, chills, cp, dyspnea, nausea, vomiting, night sweats, puentes, bowel/bladder changes, weight changes or other complaints. -Duration (when): years -Location (where): kidneys -Severity (ex: creat 4.5, BP 200/100): Cr Chronic kidney disease, scr 1.59 mg/dl, egfr 34 ml/min -Context: DM -Timing/Modifying factors/Associated symptoms (ex: meds/continuous/SOB/edema): continuous Recent procedures/hospitalizations/contrasted CT scans: denies Patient denies CP, SOB, orthopnea or PND. Denies progressive leg edema No nausea, emesis,abdominal pain or diarrhea No dysuria, gross hematuria or new flank pain. No fever or chills. No dizziness,PUENTES or focal numbness or weakness. Wt is stable ALLERGIES Allergen Reactions Penicillins Hives Sulfa (Sulfonamide * Unknown Current Outpatient Medications Medication Sig mycophenolate mofetil (CELLCEPT) 250 mg capsule Take 1 capsule by mouth twice daily. oxybutynin ER (DITROPAN XL) 15 mg 24 hr Extended Rel Tab Take 1 tablet by mouth once daily. famotidine (PEPCID) 40 mg tablet Take 1 tablet by mouth twice daily. BREO ELLIPTA 200-25 mcg/dose inhaler Inhale 1 Inhalation as instructed once daily. ergocalciferol 50,000 unit capsule (VITAMIN D2, DRISDOL) 1 TABLET ORALLY ONCE A WEEK 30 DAYS benztropine (COGENTIN) 1 mg tablet Take 0.5-1 mg by mouth twice daily as needed. atorvastatin (LIPITOR) 20 mg tablet Take 20 mg by mouth once daily. baclofen (LIORESAL) 10 mg tablet TAKE 1 TABLET BY MOUTH EVERY DAY FOR 90 DAYS apixaban (ELIQUIS) 5 mg tab(s) Take 1 tablet by mouth twice daily. nebivolol (BYSTOLIC) 5 mg tablet Take 1 tablet by mouth once daily. ondansetron orally disintegrating (ZOFRAN ODT) 4 mg disintegrating tablet Take 1 tablet by mouth every 6 hours as needed. spironolactone (ALDACTONE) 25 mg tablet TAKE 1.5 TABLETS BY MOUTH ONCE DAILY. WALKER ROLLATOR SEAT WITH 6 WHEELS - RED Walker with rolator ARIPiprazole (ABILIFY) 10 mg tablet Take 10 mg by mouth once daily. albuterol HFA (PROAIR HFA) 90 mcg/actuation inhaler Inhale 2 Puffs as instructed every 6 hours as needed. DULoxetine (CYMBALTA) 60 mg capsule Take 2 capsules by mouth once daily. 60 mg in am, 30 mg at night per pt (Patient taking differently: Take 60 mg by mouth once daily.) predniSONE (DELTASONE) 5 mg tablet Take 5 mg by mouth once daily. montelukast (SINGULAIR) 10 mg tablet Take 1 tablet by mouth daily at bedtime. traMADol (ULTRAM) 50 mg tablet Take 50 mg by mouth every 12 hours as needed. ondansetron (ZOFRAN) 4 mg tablet Take 1 tablet by mouth every 6 hours as needed. acetaminophen (TYLENOL) 325 mg tablet Take 2 tablets by mouth every 6 hours as needed. metoclopramide HCl (REGLAN) 5 mg tablet Take 1 tablet by mouth three times daily before meals. sucralfate (CARAFATE) 1 gram tablet Take 1 tablet by mouth three times daily with meals. hydroxychloroquine (PLAQUENIL) 200 mg tablet Take 200 mg by mouth twice daily. BUDESONIDE/FORMOTEROL FUMARATE (SYMBICORT INHALATION) Inhale as instructed. CHOLECALCIFEROL, VITAMIN D3, (VITAMIN D-3 ORAL) Take 50,000 Units by mouth every Sunday. lamoTRIgine (LAMICTAL) 100 mg tablet Take 200 mg by mouth twice daily. No current facility-administered medications for this visit. PAST MEDICAL HISTORY Diagnosis Date Adhesive capsulitis of right shoulder Bursitis of right hip Chronic obstructive pulmonary disease (COPD) (HCC) Fibromyalgia GERD (gastroesophageal reflux disease) intolerant NSAIDS History of blood clots Hypertension Lumbar back pain with radiculopathy affecting right lower extremity Lupus (HCC) SLE, positive TAN recurrent polyarthritis malar erythema with photosensitivity generalized fatigue treated with Plaquenil, annual ophthalmology exam. Mixed connective tissue disease (HCC) Morbid obesity (HCC) NIX (nonalcoholic steatohepatitis) Confirmed by FibroScan, DR Jimbo Mcneill Osteoarthritis of left knee Osteoarthritis of right knee Polymyalgia rheumatica (HCC) Rheumatoid arthritis(714.0) Subacromial bursitis of right shoulder joint Vitamin D deficiency PAST SURGICAL HISTORY Procedure Laterality Date HYSTERECTOMY HX IVC FILTER SURGICAL [facility] SALPINGO-OOPHORECTOMY COMPL/PRTL UNI/BI SPX 2009 left ovary TUBAL LIGATION, FAMILY HISTORY Problem Relation Age of Onset Heart Father Rheumatologic disease Sister other (Raynaud's) Sister Social History Tobacco Use Smoking status: Never Smokeless tobacco: Never Vaping Use Vaping Use: Never used Substance Use Topics Alcohol use: No Drug use: No REVIEW OF SYMPTOMS: CONSTITUTIONAL: Denies fevers, chills, and weight changes. Denies fatigue/malaise. PULMONARY: Denies shortness of breath, wheezing, cough or hemoptysis. CARDIOLOGY: Denies chest pain, palpitations, LEE, orthopnea or PND. GI: No anorexia, nausea, vomiting, dysphagia, diarrhea, constipation, abdominal pain, hematochezia or melena. : No urinary hesitancy or dribbling. No nocturia or urinary frequency. No abnormal discharge. No hematuria, dysuria, or flank pain. MUSCULO-SKELETAL: No joint pain, swelling or erythema. SKIN: Denies any rashes or skin changes. No itching. EXTREMITIES: Denies any lower Extremity edema. Denies any claudication or peripheral ulcer. A full 12 point ROS was obtained and is negative other than that cited above. PHYSICAL EXAMINATION: There were no vitals taken for this visit. No weight on file for this encounter. LAB DATA Creatinine 1.1 to 1.2 mg deciliter EGFR 53 mL/min per 1.73 m . And albumin to creatinine ratio 16 mg/g ASSESSMENT AND PLAN 1) CKD Stage: IIIb, Differential diagnosis including lupus nephritis, analgesic nephropathy -- protein to creatinine ratio -- renal ultrasound review -- Lupus in remission, double-stranded DNA <1 -- On Plaquenil and prednisone -- Based on urine analysis and renal ultrasound will evaluate the need for renal biopsy -Etiology (likely): HTN, DM and NSAIDS. Note normal C3/C4/SPEP/HCV/HBV -Does not need preparation for dialysis at this time. -Will continue routine monitoring of chemistries. -Avoid all PICC lines, i.v.s and blood draws in arms above wrists as possible to preserve veins forpossible AV fistula or AVG. Kidney function: CKD III (Cr trend over the years) Kidney sizes: moderatly large kidneys, with increased echogenicity, no obstruction Have reviewed CKD staging and preventing progression. Have reviewed NSAID avoidance and avoidance of IV dye. 2) Hypertension: Patient reports having high blood pressure in the past however recently blood pressure well controlled on bisoprolol, Of lisinopril and amlodipine -Blood pressure is adequately controlled. -No changes to medications at this time. -The patient was advised to follow a low salt/DASH diet. 3) Anemia: Hemoglobin below target concern for iron deficiency anemia check iron stores -Hemoglobin is adequate. -Continue periodic monitoring of CBC and iron studies. 4) Secondary Hyperparathyroidism/CKD-MBD: Check Vitamin D and PTH -Intact PTH, vitamin d, calcium, and phosphorus levels are acceptable. -No changes -in management. -Will continue to monitor these indices. 5) Proteinuria: To quantify protein to creatinine ratio -Will continue monitor microalbumin/creatinine ratio. 7) Dyslipidemia: -The patient has moderate CKD and would benefit from aggressive lipid control with an LDL goal of <100 and TG less than 150mg/dl. Reports improvement in weakness improvement in feet neuropathy and improvement in hair loss with holding voclosporin Tolerating mycophenolate without side effects Proteinuria improving down to 16 mg/g Reports significant improvement in blood pressure, weight patient following more healthier diet. She discontinued Tylenol arthritis since last visit she has been taking less pain medications. 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 On Eliquis for PE, high risk for coagulopathy Infrarenal IVC filter with multiple limbs extending beyond the lumen unchanged from 2017. significant improvement in renal function and proteinuria with holding analgesics Chronic pain syndrome recently diagnosed with PMR, on prednisone. No signs of fluid overload Daily weight, blood pressure log Dark colored urine improving Dysuria better visit Mar 23, 2022: Patient presented today to the office reports worsening leg edema weakness, fatigue, now producing more dark concentrated urine. Reports that she ran out of CellCept. Likely patient back in flare we do not have recent labs last blood work was September. Patient to obtain blood work today and we will call her back to review it. CellCept refilled May 23, 2022 visit. Reports improvement in dark-colored urine with resuming CellCept To cont same meds Referral to urology Dr. Buckley for bladder control S/p hysterectomy Follow-up in 3-4 months For follow-up I have asked that she return to clinic in 3 month or earlier if needed. Thank you forallowing me to participate in this patient's care. Please feel free to contact me with any questions or concerns. Follow up with PCP for all non-renal problems This note was partially created using voice recognition software and is inherently subject to errors including those of syntax and sound-alike substitutions which may escape proofreading. In such instances, original meaning may be extrapolated by contextual derivation. With warmest regards, Marva Malhotra MD Nephrology and Hypertension Roofing Supervisor Clinical hoist worker [facility] [address] [address], [address] [place], [place] [id number] [facility] History of Present illness Narrative* Marva Malhotra MD - 03/23/2022 11:41 AM EST Nephrology Department Outpatient Visit Date Mar 23, 2022 Outpatient Visit Type Established Visit Follow up for chronic kidney disease, lupus nephritis Patient presented to the office today she missed 1 appointment and she ran out of CellCept. She reports worsening weight gain lower extremity edema worsening dyspnea. She reports dark concentrated urine Risk: Acute flare Ran out of 2 of medications Cc: chronic kidney disease stage IIIa Lupus nephritis Monitoring immunosuppressive therapy Tolerating CellCept to 250 mg p.o. twice daily without side effects Tapering steroids: October 05 dose reduced to 4 mg daily Labs as of Sep 06 2021, performed at Dr. Blanton's office Bun 18 k 3.5 Na 137 Gluc 103 1.07 mg egfr 53.8 Albumin/cr Alp 118 Trace in bacteria Proteinuria pending Immunosuppressive therapy started 04/19/2021: Reports intolerance to voclosporin including feeling weak numbness in the feet weakness via whole body Hair loss Cold sores Cellcept started 06/23/21 Dark colored urine concern for GN lupus nephritis To cont Cellcept Serum creatinine trend: May 2019 scr 1.08 mg/dl, egfr was 54 ml/min July 2020 was 1.9 mg deciliter EGFR 27.9 mL/min. October 2020 scr 1.59 mg/dl, egfr 34 ml/min November 2020 serum creatinine 0.8 mg/dL, EGFR 59 mL/min per 1.73 m Labs at [facility] collected April 19, 2021 demonstrated a creatinine of 1.08 and EGFR 53.3. Albumin to creatinine ratio of 16 tylenol arthritis 2 tabs in am and 2 pm Tramadol Lupus for > 14 yrs. On plaquine and prednisone PMR on prednisone. biofreeze helping with pain Lupus anticoag + on eliquis (2 PE). Wt 326--> 314 Ibs Bronchitis 2 weeks ago Severe neuropathy On Cymbalta psychiatric weaning her off Cymbalta for anxiety. On Lamictal Loosing weight intentional BP 136/70, HR 73 complete blood count demonstrated white blood cells 4.5 hemoglobin 12.9 Complete blood work as of November 2020 demonstrated sodium 142 potassium 3.7 chloride 104 bicarb 35 BUN 13 creatinine 0.89 mg deciliter EGFR 59 mouth for minute total protein 6.7 albumin 3.8 calcium 9.6total bilirubin 0.5 AST 2022 Hemoglobin A1c 5.3. ad an echocardiogram September 13, 2020 will obtain results. History of present illness: Michael Packer is a 52 year old, White, female who was seen today fpr follow up for CKD IIIb, h/o 2 PE after hysterectomy > 10 yrs on eliquis. On lamictal for bipolar Patient's previous records, notes and chart reviewed and summarized above. Today's visit Mar 23, 2022: Patient presented today to the office reports worsening leg edema weakness, fatigue, now producing more dark concentrated urine. Reports that she ran out of CellCept. Likely patient back in flare we do not have recent labs last blood work was September. Patient to obtain blood work today and we will call her back to review it. CellCept refilled visit September 1302/2022: Reports improvement in urine color and in frequency. Tolerating CellCept without side effects. Labs demonstrated stable kidney function versus slightly improved EGFR at 53 mils per minute per 1.73 m . Started on prednisone taper by Dr. Blanton. Blood pressure well controlled on spironolactone 25 mg patient takes 1.5 tablets daily and nebivolol 5 mg. visit June 23, 2020 following for improvement in side effects with discontinuing voclosporin Reports improvement in weakness improvement in feet neuropathy and improvement in hair loss with holding above medications. 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 Albumin 3.9. Calcium 9.5. Phosphorus 3.7. L1 to creatinine ratio 16 CBC demonstrated hemoglobin of 13.9 Office Visit April 19, 2021: Dark colored urine Dysuria Arthralgia Patient endorses fatigue and lack of energy. Dyspnea with exertion Lower back pain Intermittent leg cramps Weight is stable Patient reports better blood pressure BP 120-130/80, HR 60, Afebrile, wt stable. Meds reviewed, refilled. Patient's blood pressure is well controlled at home. Patient's denies any dysuria, hematuria, foamy urine or other voiding complaints. Patient reports leg swelling. Denies SOB/LEE, orthopnea, PND or other symptoms of fluid overload. Patient denies any overt symptoms of uremia. No adverse effects with meds. No other complaints. Patient denies fever, chills, cp, dyspnea, nausea, vomiting, night sweats, puentes, bowel/bladder changes, weight changes or other complaints. visit December 23, 2020: Reports significant improvement in blood pressure, weight patient following more healthier diet. She discontinued Tylenol arthritis since last visit she has been taking less pain medications. Serum creatinine improved to 0.89 mg/dL EGFR 59 mL/min per 1.73 m Significant improvement in proteinuria as well Anatomical challenge likely contributing to a smaller right kidney Images reviewed with the patient IVC filter close to right infrarenal aorta, right renal vein Patient also on Eliquis for PE No need for kidney biopsy office Visit October 21, 2020: Labs dated July 23, 2020 demonstrated serum creatinine 1.59 mg/dL EGFR 34 mL/min per 1 7 3 m so8 potassium 4.7 chloride 104 bicarb 24 Patient reports better blood pressure BP 120-130/80, HR 60, Afebrile, wt stable. Meds reviewed, refilled. Patient's blood pressure is well controlled at home. Patient's denies any dysuria, hematuria, foamy urine or other voiding complaints. Patient denies any leg swelling, SOB/LEE, orthopnea, PND or other symptoms of fluid overload. Patient denies any overt symptoms of uremia. No adverse effects with meds. No other complaints. Patient denies fever, chills, cp, dyspnea, nausea, vomiting, night sweats, puentes, bowel/bladder changes, weight changes or other complaints. -Duration (when): years -Location (where): kidneys -Severity (ex: creat 4.5, BP 200/100): Cr Chronic kidney disease, scr 1.59 mg/dl, egfr 34 ml/min -Context: DM -Timing/Modifying factors/Associated symptoms (ex: meds/continuous/SOB/edema): continuous Recent procedures/hospitalizations/contrasted CT scans: denies Patient denies CP, SOB, orthopnea or PND. Denies progressive leg edema No nausea, emesis,abdominal pain or diarrhea No dysuria, gross hematuria or new flank pain. No fever or chills. No dizziness,PUENTES or focal numbness or weakness. Wt is stable ALLERGIES Allergen Reactions Penicillins Hives Sulfa (Sulfonamide * Unknown Current Outpatient Medications Medication Sig famotidine (PEPCID) 40 mg tablet Take 1 tablet by mouth twice daily. BREO ELLIPTA 200-25 mcg/dose inhaler Inhale 1 Inhalation as instructed once daily. ergocalciferol 50,000 unit capsule (VITAMIN D2, DRISDOL) 1 TABLET ORALLY ONCE A WEEK 30 DAYS benztropine (COGENTIN) 1 mg tablet Take 0.5-1 mg by mouth twice daily as needed. atorvastatin (LIPITOR) 20 mg tablet Take 20 mg by mouth once daily. baclofen (LIORESAL) 10 mg tablet TAKE 1 TABLET BY MOUTH EVERY DAY FOR 90 DAYS oxybutynin ER (DITROPAN XL) 15 mg 24 hr Extended Rel Tab TAKE 1 TABLET BY MOUTH EVERY DAY FOR 90 DAYS apixaban (ELIQUIS) 5 mg tab(s) Take 1 tablet by mouth twice daily. nebivolol (BYSTOLIC) 5 mg tablet Take 1 tablet by mouth once daily. ondansetron orally disintegrating (ZOFRAN ODT) 4 mg disintegrating tablet Take 1 tablet by mouth every 6 hours as needed. spironolactone (ALDACTONE) 25 mg tablet TAKE 1.5 TABLETS BY MOUTH ONCE DAILY. mycophenolate mofetil (CELLCEPT) 250 mg capsule Take 1 capsule by mouth twice daily. WALKER ROLLATOR SEAT WITH 6 WHEELS - RED Walker with rolator ARIPiprazole (ABILIFY) 10 mg tablet Take 10 mg by mouth once daily. albuterol HFA (PROAIR HFA) 90 mcg/actuation inhaler Inhale 2 Puffs as instructed every 6 hours as needed. DULoxetine (CYMBALTA) 60 mg capsule Take 2 capsules by mouth once daily. 60 mg in am, 30 mg at night per pt (Patient taking differently: Take 60 mg by mouth once daily.) predniSONE (DELTASONE) 5 mg tablet Take 5 mg by mouth once daily. ondansetron (ZOFRAN) 4 mg tablet Take 1 tablet by mouth every 6 hours as needed. acetaminophen (TYLENOL) 325 mg tablet Take 2 tablets by mouth every 6 hours as needed. metoclopramide HCl (REGLAN) 5 mg tablet Take 1 tablet by mouth three times daily before meals. sucralfate (CARAFATE) 1 gram tablet Take 1 tablet by mouth three times daily with meals. hydroxychloroquine (PLAQUENIL) 200 mg tablet Take 200 mg by mouth twice daily. BUDESONIDE/FORMOTEROL FUMARATE (SYMBICORT INHALATION) Inhale as instructed. CHOLECALCIFEROL, VITAMIN D3, (VITAMIN D-3 ORAL) Take 50,000 Units by mouth every Sunday. lamoTRIgine (LAMICTAL) 100 mg tablet Take 200 mg by mouth twice daily. montelukast (SINGULAIR) 10 mg tablet Take 1 tablet by mouth daily at bedtime. traMADol (ULTRAM) 50 mg tablet Take 50 mg by mouth every 12 hours as needed. No current facility-administered medications for this visit. PAST MEDICAL HISTORY Diagnosis Date Adhesive capsulitis of right shoulder Bursitis of right hip Chronic obstructive pulmonary disease (COPD) (HCC) Fibromyalgia GERD (gastroesophageal reflux disease) intolerant NSAIDS History of blood clots Hypertension Lumbar back pain with radiculopathy affecting right lower extremity Lupus (HCC) SLE, positive TAN recurrent polyarthritis malar erythema with photosensitivity generalized fatigue treated with Plaquenil, annual ophthalmology exam. Mixed connective tissue disease (HCC) Morbid obesity (HCC) NIX (nonalcoholic steatohepatitis) Confirmed by FibroScan, DR Jimbo Mcneill Osteoarthritis of left knee Osteoarthritis of right knee Polymyalgia rheumatica (HCC) Rheumatoid arthritis(714.0) Subacromial bursitis of right shoulder joint Vitamin D deficiency PAST SURGICAL HISTORY Procedure Laterality Date HYSTERECTOMY HX IVC FILTER SURGICAL [facility] SALPINGO-OOPHORECTOMY COMPL/PRTL UNI/BI SPX 2009 left ovary TUBAL LIGATION, FAMILY HISTORY Problem Relation Age of Onset Heart Father Rheumatologic disease Sister other (Raynaud's) Sister Social History Tobacco Use Smoking status: Never Smokeless tobacco: Never Vaping Use Vaping Use: Never used Substance Use Topics Alcohol use: No Drug use: No REVIEW OF SYMPTOMS: CONSTITUTIONAL: Denies fevers, chills, and weight changes. Denies fatigue/malaise. PULMONARY: Denies shortness of breath, wheezing, cough or hemoptysis. CARDIOLOGY: Denies chest pain, palpitations, LEE, orthopnea or PND. GI: No anorexia, nausea, vomiting, dysphagia, diarrhea, constipation, abdominal pain, hematochezia or melena. : No urinary hesitancy or dribbling. No nocturia or urinary frequency. No abnormal discharge. No hematuria, dysuria, or flank pain. MUSCULO-SKELETAL: No joint pain, swelling or erythema. SKIN: Denies any rashes or skin changes. No itching. EXTREMITIES: Denies any lower Extremity edema. Denies any claudication or peripheral ulcer. A full 12 point ROS was obtained and is negative other than that cited above. PHYSICAL EXAMINATION: BP 126/76 Pulse 73 Wt (!) 146.5 kg (323 lb) BMI 50.59 kg/m BMI 50.59 kg/(m^2) GENERAL: Well developed and well nourished, NAD. EYES: Conjunctivae- pink, Non-icterus sclera. HEENT : Normocephalic, atraumatic, oral pharynx clear, MMM and pink. NECK : Supple, No JVD. No cervical lymphadenopathy or masses. No thyromegaly or tenderness. RESPIRATORY: Resp efforts are WNL. Bilat equal air entry. CTA bilaterally CVS : Pericardial friction rub is absent. S1, S2 Normal. No Murmer, or gallops. EDEMA +2 VASCULAR: carotid pulses is palpable bilaterally; carotid bruit is absent; No Abdominal bruit. Peripheral pulse palpable . ABDOMEN: soft, non-distended, non-tender, Normoactive BS. No HSM. : NO CVA tenderness. bladder is not distended. LYMPHATICS: No cervical, axillary, inguinal lymphadenopathy. MUSULOSKELATAL: No swollen, tender, or warm joints present. No clubbing, cyanosis or petechiae. SKIN: No rashes or ulcers present. No induration of skin or subcutaneous area. LAB DATA Creatinine 1.1 to 1.2 mg deciliter EGFR 53 mL/min per 1.73 m . And albumin to creatinine ratio 16 mg/g ASSESSMENT AND PLAN 1) CKD Stage: IIIb, Differential diagnosis including lupus nephritis, analgesic nephropathy -- To quantify protein to creatinine ratio -- Check renal ultrasound, pending -- Lupus in remission, double-stranded DNA <1 -- On Plaquenil and prednisone -- Based on urine analysis and renal ultrasound will evaluate the need for renal biopsy -Etiology (likely): HTN, DM and NSAIDS. Note normal C3/C4/SPEP/HCV/HBV -Does not need preparation for dialysis at this time. -Will continue routine monitoring of chemistries. -Avoid all PICC lines, i.v.s and blood draws in arms above wrists as possible to preserve veins forpossible AV fistula or AVG. Kidney function: CKD III (Cr trend over the years) Kidney sizes: moderatly large kidneys, with increased echogenicity, no obstruction Have reviewed CKD staging and preventing progression. Have reviewed NSAID avoidance and avoidance of IV dye. 2) Hypertension: Patient reports having high blood pressure in the past however recently blood pressure well controlled on bisoprolol, Of lisinopril and amlodipine -Blood pressure is adequately controlled. -No changes to medications at this time. -The patient was advised to follow a low salt/DASH diet. 3) Anemia: Hemoglobin below target concern for iron deficiency anemia check iron stores -Hemoglobin is adequate. -Continue periodic monitoring of CBC and iron studies. 4) Secondary Hyperparathyroidism/CKD-MBD: Check Vitamin D and PTH -Intact PTH, vitamin d, calcium, and phosphorus levels are acceptable. -No changes -in management. -Will continue to monitor these indices. 5) Proteinuria: To quantify protein to creatinine ratio -Will continue monitor microalbumin/creatinine ratio. 7) Dyslipidemia: -The patient has moderate CKD and would benefit from aggressive lipid control with an LDL goal of <100 and TG less than 150mg/dl. Reports improvement in weakness improvement in feet neuropathy and improvement in hair loss with holding voclosporin Tolerating mycophenolate without side effects Proteinuria improving down to 16 mg/g Reports significant improvement in blood pressure, weight patient following more healthier diet. She discontinued Tylenol arthritis since last visit she has been taking less pain medications. 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 On Eliquis for PE, high risk for coagulopathy Infrarenal IVC filter with multiple limbs extending beyond the lumen unchanged from 2017. significant improvement in renal function and proteinuria with holding analgesics Chronic pain syndrome recently diagnosed with PMR, on prednisone. No signs of fluid overload Daily weight, blood pressure log Dark colored urine improving Dysuria better Today's visit Mar 23, 2022: Patient presented today to the office reports worsening leg edema weakness, fatigue, now producing more dark concentrated urine. Reports that she ran out of CellCept. Likely patient back in flare we do not have recent labs last blood work was September. Patient to obtain blood work today and we will call her back to review it. CellCept refilled Follow-up in 3-4 months For follow-up I have asked that she return to clinic in 4 month or earlier if needed. Thank you forallowing me to participate in this patient's care. Please feel free to contact me with any questions or concerns. Follow up with PCP for all non-renal problems This note was partially created using voice recognition software and is inherently subject to errors including those of syntax and sound-alike substitutions which may escape proofreading. In such instances, original meaning may be extrapolated by contextual derivation. With warmest regards, Marva Malhotra MD Nephrology and Hypertension Roofing Supervisor Clinical hoist worker [facility] [address] [place], [place] [id number] documented in this encounterWestern [facility]07-[facility]22 Instructions* Patient Instructions* Marisela Horn APRN.CNS - 11/24/2021 1:40 PM EDT Check to see if your insurance covers Tdap and shingles vaccine and what location to get the vaccine -usually best covered at your local pharmacy where you get prescriptions filled documented in this encounterWestern [facility] Hospital07-21-2022 History of Present illness Narrative* Marisela Horn APRN.CNS - 11/24/2021 1:00 PM EDT SUBJECTIVE: COVID-19 VACCINE(1) Never done PNEUMOCOCCAL(1 - PCV) Never done SPIROMETRY Never done ANNUAL PCP TEAM CHRONIC DISEASE VISIT Never done HEPATITIS C SCREENING Never done HIV SCREENING Never done BP CONTROLLED (<130/80) Never done DTAP,TDAP,TD(1 - Tdap) Never done SHINGRIX VACCINE(1 of 2) Never done PAP TESTING Never done ALPHA-1 ANTITRYPSIN DEFICIENCY SCREENING Never done HPV TESTING Never done MAMMOGRAM Never done LIPID SCREEN Never done COLORECTAL CANCER SCREENING Never done HPI Michael Packer is a 51 year old female. PMH significant for ACTIVE PROBLEM LIST OVARIAN CYST -HEMORRHAGIC FLUID SEE ALSO ELECTROLYTE OR PERITONEAL CAVITY Chest Pain Acute Midline Thoracic Back Pain Pleurisy Gerd (Gastroesophageal Reflux Disease) Epigastric Pain Epigastric Abdominal Pain Obesity, Class III, BMI >= 40 (morbid obesity) E66.01 Asthma With Chronic Obstructive Pulmonary Disease (Copd) (Hcc) Asthma Exacerbation History of Pulmonary Embolus (Pe) Primary Hypertension Lupus (Hcc) Presents today to establish care with Telma Brown MD She notes she recently moved to the area. Previous PCP:Dr Judy Ramon MD, states he Last seen:3 mos ago Labwork: Outside records: care everywhere only See care everywhere for partial outside records, kidney medicine reviewed and nephrology consultants. 09/27/2021 ER visit dehydration 2/2 nausea vomiting and diarrhea.. Followed by Marva Malhotra MD Nephrology for stage IIIa chronic kidney disease, lupus nephritis on immunosuppressive therapy, CellCept to 50 mg twice daily; started June 23, 2021. Tapering steroids, reduced to 4 mg daily starting in October. Biometrics Specialist : Dr Díaz [facility] Lupus Counseling center: [facility] Chronic OAC 2/2 history of PE; Eliquis. Primary doctor prescribed, states blood clots, lupus Asthma with COPD. Stable. was using Breo. Pulmonary care managed by both primary and apple checker. States she has not had PFT in the past. Notes increased blood pressure recently. HTN: Without report of headache, chest pain, palpitations, dyspnea, peripheral edema, orthopnea, fatigue and PND. Last 3 Encounter BP Readings: Date: BP: 11/24/2021 134/84 09/27/2021 170/87 05/12/2021 159/77 She notes some left shoulder pain, has been lifting child recently thinks this may have aggravated. Review of Systems Constitutional: Negative. Objective BP 134/84 Pulse 76 Resp 16 Ht 170.2 cm (5' 7) Wt (!) 145.6 kg (321 lb) SpO2 94% BMI 50.28 kg/m Physical Exam Vitals and nursing note reviewed. Constitutional: Appearance: Normal appearance. HENT: Head: Normocephalic and atraumatic. Eyes: Conjunctiva/sclera: Conjunctivae normal. Cardiovascular: Rate and Rhythm: Normal rate and regular rhythm. Heart sounds: Normal heart sounds. Pulmonary: Effort: Pulmonary effort is normal. Breath sounds: Normal breath sounds. Abdominal: General: Bowel sounds are normal. Palpations: Abdomen is soft. Musculoskeletal: Right lower leg: No edema. Left lower leg: No edema. Comments: +BLE varicosities Skin: General: Skin is warm and dry. Neurological: Mental Status: She is alert. ALLERGIES Allergen Reactions Penicillins Hives Sulfa (Sulfonamide * Unknown Medications ergocalciferol 50,000 unit capsule (VITAMIN D2, DRISDOL), 1 TABLET ORALLY ONCE A WEEK 30 DAYS benztropine (COGENTIN) 1 mg tablet, Take 0.5-1 mg by mouth twice daily as needed. atorvastatin (LIPITOR) 20 mg tablet, Take 20 mg by mouth once daily. baclofen (LIORESAL) 10 mg tablet, TAKE 1 TABLET BY MOUTH EVERY DAY FOR 90 DAYS oxybutynin ER (DITROPAN XL) 15 mg 24 hr Extended Rel Tab, TAKE 1 TABLET BY MOUTH EVERY DAY FOR 90 DAYS apixaban (ELIQUIS) 5 mg tab(s), Take 1 tablet by mouth twice daily. nebivolol (BYSTOLIC) 5 mg tablet, Take 1 tablet by mouth once daily. spironolactone (ALDACTONE) 25 mg tablet, TAKE 1.5 TABLETS BY MOUTH ONCE DAILY. WALKER ROLLATOR SEAT WITH 6 WHEELS - RED, Walker with rolator ARIPiprazole (ABILIFY) 10 mg tablet, Take 10 mg by mouth once daily. albuterol HFA (PROAIR HFA) 90 mcg/actuation inhaler, Inhale 2 Puffs as instructed every 6 hours as needed. DULoxetine (CYMBALTA) 60 mg capsule, Take 2 capsules by mouth once daily. 60 mg in am, 30 mg at night per pt predniSONE (DELTASONE) 5 mg tablet, Take 5 mg by mouth once daily. BREO ELLIPTA 200-25 mcg/dose inhaler, INHALE 1 PUFF ONCE A DAY famotidine (PEPCID) 40 mg tablet, TAKE 1 TABLET BY MOUTH EVERYDAY AT BEDTIME pantoprazole DR (PROTONIX) 40 mg tablet, Take 40 mg by mouth once daily. montelukast (SINGULAIR) 10 mg tablet, Take 1 tablet by mouth daily at bedtime. traMADol (ULTRAM) 50 mg tablet, Take 50 mg by mouth every 12 hours as needed. ondansetron (ZOFRAN) 4 mg tablet, Take 1 tablet by mouth every 6 hours as needed. acetaminophen (TYLENOL) 325 mg tablet, Take 2 tablets by mouth every 6 hours as needed. hydroxychloroquine (PLAQUENIL) 200 mg tablet, Take 200 mg by mouth twice daily. lamotrigine (LAMICTAL) 100 mg ORAL tablet, Take 200 mg by mouth twice daily. ondansetron orally disintegrating (ZOFRAN ODT) 4 mg disintegrating tablet, Take 1 tablet by mouth every 6 hours as needed. mycophenolate mofetil (CELLCEPT) 250 mg capsule, Take 1 capsule by mouth twice daily. metoclopramide HCl (REGLAN) 5 mg tablet, Take 1 tablet by mouth three times daily before meals. sucralfate (CARAFATE) 1 gram tablet, Take 1 tablet by mouth three times daily with meals. BUDESONIDE/FORMOTEROL FUMARATE (SYMBICORT INHALATION), Inhale as instructed. CHOLECALCIFEROL, VITAMIN D3, (VITAMIN D-3 ORAL), Take 50,000 Units by mouth every Sunday. PAST MEDICAL HISTORY Diagnosis Date Chronic obstructive pulmonary disease (COPD) (HCC) Fibromyalgia History of blood clots Hypertension Lupus (HCC) Rheumatoid arthritis(714.0) Social History Tobacco Use Smoking status: Never Smoker Smokeless tobacco: Never Used Vaping Use Vaping Use: Never used Substance Use Topics Alcohol use: No Drug use: No Component Latest Ref Rng & Units 09/27/2021 WBC 3.70 - 11.00 k/uL 6.28 RBC 3.90 - 5.20 m/uL 4.22 Hemoglobin 11.5 - 15.5 g/dL 13.0 Hematocrit 36.0 - 46.0 % 39.8 MCV 80.0 - 100.0 fL 94.3 MCH 26.0 - 34.0 pg 30.8 MCHC 30.5 - 36.0 g/dL 32.7 RDW-CV 11.5 - 15.0 % 13.7 Platelet Count 150 - 400 k/uL 213 MPV 9.0 - 12.7 fL 10.0 Neut% % 74.0 Abs Neut (ANC) 1.45 - 7.50 k/uL 4.65 Lymph% % 17.5 Abs Lymph 1.00 - 4.00 k/uL 1.10 Kingfisher% % 6.2 Abs [place] <0.87 k/uL 0.39 Eosin% % 1.3 Abs Eosin <0.46 k/uL 0.08 Baso% % 0.8 Abs Baso <0.11 k/uL 0.05 Immature Gran % % 0.2 IMMATURE GRANS (ABS) <0.10 k/uL <0.03 NRBC /100 WBC 0.0 Absolute nRBC <0.01 k/uL <0.01 DTYPE Auto Protein, Total 6.3 - 8.0 g/dL 6.9 Albumin 3.9 - 4.9 g/dL 4.4 Calcium 8.5 - 10.2 mg/dL 9.5 Bilirubin, Total 0.2 - 1.3 mg/dL 0.5 Alkaline Phosphatase 34 - 123 U/L 86 AST 13 - 35 U/L 24 ALT 7 - 38 U/L 19 Glucose 74 - 99 mg/dL 101 (H) BUN 7 - 21 mg/dL 13 Creatinine 0.58 - 0.96 mg/dL 0.99 (H) Sodium 136 - 144 mmol/L 140 Potassium 3.7 - 5.1 mmol/L 3.8 Chloride 97 - 105 mmol/L 103 CO2 22 - 30 mmol/L 28 Anion Gap 9 - 18 mmol/L 9 eGFR >=60 mL/min/1.73m 69 Color Yellow Yellow Clarity Clear Turbid (A) Glucose, Urine Negative Negative Bilirubin, Urine Negative Negative Ketones, Urine Negative 1+ (A) Specific [place], Ur 1.005 - 1.030 >=1.030 (H) Hemoglobin/Blood,Ur Negative Trace (A) pH, Urine 5.0 - 8.0 5.5 Protein, Urine Negative Trace (A) Urobilinogen 0.2-1.0 EU/dL 0.2 EU/dL Nitrites Negative Negative Leukest Negative Negative WBC, Urine 0-5 /HPF 0-5 /HPF RBC, Urine 0-3 /HPF 0-3 /HPF Bacteria None Seen /HPF Many (A) Epithelial Cells /HPF Few Magnesium 1.7 - 2.3 mg/dL 1.8 Lipase 16 - 61 U/L 16 ASSESSMENT/PLAN: 1. Routine medical exam - ICD9: V70.0, ICD10: Z00.00 (primary diagnosis) - Endorse healthy diet and regular exercise - Calcium intake with supplements or by diet of 1000 mg/day for under 50, 1200- 1500 mg/day for 50+ 2. Encounter for immunization - ICD9: V03.89, ICD10: Z23 - [employer] COVID-19 VACCINE, AGE 12+ YR (DUENAS TOP) - PNEUMOCOCCAL VACCINE (PREVNAR 20) 3. Special screening examination for viral disease - ICD9: V73.99, ICD10: Z11.59 - HEP C AB IA W/CONF SCRN 4. Screening for HIV (human immunodeficiency virus) - ICD9: V73.89, ICD10: Z11.4 - HIV 1 2 COMBO(AG/AB),WITH REFLEX TO DIFFERENTIATION 6. Chronic obstructive pulmonary disease, unspecified COPD type (HCC) - ICD9: 496, ICD10: J44.9 Notes she has asthma and COPD, states no former PFT. Using inhalers with good effect currently. Needs to transfer care here. - CONSULT TO PULM/CRITICAL CARE - SPIROMETRY - BASELINE AND POST DILATOR - [id number] 7. Encounter for screening mammogram for breast cancer - ICD9: V76.12, ICD10: Z12.31 endorse routine BSE - ABE SCREENING 8. Screening for lipid disorders - ICD9: V77.91, ICD10: Z13.220 - LIPID PANEL BASIC 9. Screening for colon cancer - ICD9: V76.51, ICD10: Z12.11 Indicates she has not completed colon cancer screening 11. Gastroesophageal reflux disease, unspecified whether esophagitis present - ICD9: 530.81, ICD10:K21.9 Without current complaints 12. Lupus (HCC) - ICD9: 710.0, ICD10: M32.9 Followed by track superintendent 13. History of pulmonary embolus (PE) - ICD9: V12.55, ICD10: Z86.711 On chronic oral anticoagulation, Eliquis. No bleeding difficulties reported 14. Colon cancer screening - ICD9: V76.51, ICD10: Z12.11 - CONSULT TO GENERAL SURGERY Marisela Horn APRN.CNS Medical Decision Making: Problems: Moderate: 2+ stable chronic illnesses Data: Unique test(s) ordered: 1 Risk: Moderate: Drug management Medical Decision Making Level: 4 - Moderate documented in this encounter[facility]22 History of Present illness Narrative* Marva Malhotra MD - 09/13/2021 1:49 PM EDT Nephrology Department Outpatient Visit Date September 13, 2021 Outpatient Visit Type Established Visit Virtual Patient verbally agrees/consents to proceed with Audio-VIDEO Conference Sep 13 2021 Audio-VIDEO VISIT using Phillip me: Follow up for chronic kidney disease, lupus nephritis Cc: chronic kidney disease stage IIIa Lupus nephritis Monitoring immunosuppressive therapy Tolerating CellCept to 250 mg p.o. twice daily without side effects Tapering steroids: Starting October 05 dose will be reduced to 4 mg daily Labs as of Sep 06 2021, performed at Dr. Blanton's office Bun 18 k 3.5 Na 137 Gluc 103 1.07 mg egfr 53.8 Albumin/cr Alp 118 Trace in bacteria Proteinuria pending Immunosuppressive therapy started 04/19/2021: Reports intolerance to voclosporin including feeling weak numbness in the feet weakness via whole body Hair loss Cold sores Cellcept started 06/23/21 Dark colored urine concern for GN lupus nephritis To cont Cellcept Serum creatinine trend: May 2019 scr 1.08 mg/dl, egfr was 54 ml/min July 2020 was 1.9 mg deciliter EGFR 27.9 mL/min. October 2020 scr 1.59 mg/dl, egfr 34 ml/min November 2020 serum creatinine 0.8 mg/dL, EGFR 59 mL/min per 1.73 m Labs at [place] physician collected April 19, 2021 demonstrated a creatinine of 1.08 and EGFR 53.3. Albumin to creatinine ratio of 16 tylenol arthritis 2 tabs in am and 2 pm Tramadol Lupus for > 14 yrs. On plaquine and prednisone PMR on prednisone. biofreeze helping with pain Lupus anticoag + on eliquis (2 PE). Wt 326--> 314 Ibs Bronchitis 2 weeks ago Severe neuropathy On Cymbalta psychiatric weaning her off Cymbalta for anxiety. On Lamictal Loosing weight intentional BP 136/70, HR 73 complete blood count demonstrated white blood cells 4.5 hemoglobin 12.9 Complete blood work as of November 2020 demonstrated sodium 142 potassium 3.7 chloride 104 bicarb 35 BUN 13 creatinine 0.89 mg deciliter EGFR 59 mouth for minute total protein 6.7 albumin 3.8 calcium 9.6total bilirubin 0.5 AST 2022 Hemoglobin A1c 5.3. ad an echocardiogram September 13, 2020 will obtain results. History of present illness: Michael Packer is a 51 year old, White, female who was seen today fpr follow up for CKD IIIb, h/o 2 PE after hysterectomy > 10 yrs on eliquis. On lamictal for bipolar Patient's previous records, notes and chart reviewed and summarized above. Today's visit September 1302/2022: Reports improvement in urine color and in frequency. Tolerating CellCept without side effects. Labs demonstrated stable kidney function versus slightly improved EGFR at 53 mils per minute per 1.73 m . Started on prednisone taper by Dr. Blanton. Blood pressure well controlled on spironolactone 25 mg patient takes 1.5 tablets daily and nebivolol 5 mg. visit June 23, 2020 following for improvement in side effects with discontinuing voclosporin Reports improvement in weakness improvement in feet neuropathy and improvement in hair loss with holding above medications. 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 Albumin 3.9. Calcium 9.5. Phosphorus 3.7. L1 to creatinine ratio 16 CBC demonstrated hemoglobin of 13.9 Office Visit April 19, 2021: Dark colored urine Dysuria Arthralgia Patient endorses fatigue and lack of energy. Dyspnea with exertion Lower back pain Intermittent leg cramps Weight is stable Patient reports better blood pressure BP 120-130/80, HR 60, Afebrile, wt stable. Meds reviewed, refilled. Patient's blood pressure is well controlled at home. Patient's denies any dysuria, hematuria, foamy urine or other voiding complaints. Patient reports leg swelling. Denies SOB/LEE, orthopnea, PND or other symptoms of fluid overload. Patient denies any overt symptoms of uremia. No adverse effects with meds. No other complaints. Patient denies fever, chills, cp, dyspnea, nausea, vomiting, night sweats, puentes, bowel/bladder changes, weight changes or other complaints. visit December 23, 2020: Reports significant improvement in blood pressure, weight patient following more healthier diet. She discontinued Tylenol arthritis since last visit she has been taking less pain medications. Serum creatinine improved to 0.89 mg/dL EGFR 59 mL/min per 1.73 m Significant improvement in proteinuria as well Anatomical challenge likely contributing to a smaller right kidney Images reviewed with the patient IVC filter close to right infrarenal aorta, right renal vein Patient also on Eliquis for PE No need for kidney biopsy office Visit October 21, 2020: Labs dated July 23, 2020 demonstrated serum creatinine 1.59 mg/dL EGFR 34 mL/min per 1 7 3 m so8 potassium 4.7 chloride 104 bicarb 24 Patient reports better blood pressure BP 120-130/80, HR 60, Afebrile, wt stable. Meds reviewed, refilled. Patient's blood pressure is well controlled at home. Patient's denies any dysuria, hematuria, foamy urine or other voiding complaints. Patient denies any leg swelling, SOB/LEE, orthopnea, PND or other symptoms of fluid overload. Patient denies any overt symptoms of uremia. No adverse effects with meds. No other complaints. Patient denies fever, chills, cp, dyspnea, nausea, vomiting, night sweats, puentes, bowel/bladder changes, weight changes or other complaints. -Duration (when): years -Location (where): kidneys -Severity (ex: creat 4.5, BP 200/100): Cr Chronic kidney disease, scr 1.59 mg/dl, egfr 34 ml/min -Context: DM -Timing/Modifying factors/Associated symptoms (ex: meds/continuous/SOB/edema): continuous Recent procedures/hospitalizations/contrasted CT scans: denies Patient denies CP, SOB, orthopnea or PND. Denies progressive leg edema No nausea, emesis,abdominal pain or diarrhea No dysuria, gross hematuria or new flank pain. No fever or chills. No dizziness,PUENTES or focal numbness or weakness. Wt is stable ALLERGIES Allergen Reactions Penicillins Sulfa (Sulfonamide * Current Outpatient Medications Medication Sig spironolactone (ALDACTONE) 25 mg tablet TAKE 1.5 TABLETS BY MOUTH ONCE DAILY. mycophenolate mofetil (CELLCEPT) 250 mg capsule Take 1 capsule by mouth twice daily. WALKER ROLLATOR SEAT WITH 6 WHEELS - RED Walker with rolator nebivolol (BYSTOLIC) 5 mg tablet TAKE 1 TABLET BY MOUTH EVERY DAY ARIPiprazole (ABILIFY) 10 mg tablet Take 10 mg by mouth once daily. benzonatate (TESSALON PERLES) 100 mg capsule Take 1 capsule by mouth three times daily as needed for cough. albuterol HFA (PROAIR HFA) 90 mcg/actuation inhaler Inhale 2 Puffs as instructed every 6 hours as needed. DULoxetine (CYMBALTA) 60 mg capsule Take 2 capsules by mouth once daily. 60 mg in am, 30 mg at night per pt predniSONE (DELTASONE) 5 mg tablet Take 10 mg by mouth once daily. BREO ELLIPTA 200-25 mcg/dose inhaler INHALE 1 PUFF ONCE A DAY famotidine (PEPCID) 40 mg tablet TAKE 1 TABLET BY MOUTH EVERYDAY AT BEDTIME pantoprazole DR (PROTONIX) 40 mg tablet Take 40 mg by mouth once daily. montelukast (SINGULAIR) 10 mg tablet Take 1 tablet by mouth daily at bedtime. traMADol (ULTRAM) 50 mg tablet Take 50 mg by mouth every 12 hours as needed. apixaban (ELIQUIS) 5 mg tab(s) Take 5 mg by mouth twice daily. ondansetron (ZOFRAN) 4 mg tablet Take 1 tablet by mouth every 6 hours as needed. acetaminophen (TYLENOL) 325 mg tablet Take 2 tablets by mouth every 6 hours as needed. metoclopramide HCl (REGLAN) 5 mg tablet Take 1 tablet by mouth three times daily before meals. sucralfate (CARAFATE) 1 gram tablet Take 1 tablet by mouth three times daily with meals. hydroxychloroquine (PLAQUENIL) 200 mg tablet Take 200 mg by mouth twice daily. BUDESONIDE/FORMOTEROL FUMARATE (SYMBICORT INHALATION) Inhale as instructed. CHOLECALCIFEROL, VITAMIN D3, (VITAMIN D-3 ORAL) Take 50,000 Units by mouth every Sunday. lamotrigine (LAMICTAL) 100 mg ORAL tablet Take 200 mg by mouth twice daily. No current facility-administered medications for this visit. PAST MEDICAL HISTORY Diagnosis Date Chronic obstructive pulmonary disease (COPD) (HCC) Fibromyalgia History of blood clots Hypertension Lupus (HCC) Rheumatoid arthritis(714.0) PAST SURGICAL HISTORY Procedure Laterality Date HYSTERECTOMY HX IVC FILTER SURGICAL [facility] REMOVAL OF OVARY/TUBE(S) 2008 left ovary TUBAL LIGATION, FAMILY HISTORY Problem Relation Age of Onset Heart Father Rheumatologic disease Sister other (Raynaud's) Sister Social History Tobacco Use Smoking status: Never Smoker Smokeless tobacco: Never Used Vaping Use Vaping Use: Never used Substance Use Topics Alcohol use: No Drug use: No REVIEW OF SYMPTOMS: CONSTITUTIONAL: Denies fevers, chills, and weight changes. Denies fatigue/malaise. PULMONARY: Denies shortness of breath, wheezing, cough or hemoptysis. CARDIOLOGY: Denies chest pain, palpitations, LEE, orthopnea or PND. GI: No anorexia, nausea, vomiting, dysphagia, diarrhea, constipation, abdominal pain, hematochezia or melena. : No urinary hesitancy or dribbling. No nocturia or urinary frequency. No abnormal discharge. No hematuria, dysuria, or flank pain. MUSCULO-SKELETAL: No joint pain, swelling or erythema. SKIN: Denies any rashes or skin changes. No itching. EXTREMITIES: Denies any lower Extremity edema. Denies any claudication or peripheral ulcer. A full 12 point ROS was obtained and is negative other than that cited above. PHYSICAL EXAMINATION: There were no vitals taken for this visit. No weight on file for this encounter. GENERAL: Well developed and well nourished, NAD. EYES: Conjunctivae- pink, Non-icterus sclera. HEENT : Normocephalic, atraumatic, oral pharynx clear, MMM and pink. NECK : Supple, No JVD. No cervical lymphadenopathy or masses. No thyromegaly or tenderness. RESPIRATORY: Resp efforts are WNL. Bilat equal air entry. CTA bilaterally CVS : Pericardial friction rub is absent. S1, S2 Normal. No Murmer, or gallops. EDEMA +2 VASCULAR: carotid pulses is palpable bilaterally; carotid bruit is absent; No Abdominal bruit. Peripheral pulse palpable . ABDOMEN: soft, non-distended, non-tender, Normoactive BS. No HSM. : NO CVA tenderness. bladder is not distended. LYMPHATICS: No cervical, axillary, inguinal lymphadenopathy. MUSULOSKELATAL: No swollen, tender, or warm joints present. No clubbing, cyanosis or petechiae. SKIN: No rashes or ulcers present. No induration of skin or subcutaneous area. LAB DATA Creatinine 1.1 to 1.2 mg deciliter EGFR 53 mL/min per 1.73 m . And albumin to creatinine ratio 16 mg/g ASSESSMENT AND PLAN 1) CKD Stage: IIIb, Differential diagnosis including lupus nephritis, analgesic nephropathy -- To quantify protein to creatinine ratio -- Check renal ultrasound, pending -- Lupus in remission, double-stranded DNA <1 -- On Plaquenil and prednisone -- Based on urine analysis and renal ultrasound will evaluate the need for renal biopsy -Etiology (likely): HTN, DM and NSAIDS. Note normal C3/C4/SPEP/HCV/HBV -Does not need preparation for dialysis at this time. -Will continue routine monitoring of chemistries. -Avoid all PICC lines, i.v.s and blood draws in arms above wrists as possible to preserve veins forpossible AV fistula or AVG. Kidney function: CKD III (Cr trend over the years) Kidney sizes: moderatly large kidneys, with increased echogenicity, no obstruction Have reviewed CKD staging and preventing progression. Have reviewed NSAID avoidance and avoidance of IV dye. 2) Hypertension: Patient reports having high blood pressure in the past however recently blood pressure well controlled on bisoprolol, Of lisinopril and amlodipine -Blood pressure is adequately controlled. -No changes to medications at this time. -The patient was advised to follow a low salt/DASH diet. 3) Anemia: Hemoglobin below target concern for iron deficiency anemia check iron stores -Hemoglobin is adequate. -Continue periodic monitoring of CBC and iron studies. 4) Secondary Hyperparathyroidism/CKD-MBD: Check Vitamin D and PTH -Intact PTH, vitamin d, calcium, and phosphorus levels are acceptable. -No changes -in management. -Will continue to monitor these indices. 5) Proteinuria: To quantify protein to creatinine ratio -Will continue monitor microalbumin/creatinine ratio. 7) Dyslipidemia: -The patient has moderate CKD and would benefit from aggressive lipid control with an LDL goal of <100 and TG less than 150mg/dl. Reports improvement in weakness improvement in feet neuropathy and improvement in hair loss with holding voclosporin Tolerating mycophenolate without side effects Proteinuria improving down to 16 mg/g Reports significant improvement in blood pressure, weight patient following more healthier diet. She discontinued Tylenol arthritis since last visit she has been taking less pain medications. 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 On Eliquis for PE, high risk for coagulopathy Infrarenal IVC filter with multiple limbs extending beyond the lumen unchanged from 2017. significant improvement in renal function and proteinuria with holding analgesics Chronic pain syndrome recently diagnosed with PMR, on prednisone. No signs of fluid overload Daily weight, blood pressure log Dark colored urine improving Dysuria better Follow-up in 3-4 months For follow-up I have asked that she return to clinic in 4 month or earlier if needed. Thank you forallowing me to participate in this patient's care. Please feel free to contact me with any questions or concerns. Follow up with PCP for all non-renal problems This note was partially created using voice recognition software and is inherently subject to errors including those of syntax and sound-alike substitutions which may escape proofreading. In such instances, original meaning may be extrapolated by contextual derivation. With warmest regards, Marva Malhotra MD Nephrology and Hypertension Roofing Supervisor Clinical hoist worker [facility] [address] [place], [place] [address] [facility] NoteHNO ID: [id number] Author: RT Marj(Stephanie) Service: Radiology Author Type: Technologist Type: Progress Notes Filed: 03/02/2021 1:43 PM Note Text: Radiology Service Progress Note PATIENT NAME: Michael Packer DATE OF SERVICE: March 02, 2021 TIME: 1:42 PM PATIENT IDENTITY VERIFICATION COMPLETED USING TWO (2) IDENTIFIERS: Name and Date of confirmed by patient verbally. FALL SCREENING: Has the patient had 2 falls in the last year or 1 fall with injury or currently using an Ambulatory Assistive Device (Walker, Cane, Wheelchair, Crutches, etc.)? No PATIENT GENDER DATA: Female. status: : No status: NO. PATIENT RELEVANT IMPLANT DATA REVIEWED: Not Applicable RADIOLOGY DEPARTMENT: General X-ray: Exam(s) Completed: Chest X-Ray PERIPHERAL IV DATA: Not applicable SIGNED BY: RT Marj(Stephanie) March 02, 2021 1:42 PMMed[facility]Evaluation [facility]* Diagnosis CKD stage G3a/A1, GFR 45-59 and albumin creatinine ratio <30 mg/g (HCC)- Primary SLE (systemic lupus erythematosus related syndrome) (HCC) Systemic lupus erythematosus Vitamin D deficiency Unspecified vitamin D deficiency Hypertension, essential Unspecified essential hypertension Other proteinuria Lupus nephritis (HCC) Systemic lupus erythematosus 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, unspecified SLE type (HCC) documented in this [facility] noteNo assessment information availableWWayne Hospital Work Phone: Evaluation note* Diagnosis Routine medical exam- Primary Routine general medical examination at a health care facility Encounter for immunization Need for other specified prophylactic vaccination against single bacterial disease Special screening examination for viral disease Special screening examination for unspecified viral disease Screening for HIV (human immunodeficiency virus) Special screening examination for other specified viral diseases Screening for cervical cancer Screening for malignant neoplasm of the cervix Chronic obstructive pulmonary disease, unspecified COPD type (HCC) Encounter for screening mammogram for breast cancer Screening for lipid disorders Screening for colon cancer Special screening for malignant neoplasms, colon Encounter for well woman exam with routine gynecological exam Gastroesophageal reflux disease, unspecified whether esophagitis present Lupus (HCC) Systemic lupus erythematosus History of pulmonary embolus (PE) Personal history of pulmonary embolism Colon cancer screening Special screening for malignant neoplasms, colon documented in this encounter [facility]* Diagnosis CKD stage G3a/A1, GFR 45-59 and albumin creatinine ratio <30 mg/g ([facility])- Primary Edema of lower extremity Edema Nephrotic syndrome Nephrotic syndrome with unspecified pathological lesion in kidney Vitamin D deficiency Unspecified vitamin D deficiency 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, unspecified SLE type (HCC) documented in this encounter [facility]* Diagnosis Stage 2 chronic kidney disease- Primary Edema of lower extremity Edema Vitamin D deficiency Unspecified vitamin D deficiency Hypertension, essential Unspecified essential hypertension Other proteinuria 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, unspecified SLE type (HCC) [facility]* Diagnosis Stage 2 chronic kidney disease- Primary Edema of lower extremity Edema Vitamin D deficiency Unspecified vitamin D deficiency Hyperuricemia Other abnormal blood chemistry documented [facility] this encounter [facility]* Diagnosis Acute cystitis without hematuria- Primary Acute cystitis documented in this encounter [facility]* Diagnosis Chronic obstructive pulmonary disease, unspecified COPD type (HCC) [facility]* Diagnosis 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, unspecified SLE type (HCC)- Primary CKD stage G3a/A1, GFR 45-59 and albumin creatinine ratio <30 mg/g (HCC) Persistent proteinuria Proteinuria Hyperuricemia Other abnormal blood chemistry Hypertension, essential Unspecified essential hypertension Edema of lower extremity Edema Tachycardia Tachycardia, unspecified documented in this encounter [facility]* Diagnosis Foot pain, right Pain in limb [facility]* Diagnosis CKD stage G3a/A1, GFR 45-59 and albumin creatinine ratio <30 mg/g (HCC)- Primary 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, unspecified SLE type (HCC) Persistent proteinuria Proteinuria Hyperuricemia Other abnormal blood chemistry Hypertensive kidney disease Unspecified hypertensive kidney disease with chronic kidney disease stage I through stage IV, or unspecified documented [facility] this [facility]* Diagnosis Encounter for medical examination to establish care- Primary Systemic lupus erythematosus, unspecified SLE type, unspecified organ involvement status (HCC) Rheumatoid arthritis, involving unspecified site, unspecified whether rheumatoid factor present (HCC) Hyperlipidemia, mixed Mixed hyperlipidemia Nodule of left lung Solitary pulmonary nodule Chronic obstructive pulmonary disease, unspecified COPD type ([facility]) Class 3 severe obesity due to excess calories with body mass index (BMI) of 50.0 to 59.9 in adult, unspecified whether serious comorbidity present (HCC) Hx of bipolar disorder Personal history of affective disorder Mixed incontinence urge and stress (male)(female) documented in this encounter [facility]* Diagnosis Nodule of left lung Solitary pulmonary nodule documented [facility] this [facility]* Diagnosis Encounter for screening mammogram for breast cancer documented in this encounter [facility]* Diagnosis Left knee injury, initial encounter- Primary Fall, initial encounter Asthma with COPD with exacerbation (HCC) Chronic obstructive asthma with exacerbation Left knee injury, initial encounter documented in this encounter [facility]* Diagnosis Left knee injury, initial encounter documented in this encounter [facility]* Diagnosis Mixed incontinence urge and stress (male)(female) documented in this [facility]* Diagnosis Solitary pulmonary nodule- Primary Asthma, moderate persistent, well-controlled (HCC) Unspecified asthma Recurrent pulmonary embolism (HCC) Other pulmonary embolism and infarction Presence of IVC filter Other postprocedural status documented in this encounter [facility]* Diagnosis Acute cystitis without hematuria- Primary Acute cystitis CKD stage G3a/A1, GFR 45-59 and albumin creatinine ratio <30 mg/g (HCC) Persistent proteinuria Proteinuria Hypertensive kidney disease Unspecified hypertensive kidney disease with chronic kidney disease stage I through stage IV, or unspecified Hyperuricemia Other abnormal blood chemistry 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, unspecified SLE type (HCC) Anemia of renal disease Anemia in chronic kidney disease Lupus nephritis (HCC) Systemic lupus erythematosus documented in this encounter [facility] for referral (narrative)* Diagnostic Procedure Only (Urgent) - Closed Specialty Diagnoses / Procedures Referred By Contac t Referred To Contact XR IMAGING Diagnoses Foot pain, right Procedures XR FOOT GENERAL 3V AP/LAT/OBL RIGHT RADEX FOOT COMPLETE MINIMUM 3 VIEWS Dwight Villalta, BROADCAST CHECKER.EARLY [employer] PSYCHOLOGIST [address] [id number] Phone: Xr Imaging [facility] Referral ID Status Reason Start Date Expiration Date V isits Requested Visits Authorized [id number] Closed Auto-Generate d Referral 11/15/2022 12/15/2023 1 1 [facility] for visit Narrative* Diagnostic Procedure Only (Urgent) - Closed Specialty Diagnoses / Procedures Referred By Contac t Referred To Contact XR IMAGING Diagnoses Foot pain, right Procedures XR FOOT GENERAL 3V AP/LAT/OBL RIGHT RADEX FOOT COMPLETE MINIMUM 3 VIEWS Dwight Villalta, BROADCAST CHECKER.EARLY [employer] S[employer] PSYCHOLOGIST [address] [id number] Phone: Xr Imaging [facility] Referral ID Status Reason Start Date Expiration Date V isits Requested Visits Authorized [id number] Closed Auto-Generate d Referral 11/15/2022 12/15/2023 1 1 [facility] for visit Narrative* Diagnostic Procedure Only (Urgent) - Closed Specialty Diagnoses / Procedures Referred By Contac t Referred To Contact XR IMAGING Diagnoses Left knee injury, initial encounter Procedures XR KNEE GENERAL 4V AP BOTH/PA BOTH/LAT/MERC LEFT RADIOLOGIC EXAM KNEE COMPLETE 4/MORE VIEWS Em Bustamante, BROADCAST CHECKER.EARLY [employer] PSYCHOLOGIST [address] [place] [address] Phone: tel: fax: XR IMAGING [facility] Referral ID Status Reason Start Date Expiration Date V isits Requested Visits Authorized [id number] Closed Auto-Generate d Referral 08/26/2024 09/25/2025 1 1 [facility] Summary Purpose Family History No Family History Records FoundNo Family History Records FoundNo Family History Records FoundNo Family History Records FoundNo Family History Records FoundNo Family History Records FoundNo Family History Records FoundNo Family History Records FoundNo Family History Records FoundNo Family History Records FoundNo Family History Records Found Advance Directives No Advanced Directives Records FoundDocuments on File Type Date Recorded Patient Regulatory Affairs Coordinator Expl anation Advance Directive(s) 07/23/2020 11:58 AM Advance Directive(s) 06/24/2019 1:50 PM Advance Directive(s) 09/02/2018 12:34 PM Advance Directive(s) 12/07/2016 9:44 AM Advance Directive Response Recorded Date/ Time Living Will No September 25, 2021 7 :06pm Power of Entertainment Production Professional No September 25, 2021 7:06pm Documents on File Type Date Recorded Patient Regulatory Affairs Coordinator Expl anation Advance Directive(s) 09/27/2021 2:56 PM Advance Directive(s) 07/23/2020 11:58 AM Advance Directive(s) 06/24/2019 1:50 PM Advance Directive(s) 09/02/2018 12:34 PM Advance Directive(s) 12/07/2016 9:44 AM Chief Complaint and Reason for Visit Chief Complaint VOMITING Reason for Referral Specialty Diagnoses / Procedures Referred By Kvng trevino Referred To Contact General Surgery Diagnoses Colon cancer screening Procedures CONSULT TO GENERAL SURGERY OFFICE/OUTPATIENT [facility] HIGH MDM 60-74 MINUTES Marisela Horn, BROADCAST CHECKER.VACCINATOR [address] [place] [address] Referral ID Status Reason Start Date Expiration Date Visits Requested Visits Authorized [id number] Authorized PCP Requested Referral 11/24/2021 11/24/2022 1 1 Specialty Diagnoses / Procedures Referred By Kvng trevino Referred To Contact [facility] Diagnoses Chronic obstructive pulmonary disease, unspecified COPD type (HCC) Procedures SPIROMETRY - BASELINE AND POST DILATOR BRNCDILAT RSPSE SPMTRY PRE&POST-BRNCDILAT ADMN Marisela Horn, BROADCAST CHECKER.VACCINATOR [address] [place] [address] Respiratory [place] [address] [place] [address] Referral ID Status Reason Start Date Expiration Date Visits Requested Visits Authorized [id number] Authorized Auto-Generat ed Referral 11/24/2021 12/24/2022 1 1 Specialty Diagnoses / Procedures Referred By Kvng trevino Referred To Contact Pulmonary and Critical Care Medicine Diagnoses Chronic obstructive pulmonary disease, unspecified COPD type (HCC) Procedures CONSULT TO PULM/CRITICAL CARE OFFICE/OUTPATIENT NEW HIGH MDM 60-74 MINUTES Marisela Horn, BROADCAST CHECKER.VACCINATOR [address] [place] [address] Referral ID Status Reason Start Date Expiration Date Visits Requested Visits Authorized [id number] Authorized PCP Requested Referral 11/24/2021 11/24/2022 1 1 Specialty Diagnoses / Procedures Referred By Kvng trevino Referred To Contact BR IMAGING Diagnoses Encounter for screening mammogram for breast cancer Procedures ABE SCREENING SCREENING MAMMOGRAPHY BI 2-VIEW BREAST INC CAD Marisela Horn, BROADCAST CHECKER.VACCINATOR [address] [place] [address] [facility] [address] [place] [address] Referral ID Status Reason Start Date Expiration Date Visits Requested Visits Authorized [id number] Authorized Auto-Generat ed Referral 11/24/2021 12/24/2022 1 1 Additional Source Comments INFORMATION SOURCE (unrecogn ized section and content) DATE CREATED AUTHOR 11/02/2017 Ela Starrit [place] DATE CREATED AUTHOR AUTHOR'S ORGANIZ ATION 12/15/2018 [facility] DATE CREATED AUTHOR AUTHOR'S ORGANIZ ATION 07/30/2020 [facility] DATE CREATED AUTHOR AUTHOR'S ORGANIZ ATION 09/25/2021 [facility] DATE CREATED AUTHOR AUTHOR'S ORGANIZ ATION 09/29/2021 [facility] DATE CREATED AUTHOR AUTHOR'S ORGANIZ ATION 08/12/2022 [facility] DATE CREATED AUTHOR AUTHOR'S ORGANIZ ATION 08/12/2022 [facility] DATE CREATED AUTHOR AUTHOR'S ORGANIZ ATION 11/23/2022 [facility] DATE CREATED AUTHOR AUTHOR'S ORGANIZ ATION 12/03/2024 [facility] DATE CREATED AUTHOR AUTHOR'S ORGANIZ ATION 12/19/2024 [facility] DATE CREATED AUTHOR AUTHOR'S ORGANIZ ATION 02/27/2025 [facility] Source Comments (unrecognize d section and content) In the event this informatio n is protected by the Federal Confidentiality of Alcohol and Drug Abuse Patient Records regulations: The Federal rules restrict any use of the information to criminally investigate or prosecute any alcohol or drug abuse patient.[facility] Hospital[facility] the event this information is protected by the Federal Confidentiality of Alcohol and Drug Abuse Patient Records regulations: The Federal rules restrict any use of the information to criminally investigate or prosecute any alcohol or drug abuse patient.[facility] Hospital[facility] the event this information is protected by the Federal Confidentiality of Alcohol and Drug Abuse Patient Records regulations: The Federal rules restrict any use of the information to criminally investigate or prosecute any alcohol or drug abuse patient.[facility] HospitalIn the event this information is protected by the Federal Confidentiality of Alcohol and Drug Abuse Patient Records regulations: The Federal rules restrict any use of the information to criminally investigate or prosecute any alcohol or drug abuse patient.[facility] HospitalIn the event this information is protected by the Federal Confidentiality of Alcohol and Drug Abuse Patient Records regulations: The Federal rules restrict any use of the information to criminally investigate or prosecute any alcohol or drug abuse patient.[facility] HospitalIn the event this information is protected by the Federal Confidentiality of Alcohol and Drug Abuse Patient Records regulations: The Federal rules restrict any use of the information to criminally investigate or prosecute any alcohol or drug abuse patient.[facility] HospitalIn the event this information is protected by the Federal Confidentiality of Alcohol and Drug Abuse Patient Records regulations: The Federal rules restrict any use of the information to criminally investigate or prosecute any alcohol or drug abuse patient.[facility] HospitalIn the event this information is protected by the Federal Confidentiality of Alcohol and Drug Abuse Patient Records regulations: The Federal rules restrict any use of the information to criminally investigate or prosecute any alcohol or drug abuse patient.[facility] HospitalIn the event this information is protected by the Federal Confidentiality of Alcohol and Drug Abuse Patient Records regulations: The Federal rules restrict any use of the information to criminally investigate or prosecute any alcohol or drug abuse patient.[facility] HospitalIn the event this information is protected by the Federal Confidentiality of Alcohol and Drug Abuse Patient Records regulations: The Federal rules restrict any use of the information to criminally investigate or prosecute any alcohol or drug abuse patient.[facility] HospitalIn the event this information is protected by the Federal Confidentiality of Alcohol and Drug Abuse Patient Records regulations: The Federal rules restrict any use of the information to criminally investigate or prosecute any alcohol or drug abuse patient.[facility] HospitalIn the event this information is protected by the Federal Confidentiality of Alcohol and Drug Abuse Patient Records regulations: The Federal rules restrict any use of the information to criminally investigate or prosecute any alcohol or drug abuse patient.[facility] HospitalIn the event this information is protected by the Federal Confidentiality of Alcohol and Drug Abuse Patient Records regulations: The Federal rules restrict any use of the information to criminally investigate or prosecute any alcohol or drug abuse patient.[facility] HospitalIn the event this information is protected by the Federal Confidentiality of Alcohol and Drug Abuse Patient Records regulations: The Federal rules restrict any use of the information to criminally investigate or prosecute any alcohol or drug abuse patient.[facility] HospitalIn the event this information is protected by the Federal Confidentiality of Alcohol and Drug Abuse Patient Records regulations: The Federal rules restrict any use of the information to criminally investigate or prosecute any alcohol or drug abuse patient.[facility] HospitalIn the event this information is protected by the Federal Confidentiality of Alcohol and Drug Abuse Patient Records regulations: The Federal rules restrict any use of the information to criminally investigate or prosecute any alcohol or drug abuse patient.[facility] HospitalIn the event this information is protected by the Federal Confidentiality of Alcohol and Drug Abuse Patient Records regulations: The Federal rules restrict any use of the information to criminally investigate or prosecute any alcohol or drug abuse patient.[facility] HospitalIn the event this information is protected by the Federal Confidentiality of Alcohol and Drug Abuse Patient Records regulations: The Federal rules restrict any use of the information to criminally investigate or prosecute any alcohol or drug abuse patient.[facility] HospitalIn the event this information is protected by the Federal Confidentiality of Alcohol and Drug Abuse Patient Records regulations: The Federal rules restrict any use of the information to criminally investigate or prosecute any alcohol or drug abuse patient.[facility] HospitalIn the event this information is protected by the Federal Confidentiality of Alcohol and Drug Abuse Patient Records regulations: The Federal rules restrict any use of the information to criminally investigate or prosecute any alcohol or drug abuse patient.[facility] HospitalIn the event this information is protected by the Federal Confidentiality of Alcohol and Drug Abuse Patient Records regulations: The Federal rules restrict any use of the information to criminally investigate or prosecute any alcohol or drug abuse patient.[facility] HospitalIn the event this information is protected by the Federal Confidentiality of Alcohol and Drug Abuse Patient Records regulations: The Federal rules restrict any use of the information to criminally investigate or prosecute any alcohol or drug abuse patient.[facility] HospitalIn the event this information is protected by the Federal Confidentiality of Alcohol and Drug Abuse Patient Records regulations: The Federal rules restrict any use of the information to criminally investigate or prosecute any alcohol or drug abuse patient.[facility] HospitalIn the event this information is protected by the Federal Confidentiality of Alcohol and Drug Abuse Patient Records regulations: The Federal rules restrict any use of the information to criminally investigate or prosecute any alcohol or drug abuse patient.[facility] HospitalIn the event this information is protected by the Federal Confidentiality of Alcohol and Drug Abuse Patient Records regulations: The Federal rules restrict any use of the information to criminally investigate or prosecute any alcohol or drug abuse patient.[facility] HospitalIn the event this information is protected by the Federal Confidentiality of Alcohol and Drug Abuse Patient Records regulations: The Federal rules restrict any use of the information to criminally investigate or prosecute any alcohol or drug abuse patient.[facility] HospitalIn the event this information is protected by the Federal Confidentiality of Alcohol and Drug Abuse Patient Records regulations: The Federal rules restrict any use of the information to criminally investigate or prosecute any alcohol or drug abuse patient.[facility] HospitalIn the event this information is protected by the Federal Confidentiality of Alcohol and Drug Abuse Patient Records regulations: The Federal rules restrict any use of the information to criminally investigate or prosecute any alcohol or drug abuse patient.[facility] HospitalIn the event this information is protected by the Federal Confidentiality of Alcohol and Drug Abuse Patient Records regulations: The Federal rules restrict any use of the information to criminally investigate or prosecute any alcohol or drug abuse patient.[facility] Reason for Visit (unrecogniz ed section and content) Reason Comments Refill Request Reason Comments CKD Follow Up Reason Comments Establish Care Reason Comments Follow Up Reason Comments Chronic Kidney Disease Reason Comments Radiology XR Reason Onset Date Comments Refill Request 12/16/2023 Reason Comments Establish Care Patient sees Nephrol ogy in [place] - will need new referral; Rheumatology - will need new referral - for lupus/fibro - had cortisone shot 3 months ago. Reason Comments Radiology CT Specialty Diagnoses / Procedures Referred By Kvng t Referred To Contact CT IMAGING Diagnoses Nodule of left lung Procedures CT CHEST W IVCON DIAGNOSTIC COMPUTED TOMOGRAPHY THORAX W/CONTRAST Christy Irving APRN.[employer]YCHOLOGIST [address] [place] [address] Phone: tel: fax: [place] [address] Referral ID Status Reason Start Date Expiration Date V isits Requested Visits Authorized [id number] Closed Auto-Generate d Referral 05/07/2024 05/06/2025 1 1 Reason Comments Fall Swelling and bruisin g x 2 [place] Reason Comments NEW CONSULT/ABNORMAL CT Reason Comments Lupus nephritis Care Teams (unrecognized sec tion and content) Automotive Service Writer Relationship Specialty [place] [address] [facility] [address] [place] [address] PCP - General Family Practice 09/07/16 Automotive Service Writer Relationship Specialty [place] [address] [facility] [address] [place] [address] PCP - General Family Practice 09/07/16 Automotive Service Writer Relationship Specialty Start Date End Date Telma Brown MD [address] [place] [address] PCP - General Internal Medicine 11/24/21 Automotive Service Writer Relationship Specialty Start Date End Date Mekhi Shannon [address] [address] PCP - General Internal Medicine 03/23/22 Automotive Service Writer Relationship Specialty Start Date End Date Mekhi Shannon [address] [address] PCP - General Internal Medicine 03/23/22 Automotive Service Writer Relationship Specialty Start Date End Date Mekhi Shannon [address] [address] PCP - General Internal Medicine 03/23/22 Automotive Service Writer Relationship Specialty Start Date End Date Mekhi Shannon [address] [address] PCP - General Internal Medicine 03/23/22 Automotive Service Writer Relationship Specialty Start Date End Date Mekhi Shannon [address] [place] [id number] [facility] [address] PCP - General Internal Medicine 03/23/22 Automotive Service Writer Relationship Specialty Start Date End Date Mekhi Shannon [address] [place] [address] PCP - General Internal Medicine 03/23/22 Automotive Service Writer Relationship Specialty Start Date End Date Mekhi Shannon [address] [place] [address] PCP - General Internal Medicine 03/23/22 Automotive Service Writer Relationship Specialty Start Date End Date Reina Shannonan [address] [place] [phone] PCP - General Internal Medicine 03/23/22 Automotive Service Writer Relationship Specialty Start Date End Date Mirtha Mekhi [address] [place] [address] PCP - General Internal Medicine 03/23/22 Automotive Service Writer Relationship Specialty Start Date End Date Mekhi Shannon [address] [place] [address] PCP - General Internal Medicine 03/23/22 Automotive Service Writer Relationship Specialty Start Date End Date Reina Shannonan [address] [place] [address] PCP - General Internal Medicine 03/23/22 Automotive Service Writer Relationship Specialty Start Date End Date Mekhi Shannon [address] [place] [address] PCP - General Internal Medicine 03/23/22 Automotive Service Writer Relationship Specialty Start Date End Date Mekhi Shannon [address] [place] [id number] PCP - General Internal Medicine 03/23/22 Automotive Service Writer Relationship Specialty Start Date End Date Gasper Wilson MD [address] [place], [place] [id number] PCP - General Family Medicine 07/07/24 Podlogar, Christy, BROADCAST CHECKER.[employer] PSYCHOLOGIST [address] [place] [address] Family Medicine 07/07/24 Automotive Service Writer Relationship Specialty Start Date End Date Gasper Wilson MD [address] [place] [address] PCP - General Family Medicine 07/07/24 Podlogar, Christy, BROADCAST CHECKER.[employer] PSYCHOLOGIST [address] [place] [address] Family Medicine 07/07/24 Malu Stevens, BROADCAST CHECKER.EAR[employer] PSYCHOLOGIST [address] [place], [place] [address] [facility]rier Family Medicine 07/18/24 Podlogar, Christy, BROADCAST CHECKER.[employer] PSYCHOLOGIST [address] [place] [address] [facility] Family Medicine 07/18/24 Automotive Service Writer Relationship Specialty Start Date End Date Gasper Wilson MD [address] [place] [address] PCP - General Family Medicine 07/07/24 PodlogarChristy APRN.[employer] PSYCHOLOGIST [address] [facility] [address] Family Medicine 07/07/24 Malu Stevens APRN.[employer] PSYCHOLOGIST [address] [facility] [address] Skein [employer]rier Family Medicine 07/18/24 PodlogarChristy APRN.[employer] PSYCHOLOGIST [address] [facility] [address] Skein [employer]rier Family Medicine 07/18/24 Automotive Service Writer Relationship Specialty Start Date End Date Gasper Wilson MD [address] [facility] [address] PCP - General Family Medicine 07/07/24 PodlogarChristy APRN.EAR[employer] PSYCHOLOGIST [address] [facility] [address] Family Medicine 07/07/24 Malu Stevens APRN.E[employer] PSYCHOLOGIST [address] [facility] [address] [facility] Family Medicine 07/18/24 07/27/24 PodlogarChristy APRN.[employer] PSYCHOLOGIST [address] [facility] [address] Ske[facility] [employer]rier Family Medicine 07/18/24 Malu Stevens APRN.E[employer] PSYCHOLOGIST [address] [facility] [address] [facility]rier Family Medicine 07/28/24 Automotive Service Writer Relationship Specialty Start Date End Date Gasper Wilson MD [address] [facility] [address] PCP - General Family Medicine 07/07/24 PodlogarChristy APRN.E[employer] PSYCHOLOGIST [address] [facility] [place] [address] Family Medicine 07/07/24 Podlogar, LAVLELE HarrisonN.EAR[employer] PSYCHOLOGIST [address] [facility] [address] Skein Yard Drier Family Medicine 07/18/24 Malu Stevens APRN.E[employer] PSYCHOLOGIST [address] [facility] [address] [facility] [employer] Family Medicine 07/28/24 Automotive Service Writer Relationship Specialty Start Date End Date Gasper Wilson MD [address] [facility] [address] PCP - General Family Medicine 07/07/24 PodlogarChristy APRN.EAR[employer] PSYCHOLOGIST [address] [facility] [address] Family Medicine 07/07/24 PodlogarChristy BROADCAST CHECKER.EARLY [employer] PSYCHOLOGIST [address] [facility] [address] [facility] Family Medicine 07/18/24 Malu Stevens BROADCAST CHECKER.EAR[employer] PSYCHOLOGIST [address] [facility] [address] Skein Yard Drier Family Medicine 07/28/24 Automotive Service Writer Relationship Specialty Start Date End Date Gasper Wilson MD [address] [facility] [address] PCP - General Family Medicine 07/07/24 Podlogar, Christy, BROADCAST CHECKER.EAR[employer] PSYCHOLOGIST [address] [facility] [place] [address] Family Medicine 07/07/24 Malu Stevens APRN.EAR[employer] PSYCHOLOGIST [address] [facility] [address] [facility] Family Medicine 07/18/24 07/27/24 Podlogar, Christy BROADCAST CHECKER.EAR[employer] PSYCHOLOGIST [address] [facility] [address] [facility] Family [facility] 07/18/24 Malu Stevens APRN.EAR[employer] PSYCHOLOGIST [address] [place] [address] [facility] Family Medicine 07/28/24 Automotive Service Writer Relationship Specialty Start Date End Date Gasper Wilson MD [address] [facility] [address] PCP - General Family Medicine 07/07/24 Podlogar, Christy BROADCAST CHECKER.EAR[employer] PSYCHOLOGIST [address] [facility] [address] Family Medicine 07/07/24 Podlogar, Christy, BROADCAST CHECKER.EAR[employer] PSYCHOLOGIST [address] [facility] [address] [facility] Family [facility] 07/18/24 Malu Stevens APRN.EAR[employer] PSYCHOLOGIST [address] [facility] [address] [facility] Family [facility] 07/28/24 Automotive Service Writer Relationship Specialty Start Date End Date Gasper Wilson MD [address] [facility] [address] PCP - General Family Medicine 07/07/24 PodlogarChristy APRN.EAR[employer] PSYCHOLOGIST [address] [facility] [address] Family Medicine 07/07/24 PodlogarChristy APRN.EARLY [employer] PSYCHOLOGIST [address] [facility] [address] [facility] Family [facility] 07/18/24 Malu Stevens APRN.EAR[employer] PSYCHOLOGIST [address] [facility] [address] [facility] Family Medicine 10/16/24 Automotive Service Writer Relationship Specialty Start Date End Date Gasper Wilson MD [address] [facility] [address] PCP - General Family Medicine 07/07/24 PodlogarChristy APRN.EAR[employer] PSYCHOLOGIST [address] [facility] [address] Family Medicine 07/07/24 PodlogarChristy APRN.EARLY [employer] PSYCHOLOGIST [address] [facility] [place] [address] [facility] Family [facility] 07/18/24 Malu Stevens APRN.EAR[employer] PSYCHOLOGIST [address] [facility] [address] [facility] Family Medicine 10/16/24 Automotive Service Writer Relationship Specialty Start Date End Date Gasper Wilson MD [address] [facility], [place] [id number] PCP - General Family Medicine 07/07/24 PodChristy adrian APRN.E[employer] PSYCHOLOGIST [address] [place], [place] [address] Family [facility] 07/07/24 PodlogChristy lee APRN.EARLY [employer] PSYCHOLOGIST [address] [place] [address] [facility] 07/18/24 Malu Stevens APRN.EAR[employer] PSYCHOLOGIST [address] [place] [address] [facility] 10/16/24 Goals (unrecognized section and content) Goals may be documented in a n alternate section <item> Privacy Markings (unrecogniz ed section and content) Section Author: Bernie Adler PROHIBITION ON REDISCLOSURE OF CONFIDENTIAL INFORMATION This notice accompanies a disclosure of information concerning a client made to you with the consent of such client. FOR RECORDS PERTAINING TO PATIENTS WHO ARE OR HAVE BEEN ENROLLED IN A CHEMICAL DEPENDENCY/SUBSTANCEABUSE PROGRAM, SOME INFORMATION MAY BE OMITTED. This clinical summary was aggregated from multiple sources. Caution should be exercised in using it in the provision of clinical care. This summary normalizes information from multiple sources, and as a consequence, information in this document may materially change the coding, format and clinical context of patient data. In addition, data may be omitted in some cases. CLINICAL DECISIONS SHOULD BE BASED ON THE PRIMARY CLINICAL RECORDS. [employer] [facility]. provides no warranty or guarantee of the accuracy or completeness of information in this document.
--- NOTE | 2025-04-10 07:26 | EDS_ITS ---
HPI History of Present Illness Chief Complaint: Nausea/Vomiting Narrative Narrative: Pt is a 55-year-old female who is presenting to the ER today with chief complaint of nausea vomiting for the past 3 days. Patient had multiple episodes of vomiting on Sunday, 2 days ago. Patient was having yellowish-greenish bilious emesis along with dry heaving. Patient has a history of acid reflux, she does take acid reflux medication twice a day. Patient does have a EGD and colonoscopy scheduled in the beginning of May with Dr. VIERA in the [place] area, patient's physicians are still in [place] in [place]. Patient drove herself to the ER today. Patient had a few episodes of vomiting this morning, and she noticed very small black specks of coffee-ground emesis noted. Patient has not taken any Pepto-Bismol. Patient has no chest pain, tightness, or significant shortness of breath. Patient has no black stool. Patient has no history of ulcer disease, she has never had EGD or colonoscopy. Patient is on blood thinners secondary to PE. Patient chief concern is whether she need a blood transfusion or not, she has had 3 blood transfusions in the past. Patient hemodynamically stable, patient looks well. Patient has no nausea medication at home. REVIEW OF SYSTEMS: Unless otherwise stated in this report the patient's positive and negative responses for review of systems for constitutional, eyes, ENT, cardiovascular, respiratory, gastrointestinal, neurological, , musculoskeletal, and integument systems and related systems to the presenting problem are either stated in the history of present illness or were not pertinent or were negative for the symptoms and/or complaints related to the presenting medical problem. Nurse's notes and vital signs reviewed. The patient is not hypoxic. Vital signs reviewed and patient is not hypoxic. General: The patient appears well and in no apparent distress. Patient is resting comfortably on cart. Not toxic, lethargic, or listless. Skin: Warm, dry, no pallor noted. There is no rash noted. Diffuse tenderness to palpation to chest, abdomen, upper and lower back with minimal palpation but patient states is secondary to fibromyalgia and very normal for her, no acute signs of rash, or acute signs of pain that is different from her normal baseline. Head: Normocephalic, atraumatic Eye: Normal conjunctiva, no drainage, EOMI. PERRL. Ears, Nose, Mouth, and Throat: oral mucosa is moist. Nares patent. Mouth without vesicles. Cardiovascular: Regular Rate and Rhythm, no murmurs, gallops, or rubs Respiratory: Patient is in no distress, no accessory muscle use, lungs are clear to auscultation, no wheezing, rales or rhonchi Back: non-tender, no CVA tenderness bilaterally to percussion. NO CTLS midline or paraspinal tenderness to palpation. GI: Soft, obese, minimal midepigastric tenderness palpation, no peritoneal signs, no flank pain bilateral, no tenderness to palpation, no masses appreciated. No rebound, guarding, or rigidity noted. Musculoskeletal: The patient has full range of motion of all extremities and joints with no difficulty. Patient has no motor, no sensory deficits. Neurological: A&O x4, normal speech, no focal neurological deficits. Psychiatric: Cooperative [facility] Medical History (Updated 04/10/25 @ 10:[address] Dwight Quick, DO) Fibromyalgia Arthritis Lupus Home Medications ?Medication ?Instructions ?Recorded ?Last Taken ?Type ondansetron 4 mg disintegrating 4 mg PO Q8H PRN PRN Na usea #10 tabs 09/25/21 Unknown Rx tablet ondansetron 4 mg disintegrating 4 mg PO Q8H PRN PRN Na usea #10 tabs 04/10/25 Unknown Rx tablet promethazine 25 mg rectal 25 mg RECTAL Q6H PRN PRN [place] ##6 04/10/25 Unknown Rx suppository (Promethegan) sucralfate 100 mg/mL oral See Rx Instructions .Route 1 06/11/24 Unknown Rx suspension .COMPLEX PRN Midepigastric p ain 4 weeks #400 mL Allergy/AdvReac Type Severity Reaction Status Date / Time Penicillins Allergy Hives Verified 04/10/25 07:07 Social History Smoking Status: Never smoker EXAM Physical Exam Const Vital Signs: 04/10/25 07:04 04/10/25 08:13 04/10/25 08:22 Temperature 98 F Temperature Source Oral Pulse Rate 96 99 Respiratory Rate 18 15 Blood Pressure 137/81 H Blood Pressure Mean 99 Pulse Ox 99 98 Oxygen Delivery Method Room Air 04/10/25 08:30 04/10/25 08:45 04/10/25 09:00 Temperature Temperature Source Pulse Rate Respiratory Rate Blood Pressure Blood Pressure Mean Pulse Ox 100 100 98 Oxygen Delivery Method 04/10/25 09:15 04/10/25 09:30 04/10/25 09:45 Temperature Temperature Source Pulse Rate Respiratory Rate Blood Pressure Blood Pressure Mean Pulse Ox 100 99 99 Oxygen Delivery Method 04/10/25 10:00 Temperature Temperature Source Pulse Rate Respiratory Rate Blood Pressure 130/78 H Blood Pressure Mean 95 Pulse Ox Oxygen Delivery Method MDM MDM MDM Narrative Medical decision making narrative: EKG interpretation. Normal sinus rhythm at 85 beats minute. Normal axis deviation. No acute ST elevation, no acute ectopy. QTc of 454. Patient seen and examined: IV, fluids, Zofran, Reglan, Protonix, labs Differential diagnosis includes but is not limited to: Nausea vomiting, ACS, GI bleed, biliary colic, GERD, ulcer, gastroenteritis Relevant laboratory interpretation: White blood cell count 5, H&H 14/43, bilirubin 1.37, AST 35, alk phos 129, troponin negative Radiological studies: Chest x-ray was interpreted independently by Dr. Quick. No acute cardiopulmonary disease, no infiltrate, no effusion. Reevaluation: Patient was given IV fluids, Zofran, Reglan. Patient felt much better after IV fluids and medication given. Social barriers to healthcare: There are no food insecurities, there is no issue with transportation, there are no insurance barriers Disposition: Patient will continue acid reflux medication, patient will continue ice and reflux medication. Patient has a scheduled EGD and colonoscopy in the beginning of May this year. Patient is been tolerating ice chips well. Lab test showed no significant acute findings. Daughter has been at bedside. Patient has been having intermittent nausea and vomiting going on for several weeks, not just 3 days ago and today. Patient does not need a blood transfusion, patient has history of anxiety, PTSD according to daughter. Patient also just quit smoking marijuana 1 week ago, patient has no history of cyclic nausea and vomiting. Education on cyclic nausea and vomiting was discussed at bedside and on discharge paperwork. Patient and daughter had education on sick with nausea vomiting, upper GI bleed. Patient may have a M allory-Cortes tear, this was discussed at bedside as well. Patient had no significant amount of coffee-ground emesis this morning, patient agrees. Patient feels much better, patient daughter thankful for care Lab Data Labs: Laboratory Results - last 24 hr 04/10/25 04/10/25 04/10/25 07:18 07:55 08:00 WBC 5.4 RBC 4.72 Hgb 14.6 Hct 43.3 MCV 91.7 MCH 30.9 MCHC 33.7 RDW Std Deviation 44.2 H RDW Coeff of Gris 13.1 Plt Count 215 MPV 10.2 Immature Gran % (Auto) 0.200 Neut % (Auto) 56.6 Lymph % (Auto) 28.4 [place] % (Auto) 11.3 H Eos % (Auto) 2.4 Baso % (Auto) 1.1 H Absolute Neuts (auto) 3.0 Absolute Lymphs (auto) 1.53 Nucleated RBC % 0 Sodium 138 Potassium 3.8 Chloride 100 Carbon Dioxide 23.1 Anion Gap 14 BUN 8 Creatinine 1.05 Estim Creat Clear Calc 83.79 Est GFR (MDRD) Non-Af 62 BUN/Creatinine Ratio 8.0 L Glucose 88 Lactic Acid 1.2 Calcium 9.5 Total Bilirubin 1.37 H AST 35 H ALT 31 Alkaline Phosphatase 129 H Troponin T High Sens 7 Total Protein 7.0 Albumin 4.4 Globulin 2.7 Albumin/Globulin Ratio 1.7 Lipase 20 Urine Color Yellow Urine Clarity Sl. Cloudy Urine pH 6.0 Ur Specific [place] 1.020 Urine Protein 30 H Urine Glucose (UA) Normal Urine Ketones Negative Urine Occult Blood Negative Urine Nitrite Negative Urine Bilirubin Negative Urine Urobilinogen Normal Ur Leukocyte Esterase 25 H Urine RBC 0 SEEN Urine WBC 0-5 SEEN Ur Squamous Epith Cells 10-25 SEEN Urine Bacteria RARE Urine Mucus 0 SEEN Radiography Diagnostic Testing: Clinical Impression(s) from Imaging Studies Chest X-Ray 04/10/25 08:15 IMPRESSION: NO ACUTE FINDINGS. Reading Location: [facility] Discharge Plan Triage Chief Complaint: Nausea/Vomiting Other Complaint: GI Bleed ED Provider: Dwight Quick Dx/Rx/DC Orders Clinical Impression: Nausea & vomiting Instructions: ED Cyclic Vomiting Syndrome, ED Diet Vomiting Diarrhea, ED Upper GI Bleeding (Stable) Prescriptions: New promethazine [Promethegan] 25 mg suppository 25 mg RECTAL Q6H PRN PRN (Reason: Nausea) Qty: 6 0RF ondansetron 4 mg tablet,disintegrating 4 mg PO Q8H PRN PRN (Reason: Nausea) Qty: 10 0RF sucralfate 100 mg/mL suspension See Rx Instructions .ROUTE .COMPLEX PRN (Reason: Midepigastric pain) 28 Days Qty: 400 0RF Rx Instructions: 10 mL orally 30 minutes prior to eating or drinking if you are having severe midepigastric pain, nightly as needed PRN No Action ondansetron [ondansetron] 4 MG tablet 4 mg PO Q8H PRN PRN (Reason: Nausea) Qty: 10 0RF Primary Care Provider: Mekhi Shannon MD Referrals: Care Physician,No Primary [Non-Staff, Medical] Activity Restrictions/Additional Instructions: I am not diagnosing you with upper GI bleeding at this time, education was given to you on upper GI bleeding and Rowena-Cortes tear for educational purposes. Information was given to you on cyclic nausea and vomiting for educational purposes as well. Use Zofran as needed for nausea vomiting, use Phenergan suppositories as a backup for nausea and vomiting as well if needed Call your GI specialist as discussed and let them know of your ER visit today to see if they can move up your EGD or colonoscopy from early May. Follow-up with PCP, any other acute concerns return back to the ER. Continue stopping marijuana use Print Language: Estonian Disposition Disposition: Home, Self Care Discharge Date/Time: 04/10/25 10:45
--- NOTE | 2025-04-10 07:39 | EKG12_ITS ---
Test Reason : Blood Pressure : */* mmHG Vent. Rate : 85 BPM Atrial Rate : 85 BPM P-R Int : 184 ms QRS Dur : 94 ms QT Int : 382 ms P-R-T Axes : 61 18 57 degrees QTcB Int : 454 ms Normal sinus rhythm Normal ECG Confirmed by KAYLAH COYLE, KASSI ([id number]), publishing editor MARK WAITE ([id number]) on 04/13/2025 6:04:00 AM Referred By: Confirmed By: KASSI ADRIAN MD
[2025-04-10 08:02] LABS: Hematocrit 43.3 % (37-47); Hemoglobin 14.6 g/dL (12.0-15.0); Immature Granulocytes Count 0.010 X10^3/uL (0.0-0.0); Mean Corp Hgb Conc 33.7 g/dL (32-36); Mean Corpuscular Volume 91.7 fL (81-99); Mean Platelet Vol. 10.2 fl (6.2-12.0); NRBC Flagged by Analyzer 0 % (0-5); Platelet Count 215 K/mm3 (150-450); RBC Distribution Width CV 13.1 % (11.6-14.6); RBC Distribution Width SD 44.2 fl (35.1-43.9); Red Blood Count 4.72 M/mm3 (4.2-5.4); White Blood Count 5.4 K/mm3 (4.4-11.0)
[2025-04-10] MEDS: 0.9% Normal Saline (1000mL) 1,000 ML 1000 ML IV (08:03)
[2025-04-10 08:06] LABS: Mucous, Urine 0 SEEN /hpf (<or=2+); Red Blood Cells-Urine 0 SEEN /hpf (0-5)
[2025-04-10 08:10] LABS: Color, Urine Yellow (Yellow); Glucose, Dipstick Normal (Normal); Ketone-Dipstick Negative (Negative); Leukocyte Esterase-Dipstick 25 /ul (Negative); Nitrite-Dipstick Negative (Negative); Occult Blood-Urine Negative /ul (Negative); Protein-Dipstick 30 mg/dl (Negative); Specific Gravity, Urine 1.020 (1.002-1.030); Urine Bilirubin Dipstick Negative (Negative)
--- NOTE | 2025-04-10 08:15 | RAD_ITS ---
PROCEDURE: CHEST PA AND LATERAL 04/10/2025 REASON FOR EXAM: GI BLEED TECHNIQUE: Procedure Code: RADCXR Modality: DX Procedure: CHEST PA AND LATERAL COMPARISON: None FINDINGS: Hardware: None Heart: The heart size is normal. Mediastinum: The mediastinal contour is unremarkable. Lungs: Mild elevation of the anterior aspect of the right hemidiaphragm. The lungs are clear. Bones: Degenerative changes are identified within the thoracic spine. RAD/Chest PA and Lateral IMPRESSION: NO ACUTE FINDINGS. Reading Location: [place] [id number]
[2025-04-10 08:20] LABS: Squamous Epithelial Cells - UA 10-25 SEEN /hpf (5-10)
[2025-04-10 08:22] LABS: Troponin T High Sensitivity 7 ng/L (<=14)
[2025-04-10 08:25] LABS: AST(SGOT) 35 U/L (<=31); Alanine Aminotransfer ALT/SGPT 31 U/L (<=34); Albumin, Serum 4.4 g/dL (3.5-5.0); Alkaline Phosphatase 129 U/L (35-104); Anion Gap 14 (5-15); BUN 8 mg/dL (4-19); BUN/Creat Ratio 8.0 RATIO (10-20); Calcium,Total 9.5 mg/dL (7.6-11.0); Carbon Dioxide 23.1 mmol/L (21.0-32.0); Chloride 100 mmol/L (98-108); Estimated Creatinine Clearance 83.79 ml/min (50-250); Globulin 2.7 g/dL (2.2-4.2); Glucose 88 mg/dL (70-99); Lipase 20 U/L (13-75); Potassium 3.8 mmol/L (3.3-5.1)
[2025-04-10] MEDS: Pantoprazole Sodium 80 MG in 0.9% Normal Saline (50mL Bag) 15 ML 420 MG IV BOLUS (08:40)
== END 2025-04-10 10:45 | disposition home or self-care (01) ==
PROVIDERS: Emergency Provider Emergency Medicine; Visit Provider Emergency Medicine
DX: R11.2 Nausea with vomiting, unspecified (principal); K92.2 Gastrointestinal hemorrhage, unspecified; K21.9 Gastro-esophageal reflux disease without esophagitis
CPT/HCPCS: 71046; 80053; 81001; 83605; 83690; 84484; 85025; 93005; 96361; 96365; 96375; 99284; A4216; J2405